=== PATIENT | female | born 1945 | race Caucasian/White ===

== ENCOUNTER 2016-11-30 11:15 | Inpatient (IN) | payer MEDICARE, MEDICAID ==
[2016-11-30 11:16] VITALS: BMI 29.8
[2016-11-30] MEDS ORDERED: Albuterol-Ipratrop 3 mg / 0.5 (3 ml) UD IH STA (11:50)
[2016-11-30] MEDS ORDERED: levoFLOXacin 750 mg in D5W 150 ML BAG IVPB STA (12:05)
--- NOTE | 2016-11-30 12:27 | ED PDOC ---
Arrival/HPI - General Chief Complaint: Cough, Cold, Congestion Time Seen by Provider: 11/30/16 11:37 Historian: Patient, Other (daughter) - History of Present Illness Narrative History of Present Illness (Text): 11/30/16 12:29 A 71 year old female, whose past medical history includes diabetes, presents to the emergency department complaining of a cough that developed 3 days ago. Patient's daughter notes patient also has body aches but denies any other complaints at this time. Daughter also reports patient does not smoke. PMD: Dr. Aviles Time/Duration: Other (3 days) Symptom Onset: Sudden Symptom Course: Unchanged Activities at Onset: Rest Context: Home Past Medical History - Provider Review Nursing Documentation Reviewed: Yes - Infectious Disease Hx of Infectious Diseases: None - Tetanus Immunization Tetanus Immunization: Unknown - Cardiac Hx Pacemaker: No - Pulmonary Hx Chronic Obstructive Pulmonary Disease (COPD): Yes - Neurological Hx Paralysis: No - HEENT Hx Cataracts: Yes (WITH SURGERY) Other/Comment: cateract surgery both eyes - Renal Hx Renal Failure: Yes - Endocrine/Metabolic Hx Diabetes Mellitus Type 2: Yes Hx Hypothyroidism: Yes - Hematological/Oncological Hx Blood Transfusions: No - Integumentary Hx Dermatological Disorder: No - Musculoskeletal/Rheumatological Hx Musculoskeletal Disorders: Yes - Gastrointestinal Hx Gastrointestinal Disorders: Yes - Genitourinary/Gynecological Hx Genitourinary Disorders: No Hx Reproductive Disorders: No - Psychiatric Hx Emotional Abuse: No Hx Physical Abuse: No Hx Substance Use: No - Surgical History Hx Hysterectomy: Yes Hx Musculoskeletal Surgery: Yes Hx Orthopedic Surgery: Yes Other/Comment: cataract surgery both eyes - Anesthesia Hx Anesthesia Reactions: No Hx Malignant Hyperthermia: No - Suicidal Assessment Feels Threatened In Home Enviroment: No Family/Social History - Physician Review Nursing Documentation Reviewed: Yes Family/Social History: No Known Family HX Smoking Status: Never Smoked Hx Alcohol Use: No Hx Substance Use: No Hx Substance Use Treatment: No Allergies/Home Meds Allergies/Adverse Reactions: Allergies iodine Allergy (Verified 11/30/16 11:29) ANAPHYLAXIS Home Medications: Home Meds Medication Instructions Recorded Confirmed Pantoprazole [Protonix EC Tab] 40 mg PO DAILY 11/16/14 11/30/16 Montelukast [Singulair] 10 mg PO DAILY 12/04/14 11/30/16 Clopidogrel [Plavix] 75 mg PO DAILY 09/03/15 11/30/16 Ergocalciferol (Vitamin D2) 50,000 iu PO QWK 09/03/15 11/30/16 [Vitamin D2] Insulin Detemir [Levemir Flextouch] 40 units SC ACBD 09/03/15 11/30/16 Simvastatin [Zocor] 20 mg PO DAILY 09/03/15 11/30/16 amLODIPine [Norvasc] 10 mg PO DAILY 09/03/15 11/30/16 Aspirin [Ecotrin] 81 mg PO DAILY 04/12/16 11/30/16 SITagliptin [Januvia] 100 mg PO QAM 04/12/16 11/30/16 Amiodarone Hydrochloride 200 mg PO DAILY 11/30/16 11/30/16 [Cordarone] Sertraline HCl [Zoloft] 150 mg PO HS 11/30/16 11/30/16 Review of Systems - Physician Review All systems were reviewed & negative as marked: Yes - Review of Systems Eyes: Normal ENT: Normal Respiratory: Cough Cardiovascular: Normal Genitourinary Female: Normal Musculoskeletal: Other (body aches) Skin: Normal Neurological: Normal Endocrine: Normal Hemo/Lymphatic: Normal Psychiatric: Normal Physical Exam Vital Signs Reviewed: Yes Vital Signs Temp Pulse Resp BP Pulse Ox 11/30/16 16:00 99.6 F 11/30/16 15:16 75 18 152/65 H 98 11/30/16 13:46 79 18 155/66 H 98 11/30/16 13:34 89 20 140/79 98 11/30/16 12:14 74 18 165/63 H 98 11/30/16 11:26 97.7 F 74 16 169/64 H 97 Temperature: Afebrile Blood Pressure: Hypertensive Pulse: Regular Respiratory Rate: Normal Appearance: Positive for: Well-Appearing, Non-Toxic, Comfortable Pain Distress: None Mental Status: Positive for: Alert and Oriented X 3 - Systems Exam Head: Present: Atraumatic, Normocephalic Pupils: Present: PERRL Extroacular Muscles: Present: EOMI Conjunctiva: Present: Normal Mouth: Present: Moist Mucous Membranes Neck: Present: Normal Range of Motion Respiratory/Chest: Present: Wheezes (scattered). No: Accessory Muscle Use Cardiovascular: Present: Regular Rate and Rhythm, Normal S1, S2. No: Murmurs Abdomen: Present: Normal Bowel Sounds. No: Tenderness, Distention, Peritoneal Signs Back: Present: Normal Inspection Upper Extremity: Present: Normal Inspection. No: Cyanosis, Edema Lower Extremity: Present: Normal Inspection. No: Edema Neurological: Present: GCS=15, CN II-XII Intact, Speech Normal Skin: Present: Warm, Dry, Normal Color. No: Rashes Psychiatric: Present: Alert, Oriented x 3, Normal Insight, Normal Concentration Medical Decision Making ED Course and Treatment: 11/30/16 12:24 Impression: A 71 year old female with cough and body aches. Differential Diagnosis included but are not limited to: Plan: -- EKG -- chest xray -- labs -- Urinalysis -- Influenza A B -- Duoneb, Levaquin -- Reassess and disposition Prior Visits: Notes and results from previous visits were reviewed. Patient last reported to the emergency department on 10/17/15 for evaluation of right ankle, hip and shoulder pain after a fall. Progress Notes: EKG: Ordered, reviewed, and independently interpreted the EKG. Rate : 66 BPM Rhythm : NSR Interpretation : poor tracing, lateral leads chest xray: Creator : Aram Galvez MD 11/30/2016 12:32 IMPRESSION: No active disease. CT Chest without contrast Creator : Aram Galvez MD 11/30/2016 14:38 IMPRESSION: Small irregular nodules seen in the right upper lobe most likely infectious or inflammatory in etiology. Multiple mildly enlarged lymph nodes around the celiac axis. - Lab Interpretations Lab Results: 11/30/16 12:30 11/30/16 12:30 Lab Results 11/30/16 13:25: Urine Color Yellow, Urine Appearance Sl cloudy, Urine pH 7.0, Ur Specific Montara 1.015, Urine Protein 30 H, Urine Glucose (UA) Negative, Urine Ketones Negative, Urine Blood Negative, Urine Nitrate Negative, Urine Bilirubin Negative, Urine Urobilinogen 0.2, Ur Leukocyte Esterase Negative, Urine RBC Negative, Urine WBC 0 - 2, Urine Bacteria Trace 11/30/16 12:55: PT 10.7, INR 0.99, APTT 27.8 11/30/16 12:40: pO2 58 H, VBG pH 7.31 L, VBG pCO2 63.0 H, VBG HCO3 31.7 H, VBG Total CO2 33.6 H, VBG O2 Sat (Calc) 91.4 H, VBG Base Excess 3.6 H, VBG Potassium 5.7 H, Glucose 232 H, Lactate 1.2, FiO2 21.0, Sodium 139.0, Chloride 107.0, Venous Blood Potassium 5.7 H 11/30/16 12:30: Influenza Typ A,B (EIA) Negative for flu a/b 11/30/16 12:30: Sodium 138, Potassium 5.3 H, Chloride 103, Carbon Dioxide 30, Anion Gap 10, BUN 12, Creatinine 0.9, Est GFR ( Amer) > 60, Est GFR (Non- Af Amer) > 60, Random Glucose 224 H, Calcium 8.7, Magnesium 1.9, Total Bilirubin 0.5, AST 49 H, ALT 53, Alkaline Phosphatase 116, Lactate Dehydrogenase 499, Total Creatine Kinase 45, Troponin I < 0.01, NT-Pro-B Natriuret Pep 459 H, Total Protein 6.9, Albumin 3.7, Globulin 3.2, Albumin/ Globulin Ratio 1.2 11/30/16 12:30: WBC 8.7, RBC 3.79, Hgb 10.5 L, Hct 32.9 L, MCV 86.8, MCH 27.7, MCHC 31.9, RDW 13.9, Plt Count 227, MPV 10.3, Gran % 61.6, Lymph % (Auto) 25.9, Woodruff % (Auto) 7.7 H, Eos % (Auto) 4.5, Baso % (Auto) 0.3, Gran # 5.38, Lymph # 2.3, Woodruff # 0.7 H, Eos # 0.4, Baso # 0.03 I have reviewed the lab results: Yes - RAD Interpretation Radiology Orders: 11/30/16 11:49 CHEST PORTABLE [RAD] Stat 11/30/16 13:05 CHEST W/O CONTRAST [CT] Stat - EKG Interpretation Interpreted by ED Physician: Yes Type: 12 lead EKG - Medication Orders Current Medication Orders: Albuterol/Ipratropium (Duoneb 3 Mg/0.5 Mg (3 Ml) Ud) 3 ml IH [id number] PRN PRN Reason: Shortness of Breath Amiodarone HCl (Cordarone) 200 mg PO DAILY [facility] Amlodipine Besylate (Norvasc) 10 mg PO DAILY [facility] Aspirin (Ecotrin) 81 mg PO DAILY [facility] Atorvastatin Calcium (Lipitor) 10 mg PO DIN [facility] Clopidogrel Bisulfate (Plavix) 75 mg PO DAILY [facility] Ergocalciferol (Drisdol 50,000 Intl Units Cap) 1 cap PO QWK [facility] Furosemide (Lasix) 20 mg PO DAILY [facility] Home Med (Home Med) 1 unit IH DAILY [facility] Ceftriaxone Sodium (Rocephin 1 Gram Ivpb) 1 gm in 100 mls @ 100 mls/hr IVPB DAILY [facility] PRN Reason: Protocol Azithromycin (Zithromax 500mg In Ns) 500 mg in 250 mls @ 167 mls/hr IVPB DAILY [facility] PRN Reason: Protocol Insulin Detemir (Levemir) 20 unit SC ACBD [facility] Insulin Human Regular (Humulin R Low) 0 units SC ACHS [facility] PRN Reason: Protocol Levothyroxine Sodium (Synthroid) 88 mcg PO ACB [facility] Losartan Potassium (Cozaar) 100 mg PO DAILY [facility] Montelukast Sodium (Singulair) 10 mg PO DAILY [facility] Pantoprazole Sodium (Protonix Ec Tab) 40 mg PO DAILY [facility] Sertraline HCl (Zoloft) 150 mg PO HS [facility] Sitagliptin Phosphate (Januvia) 100 mg PO QAM [facility] Discontinued Medications Albuterol/Ipratropium (Duoneb 3 Mg/0.5 Mg (3 Ml) Ud) 3 ml IH STAT STA Stop: 11/30/16 11:51 Last Admin: 11/30/16 12:44 Dose: 3 ml Levofloxacin/Dextrose (Levaquin 750mg) 750 mg IVPB STAT STA Stop: 11/30/16 12:06 Last Admin: 11/30/16 12:47 Dose: 750 mg - Scribe Statement The provider has reviewed the documentation as recorded by the Jacey Meléndez Provider Scribe Attestation: All medical record entries made by the Scribelida were at my direction and personally dictated by me. I have reviewed the chart and agree that the record accurately reflects my personal performance of the history, physical exam, medical decision making, and the department course for this patient. I have also personally directed, reviewed, and agree with the discharge instructions and disposition. Disposition/Present on Arrival - Present on Arrival Any Indicators Present on Arrival: No History of DVT/PE: No History of Uncontrolled Diabetes: Yes Urinary Catheter: No History of Decub. Ulcer: No History Surgical Site Infection Following: None - Disposition Have Diagnosis and Disposition been Completed?: Yes Diagnosis: Pneumonia Disposition: HOSPITALIZED Disposition Time: 03:00 Condition: STABLE
--- NOTE | 2016-11-30 12:30 | RAD ---
HISTORY: sob COMPARISON: 03/02/2016 FINDINGS: LUNGS: No active pulmonary disease. PLEURA: No significant pleural effusion identified, no pneumothorax apparent. CARDIOVASCULAR: The heart is normal in size. There is mild vascular congestion OSSEOUS STRUCTURES: No significant abnormalities. VISUALIZED UPPER ABDOMEN: Normal. OTHER FINDINGS: None. IMPRESSION: No active disease.
[2016-11-30 12:41] LABS: ADD MANUAL DIFF? NO
[2016-11-30 12:47] LABS: VENOUS BLOOD GAS BASE EXCESS 3.6 mmol/L (0.0-2.0); VENOUS BLOOD PH 7.31 (7.32-7.43)
[2016-11-30 12:47] LABS: BASO # 0.03 K/mm3 (0.0-2.0); BASO % 0.3 % (0.0-3.0); EOS # 0.4 (0.0-0.7); EOS % 4.5 % (1.5-5.0); GRAN # 5.38 (1.4-6.5); GRAN % 61.6 % (50.0-68.0); HEMATOCRIT 32.9 % (36.0-48.0); LYMPH # 2.3 (1.2-3.4); LYMPH % 25.9 % (22.0-35.0); MEAN CELL VOLUME 86.8 fL (80.0-105.0); MEAN CORPUSCULAR HEMOGLOBIN 27.7 pg (25.0-35.0); MEAN CORPUSCULAR HGB CONC 31.9 g/dl (31.0-37.0); MEAN PLATELET VOLUME 10.3 fl (7.0-11.0); MONO # 0.7 (0.1-0.6); MONO % 7.7 % (1.0-6.0); PLATELET COUNT 227 10^3/uL (120.0-450.0); RED CELL DISTRIBUTION WIDTH 13.9 % (11.5-14.5); WHITE BLOOD COUNT 8.7 10^3/ul (4.5-11.0)
[2016-11-30 12:52] LABS: ALB/GLOB RATIO 1.2 (1.1-1.8); ALKALINE PHOSPHATASE 116 U/L (38-133); ALT/SGPT 53 U/L (7-56); AST/SGOT 49 U/L (15-39); BILIRUBIN,TOTAL 0.5 mg/dL (0.2-1.3); BLOOD UREA NITROGEN 12 mg/dL (7-21); CALCIUM 8.7 mg/dL (8.4-10.5); CARBON DIOXIDE 30 mmol/L (21-33); CHLORIDE 103 mmol/L (98-107); GFR AFRICAN-AMERICAN > 60; GLUCOSE,RANDOM 224 mg/dL (70-110); MAGNESIUM 1.9 mg/dL (1.7-2.2); POTASSIUM 5.3 mmol/L (3.6-5.0); SODIUM 138 mmol/L (132-148); TOTAL PROTEIN 6.9 g/dL (5.8-8.3)
[2016-11-30 13:02] LABS: INR 0.99 (0.93-1.08); PARTIAL THROMBOPLASTIN TIME 27.8 Seconds (23.7-30.8)
[2016-11-30 13:04] LABS: TROPONIN I < 0.01 ng/mL
[2016-11-30 13:36] LABS: URINE BILIRUBIN NEGATIVE (NEGATIVE); URINE BLOOD NEGATIVE (NEGATIVE); URINE GLUCOSE (UA) NEGATIVE (NEGATIVE); URINE KETONE NEGATIVE (NEGATIVE); URINE LEUKOCYTE ESTERASE NEGATIVE Leu/uL (NEGATIVE); URINE PROTEIN 30 mg/dL (<30 mg/dL); URINE UROBILINOGEN 0.2 E.U./dL (<1 E.U./dL)
[2016-11-30 13:37] LABS: URINE APPEARANCE SL CLOUDY (CLEAR); URINE COLOR YELLOW (YELLOW)
[2016-11-30 13:40] LABS: URINE BACTERIA TRACE (NEG); URINE RBC NEGATIVE /hpf (0-2); URINE WBC 0 - 2 /hpf (0-6)
--- NOTE | 2016-11-30 14:36 | CT ---
PROCEDURE: CT Chest without contrast HISTORY: cough r/o pna COMPARISON: None. TECHNIQUE: Contiguous axial images were obtained through the chest without intravenous contrast enhancement. Sagittal and coronal reconstructions were performed. Radiation dose (DLP): 507 mGy-cm. This CT exam was performed using one or more of the following dose reduction techniques: Automated exposure control, adjustment of the mA and/or kV according to patient size, and/or use of iterative reconstruction technique. FINDINGS: LUNGS: Small irregular nodules are seen in the right upper lobe. The largest nodule measures 8 mm and is seen on image 31 series 4. The nodules are most consistent with infectious or inflammatory etiology. Follow-up is recommended. MEDIASTINUM: Unremarkable thoracic aorta. No aneurysm. Normal sized heart. Main pulmonary artery unremarkable. No vascular congestion. No lymphadenopathy. PLEURA: No pleural fluid. No pneumothorax. BONES: No fracture. No destructive lesion. UPPER ABDOMEN: Multiple mildly enlarged lymph nodes are seen around the celiac axis OTHER FINDINGS: None. IMPRESSION: Small irregular nodules seen in the right upper lobe most likely infectious or inflammatory in etiology. Multiple mildly enlarged lymph nodes around the celiac axis
--- NOTE | 2016-11-30 15:51 | CARD ---
APPROVED REPORT EKG Measurement Heart [id number] <Conclusion> Normal sinus rhythm LAD ASMI, age unknown Artifact V5, V6
[2016-11-30] MEDS ORDERED: Albuterol-Ipratrop 3 mg / 0.5 (3 ml) UD IH PRN (17:20)
--- NOTE | 2016-11-30 21:31 | CP.PCM.CON ---
History of Present Illness - History of Present Illness History of Present Illness: Infectious Disease Consultation: November 30, 2016 71 yo female presenting with shortness of breath and lower chest pain. Patient with extensive past medical history with lumbar radiculopathy, hypertension, CVA , renal insufficiency, hypothyroidism, GERD, chronic back pain, COPD. Question of lung masses in the patient. Possible pneumonia. PMHx: lumbar radiculopathy, hypertension, CVA, renal insufficiency, hypothyroidism, GERD, chronic back pain, COPD PSHx: Cataract surgery, hysterectomy, orthopedic surgery Allergies: Iodine Social Hx: No tobacco, EtOH, or illicit drug use Active Medications Albuterol/Ipratropium (Duoneb 3 Mg/0.5 Mg (3 Ml) Ud) 3 ml IH [id number] PRN PRN Reason: Shortness of Breath Amiodarone HCl (Cordarone) 200 mg PO DAILY [facility] Amlodipine Besylate (Norvasc) 10 mg PO DAILY [facility] Aspirin (Ecotrin) 81 mg PO DAILY [facility] Atorvastatin Calcium (Lipitor) 10 mg PO DIN [facility] Clopidogrel Bisulfate (Plavix) 75 mg PO DAILY [facility] Ergocalciferol (Drisdol 50,000 Intl Units Cap) 1 cap PO QWK ARI Furosemide (Lasix) 20 mg PO DAILY [facility] Home Med (Home Med) 1 unit IH DAILY [facility] Ceftriaxone Sodium (Rocephin 1 Gram Ivpb) 1 gm in 100 mls @ 100 mls/hr IVPB DAILY [facility] PRN Reason: Protocol Azithromycin (Zithromax 500mg In Ns) 500 mg in 250 mls @ 167 mls/hr IVPB DAILY [facility] PRN Reason: Protocol Insulin Detemir (Levemir) 20 unit SC ACBD [facility] Insulin Human Regular (Humulin R Low) 0 units SC ACHS [facility] PRN Reason: Protocol Levothyroxine Sodium (Synthroid) 88 mcg PO ACB [facility] Losartan Potassium (Cozaar) 100 mg PO DAILY [facility] Montelukast Sodium (Singulair) 10 mg PO DAILY [facility] Pantoprazole Sodium (Protonix Ec Tab) 40 mg PO DAILY [facility] Sertraline HCl (Zoloft) 150 mg PO 1800 ARI Last Admin: 11/30/16 19:45 Dose: 150 mg Sitagliptin Phosphate (Januvia) 100 mg PO QAM [facility] Family Hx: none given ROS: SOB, cough. No fevers, chest pain, abdominal pain, melena, hematuria, hematemesis, hematochezia, headaches, dizziness. Past Patient History - Infectious Disease Hx of Infectious Diseases: None - Tetanus Immunizations Tetanus Immunization: Unknown - Past Medical History & Family History Past Medical History?: Yes - Past Social History Smoking Status: Never Smoked - CARDIAC Hx Pacemaker: No - PULMONARY Hx Chronic Obstructive Pulmonary Disease (COPD): Yes - NEUROLOGICAL Hx Paralysis: No - HEENT Hx Cataracts: Yes (WITH SURGERY) Other/Comment: cateract surgery both eyes - RENAL Hx Renal Failure: Yes - ENDOCRINE/METABOLIC Hx Diabetes Mellitus Type 2: Yes Hx Hypothyroidism: Yes - HEMATOLOGICAL/ONCOLOGICAL Hx Blood Transfusions: No - INTEGUMENTARY Hx Dermatological Problems: No - MUSCULOSKELETAL/RHEUMATOLOGICAL Hx Musculoskeletal Disorders: Yes - GASTROINTESTINAL Hx Gastrointestinal Disorders: Yes - GENITOURINARY/GYNECOLOGICAL Hx Genitourinary Disorders: No Hx Reproductive Disorders: No - PSYCHIATRIC Hx Emotional Abuse: No Hx Physical Abuse: No Hx Substance Use: No - SURGICAL HISTORY Hx Hysterectomy: Yes Hx Musculoskeletal Surgery: Yes Hx Orthopedic Surgery: Yes Other/Comment: cataract surgery both eyes - ANESTHESIA Hx Anesthesia Reactions: No Hx Malignant Hyperthermia: No Meds Allergies/Adverse Reactions: Allergies Allergy/AdvReac Type Severity Reaction Status Date / Time iodine Allergy ANAPHYLAXIS Verified 11/30/16 11:29 - Medications Medications: Current Medications Albuterol/Ipratropium (Duoneb 3 Mg/0.5 Mg (3 Ml) Ud) 3 ml IH [id number] PRN PRN Reason: Shortness of Breath Amiodarone HCl (Cordarone) 200 mg PO DAILY [facility] Amlodipine Besylate (Norvasc) 10 mg PO DAILY [facility] Aspirin (Ecotrin) 81 mg PO DAILY [facility] Atorvastatin Calcium (Lipitor) 10 mg PO DIN [facility] Clopidogrel Bisulfate (Plavix) 75 mg PO DAILY [facility] Ergocalciferol (Drisdol 50,000 Intl Units Cap) 1 cap PO QWK [facility] Furosemide (Lasix) 20 mg PO DAILY [facility] Home Med (Home Med) 1 unit IH DAILY [facility] Ceftriaxone Sodium (Rocephin 1 Gram Ivpb) 1 gm in 100 mls @ 100 mls/hr IVPB DAILY [facility] PRN Reason: Protocol Azithromycin (Zithromax 500mg In Ns) 500 mg in 250 mls @ 167 mls/hr IVPB DAILY [facility] PRN Reason: Protocol Insulin Detemir (Levemir) 20 unit SC ACBD [facility] Insulin Human Regular (Humulin R Low) 0 units SC ACHS [facility] PRN Reason: Protocol Levothyroxine Sodium (Synthroid) 88 mcg PO ACB [facility] Losartan Potassium (Cozaar) 100 mg PO DAILY [facility] Montelukast Sodium (Singulair) 10 mg PO DAILY [facility] Pantoprazole Sodium (Protonix Ec Tab) 40 mg PO DAILY [facility] Sertraline HCl (Zoloft) 150 mg PO 1800 [facility] Last Admin: 11/30/16 19:45 Dose: 150 mg Sitagliptin Phosphate (Januvia) 100 mg PO QAM [facility] Physical Exam - Constitutional Appears: Non-toxic, Chronically Ill - Head Exam Head Exam: ATRAUMATIC, NORMOCEPHALIC - Eye Exam Eye Exam: EOMI, PERRL Pupil Exam: NORMAL ACCOMODATION, PERRL - ENT Exam ENT Exam: Mucous Membranes Moist, Normal External Ear Exam - Respiratory Exam Respiratory Exam: Clear to Auscultation Bilateral, Rales, NORMAL BREATHING PATTERN. absent: Rhonchi, Wheezes - Cardiovascular Exam Cardiovascular Exam: REGULAR RHYTHM, RRR, +S1, +S2 - GI/Abdominal Exam GI & Abdominal Exam: Normal Bowel Sounds, Soft. absent: Distended, Tenderness - Extremities Exam Extremities exam: Positive for: full ROM, normal inspection - Neurological Exam Neurological exam: Alert, CN II-XII Intact, Oriented x3 - Psychiatric Exam Psychiatric exam: Normal Affect, Normal Mood - Skin Skin Exam: Intact, Normal Color Results - Vital Signs Recent Vital Signs: Last Vital Signs Temp 99.6 F 11/30/16 18:49 Pulse 65 11/30/16 18:49 Resp 20 11/30/16 18:49 BP 170/65 H 11/30/16 18:49 Pulse Ox 95 11/30/16 16:00 - Labs Result Diagrams: 11/30/16 12:30 11/30/16 12:30 Assessment & Plan - Assessment and Plan (Free Text) Assessment: 71 yo female with SOB and cough found to have small irregular nodules in right upper lobe on CT scan. The patient is awake and alert. does most of the answering for her. Supportive care. On Rocephin and Azithromycin. Obtain rader cultures. May need to strengthen antibiotic coverage depending on patient' s response to Rocephin and Azithromycin. Supportive care. Thank you for allowing me to participate in the care of the patient, we will follow with you.
[2016-11-30] MEDS: Insulin Reg-LOW-Coverage SC SCH (22:24)
[2016-11-30] MEDS ORDERED: guaiFENesin DM 200 mg-20 mg/10 ml UD PO STA (22:31)
[2016-12-01 07:34] LABS: ADD MANUAL DIFF? NO
[2016-12-01 07:41] LABS: BASO # 0.02 K/mm3 (0.0-2.0); BASO % 0.2 % (0.0-3.0); EOS # 0.3 (0.0-0.7); EOS % 4.1 % (1.5-5.0); GRAN # 4.51 (1.4-6.5); GRAN % 55.9 % (50.0-68.0); HEMATOCRIT 34.7 % (36.0-48.0); LYMPH # 2.5 (1.2-3.4); LYMPH % 30.9 % (22.0-35.0); MEAN CELL VOLUME 85.9 fL (80.0-105.0); MEAN CORPUSCULAR HEMOGLOBIN 28.2 pg (25.0-35.0); MEAN CORPUSCULAR HGB CONC 32.9 g/dl (31.0-37.0); MEAN PLATELET VOLUME 10.4 fl (7.0-11.0); MONO # 0.7 (0.1-0.6); MONO % 8.9 % (1.0-6.0); PLATELET COUNT 234 10^3/uL (120.0-450.0); RED CELL DISTRIBUTION WIDTH 13.8 % (11.5-14.5); WHITE BLOOD COUNT 8.1 10^3/ul (4.5-11.0)
[2016-12-01 07:50] LABS: ALB/GLOB RATIO 1.1 (1.1-1.8); ALKALINE PHOSPHATASE 120 U/L (38-133); ALT/SGPT 59 U/L (7-56); AST/SGOT 52 U/L (15-39); BILIRUBIN,TOTAL 0.6 mg/dL (0.2-1.3); BLOOD UREA NITROGEN 12 mg/dL (7-21); CALCIUM 9.1 mg/dL (8.4-10.5); CARBON DIOXIDE 30 mmol/L (21-33); CHLORIDE 100 mmol/L (98-107); GFR AFRICAN-AMERICAN > 60; GLUCOSE,RANDOM 150 mg/dL (70-110); POTASSIUM 5.1 mmol/L (3.6-5.0); SODIUM 137 mmol/L (132-148); TOTAL PROTEIN 7.4 g/dL (5.8-8.3)
[2016-12-01] MEDS: Insulin Detemir 100 units/ml Vial (Levemir) SC SCH ×3 (08:35→18:27)
[2016-12-01] MEDS: Insulin Reg-LOW-Coverage SC SCH ×4 (08:35→21:31)
[2016-12-01] MEDS: Levothyroxine 88 MCG TAB PO SCH (09:06)
[2016-12-01] MEDS: cefTRIAXone 1 gm 1 GM/100 ML BAG IVPB SCH (09:06)
[2016-12-01] MEDS: Pantoprazole 40 mg EC Tab PO SCH (09:07)
[2016-12-01] MEDS: BREO IH SCH (09:12)
[2016-12-01] MEDS: guaiFENesin DM 100 mg-10 mg/5 ml UD PO PRN ×3 (10:45→21:48)
[2016-12-01] MEDS: Azithromycin 500MG/NS 250ml 500 MG/250 ML BAG IVPB SCH (10:46)
--- NOTE | 2016-12-01 19:00 | CON ---
DATE: 12/01/2016 REASON FOR CONSULT: Cough, shortness of breath, has a pulmonary infiltrate. HISTORY OF PRESENT ILLNESS: This is a 71-year-old female with past medical history significant for c hronic obstructive lung disease, hypothyroid, renal insufficiency, history of stroke, hypertension, l umbar radiculopathy, comes in with cough, shortness of breath, fever. In the ER, had an x-ray done, which shows questionable infiltrate/mass also had some mediastinal adenopathy, admitted for further w orkup, seen by Dr. Geiger from infectious diseases, presently sitting side of the bed, feels a little be tter, not very compliant with CPAP. Still having cough and shortness of breath. No nausea, no vomit ing, no diarrhea. No leg pain or leg swelling. PAST MEDICAL HISTORY: Chronic obstructive lung disease, obstructive sleep apnea syndrome, hypertensi on, stroke, renal insufficiency, hypothyroid, GERD, lumbar radiculopathy. ALLERGIES: IODINE HAD AN ANAPHYLACTIC SHOCK. SOCIAL HISTORY: She stopped smoking many years ago. Denied any alcohol use. FAMILY HISTORY: No significant cardiopulmonary disease reported. MEDICATIONS: She is on amiodarone 200 mg daily, Cozaar 100 mg daily, vitamin D 50,000 units weekly, DuoNeb q. 6 hours p.r.n., Ecotrin 81 mg daily, insulin coverage, Januvia 100 mg daily, Lasix 40 mg d aily, Levemir 20 units subQ a.c.b., Lipitor 10 mg daily, Norvasc 10 mg daily, Plavix 75 mg daily, Pr otonix 40 mg daily, Robitussin-DM 5 mL q. 8 hours p.r.n., Rocephin 1 gram daily, Singulair 10 mg soha y, Synthroid 88 mcg, Zithromax 500 mg daily, Zoloft 150 mg daily. REVIEW OF SYSTEMS: No headache, no rhinitis. Has a cough and shortness of breath. Pleuritic type c hest pain, no nausea, no vomiting, no dysuria. No leg pain or leg swelling, low back pain. PHYSICAL EXAMINATION: GENERAL: Sitting side of the bed, no acute distress. VITAL SIGNS: Temp is 98, heart rate is 64, respiratory rate is 20, blood pressure 151/56, pulse ox 9 5% on nasal cannula. HEENT: Moist mucous membranes. Crowded airway. Mallampati score is 4. NECK: Supple. No JVD. LUNGS: Has scattered rhonchi a few crackles at the bases. HEART: S1, S2. ABDOMEN: Soft, nontender. No organomegaly. EXTREMITIES: There is not much edema. NEUROLOGIC: Awake, alert, follows simple commands. LABORATORY DATA: Shows hemoglobin 11.4, hematocrit 34.7, WBC 8.1, and platelet is 234. INR 0.9, PTT is 28. VBG showed pH 7.31, pCO2 is 63, pO2 is 58 that is yesterday on room air. Sodium 137, potass ium 5.1, chloride 100, bicarbonate 30, BUN 12, creatinine 0.8, glucose 150, calcium 9.1, AST 52, ALT 59, alk phos is 120, albumin is 3.9. Microbiology: Blood cultures have been negative. Had echocard iogram done, report is pending. CT of the chest was done yesterday, which shows small irregular nodu le seen in the right upper lobe, most likely infectious or inflammatory etiology, multiple mildly enl arged lymph nodes around the celiac axis noted. IMPRESSION AND PLAN: Chronic obstructive lung disease, has a lung nodule, rule out pneumonia, histor y of obstructive sleep apnea syndrome, history of cerebrovascular accident, hypertension, lumbar radi culopathy, hypothyroid. Agree with Dr. Aviles with the present management. Continue antibiotics, in haled bronchodilators. CPAP while sleeping. Gastric prophylaxis, deep venous thrombosis prophylaxis . CT scan of the abdomen and pelvis was ordered, it was placed on hold because patient CANNOT TAKE I ODINE SHE HAS ANAPHYLACTIC SHOCK LAST TIME and she has already. We will do followup CAT scan of the chest to assure the stability of the nodule. Thank you and will follow with you. Homer Sawant MD cc: [id number] TT: 12/01/2016 18:59:34 Confirmation # [id number] Dictation # [id number]
[2016-12-01] MEDS: Budesonide 0.5 mg/2 ml Inhal Susp UD IH SCH (20:30)
[2016-12-01] MEDS: Arformoterol 15 mcg/2 ml Inh Sol IH SCH (20:30)
--- NOTE | 2016-12-01 21:53 | CP.PCM.PN ---
Subjective - Date & Time of Evaluation Date of Evaluation: 12/01/16 Time of Evaluation: 20:00 - Subjective Subjective: Infectious Disease Follow Up: December 01, 2016 71 yo female presenting with shortness of breath and lower chest pain. Patient with extensive past medical history with lumbar radiculopathy, hypertension, CVA , renal insufficiency, hypothyroidism, GERD, chronic back pain, COPD. Question of lung masses in the patient. Possible pneumonia. She feels a little better today. Objective - Vital Signs/Intake and Output Vital Signs (last 24 hours): Temp Pulse Resp BP Pulse Ox 98.9 F 56 L 20 129/49 L 98 12/01/16 18:00 12/01/16 18:00 12/01/16 18:00 12/01/16 18:00 12/01/16 18:00 - Medications Medications: Current Medications Albuterol/Ipratropium (Duoneb 3 Mg/0.5 Mg (3 Ml) Ud) 3 ml IH [id number] PRN PRN Reason: Shortness of Breath Amiodarone HCl (Cordarone) 200 mg PO DAILY [facility] Last Admin: 12/01/16 09:07 Dose: 200 mg Amlodipine Besylate (Norvasc) 10 mg PO DAILY [facility] Last Admin: 12/01/16 09:07 Dose: 10 mg Arformoterol Tartrate (Brovana) 15 mcg IH [id number] [facility] Last Admin: 12/01/16 20:30 Dose: 15 mcg Aspirin (Ecotrin) 81 mg PO DAILY [facility] Last Admin: 12/01/16 09:07 Dose: 81 mg Atorvastatin Calcium (Lipitor) 10 mg PO DIN [facility] Last Admin: 12/01/16 18:25 Dose: 10 mg Budesonide (Pulmicort Respules) 0.5 mg IH [id number] [facility] Last Admin: 12/01/16 20:30 Dose: 0.5 mg Clopidogrel Bisulfate (Plavix) 75 mg PO DAILY [facility] Last Admin: 12/01/16 09:07 Dose: 75 mg Ergocalciferol (Drisdol 50,000 Intl Units Cap) 1 cap PO QWK [facility] Furosemide (Lasix) 20 mg PO DAILY [facility] Last Admin: 12/01/16 09:12 Dose: Not Given Guaifenesin/Dextromethorphan (Robitussin Dm) 5 ml PO Q8H PRN PRN Reason: Cough Last Admin: 12/01/16 13:27 Dose: 5 ml Home Med (Home Med) 1 unit IH DAILY [facility] Last Admin: 12/01/16 09:12 Dose: Not Given Ceftriaxone Sodium (Rocephin 1 Gram Ivpb) 1 gm in 100 mls @ 100 mls/hr IVPB DAILY [facility] PRN Reason: Protocol Last Admin: 12/01/16 09:06 Dose: 100 mls/hr Azithromycin (Zithromax 500mg In Ns) 500 mg in 250 mls @ 167 mls/hr IVPB DAILY [facility] PRN Reason: Protocol Last Admin: 12/01/16 10:46 Dose: 167 mls/hr Insulin Detemir (Levemir) 20 unit SC ACBD [facility] Last Admin: 12/01/16 18:27 Dose: 20 unit Insulin Human Regular (Humulin R Low) 0 units SC ACHS [facility] PRN Reason: Protocol Last Admin: 12/01/16 21:31 Dose: Not Given Levothyroxine Sodium (Synthroid) 88 mcg PO ACB [facility] Last Admin: 12/01/16 09:06 Dose: 88 mcg Losartan Potassium (Cozaar) 100 mg PO DAILY [facility] Last Admin: 12/01/16 09:07 Dose: 100 mg Montelukast Sodium (Singulair) 10 mg PO DAILY [facility] Last Admin: 12/01/16 09:07 Dose: 10 mg Pantoprazole Sodium (Protonix Ec Tab) 40 mg PO DAILY [facility] Last Admin: 12/01/16 09:07 Dose: 40 mg Sertraline HCl (Zoloft) 150 mg PO 1800 [facility] Last Admin: 12/01/16 18:25 Dose: 150 mg Sitagliptin Phosphate (Januvia) 100 mg PO QAM [facility] Last Admin: 12/01/16 11:02 Dose: 100 mg - Labs Labs: 12/01/16 07:32 12/01/16 07:32 PT 10.7 Seconds (9.9-11.8) 11/30/16 12:55 INR 0.99 (0.93-1.08) 11/30/16 12:55 APTT 27.8 Seconds (23.7-30.8) 11/30/16 12:55 - Constitutional Appears: Non-toxic, Chronically Ill - Head Exam Head Exam: ATRAUMATIC, NORMOCEPHALIC - Eye Exam Eye Exam: EOMI, PERRL Pupil Exam: NORMAL ACCOMODATION, PERRL - ENT Exam ENT Exam: Mucous Membranes Moist, Normal External Ear Exam, TM's Normal Bilaterally - Neck Exam Neck Exam: Full ROM, Normal Inspection - Respiratory Exam Respiratory Exam: Decreased Breath Sounds, Rhonchi, NORMAL BREATHING PATTERN. absent: Rales, Wheezes Additional comments: basilar rhonchi - Cardiovascular Exam Cardiovascular Exam: REGULAR RHYTHM, RRR, +S1, +S2 - GI/Abdominal Exam GI & Abdominal Exam: Soft, Normal Bowel Sounds. absent: Distended, Tenderness - Extremities Exam Extremities Exam: Full ROM, Normal Inspection - Neurological Exam Neurological Exam: Alert, Awake, CN II-XII Intact, Oriented x3 - Psychiatric Exam Psychiatric exam: Normal Affect, Normal Mood - Skin Skin Exam: Intact, Normal Color Assessment and Plan - Assessment and Plan (Free Text) Assessment: 71 yo female with SOB and cough found to have small irregular nodules in right upper lobe on CT scan. The patient is awake and alert. does most of the answering for her. Supportive care. On Rocephin and Azithromycin. Obtain rader cultures. May need to strengthen antibiotic coverage depending on patient' s response to Rocephin and Azithromycin. Today she appears comfortable on RA with little SOB. Supportive care. Thank you for allowing me to participate in the care of the patient, we will follow with you.
[2016-12-02] MEDS: Budesonide 0.5 mg/2 ml Inhal Susp UD IH SCH ×2 (07:44→20:50)
[2016-12-02] MEDS: Arformoterol 15 mcg/2 ml Inh Sol IH SCH ×2 (07:44→20:50)
[2016-12-02 07:47] LABS: ADD MANUAL DIFF? NO
[2016-12-02 07:54] LABS: BASO # 0.02 K/mm3 (0.0-2.0); BASO % 0.3 % (0.0-3.0); EOS # 0.3 (0.0-0.7); EOS % 4.4 % (1.5-5.0); GRAN # 3.77 (1.4-6.5); GRAN % 56.6 % (50.0-68.0); HEMATOCRIT 33.1 % (36.0-48.0); LYMPH # 1.9 (1.2-3.4); LYMPH % 29.2 % (22.0-35.0); MEAN CELL VOLUME 86.2 fL (80.0-105.0); MEAN CORPUSCULAR HEMOGLOBIN 27.9 pg (25.0-35.0); MEAN CORPUSCULAR HGB CONC 32.3 g/dl (31.0-37.0); MEAN PLATELET VOLUME 10.3 fl (7.0-11.0); MONO # 0.6 (0.1-0.6); MONO % 9.5 % (1.0-6.0); PLATELET COUNT 223 10^3/uL (120.0-450.0); RED CELL DISTRIBUTION WIDTH 13.9 % (11.5-14.5); WHITE BLOOD COUNT 6.7 10^3/ul (4.5-11.0)
[2016-12-02 08:07] LABS: ALB/GLOB RATIO 1.2 (1.1-1.8); ALKALINE PHOSPHATASE 112 U/L (38-133); ALT/SGPT 55 U/L (7-56); AST/SGOT 41 U/L (15-39); BILIRUBIN,TOTAL 0.3 mg/dL (0.2-1.3); BLOOD UREA NITROGEN 18 mg/dL (7-21); CALCIUM 8.6 mg/dL (8.4-10.5); CARBON DIOXIDE 28 mmol/L (21-33); CHLORIDE 102 mmol/L (95-110); GFR AFRICAN-AMERICAN > 60; GLUCOSE,RANDOM 205 mg/dL (70-110); POTASSIUM 4.9 mmol/L (3.6-5.0); SODIUM 137 mmol/L (132-148); TOTAL PROTEIN 6.5 g/dL (5.8-8.3)
[2016-12-02] MEDS: Insulin Detemir 100 units/ml Vial (Levemir) SC SCH ×2 (08:11→17:27)
[2016-12-02] MEDS: Levothyroxine 88 MCG TAB PO SCH (08:11)
[2016-12-02] MEDS: Insulin Reg-LOW-Coverage SC SCH ×4 (08:11→22:50)
--- NOTE | 2016-12-02 09:00 | HP ---
CHIEF COMPLAINT: Coughing, cold, congestion, shortness of breath. HISTORY OF PRESENT ILLNESS: The patient is a 71-year-old female with past medical history of diabetes mellitus, hypertension, hypercholesterolemia, CVA, and hypothyroidism who came to the Emergency Room of [facility] complaining about cough that was a few days ago. The patient's daughter noticed the patient is also having body aches, but denies diarrhea or other complaint. Daughter reports that the patient does not smoke. No fever, no chills. PAST MEDICAL HISTORY: COPD, renal failure, diabetes mellitus type 2, hypothyroidism, hysterectomy, history of stroke. FAMILY HISTORY: Father and mother noncontributory. HABITS: Never smoked, no drugs, no ethanol. ALLERGIES: IODINE. HOME MEDICATIONS: Protonix, Singulair, Plavix, vitamin D, Levemir, Zocor, Norvasc, Ecotrin, Januvia, Cordarone, Zoloft. REVIEW OF SYSTEMS: The patient is seen and examined on the bedside in the room , looks comfortable. No nausea, vomiting, or diarrhea. No hematuria or hematochezia. Still coughing with coughing having chest pain, shortness of breath. No fever, no chills. PHYSICAL EXAMINATION: VITAL SIGNS: Temperature is 98.8, pulse 56, blood pressure 120/46, respiratory rate 20. HEENT: Head normocephalic, atraumatic. Eyes: PERRLA. Extraocular muscles intact. Conjunctivae are pale. Nose is patent. Mucous membranes are moist. NECK: Supple. No carotid bruit, JVD, or thyromegaly. CHEST: Bilaterally symmetrical. HEART: S1, S2 positive. LUNGS: Clear to auscultation. ABDOMEN: Soft. Bowel sounds positive. No organomegaly. EXTREMITIES: No edema, no cyanosis. NEUROLOGIC: The patient is awake, alert, moving all 4 extremities. No focal deficit. LABORATORY DATA: White blood cells 8.1, hemoglobin 11.4, hematocrit 34.7, platelets 234. Sodium 137, potassium 5.1. BUN 12, creatinine 0.8. Glucose 170 , 132, 186, AST 52, ALT 59. ASSESSMENT AND PLAN: The patient is a 71-year-old lady with hyperkalemia, uncontrolled diabetes mellitus, abnormal liver function test, anemia, proteinuria, and are negative. Seen by Dr. Sawant, appointment manager, and Dr. Geiger. CAT scan of the chest is done. The patient has history of chronic obstructive lung disease with sleep apnea syndrome, hypertension, stroke, renal insufficiency, hypothyroidism, gastroesophageal reflux disease, lumbar radiculopathy, pneumonia. Continue antibiotics and inhaled bronchodilators. CPAP when sleeping, gastric prophylaxis, deep vein thrombosis prophylaxis. Dr. Sawant ordered a CAT scan of the abdomen and pelvis with contrast, but it was held because the patient CANNOT TAKE IODINE. She has ANAPHYLACTIC SHOCK WITH THE IODINE, last done in [facility] code. CAT scan of the chest was done without contrast to assure the stability of the nodules. Small irregular nodule seen in the right upper lobe, most likely infectious or inflammatory etiology, multiple mildly enlarged lymph nodes around the celiac axis, seen by Dr. Geiger, infectious disease also. The patient was on Rocephin and azithromycin. Obtain rader cultures. May need antibiotic coverage depending on the patient' s response to Rocephin and erythromycin. The patient was still coughing. With coughing, she is getting chest pain. I gave her Robitussin without codeine. Supportive care. We will follow up. Michelle Aviles MD cc: [id number] TT: 12/02/2016 08:59:30 jn [id number]
[2016-12-02] MEDS: Pantoprazole 40 mg EC Tab PO SCH (09:04)
[2016-12-02] MEDS: cefTRIAXone 1 gm 1 GM/100 ML BAG IVPB SCH (09:04)
[2016-12-02] MEDS: BREO IH SCH (09:09)
--- NOTE | 2016-12-02 09:43 | CARD ---
APPROVED REPORT EXAM: Two-dimensional and M-mode echocardiogram with Doppler and color Doppler. Other Information Quality : AverageRhythm : INDICATION R/O SBE 2D DIMENSIONS IVSd1.0 (0.7-1.1cm)LVDd5.0 (3.9-5.9cm) PWd0.8 (0.7-1.1cm)LVDs3.2 (2.5-4.0cm) FS (%) 35.3 %LVEF (%)64.0 (>50%) M-Mode DIMENSIONS Left Atrium (MM)3.80 (2.5-4.0cm)Aortic Root2.30 (2.2-3.7cm) Aortic Cusp Exc.1.40 (1.5-2.0cm) Aortic Valve AoV Peak Wqttosxc953.0cm/sAoV VTI53.3cmLVOT Peak Bfwhrrnx406.0cm/s LVOT VTI33.10cm Mitral Valve MV E Dqzabfid128.0cm/sMV A Ukrzsvyz838.0cm/sE/A ratio0.8 TDI Lateral E' Peak V8.19cm/sMedial E' Peak V6.53cm/sE/Lateral E'14.7 E/Medial E'18.4 Tricuspid Valve TR Peak Ehtbhohe018qx/sRAP YITUVSJL34usXzRS Peak Gr.32mmHg [id number] LEFT VENTRICLE The left ventricle is normal size. There is normal left ventricular wall thickness. The left ventricular function is normal. The left ventricular ejection fraction is within the normal range. There is normal LV segmental wall motion. RIGHT VENTRICLE The right ventricle is normal size. ATRIA The left atrium size is normal. The right atrium size is normal. The interatrial septum is intact with no evidence for an atrial septal defect. AORTIC VALVE The aortic valve is mildly calcified. MITRAL VALVE The mitral valve is mildly thickened but opens well. Mitral annular calcification is moderate. TRICUSPID VALVE The tricuspid valve is normal in structure. There is trace tricuspid regurgitation. PULMONIC VALVE The pulmonic valve is not well visualized. GREAT VESSELS The aortic root is normal in size. PERICARDIAL EFFUSION There is no pericardial effusion. <Conclusion> The left ventricle is normal size. There is normal left ventricular wall thickness. The left ventricular function is normal.
[2016-12-02] MEDS: Azithromycin 500MG/NS 250ml 500 MG/250 ML BAG IVPB SCH (10:44)
[2016-12-02] MEDS: Albuterol-Ipratrop 3 mg / 0.5 (3 ml) UD IH SCH ×4 (14:06→23:30)
[2016-12-02] MEDS ORDERED: MethylPREDNISolone 40 mg Vial IVP SCH (18:00)
--- NOTE | 2016-12-02 18:04 | PN ---
DATE: 12/02/2016 REFERRING PHYSICIAN: Dr. Aviles. SUBJECTIVE: The patient is lying in the bed, head at 45 degrees. Has some cough and shortness of br eath. No chest pain, no nausea, no vomiting, no diarrhea. No dysuria, leg pain or leg swelling. OBJECTIVE: GENERAL: No acute distress. VITAL SIGNS: Temp is 98, heart rate is 70, respiratory rate is 20, blood pressure 143/46, pulse ox 9 5% on room air. HEENT: Small oral cavity, edentulous. NECK: Supple. No JVD. LUNGS: Has scattered rhonchi. HEART: S1 and S2. ABDOMEN: Soft, nontender. No organomegaly. EXTREMITIES: No edema. NEUROLOGIC: Awake, alert, follows simple commands. MEDICATIONS: She is on Brovana inhaled twice a day, amiodarone 200 mg daily, Cozaar 100 mg daily, vi tamin D weekly, DuoNeb q. 4 hours p.r.n., Ecotrin 81 mg daily, Januvia 100 mg daily, Lasix 20 mg soha y, Levemir 20 units subQ a.c.b.d., Lipitor 10 mg daily, Norvasc 10 mg daily, Plavix 75 mg daily, Prot maria eugenia 40 mg daily, Pulmicort inhaled twice a day, Robitussin 5 mL q. 4 hours p.r.n., Rocephin 1 g IV d aily, Singulair 10 mg daily, Solu-Medrol 40 mg q. 6 hours, Synthroid 88 mcg a.c.b., Zithromax 500 mg daily, Zoloft 150 mg daily. LABORATORY DATA: Shows hemoglobin 10.7, hematocrit 33.1, WBC 6.7, platelet count is 223. Sodium 137 , potassium 4.9, chloride 102, bicarbonate 28, BUN 18, creatinine 0.9, glucose 205, calcium 8.6, AST 41, ALT 55, alk phos is 115. Albumin is 3.4. TSH 1.89. Microbiology: Blood cultures have been neg ative. Had echocardiogram done yesterday, which shows right ventricular systolic pressure is 42, lef t ventricle is normal size. There is normal left ventricular wall thickness, left ventricular functi on is normal. Left atrium size is normal, right atrium size is normal. IMPRESSION AND PLAN: Chronic obstructive lung disease, some lung nodules, rule out pneumonia, histor y of obstructive sleep apnea syndrome, history of cerebrovascular accident, hypertension, lumbar radi culopathy, hypothyroid, mild pulmonary hypertension. We will decrease Solu-Medrol to 40 q. 8 hours. Continue antibiotics, gastric prophylaxis, deep venous thrombosis prophylaxis. Will need followup C AT scan to assure that nodule is stable or disappeared. Could not give iodine because patient has an aphylactic shock with IV iodine in the past. Follow up labs in the morning. We will follow with you . Homer Sawant MD cc: [id number] TT: 12/02/2016 18:04:11 Confirmation # [id number] Dictation # [id number] gwyn
--- NOTE | 2016-12-02 18:26 | CP.PCM.PN ---
Subjective - Date & Time of Evaluation Date of Evaluation: 12/02/16 Time of Evaluation: 15:15 - Subjective Subjective: Infectious Disease Follow Up: December 02, 2016 71 yo female presenting with shortness of breath and lower chest pain. Patient with extensive past medical history with lumbar radiculopathy, hypertension, CVA , renal insufficiency, hypothyroidism, GERD, chronic back pain, COPD. Question of lung masses in the patient. Possible pneumonia. She feels a little better today. She is on room air without any major issues. Objective - Vital Signs/Intake and Output Vital Signs (last 24 hours): Temp Pulse Resp BP Pulse Ox 99.3 F 70 18 143/46 L 95 12/02/16 17:00 12/02/16 17:00 12/02/16 17:00 12/02/16 17:00 12/02/16 16:49 Intake and Output: 12/02/16 12/02/16 06:59 18:59 Intake Total 240 Balance 240 - Medications Medications: Current Medications Albuterol/Ipratropium (Duoneb 3 Mg/0.5 Mg (3 Ml) Ud) 3 ml IH [id number] [facility] Last Admin: 12/02/16 15:50 Dose: Not Given Amiodarone HCl (Cordarone) 200 mg PO DAILY [facility] Last Admin: 12/02/16 09:05 Dose: 200 mg Amlodipine Besylate (Norvasc) 10 mg PO DAILY [facility] Last Admin: 12/02/16 09:04 Dose: 10 mg Arformoterol Tartrate (Brovana) 15 mcg IH [id number] [facility] Last Admin: 12/02/16 07:44 Dose: 15 mcg Aspirin (Ecotrin) 81 mg PO DAILY [facility] Last Admin: 12/02/16 09:05 Dose: 81 mg Atorvastatin Calcium (Lipitor) 10 mg PO DIN [facility] Last Admin: 12/02/16 17:27 Dose: 10 mg Budesonide (Pulmicort Respules) 0.5 mg IH [id number] [facility] Last Admin: 12/02/16 07:44 Dose: 0.5 mg Clopidogrel Bisulfate (Plavix) 75 mg PO DAILY [facility] Last Admin: 12/02/16 09:04 Dose: 75 mg Ergocalciferol (Drisdol 50,000 Intl Units Cap) 1 cap PO QWK [facility] Furosemide (Lasix) 20 mg PO DAILY [facility] Last Admin: 12/02/16 09:09 Dose: Not Given Guaifenesin/Dextromethorphan (Robitussin Dm) 5 ml PO Q4H PRN PRN Reason: Cough Home Med (Home Med) 1 unit IH DAILY [facility] Last Admin: 12/02/16 09:09 Dose: Not Given Ceftriaxone Sodium (Rocephin 1 Gram Ivpb) 1 gm in 100 mls @ 100 mls/hr IVPB DAILY [facility] PRN Reason: Protocol Last Admin: 12/02/16 09:04 Dose: 100 mls/hr Azithromycin (Zithromax 500mg In Ns) 500 mg in 250 mls @ 167 mls/hr IVPB DAILY [facility] PRN Reason: Protocol Last Admin: 12/02/16 10:44 Dose: 167 mls/hr Insulin Detemir (Levemir) 20 unit SC ACBD [facility] Last Admin: 12/02/16 17:27 Dose: 20 unit Insulin Human Regular (Humulin R Low) 0 units SC ACHS [facility] PRN Reason: Protocol Last Admin: 12/02/16 17:27 Dose: 2 units Levothyroxine Sodium (Synthroid) 88 mcg PO ACB [facility] Last Admin: 12/02/16 08:11 Dose: 88 mcg Losartan Potassium (Cozaar) 100 mg PO DAILY [facility] Last Admin: 12/02/16 09:05 Dose: 100 mg Methylprednisolone (Solu-Medrol) 40 mg IVP Q8 [facility] Montelukast Sodium (Singulair) 10 mg PO DAILY [facility] Last Admin: 12/02/16 09:05 Dose: 10 mg Pantoprazole Sodium (Protonix Ec Tab) 40 mg PO DAILY [facility] Last Admin: 12/02/16 09:04 Dose: 40 mg Sertraline HCl (Zoloft) 150 mg PO 1800 [facility] Last Admin: 12/02/16 17:27 Dose: 150 mg Sitagliptin Phosphate (Januvia) 100 mg PO QAM [facility] Last Admin: 12/02/16 09:04 Dose: 100 mg - Labs Labs: 12/02/16 07:00 12/02/16 07:00 PT 10.7 Seconds (9.9-11.8) 11/30/16 12:55 INR 0.99 (0.93-1.08) 11/30/16 12:55 APTT 27.8 Seconds (23.7-30.8) 11/30/16 12:55 - Constitutional Appears: Non-toxic, No Acute Distress, Chronically Ill - Head Exam Head Exam: ATRAUMATIC, NORMOCEPHALIC - Eye Exam Eye Exam: EOMI, PERRL Pupil Exam: NORMAL ACCOMODATION, PERRL - ENT Exam ENT Exam: Mucous Membranes Moist, Normal External Ear Exam, TM's Normal Bilaterally - Neck Exam Neck Exam: Full ROM, Normal Inspection - Respiratory Exam Respiratory Exam: Decreased Breath Sounds, Rhonchi, NORMAL BREATHING PATTERN. absent: Rales, Wheezes Additional comments: mild basilar rhonchi. - Cardiovascular Exam Cardiovascular Exam: REGULAR RHYTHM, RRR, +S1, +S2 - GI/Abdominal Exam GI & Abdominal Exam: Soft, Normal Bowel Sounds. absent: Distended, Tenderness - Extremities Exam Extremities Exam: Full ROM, Normal Inspection - Neurological Exam Neurological Exam: Alert, Awake, CN II-XII Intact, Oriented x3 - Psychiatric Exam Psychiatric exam: Normal Affect, Normal Mood - Skin Skin Exam: Intact, Normal Color Assessment and Plan - Assessment and Plan (Free Text) Assessment: 71 yo female with SOB and cough found to have small irregular nodules in right upper lobe on CT scan. The patient is awake and alert. does most of the answering for her. Supportive care. On Rocephin and Azithromycin. Obtain rader cultures. May need to strengthen antibiotic coverage depending on patient' s response to Rocephin and Azithromycin. Today she appears comfortable on RA with little SOB at this time. Will need reimaging in the future to reassess the lung masses/nodules. Supportive care. Thank you for allowing me to participate in the care of the patient, we will follow with you.
[2016-12-02] MEDS: MethylPREDNISolone 40 mg Vial IVP SCH (22:50)
[2016-12-02] MEDS: guaiFENesin DM 100 mg-10 mg/5 ml UD PO PRN (23:00)
[2016-12-03] MEDS: Albuterol-Ipratrop 3 mg / 0.5 (3 ml) UD IH SCH ×5 (03:58→20:42)
[2016-12-03] MEDS: guaiFENesin DM 100 mg-10 mg/5 ml UD PO PRN ×2 (06:18→13:27)
[2016-12-03] MEDS: MethylPREDNISolone 40 mg Vial IVP SCH ×2 (06:18→13:28)
--- NOTE | 2016-12-03 07:38 | PN ---
DATE: 12/02/2016 The patient is a 71-year-old female. The patient is coughing. According to her, with cough, she is getting shortness of breath and getting chest pain. No nausea, vomiting, diarrhea. No dysuria, no fever, no chills, no headache, no dizziness. PHYSICAL EXAMINATION: VITAL SIGNS: Temperature 98.2, heart rate 70, respiratory rate 18, blood pressure 140/46, pulse oximetry 95% on room air. HEENT: Head normocephalic, atraumatic. Eyes: PERRLA. Extraocular muscles intact. Conjunctivae clear. Nose patent. Mucous membranes moist. NECK: Supple. No carotid bruit, no JVD, no thyromegaly. CHEST: Bilaterally symmetrical. HEART: S1, S2 positive. LUNGS: Has scattered rhonchi. ABDOMEN: Soft, nontender. No organomegaly. EXTREMITIES: No edema, no cyanosis. NEUROLOGIC: The patient is awake, alert, follows simple commands. MEDICATIONS: Brovana, amiodarone, Cozaar, vitamin D, DuoNeb, Ecotrin, Januvia, Lasix, Levemir, Lipitor, Norvasc, Plavix, Protonix, Pulmicort, Robitussin, Rocephin, Singulair, Solu-Medrol started today, Synthroid, Zithromax, Zoloft. LABORATORIES: Hemoglobin 10.7, hematocrit 23.1, white blood cells 6.7, platelets 223. Sodium 137, potassium 4.9, BUN noted , creatinine 0.9, AST 41, ALT 55. TSH 1.89. ASSESSMENT AND PLAN: The patient is a 71-year-old lady with chronic obstructive lung disease, lung densities, pneumonia, bronchitis, obstructive sleep apnea syndrome, hypothyroidism, history of cerebrovascular accident, insulin-dependent diabetes mellitus, not controlled, history of hypertension, lumbar radiculopathy, pulmonary hypertension. The patient was still coughing, shortness of breath. I started today Solu-Medrol. Continue antibiotics. Gastric prophylaxis. Deep venous thrombosis prophylaxis. Need CAT scan to assure the nodule stability or disappearance. Will not give iodine because the patient had ANA[facility]LACTIC RE[facility]. Cough medication is given. Computer Processing Scheduler is on the case. ID is on the case. CAT scan of the chest done, reviewed. Echocardiography done, read by Dr. Wilner Maharaj. Will follow up. Michelle Aviles MD cc: [id number] TT: 12/03/2016 07:37:38 Confirmation # [id number] Dictation # [id number] [place]AIL[place]
[2016-12-03] MEDS ORDERED: Barium Sulfate Susp 2.1% w/v, 2.0% w/w 450 mL Bottle PO ONE (07:41)
[2016-12-03] MEDS: Arformoterol 15 mcg/2 ml Inh Sol IH SCH ×2 (07:59→20:42)
[2016-12-03] MEDS: Budesonide 0.5 mg/2 ml Inhal Susp UD IH SCH ×2 (08:00→20:42)
[2016-12-03] MEDS: Insulin Reg-LOW-Coverage SC SCH ×3 (08:17→17:17)
[2016-12-03] MEDS: Insulin Detemir 100 units/ml Vial (Levemir) SC SCH ×2 (08:17→17:17)
[2016-12-03] MEDS: Levothyroxine 88 MCG TAB PO SCH (08:18)
[2016-12-03] MEDS: Pantoprazole 40 mg EC Tab PO SCH (09:34)
[2016-12-03] MEDS: cefTRIAXone 1 gm 1 GM/100 ML BAG IVPB SCH (09:35)
[2016-12-03] MEDS: BREO IH SCH (09:36)
[2016-12-03] MEDS: Azithromycin 500MG/NS 250ml 500 MG/250 ML BAG IVPB SCH (10:17)
--- NOTE | 2016-12-03 12:12 | CT ---
PROCEDURE: CT Abdomen and Pelvis without intravenous contrast HISTORY: lymphadanapathy COMPARISON: 09/07/15. TECHNIQUE: Technique. Contrast Dose: Radiation dose: Total exam DLP = 786 mGy-cm. This CT exam was performed using one or more of the following dose reduction techniques: Automated exposure control, adjustment of the mA and/or kV according to patient size, and/or use of iterative reconstruction technique. FINDINGS: LOWER THORAX: Unremarkable. LIVER: Unremarkable. No gross lesion or ductal dilatation. GALLBLADDER AND BILE DUCTS: Unremarkable. PANCREAS: Unremarkable. No gross lesion or ductal dilatation. SPLEEN: Unremarkable. ADRENALS: Unremarkable. No mass. KIDNEYS AND URETERS: Unremarkable. No hydronephrosis. No solid mass. VASCULATURE: Unremarkable. No aortic aneurysm. BOWEL: Unremarkable. No obstruction. No gross mural thickening. APPENDIX: Unremarkable. Normal appendix. PERITONEUM: Unremarkable. No free fluid. No free air. LYMPH NODES: Unremarkable. No enlarged lymph nodes. BLADDER: Unremarkable. REPRODUCTIVE: Status post hysterectomy.. BONES: No acute fracture. OTHER FINDINGS: None. IMPRESSION: Unremarkable non contrast enhanced CT of the abdomen and pelvis.
--- NOTE | 2016-12-03 17:54 | CP.PCM.PN ---
Subjective - Date & Time of Evaluation Date of Evaluation: 12/03/16 Time of Evaluation: 16:15 - Subjective Subjective: Infectious Disease Follow Up: December 03, 2016 71 yo female presenting with shortness of breath and lower chest pain. Patient with extensive past medical history with lumbar radiculopathy, hypertension, CVA , renal insufficiency, hypothyroidism, GERD, chronic back pain, COPD. Question of lung masses in the patient. Possible pneumonia. She feels a little better today. She is on room air without any major issues. Her major complaint is of chest tightness in lower left anterior chest wall/ upper abdominal quadrant. However, she is showing no distress on exam. Lungs are clear to ascultation. She is showing no distress on respirations. Objective - Vital Signs/Intake and Output Vital Signs (last 24 hours): Temp Pulse Resp BP Pulse Ox 98.4 F 68 18 148/66 95 12/03/16 09:39 12/03/16 09:39 12/03/16 09:39 12/03/16 09:39 12/03/16 09:39 Intake and Output: 12/03/16 12/03/16 06:59 18:59 Intake Total 300 600 Balance 300 600 - Medications Medications: Current Medications Albuterol/Ipratropium (Duoneb 3 Mg/0.5 Mg (3 Ml) Ud) 3 ml [id number] Last Admin: 12/03/16 16:24 Dose: 3 ml Amiodarone HCl (Cordarone) 200 mg PO DAILY [facility] Last Admin: 12/03/16 09:33 Dose: 200 mg Amlodipine Besylate (Norvasc) 10 mg PO DAILY [facility] Last Admin: 12/03/16 09:34 Dose: 10 mg Arformoterol Tartrate (Brovana) 15 mcg [facility] [id number] [facility] Last Admin: 12/03/16 07:59 Dose: 15 mcg Aspirin (Ecotrin) 81 mg PO DAILY [facility] Last Admin: 12/03/16 09:35 Dose: 81 mg Atorvastatin Calcium (Lipitor) 10 mg PO DIN [facility] Last Admin: 12/03/16 17:16 Dose: 10 mg Budesonide (Pulmicort Respules) 0.5 mg [facility] [id number] [facility] Last Admin: 12/03/16 08:00 Dose: 0.5 mg Clopidogrel Bisulfate (Plavix) 75 mg PO DAILY [facility] Last Admin: 12/03/16 09:33 Dose: 75 mg Ergocalciferol (Drisdol 50,000 Intl Units Cap) 1 cap PO QWK [facility] Furosemide (Lasix) 20 mg PO DAILY [facility] Last Admin: 12/03/16 09:34 Dose: 20 mg Guaifenesin/Dextromethorphan (Robitussin Dm) 5 ml PO Q4H PRN PRN Reason: Cough Last Admin: 12/03/16 13:27 Dose: 5 ml Home Med (Home Med) 1 unit IH DAILY [facility] Last Admin: 12/03/16 09:36 Dose: Not Given Ceftriaxone Sodium (Rocephin 1 Gram Ivpb) 1 gm in 100 mls @ 100 mls/hr IVPB DAILY [facility] PRN Reason: Protocol Last Admin: 12/03/16 09:35 Dose: 100 mls/hr Azithromycin (Zithromax 500mg In Ns) 500 mg in 250 mls @ 167 mls/hr IVPB DAILY [facility] PRN Reason: Protocol Last Admin: 12/03/16 10:17 Dose: 167 mls/hr Insulin Detemir (Levemir) 20 unit SC ACBD [facility] Last Admin: 12/03/16 17:17 Dose: 20 unit Insulin Human Regular (Humulin R Low) 0 units SC ACHS [facility] PRN Reason: Protocol Last Admin: 12/03/16 17:17 Dose: 5 units Levothyroxine Sodium (Synthroid) 88 mcg PO ACB [facility] Last Admin: 12/03/16 08:18 Dose: 88 mcg Losartan Potassium (Cozaar) 100 mg PO DAILY [facility] Last Admin: 12/03/16 09:33 Dose: 100 mg Methylprednisolone (Solu-Medrol) 40 mg IVP Q8 [facility] Last Admin: 12/03/16 13:28 Dose: 40 mg Montelukast Sodium (Singulair) 10 mg PO DAILY [facility] Last Admin: 12/03/16 09:35 Dose: 10 mg Pantoprazole Sodium (Protonix Ec Tab) 40 mg PO DAILY [facility] Last Admin: 12/03/16 09:34 Dose: 40 mg Sertraline HCl (Zoloft) 150 mg PO 1800 [facility] Last Admin: 12/03/16 17:16 Dose: 150 mg Sitagliptin Phosphate (Januvia) 100 mg PO QAM [facility] Last Admin: 06/12/17 09:33 Dose: 100 mg - Labs Labs: 12/02/16 07:00 12/02/16 07:00 PT 10.7 Seconds (9.9-11.8) 11/30/16 12:55 INR 0.99 (0.93-1.08) 11/30/16 12:55 APTT 27.8 Seconds (23.7-30.8) 11/30/16 12:55 - Constitutional Appears: Non-toxic, No Acute Distress, Chronically Ill - Head Exam Head Exam: ATRAUMATIC, NORMOCEPHALIC - Eye Exam Eye Exam: EOMI, PERRL Pupil Exam: NORMAL ACCOMODATION, PERRL - ENT Exam ENT Exam: Mucous Membranes Moist, Normal External Ear Exam, TM's Normal Bilaterally - Neck Exam Neck Exam: Full ROM, Normal Inspection - Respiratory Exam Respiratory Exam: Clear to Ausculation Bilateral, Rhonchi, NORMAL BREATHING PATTERN. absent: Rales, Wheezes Additional comments: mild basilar rhonchi - Cardiovascular Exam Cardiovascular Exam: REGULAR RHYTHM, RRR, +S1, +S2 - GI/Abdominal Exam GI & Abdominal Exam: Soft, Normal Bowel Sounds. absent: Distended, Tenderness - Extremities Exam Extremities Exam: Full ROM, Normal Inspection - Neurological Exam Neurological Exam: Alert, Awake, CN II-XII Intact, Oriented x3 - Psychiatric Exam Psychiatric exam: Normal Affect, Normal Mood - Skin Skin Exam: Intact, Normal Color Assessment and Plan - Assessment and Plan (Free Text) Assessment: 71 yo female with SOB and cough found to have small irregular nodules in right upper lobe on CT scan. The patient is awake and alert. does most of the answering for her. Supportive care. On Rocephin and Azithromycin. Obtain rader cultures. May need to strengthen antibiotic coverage depending on patient' s response to Rocephin and Azithromycin. Today she appears comfortable on RA with little SOB at this time. Will need reimaging in the future to reassess the lung masses/nodules (most likely as an outpatient). Has occassional hoarse cough. No respiratory distress on exam. Supportive care. Can consider PO Keflex and Azithromycin for 7 days on discharge. Thank you for allowing me to participate in the care of the patient, we will follow with you.
[2016-12-03] MEDS ORDERED: MethylPREDNISolone 40 mg Vial IVP SCH (22:00)
[2016-12-04] MEDS: Albuterol-Ipratrop 3 mg / 0.5 (3 ml) UD IH SCH ×5 (02:26→15:25)
--- NOTE | 2016-12-04 07:37 | PN ---
DATE: 12/03/2016 REFERRING PHYSICIAN: Dr. Aviles SUBJECTIVE: She is sitting side of the bed. Night was unremarkable. Feels better. Decreased cough . Decreased shortness of breath. No nausea, no vomiting, no diarrhea. Does have arthritic type hip pain. No leg pain or leg swelling. OBJECTIVE: GENERAL: No acute distress. VITAL SIGNS: Temp is 98, heart rate is 68, respiratory rate is 18, blood pressure 148/66, pulse ox 9 5% on room air. HEENT: Moist mucous membrane. No ulcer or oral thrush noted. NECK: Supple. No JVD. LUNGS: Have fair airflow with few rhonchi heard. HEART: S1, S2. ABDOMEN: Soft, nontender. No organomegaly. EXTREMITIES: There is no edema. NEUROLOGIC: Awake, alert, follows simple commands. MEDICATIONS: She is on Brovana 15 mcg inhaled twice a day; amiodarone 200 mg daily; Cozaar 100 mg da jeronimo; vitamin D 50,000 units weekly; DuoNeb q.4 hours; Ecotrin 81 mg daily; Januvia 100 mg daily; Lasi x 20 mg daily; Levemir 20 units subQ before breakfast; Lipitor 10 mg daily; Norvasc 10 mg daily; Plav ix 75 mg daily; Protonix 40 mg daily; Pulmicort inhaled twice a day; Robitussin 5 mL q. 4 hours p.r.n .; Rocephin 1 g IV daily; Singulair 10 mg daily; Solu-Medrol 20 mg q. 8 hours; Synthroid 88 mcg daily ; Zithromax 500 mg daily; Zoloft 150 mg daily. LABORATORY DATA: Reviewed. Blood sugar was 261. Blood cultures have been negative. She had a CAT scan of the abdomen and pelvis done today which shows unremarkable noncontrast CT of the abdomen and pelvis. IMPRESSION AND PLAN: Chronic obstructive lung disease, lung nodules, probably pneumonia, obstructive sleep apnea syndrome, history of cerebrovascular accident, hypertension, lumbar radiculopathy, hypot hyroid, mild pulmonary hypertension. We will decrease Solu-Medrol. Continue antibiotics, bronchodil ators. Gastric prophylaxis. Fall precaution. Encourage CPAP use. Follow up labs in the morning. Thank you and we will follow with you. Homer Sawant MD cc: [id number] TT: 12/04/2016 07:36:21 Confirmation # [id number] Dictation # [id number] dn
[2016-12-04 07:52] LABS: HEMATOCRIT 33.6 % (36.0-48.0); MEAN CELL VOLUME 86.2 fL (80.0-105.0); MEAN CORPUSCULAR HEMOGLOBIN 28.2 pg (25.0-35.0); MEAN CORPUSCULAR HGB CONC 32.7 g/dl (31.0-37.0); MEAN PLATELET VOLUME 10.3 fl (7.0-11.0); RED CELL DISTRIBUTION WIDTH 13.8 % (11.5-14.5); WHITE BLOOD COUNT 14.5 10^3/ul (4.5-11.0)
[2016-12-04 08:02] LABS: ALB/GLOB RATIO 1.3 (1.1-1.8); BILIRUBIN,TOTAL 0.3 mg/dL (0.2-1.3); CALCIUM 9.3 mg/dL (8.4-10.5); POTASSIUM 5.1 mmol/L (3.6-5.0); TOTAL PROTEIN 7.1 g/dL (5.8-8.3)
[2016-12-04] MEDS: Arformoterol 15 mcg/2 ml Inh Sol IH SCH (08:07)
[2016-12-04] MEDS: Budesonide 0.5 mg/2 ml Inhal Susp UD IH SCH (08:07)
--- NOTE | 2016-12-04 08:07 | PN ---
DATE: 12/03/2016 SUBJECTIVE: The patient is a 71-year-old female with multiple medical problems. Still coughing, having shortness of breath. According to the patient , she is getting chest pain with coughing. No fever, no chills. PHYSICAL EXAMINATION: VITAL SIGNS: Temperature is 98.4, pulse 80 , blood pressure 140/80 , respiratory rate 18. HEENT: Head normocephalic, atraumatic. Eyes: PERRLA. Extraocular muscles intact. Conjunctivae are clear. Nose patent. NECK: Supple. No carotid bruit. No JVD or thyromegaly. CHEST: Bilaterally symmetrical. HEART: S1, S2 positive. LUNGS: Clear to auscultation. ABDOMEN: Soft. Bowel sounds positive. No organomegaly. EXTREMITIES: No edema, no cyanosis. NEUROLOGIC: The patient is awake, alert, moving all 4 extremities. No focal deficit. MEDICATIONS: Brovana, Cordarone, Cozaar, vitamin D, Ecotrin, insulin, Lasix, Levemir, Lipitor, amlodipine, Plavix, Protonix, Pulmicort, Robitussin, Rocephin , Solu-Medrol. LABORATORY DATA: White blood cells 6.7, hemoglobin 10.7, hematocrit 33.1, platelets 223. Glucose is 261, 322, 345, 401. ASSESSMENT AND PLAN: The patient is a 71-year-old lady with multiple medical comorbidities, came with coughing and shortness of breath. Still coughing. Even with coughing she is getting chest pain. The patient has irregular nodules in the right upper lobe on CT scan. Supportive care. On Rocephin and azithromycin. Pancultures obtained. May need to the antibiotic coverage, depending on the patient's response to Rocephin and azithromycin. The patient looks comfortable but still coughing, having shortness of breath. Seen by Dr. Sawant, senior teller. The patient has history of insulin-dependent diabetes mellitus, uncontrolled; hypothyroidism, history of stroke, coronary artery disease, noncompliant, lung densities, history of obstructive sleep apnea syndrome, cerebrovascular accident, mild pulmonary hypertension. Getting tapering dose of steroid. GI and DVT prophylaxis. Repeat labs. Will follow up. Michelle Aviles MD cc: [id number] TT: 12/04/2016 08:06:50 Confirmation # [id number] Dictation # [id number] tyesha BRIGHT
[2016-12-04 08:09] LABS: IRON 76 ug/dL (45-180)
[2016-12-04 08:35] VITALS: BP 135/53
[2016-12-04] MEDS: Insulin Reg-LOW-Coverage SC SCH ×2 (09:31→11:46)
[2016-12-04] MEDS: Insulin Detemir 100 units/ml Vial (Levemir) SC SCH (09:32)
[2016-12-04] MEDS: Pantoprazole 40 mg EC Tab PO SCH (09:34)
[2016-12-04] MEDS: Levothyroxine 88 MCG TAB PO SCH (09:34)
[2016-12-04] MEDS: cefTRIAXone 1 gm 1 GM/100 ML BAG IVPB SCH (09:35)
[2016-12-04] MEDS: BREO IH SCH (09:35)
[2016-12-04] MEDS: Azithromycin 500MG/NS 250ml 500 MG/250 ML BAG IVPB SCH (09:46)
[2016-12-04] MEDS ORDERED: MethylPREDNISolone 40 mg Vial IVP SCH (10:00)
[2016-12-04] MEDS: guaiFENesin DM 100 mg-10 mg/5 ml UD PO PRN (11:47)
[2016-12-04 13:44] LABS: FOLATE 18.9 ng/mL
[2016-12-04 17:25] VITALS: PULSE 68; RESP 20; TEMP 98; O2SAT 97
--- NOTE | 2016-12-04 18:16 | CP.PCM.PN ---
Subjective - Date & Time of Evaluation Date of Evaluation: 12/04/16 Time of Evaluation: 15:30 - Subjective Subjective: Infectious Disease Follow Up: December 04, 2016 71 yo female presenting with shortness of breath and lower chest pain. Patient with extensive past medical history with lumbar radiculopathy, hypertension, CVA , renal insufficiency, hypothyroidism, GERD, chronic back pain, COPD. Question of lung masses in the patient. Possible pneumonia. She feels a little better today. She is on room air without any major issues. Her major complaint is of chest tightness in lower left anterior chest wall/ upper abdominal quadrant. However, she is showing no distress on exam. Lungs are clear to ascultation. She is showing no distress on respirations. Objective - Vital Signs/Intake and Output Vital Signs (last 24 hours): Temp Pulse Resp BP Pulse Ox 98 F 68 20 135/53 L 97 12/04/16 16:00 12/04/16 16:00 12/04/16 16:00 12/04/16 09:35 12/04/16 16:00 Intake and Output: 12/04/16 12/04/16 06:59 18:59 Intake Total 720 480 Balance 720 480 - Labs Labs: 12/04/16 07:30 12/04/16 07:30 PT 10.7 Seconds (9.9-11.8) 11/30/16 12:55 INR 0.99 (0.93-1.08) 11/30/16 12:55 APTT 27.8 Seconds (23.7-30.8) 11/30/16 12:55 - Constitutional Appears: Non-toxic, No Acute Distress, Chronically Ill - Head Exam Head Exam: ATRAUMATIC, NORMOCEPHALIC - Eye Exam Eye Exam: EOMI, PERRL Pupil Exam: NORMAL ACCOMODATION, PERRL - ENT Exam ENT Exam: Mucous Membranes Moist, Normal External Ear Exam, TM's Normal Bilaterally - Neck Exam Neck Exam: Full ROM, Normal Inspection - Respiratory Exam Respiratory Exam: Clear to Ausculation Bilateral, NORMAL BREATHING PATTERN. absent: Rales, Rhonchi, Wheezes - Cardiovascular Exam Cardiovascular Exam: REGULAR RHYTHM, RRR, +S1, +S2 - GI/Abdominal Exam GI & Abdominal Exam: Soft, Normal Bowel Sounds. absent: Distended, Tenderness - Extremities Exam Extremities Exam: Full ROM, Normal Inspection - Neurological Exam Neurological Exam: Alert, Awake, CN II-XII Intact, Oriented x3 - Psychiatric Exam Psychiatric exam: Normal Affect, Normal Mood - Skin Skin Exam: Intact, Normal Color Assessment and Plan - Assessment and Plan (Free Text) Assessment: 71 yo female with SOB and cough found to have small irregular nodules in right upper lobe on CT scan. The patient is awake and alert. does most of the answering for her. Supportive care. On Rocephin and Azithromycin. Obtain rader cultures. May need to strengthen antibiotic coverage depending on patient' s response to Rocephin and Azithromycin. Today she appears comfortable on RA with little SOB at this time. Will need reimaging in the future to reassess the lung masses/nodules (most likely as an outpatient). Has occassional hoarse cough. No respiratory distress on exam. Supportive care. Can consider PO Keflex and Azithromycin for 7 days on discharge. Thank you for allowing me to participate in the care of the patient, we will follow with you.
--- NOTE | 2016-12-04 19:08 | PN ---
DATE: 12/04/2016 REFERRING PHYSICIAN: Dr. Aviles. SUBJECTIVE: He is sitting on the side of the bed, night was unremarkable. Decreased cough and short ness of breath. No nausea, no vomiting and no diarrhea. No leg pain or leg swelling. OBJECTIVE: GENERAL: In no acute distress. VITAL SIGNS: Temperature is 98, heart rate is 68, respiratory rate is 18, blood pressure 135/53, pul se ox 97% on room air. HEENT: Moist mucous membranes. Small oral cavity, edentulous. LUNGS: Have fair airflow with few rhonchi. HEART: S1 and S2. ABDOMEN: Soft, nontender. No organomegaly. EXTREMITIES: There is no edema. NEUROLOGIC: Awake, alert, follows simple command. MEDICATIONS: She is on Brovana 15 mcg inhaled twice a day, amiodarone 200 mg daily, Cozaar 100 mg da jeronimo, vitamin D 50,000 units weekly, Ecotrin 81 mg daily, insulin coverage, Januvia 100 mg daily, Lasi x 20 mg daily, Levemir 20 units subQ a.c. breakfast, Lipitor 10 mg daily, Norvasc 10 mg daily, Plavix 75 mg daily, Protonix 40 mg daily, Pulmicort inhaled twice a day, Robitussin-DM 5 mL q. 4 hours p.r. n., Rocephin 1 gram daily, Singulair 10 mg daily, Solu-Medrol 20 mg q. 8 hours, Zithromax 500 mg soha y, Zoloft 150 mg daily. LABORATORY DATA: Shows hemoglobin 11.0, hematocrit 33.6, WBC 14.5, platelet is 285. Sodium 137, pot assium 5.1, chloride 100, bicarbonate 29, BUN 32, creatinine 1.1, glucose 261. Hemoglobin A1c 8.9, c alcium is 9.3. Iron is 76. AST 32, ALT 48, alk phos is 119, albumin is 4.0. MICROBIOLOGY: Blood culture has been negative. IMPRESSION AND PLAN: Chronic obstructive lung disease, lung nodule, probably pneumonia, obstructive sleep apnea syndrome, history of cerebrovascular accident, hypertension, lumbar radiculopathy, hypoth yroid, pulmonary hypertension. From a pulmonary point of view, doing okay. Taper dose of steroids, antibiotics, bronchodilators. Gastric prophylaxis. Encourage CPAP use. Follow up x-ray to assure t he stability. Thank you and will follow with you. Homer Sawant MD cc: [id number] TT: 12/04/2016 19:07:51 Confirmation # [id number] Dictation # [id number] mn
[2016-12-07] MEDS ORDERED: Ergocalciferol 50,000 Intl Units Cap PO SCH (10:00)
== END 2016-12-04 17:35 | disposition home or self-care (01) | DRG 190 ==
LOC: ED 11:15 → ERH 14:58 → 3RSO 16:47
PROVIDERS: ADMIT Internal Medicine; ATTEND Internal Medicine
PROC: 5A09357 Assistance with Respiratory Ventilation, Less than 24 Consecutive Hours, Continuous Positive Airway Pressure (ICD-10-PCS; principal; 2016-11-30)
DX: J44.0 Chronic obstructive pulmonary disease with (acute) lower respiratory infection (principal); J18.9 Pneumonia, unspecified organism; I27.2 Other secondary pulmonary hypertension; E11.65 Type 2 diabetes mellitus with hyperglycemia; E87.5 Hyperkalemia; I10 Essential (primary) hypertension; G47.33 Obstructive sleep apnea (adult) (pediatric); E03.9 Hypothyroidism, unspecified; R91.1 Solitary pulmonary nodule; M54.16 Radiculopathy, lumbar region; K21.9 Gastro-esophageal reflux disease without esophagitis; I25.10 Atherosclerotic heart disease of native coronary artery without angina pectoris; E78.00 Pure hypercholesterolemia, unspecified; M54.9 Dorsalgia, unspecified; G89.29 Other chronic pain; Z79.82 Long term (current) use of aspirin; Z79.4 Long term (current) use of insulin; Z87.891 Personal history of nicotine dependence; Z86.73 Personal history of transient ischemic attack (TIA), and cerebral infarction without residual deficits; Z91.19 Patient's noncompliance with other medical treatment and regimen

== ENCOUNTER 2017-08-27 12:20 | Inpatient (IN) | payer MEDICARE, MEDICAID ==
[2017-08-27] MEDS ORDERED: Oxycodone/Acetaminophen 5/325 mg Tab PO STA (12:55)
--- NOTE | 2017-08-27 13:37 | CT ---
PROCEDURE: CT HEAD WITHOUT CONTRAST. HISTORY: headache COMPARISON: 10/17/2015 TECHNIQUE: Axial computed tomography images were obtained through the head/brain without intravenous contrast. Radiation dose: Total exam DLP = 748.26 mGy-cm. This CT exam was performed using one or more of the following dose reduction techniques: Automated exposure control, adjustment of the mA and/or kV according to patient size, and/or use of iterative reconstruction technique. FINDINGS: HEMORRHAGE: No intracranial hemorrhage. BRAIN: No mass effect or edema. No significant atrophy. Mild patchy periventricular and deep white matter lucency consistent with chronic microvascular ischemic change. No evidence of acute infarct. A small old left basal ganglia lacunar infarct is noted. VENTRICLES: Unremarkable. No hydrocephalus. CALVARIUM: Unremarkable. PARANASAL SINUSES: Unremarkable as visualized. No significant inflammatory changes. MASTOID AIR CELLS: Unremarkable as visualized. No inflammatory changes. OTHER FINDINGS: None. IMPRESSION: No intracranial mass, hemorrhage or evidence of acute infarct. Mild chronic white matter ischemic change. Small old left basal ganglia lacunar infarct.
--- NOTE | 2017-08-27 14:05 | ED PDOC ---
Arrival/HPI - General Chief Complaint: Trauma Time Seen by Provider: 08/27/17 12:38 Historian: Patient - History of Present Illness Narrative History of Present Illness (Text): 08/27/17 14:01 72yo female with PMHx of Diabetes present with complaint of tail bone pain and headache. the daughter by the bedside states she slipped in the kitchen, while making a turn yesterday and fell. States she took Percoct for the pain yesterday with relieve. Saw her PMD and was referred to ED for evaluation secondary to the severe pain she is having. She denies LOC, nausea, focal weakness, nausea, vomiting, any other complaint. Past Medical History - Provider Review Nursing Documentation Reviewed: Yes - Infectious Disease Hx of Infectious Diseases: None - Tetanus Immunization Tetanus Immunization: Unknown - Cardiac Hx Hypertension: Yes - Pulmonary Hx Chronic Obstructive Pulmonary Disease (COPD): Yes - Neurological HX Cerebrovascular Accident: Yes - HEENT Hx Cataracts: Yes (WITH SURGERY) Other/Comment: cateract surgery both eyes - Renal Hx Renal Failure: Yes - Endocrine/Metabolic Hx Diabetes Mellitus Type 1: Yes Hx Hypothyroidism: Yes - Hematological/Oncological Hx Blood Transfusions: No - Integumentary Hx Dermatological Disorder: No - Musculoskeletal/Rheumatological Hx Musculoskeletal Disorders: Yes Other/Comment: Muscles spasms - Gastrointestinal Hx Gastrointestinal Disorders: No - Genitourinary/Gynecological Hx Genitourinary Disorders: No - Psychiatric Hx Psychophysiologic Disorder: No Hx Substance Use: No - Surgical History Hx Hysterectomy: Yes Hx Musculoskeletal Surgery: Yes Hx Orthopedic Surgery: Yes (Right knee replacement) Other/Comment: cataract surgery both eyes - Anesthesia Hx Anesthesia Reactions: No Hx Malignant Hyperthermia: No - Suicidal Assessment Feels Threatened In Home Enviroment: No Family/Social History - Physician Review Nursing Documentation Reviewed: Yes Family/Social History: Unknown Family HX Smoking Status: Never Smoked Hx Alcohol Use: No Hx Substance Use: No Hx Substance Use Treatment: No Allergies/Home Meds Allergies/Adverse Reactions: Allergies iodine Allergy (Verified 08/27/17 12:37) ANAPHYLAXIS Home Medications: Home Meds Medication Instructions Recorded Confirmed Pantoprazole [Protonix EC Tab] 40 mg PO DAILY 11/16/14 08/27/17 Montelukast [Singulair] 10 mg PO DAILY 12/04/14 08/27/17 Clopidogrel [Plavix] 75 mg PO DAILY 09/03/15 08/27/17 Simvastatin [Zocor] 20 mg PO DAILY 09/03/15 08/27/17 Aspirin [Ecotrin] 81 mg PO DAILY 04/12/16 08/27/17 Amiodarone Hydrochloride 200 mg PO DAILY 11/30/16 08/27/17 [Cordarone] Sertraline HCl [Zoloft] 150 mg PO HS 11/30/16 08/27/17 Calcium Carb/Vit D3/Minerals 1 tab PO DAILY 08/27/17 08/27/17 [Calcium 600+D Plus Minerals Tb] Famotidine [Pepcid] 40 mg PO DAILY 08/27/17 08/27/17 Insulin Aspart, Recombinant 10 units SQ ACBD 08/27/17 08/27/17 [Novolog] Ondansetron [Zofran] 4 mg PO Q12 PRN 08/27/17 08/27/17 Potassium Chloride [Klor-Con 10 meq PO MWF 08/27/17 08/27/17 Sprinkle] SITagliptin [Januvia] 100 mg PO DAILY 08/27/17 08/27/17 amLODIPine [Norvasc] 10 mg PO DAILY 08/27/17 08/27/17 Review of Systems - Physician Review All systems were reviewed & negative as marked: Yes - Review of Systems Constitutional: Normal Eyes: Normal ENT: Normal Respiratory: Normal Cardiovascular: Normal Gastrointestinal: Normal Genitourinary Female: Normal Musculoskeletal: Back Pain Skin: Normal Neurological: Headache. absent: Dizziness, Focal Weakness, Gait Changes, Speech Changes, Facial Droop Endocrine: Normal Hemo/Lymphatic: Normal Psychiatric: Normal Physical Exam Vital Signs Reviewed: Yes Vital Signs Temp Pulse Resp BP Pulse Ox 08/27/17 12:29 98 F 60 18 125/55 L 95 08/27/17 12:21 98 F 60 18 125/55 L 95 Temperature: Afebrile Blood Pressure: Normal Pulse: Regular Respiratory Rate: Normal Appearance: Positive for: Well-Appearing, Non-Toxic, Comfortable Pain Distress: None Mental Status: Positive for: Alert and Oriented X 3 - Systems Exam Head: Present: Atraumatic, Normocephalic Pupils: Present: PERRL Extroacular Muscles: Present: EOMI Conjunctiva: Present: Normal Mouth: Present: Moist Mucous Membranes Neck: Present: Normal Range of Motion Respiratory/Chest: Present: Clear to Auscultation, Good Air Exchange. No: Respiratory Distress, Accessory Muscle Use Cardiovascular: Present: Regular Rate and Rhythm, Normal S1, S2. No: Murmurs Abdomen: Present: Normal Bowel Sounds. No: Tenderness, Distention, Peritoneal Signs Back: Present: Paraspinal Tenderness (Tenderness over the sacral/coccyx). No: Midline Tenderness, Pain with Leg Raise Upper Extremity: Present: Normal Inspection. No: Cyanosis, Edema Lower Extremity: Present: Normal Inspection. No: Edema Neurological: Present: GCS=15, CN II-XII Intact, Speech Normal, Motor Func Grossly Intact, Normal Sensory Function, Normal Cerebellar Funct, Memory Normal , Other (No focal neurological deficit) Skin: Present: Warm, Dry, Normal Color. No: Rashes Psychiatric: Present: Alert, Oriented x 3, Normal Insight, Normal Concentration Medical Decision Making ED Course and Treatment: 08/27/17 19:55 Pt was comfortable in ED. Her pain was controlled in ED. Sacral/coccyx xray - Negative Head CT negative Result was DW both pt and her daughter. Pt's daughter expressed concern. States patient continue to complain of pain and unable to ambulate secondary to the pain. Case was DW Dr. Aviles who referred pt to the ED. She recommends that pt be admitted for inability to ambulate and intractable pain. Pt was admitted. - Lab Interpretations Lab Results: Lab Results 08/27/17 12:55: POC Glucose (mg/dL) 114 H - RAD Interpretation Radiology Orders: 08/27/17 12:53 SACRUM &/or COCCYX (MIN 2VW) [RAD] Stat 08/27/17 12:54 HEAD W/O CONTRAST [CT] Stat - Medication Orders Current Medication Orders: Amiodarone HCl (Cordarone) 200 mg PO DAILY ARI Amlodipine Besylate (Norvasc) 10 mg PO DAILY ARI Aspirin (Ecotrin) 81 mg PO DAILY ARI Last Admin: 08/27/17 18:18 Dose: Atorvastatin Calcium (Lipitor) 10 mg PO DIN ARI Clopidogrel Bisulfate (Plavix) 75 mg PO DAILY ARI Furosemide (Lasix) 20 mg PO DAILY ARI Hydromorphone HCl (Dilaudid) 0.5 mg IVP Q4H PRN PRN Reason: Pain, Mild (1-3) Insulin Human Regular (Humulin R Low) 0 units SC ACHS ARI PRN Reason: Protocol Levothyroxine Sodium (Synthroid) 88 mcg PO ACB [facility] Last Admin: 08/27/17 18:19 Dose: Losartan Potassium (Cozaar) 100 mg PO DAILY [facility] Last Admin: 08/27/17 18:18 Dose: Montelukast Sodium (Singulair) 10 mg PO DAILY [facility] Last Admin: 08/27/17 18:18 Dose: Non-Formulary Medication (Calcium Carb/Vit D3/Minerals [Calcium 600+D Plus Minerals Tb]) 1 tab PO DAILY [facility] Non-Formulary Medication (Insulin Detemir [Levemir Flextouch]) 40 units SC ACBD [facility] Non-Formulary Medication (Potassium Chloride [Klor-Con Sprinkle]) 10 meq PO QWK [facility] Ondansetron HCl (Zofran Tab) 4 mg PO Q12 PRN PRN Reason: Nausea/Vomiting Pantoprazole Sodium (Protonix Ec Tab) 40 mg PO DAILY [facility] Last Admin: 08/27/17 18:18 Dose: Sertraline HCl (Zoloft) 100 mg PO HS [facility] Sitagliptin Phosphate (Januvia) 100 mg PO DAILY [facility] Discontinued Medications Oxycodone/Acetaminophen (Percocet 5/325 Mg Tab) 1 tab PO STAT STA Stop: 08/27/17 12:56 Last Admin: 08/27/17 13:03 Dose: 1 tab MAR Pain Assessment Document 08/27/17 13:03 SRE (Rec: 08/27/17 13:04 SRE [id number]) Pain Reassessment Is this a pain reassessment? Yes Sleep Is patient sleeping during reassessment? No Presence of Pain Presence of Pain Yes Pain Scale Used Pain Scale Used Numeric Description Description Constant Disposition/Present on Arrival - Present on Arrival Any Indicators Present on Arrival: No History of DVT/PE: No History of Uncontrolled Diabetes: Yes Urinary Catheter: No History of Decub. Ulcer: No History Surgical Site Infection Following: None - Disposition Have Diagnosis and Disposition been Completed?: Yes Diagnosis: Back pain, Headache Disposition: HOSPITALIZED Disposition Time: 14:10 Patient Plan: Admission, Discharge Patient Problems: Current Active Problems Problem Status Onset Back pain Acute Headache Acute Condition: STABLE
--- NOTE | 2017-08-27 14:15 | RAD ---
PROCEDURE: Radiographs of the Sacrum and Coccyx HISTORY: back pain s/p trauma COMPARISON: None available. TECHNIQUE: Frontal and lateral views of the sacrum and coccyx FINDINGS: BONES: Sacrum and coccyx unremarkable. No fracture or focal lesion. SACROILIAC JOINTS: Unremarkable. OTHER FINDINGS: None. IMPRESSION: Unremarkable radiographs of the sacrum and coccyx.
[2017-08-27 17:13] LABS: BASO # 0.02 K/mm3 (0.0-2.0); BASO % 0.3 % (0.0-3.0); EOS # 0.2 (0.0-0.7); GRAN # 3.95 (1.4-6.5); GRAN % 52.3 % (50.0-68.0); HEMOGLOBIN 10.5 g/dL (12.0-16.0); LYMPH # 2.8 (1.2-3.4); LYMPH % 37.2 % (22.0-35.0); MEAN CELL VOLUME 87.5 fl (80.0-105.0); MEAN CORPUSCULAR HEMOGLOBIN 27.9 pg (25.0-35.0); MEAN CORPUSCULAR HGB CONC 31.9 g/dl (31.0-37.0); MEAN PLATELET VOLUME 11.5 fl (7.0-11.0); MONO # 0.6 (0.1-0.6); MONO % 8.2 % (1.0-6.0); RBC 3.76 10^6/uL (3.5-6.1); RED CELL DISTRIBUTION WIDTH 13.6 % (11.5-14.5); WHITE BLOOD COUNT 7.6 10^3/ul (4.5-11.0)
[2017-08-27 17:22] LABS: ALB/GLOB RATIO 1.2 (1.1-1.8); ALBUMIN 3.7 g/dL (3.0-4.8); ALT/SGPT 87 U/L (7-56); AST/SGOT 70 U/L (14-36); BLOOD UREA NITROGEN 27 mg/dL (7-21); CALCIUM 9.4 mg/dL (8.4-10.5); GFR AFRICAN-AMERICAN > 60; GFR NON-AFRICAN AMERICAN 55
[2017-08-27 17:36] LABS: INR 1.04 (0.93-1.08); PARTIAL THROMBOPLASTIN TIME 30.5 Seconds (25.1-36.5); PROTHROMBIN TIME 11.9 SECONDS (9.4-12.5)
[2017-08-27] MEDS: Pantoprazole 40 mg EC Tab PO SCH (18:18)
[2017-08-27] MEDS: Levothyroxine 88 MCG TAB PO SCH (18:19)
[2017-08-27 19:04] VITALS: BMI 28.3
[2017-08-27 19:54] LABS: HDL CHOLESTEROL 68 mg/dL (29-60); IRON 46 ug/dL (45-180)
[2017-08-27 20:03] LABS: % IRON SATURATION 16 % (20-55); TOTAL IRON BINDING CAPACITY 291 ug/dL (265-497)
[2017-08-27 20:04] LABS: LDL CHOLESTEROL 72 mg/dL (0-129)
[2017-08-27] MEDS: HYDROmorphone 0.5 mg/0.5 ml ISec IVP PRN (20:10)
[2017-08-27] MEDS: Insulin Reg-LOW-Coverage SC SCH (22:44)
[2017-08-28 06:19] LABS: HEMOGLOBIN 10.5 g/dL (12.0-16.0); MEAN CELL VOLUME 87.7 fl (80.0-105.0); MEAN CORPUSCULAR HEMOGLOBIN 27.5 pg (25.0-35.0); MEAN CORPUSCULAR HGB CONC 31.3 g/dl (31.0-37.0); RBC 3.82 10^6/uL (3.5-6.1); RED CELL DISTRIBUTION WIDTH 13.7 % (11.5-14.5); WHITE BLOOD COUNT 6.9 10^3/ul (4.5-11.0)
[2017-08-28 06:49] LABS: CALCIUM 9.3 mg/dL (8.4-10.5)
[2017-08-28] MEDS ORDERED: INSULIN DETEMIR 40 UNIT SC SCH (07:30)
[2017-08-28] MEDS: Levothyroxine 88 MCG TAB PO SCH (07:44)
[2017-08-28] MEDS: Insulin Reg-LOW-Coverage SC SCH ×4 (07:44→21:25)
[2017-08-28] MEDS: Pantoprazole 40 mg EC Tab PO SCH (09:09)
[2017-08-28] MEDS ORDERED: AMIODARONE HYDROCHLORIDE PO SCH (10:00)
[2017-08-28 12:39] LABS: FOLATE > 20.0 ng/mL
[2017-08-28] MEDS: HYDROmorphone 0.5 mg/0.5 ml ISec IVP PRN ×2 (12:57→21:48)
--- NOTE | 2017-08-28 13:41 | MRI ---
PROCEDURE: MR LUMBAR SPINE WITHOUT CONTRAST HISTORY: pain, ls and coxygeal region COMPARISON: 03/05/2017 TECHNIQUE: Multiecho multiplanar sequences were performed through the lumbar spine without the use of intravenous contrast. FINDINGS: Normal lumbar lordosis. There is an acute or subacute transverse fracture through the inferior portion of the T12 vertebral body. Marrow edema at T12 Conus medullaris unremarkable at the level of Paraspinal soft tissues are unremarkable. T12-L1: Disc degeneration and mild disc bulge L1-2: Asymmetric disc bulge to the right with right-sided foraminal stenosis L2-3: No disc herniation, spinal canal stenosis or neural foraminal narrowing. L3-4: Asymmetric disc bulge to the left. Severe left-sided foraminal stenosis. This is best appreciated on sagittal image 13 series 5. L4-5: Asymmetric disc bulge to the left. Moderate left-sided foraminal stenosis L5-S1: Disc degeneration without stenosis OTHER FINDINGS: The degenerative findings are unchanged from the previous exam. The T12 compression fracture is new . IMPRESSION: There is an acute or subacute transverse fracture through the inferior portion of the T12 vertebral body. There is no significant loss of vertebral height and no encroachment of the spinal canal
--- NOTE | 2017-08-28 15:35 | CP.PCM.HP ---
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 Pt seen in our office on 08/27 with complaints of severe headaches occurring after a fall with trauma to back of head. Her daughter reports that her mother slipped in the kitchen while making a turn yesterday and fell on her tailbone. Today, pt seen at bedside. Pt denies any blurry vision, tinnitus, nausea, vomiting, fever chills, diarrhea, constipation , shortness of breath, chest pain, paresthesias, or urinary changes. Present on Admission - Present on Admission Any Indicators Present on Admission: No History of DVT/PE: No History of Uncontrolled Diabetes: No Urinary Catheter: No Decubitus Ulcer Present: No Review of Systems - Constitutional Constitutional: As Per HPI - EENT Eyes: As Per HPI Ears: As Per HPI Nose/Mouth/Throat: As Per HPI - Cardiovascular Cardiovascular: As Per HPI - Respiratory Respiratory: As Per HPI - Gastrointestinal Gastrointestinal: As Per HPI - Genitourinary Genitourinary: As Per HPI - Musculoskeletal Musculoskeletal: As Per HPI - Integumentary Integumentary: As Per HPI - Neurological Neurological: As Per HPI - Psychiatric Psychiatric: As Per HPI - Endocrine Endocrine: As Per HPI - Hematologic/Lymphatic Hematologic: As Per HPI Past Patient History - Infectious Disease Hx of Infectious Diseases: None - Tetanus Immunizations Tetanus Immunization: Unknown - Past Medical History & Family History Past Medical History?: Yes - Past Social History Smoking Status: Never Smoked - CARDIAC Hx Hypertension: Yes - PULMONARY Hx Chronic Obstructive Pulmonary Disease (COPD): Yes - NEUROLOGICAL HX Cerebrovascular Accident: Yes - HEENT Hx Cataracts: Yes (WITH SURGERY) Other/Comment: cateract surgery both eyes - RENAL Hx Renal Failure: Yes - ENDOCRINE/METABOLIC Hx Diabetes Mellitus Type 1: Yes Hx Hypothyroidism: Yes - HEMATOLOGICAL/ONCOLOGICAL Hx Blood Transfusions: No - INTEGUMENTARY Hx Dermatological Problems: No - MUSCULOSKELETAL/RHEUMATOLOGICAL Hx Musculoskeletal Disorders: Yes Other/Comment: Muscles spasms - GASTROINTESTINAL Hx Gastrointestinal Disorders: No - GENITOURINARY/GYNECOLOGICAL Hx Genitourinary Disorders: No - PSYCHIATRIC Hx Psychophysiologic Disorder: No Hx Substance Use: No - SURGICAL HISTORY Hx Hysterectomy: Yes Hx Musculoskeletal Surgery: Yes Hx Orthopedic Surgery: Yes (Right knee replacement) Other/Comment: cataract surgery both eyes - ANESTHESIA Hx Anesthesia Reactions: No Hx Malignant Hyperthermia: No Meds Allergies/Adverse Reactions: Allergies Allergy/AdvReac Type Severity Reaction Status Date / Time iodine Allergy ANAPHYLAXIS Verified 08/27/17 12:37 Physical Exam - Constitutional Appears: Well, No Acute Distress - Head Exam Head Exam: ATRAUMATIC, NORMAL INSPECTION, NORMOCEPHALIC - Eye Exam Eye Exam: EOMI, Normal appearance, PERRL Pupil Exam: NORMAL ACCOMODATION, PERRL - ENT Exam ENT Exam: Mucous Membranes Moist, Normal Exam - Neck Exam Neck exam: Positive for: Normal Inspection - Respiratory Exam Respiratory Exam: Clear to Auscultation Bilateral, NORMAL BREATHING PATTERN - Cardiovascular Exam Cardiovascular Exam: REGULAR RHYTHM - GI/Abdominal Exam GI & Abdominal Exam: Normal Bowel Sounds, Soft. absent: Tenderness - Extremities Exam Additional comments: R side weakness - Back Exam Back exam: muscle spasm, paraspinal tenderness - Neurological Exam Neurological exam: Alert, Oriented x3 - Psychiatric Exam Psychiatric exam: Normal Affect, Normal Mood - Skin Skin Exam: Dry, Intact, Normal Color, Warm Results - Vital Signs Recent Vital Signs: Last Vital Signs Temp 98.6 F 08/28/17 08:06 Pulse 60 08/28/17 09:06 Resp 18 08/28/17 08:06 BP 143/43 L 08/28/17 09:09 Pulse Ox 94 L 08/28/17 08:06 - Labs Result Diagrams: 08/28/17 06:12 08/28/17 06:12 Labs: Laboratory Results - last 24 hr 08/27/17 08/27/17 08/27/17 17:00 17:00 17:00 WBC 7.6 D RBC 3.76 Hgb 10.5 L Hct 32.9 L MCV 87.5 MCH 27.9 MCHC 31.9 RDW 13.6 Plt Count 199 MPV 11.5 H Gran % 52.3 Lymph % (Auto) 37.2 H Martin % (Auto) 8.2 H Eos % (Auto) 2.0 Baso % (Auto) 0.3 Gran # 3.95 Lymph # (Auto) 2.8 Martin # (Auto) 0.6 Eos # (Auto) 0.2 Baso # (Auto) 0.02 PT 11.9 INR 1.04 APTT 30.5 Sodium 139 Potassium 4.7 Chloride 103 Carbon Dioxide 27 Anion Gap 14 BUN 27 H Creatinine 1.0 Est GFR ( Amer) > 60 Est GFR (Non-Af Amer) 55 POC Glucose (mg/dL) Random Glucose 170 H Hemoglobin A1c Calcium 9.4 Iron TIBC % Saturation Total Bilirubin 0.5 AST 70 H ALT 87 H Alkaline Phosphatase 110 Total Protein 6.9 Albumin 3.7 Globulin 3.1 Albumin/Globulin Ratio 1.2 Triglycerides Cholesterol LDL Cholesterol Direct HDL Cholesterol Vitamin B12 Folate TSH 3rd Generation 08/27/17 08/27/17 08/27/17 17:00 17:00 17:00 WBC RBC Hgb Hct MCV MCH MCHC RDW Plt Count MPV Gran % Lymph % (Auto) Martin % (Auto) Eos % (Auto) Baso % (Auto) Gran # Lymph # (Auto) Martin # (Auto) Eos # (Auto) Baso # (Auto) PT INR APTT Sodium Potassium Chloride Carbon Dioxide Anion Gap BUN Creatinine Est GFR ( Amer) Est GFR (Non-Af Amer) POC Glucose (mg/dL) Random Glucose Hemoglobin A1c 8.3 H Calcium Iron 46 TIBC 291 % Saturation 16 L Total Bilirubin AST ALT Alkaline Phosphatase Total Protein Albumin Globulin Albumin/Globulin Ratio Triglycerides 142 Cholesterol 175 LDL Cholesterol Direct 72 HDL Cholesterol 68 H Vitamin B12 424 Folate > 20.0 TSH 3rd Generation 08/27/17 08/28/17 08/28/17 21:38 06:12 06:12 WBC 6.9 RBC 3.82 Hgb 10.5 L Hct 33.5 L MCV 87.7 MCH 27.5 MCHC 31.3 RDW 13.7 Plt Count 195 MPV 11.0 Gran % Lymph % (Auto) Martin % (Auto) Eos % (Auto) Baso % (Auto) Gran # Lymph # (Auto) Martin # (Auto) Eos # (Auto) Baso # (Auto) PT INR APTT Sodium 140 Potassium 4.5 Chloride 103 Carbon Dioxide 29 Anion Gap 12 BUN 28 H Creatinine 1.1 Est GFR ( Amer) 59 Est GFR (Non-Af Amer) 49 POC Glucose (mg/dL) 158 H Random Glucose 240 H Hemoglobin A1c Calcium 9.3 Iron TIBC % Saturation Total Bilirubin AST ALT Alkaline Phosphatase Total Protein Albumin Globulin Albumin/Globulin Ratio Triglycerides Cholesterol LDL Cholesterol Direct HDL Cholesterol Vitamin B12 Folate TSH 3rd Generation 08/28/17 08/28/17 08/28/17 06:12 07:25 11:18 WBC RBC Hgb Hct MCV MCH MCHC RDW Plt Count MPV Gran % Lymph % (Auto) Martin % (Auto) Eos % (Auto) Baso % (Auto) Gran # Lymph # (Auto) Martin # (Auto) Eos # (Auto) Baso # (Auto) PT INR APTT Sodium Potassium Chloride Carbon Dioxide Anion Gap BUN Creatinine Est GFR ( Amer) Est GFR (Non-Af Amer) POC Glucose (mg/dL) 170 H 194 H Random Glucose Hemoglobin A1c Calcium Iron TIBC % Saturation Total Bilirubin AST ALT Alkaline Phosphatase Total Protein Albumin Globulin Albumin/Globulin Ratio Triglycerides Cholesterol LDL Cholesterol Direct HDL Cholesterol Vitamin B12 Folate TSH 3rd Generation 2.20 Assessment & Plan (1) Anemia Status: Acute (2) Dehydration Status: Acute (3) Abnormal LFTs (liver function tests) Status: Acute (4) T12 compression fracture Status: Acute (5) Back pain Status: Acute (6) Headache Status: Acute (7) Dizziness Status: Acute (8) Hip pain Status: Acute (9) Uncontrolled diabetes mellitus Status: Acute (10) Weakness Status: Acute - Assessment and Plan (Free Text) Plan: Labs ordered. PT & OT. GI/VTE prophylaxis. Pain management: dilaudid IVP Consults: Surgery - Reviewed: MRI back = acute or subacte tranverse fracture through the inferior portion of the T12 vertebral body, no significant loss of verterbral height and no encroachment of the spinal canal Xray sacrum & coccyx = WNL CT head = mild chronic white matter ischemic changes, small old left basal ganglia lacunar infarct - Date & Time Date: 08/28/17 Time: 11:45 <Michelle Aviles - Last Filed: 08/29/17 22:33> Results - Vital Signs Recent Vital Signs: Last Vital Signs Temp 98.2 F 08/29/17 16:00 Pulse 52 L 08/29/17 16:00 Resp 20 08/29/17 16:00 BP 118/42 L 08/29/17 16:00 Pulse Ox 93 L 08/29/17 16:00 - Labs Result Diagrams: 08/29/17 05:30 08/29/17 05:30 Labs: Laboratory Results - last 24 hr 08/29/17 08/29/17 08/29/17 11:26 16:50 21:27 POC Glucose (mg/dL) 159 H 169 H 179 H Assessment & Plan - Assessment and Plan (Free Text) Plan: 72 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 Pt seen in our office on 08/27 with complaints of severe headaches occurring after a fall with trauma to back of head. Her daughter reports that her mother slipped in the kitchen while making a turn yesterday and fell on her tailbone. Today, pt seen at bedside. Pt denies any blurry vision, tinnitus, nausea, vomiting, fever chills, diarrhea, constipation , shortness of breath, chest pain, paresthesias, or urinary changes.pt went for mri of back , had thoracic verterbe fracture , will call neuro surgery consult . will f/u
[2017-08-29 06:25] LABS: HEMOGLOBIN 10.7 g/dL (12.0-16.0); MEAN CORPUSCULAR HEMOGLOBIN 27.8 pg (25.0-35.0); MEAN CORPUSCULAR HGB CONC 31.9 g/dl (31.0-37.0); MEAN PLATELET VOLUME 11.1 fl (7.0-11.0); RBC 3.85 10^6/uL (3.5-6.1); RED CELL DISTRIBUTION WIDTH 13.7 % (11.5-14.5)
[2017-08-29 07:07] LABS: ALB/GLOB RATIO 1.1 (1.1-1.8); ALBUMIN 3.4 g/dL (3.0-4.8); CALCIUM 9.3 mg/dL (8.4-10.5)
[2017-08-29] MEDS: Levothyroxine 88 MCG TAB PO SCH (08:33)
[2017-08-29] MEDS: Insulin Reg-LOW-Coverage SC SCH ×4 (08:33→22:00)
[2017-08-29] MEDS: Pantoprazole 40 mg EC Tab PO SCH (09:05)
[2017-08-29] MEDS: HYDROmorphone 0.5 mg/0.5 ml ISec IVP PRN (13:02)
[2017-08-29] MEDS: HYDROmorphone 1 mg/ml ISec IVP PRN (15:35)
[2017-08-30] MEDS: HYDROmorphone 1 mg/ml ISec IVP PRN (02:03)
--- NOTE | 2017-08-30 02:04 | PN ---
DATE: SUBJECTIVE: The patient is 72-year-old female. The patient seen and examined at the bedside. Her daughter and son sitting at the bedside. Also the patient having intractable back pain, even she is getting Dilaudid every 4 hours, but still pain is intolerable. I increased Dilaudid from 0.5 to 1 mg. No nausea or vomiting. No headache. No fever. No chills. PHYSICAL EXAMINATION: VITAL SIGNS: Temperature 98.2, pulse 52, blood pressure 118/42, respiratory rate 20. HEENT: Head: Normocephalic, atraumatic. Eyes: PERRLA. Extraocular muscles intact. Conjunctivae clear. Nose: Patent. Mucous membrane moist. NECK: Supple. No carotid bruit. No JVD or thyromegaly. CHEST: Bilaterally symmetrical. HEART: S1, S2 positive. LUNGS: Clear to auscultation. ABDOMEN: Soft. Bowel sounds present. No organomegaly. EXTREMITIES: No edema. No cyanosis. NEUROLOGIC: Patient is awake and alert. Moving all four extremities. No focal deficits. MEDICATIONS: Calcium, amiodarone, losartan, Dilaudid, Ecotrin, insulin, Lasix, Lipitor, Norvasc, Plavix, Protonix, Singulair, Synthroid, Zofran. LABORATORY DATA: White blood cells 7.0, hemoglobin of 10.7, hematocrit 33.5, platelets 191. Sodium 141, potassium 4.3, BUN 32, creatinine 1.2, glucose 169. AST 53, ALT 70. ASSESSMENT AND PLAN: Ms. Isaías Sen is a 72-year-old lady with anemia, dehydration, diabetes mellitus, renal insufficiency, came after fall, intractable back pain. MRI of the lumbar spine done shows degenerative findings are unchanged from the previous exam, the T12 compression fracture is new. There is acute or subacute process of fractures through the inferior portion of the T12 vertebral body. Neurosurgery consult called. CAT scan of the head done. X-ray of the sacrum and coccygeal area done. The patient has history of insulin-dependant diabetes mellitus uncontrolled, coronary artery disease, atrial fibrillation, congestive heart failure, hypothyroidism, anxiety, gastroesophageal reflux disease, chronic obstructive pulmonary disease, hypertension, history of cerebrovascular accident, right sided partial weakness, history of obstructive sleep apnea syndrome, chronic obstructive pulmonary disease. The patient is getting pain management, consult called by Dr. Mark Clifton on 08/28/2017. I do not have any input. Then finally we called consult with Dr. Bernard Kraft on 08/29/2017, awaiting for his input. Gastrointestinal and deep venous thrombosis prophylaxis. Maybe, patient needs physical therapy. We will follow up. Michelle Aviles MD MTDD
[2017-08-30 06:54] LABS: HEMOGLOBIN 10.8 g/dL (12.0-16.0); MEAN CELL VOLUME 87.4 fl (80.0-105.0); MEAN CORPUSCULAR HEMOGLOBIN 27.8 pg (25.0-35.0); MEAN CORPUSCULAR HGB CONC 31.9 g/dl (31.0-37.0); MEAN PLATELET VOLUME 10.7 fl (7.0-11.0); RBC 3.88 10^6/uL (3.5-6.1); RED CELL DISTRIBUTION WIDTH 13.7 % (11.5-14.5); WHITE BLOOD COUNT 7.3 10^3/ul (4.5-11.0)
[2017-08-30 07:09] LABS: BLOOD UREA NITROGEN 35 mg/dL (7-21); CALCIUM 9.4 mg/dL (8.4-10.5); GFR AFRICAN-AMERICAN 49; GFR NON-AFRICAN AMERICAN 40; HDL CHOLESTEROL 54 mg/dL (29-60)
[2017-08-30 07:10] LABS: IRON 49 ug/dL (45-180)
[2017-08-30 07:20] LABS: LDL CHOLESTEROL 61 mg/dL (0-129)
[2017-08-30 07:21] LABS: % IRON SATURATION 17 % (20-55); TOTAL IRON BINDING CAPACITY 282 ug/dL (265-497)
[2017-08-30] MEDS: Insulin Reg-LOW-Coverage SC SCH ×4 (09:22→22:00)
[2017-08-30] MEDS: Levothyroxine 88 MCG TAB PO SCH (09:24)
[2017-08-30] MEDS: Pantoprazole 40 mg EC Tab PO SCH (09:24)
--- NOTE | 2017-08-30 11:14 | CON ---
DATE: 08/30/2017 REASON FOR CONSULTATION: Fractured T12. HISTORY OF PRESENT ILLNESS: The patient is a 72-year-old young woman with history of having fallen at home on 08/27/2017. Evidently, she was making a turn in the kitchen, fell on her tailbone according to her daughter. She was complaining of severe headache after the fall with trauma to the back of her head as well, so she was brought to the emergency room and admitted. She does not appear to complain of any radicular symptoms. No obvious loss of bowel or bladder control. PAST MEDICAL HISTORY: Significant for type 2 diabetes, coronary artery disease, AFib, CHF, hypothyroidism, COPD, GERD, ataxia, hypertension. Status post CVA with right-sided weakness. MEDICATIONS: As on the chart. ALLERGY: HISTORY OF IODINE ALLERGY WITH ANAPHYLAXIS. PAST SURGICAL HISTORY: Significant for a hysterectomy, bilateral cataract surgery and right total knee replacement. PHYSICAL EXAMINATION: MUSCULOSKELETAL: The patient moves about her bed actively. After the exam, she was seemed to be sitting up in bed making the phone call as well, which she did on her own. She has perhaps some mild tenderness to palpation over the lower thoracic region, but it was exquisitely tender over the sacral region at tailbone area. She moves both lower extremities fully and actively. NEUROLOGIC: Grossly intact. LABORATORY DATA: She had x-ray of the sacrum and coccyx done in the emergency room, which were read as normal. She had an MRI done 2 days ago, which showed a transverse linear uptake at the inferior portion of the T12 vertebral body with no bony retropulsion and no loss of normal alignment. However, on review, there appeared may be some increased edema towards the coccygeal region. Otherwise, multilevel degenerative changes, which reportedly have not changed since her last MRI in 02/2017. IMPRESSION: Impression is that of fractured T12 with a possible trauma/fracture of the coccygeal region. Neither of these injury is requiring a surgical intervention. She seems to be moving around fairly actively so that I would just mobilize her as her pain allows. If she complains of more pain around the T12 region, one can order a lightweight extension brace to be worn when up out of bed, but at this point as I said she went from a fully supine position and rolled and sat up on her own and seems to do that without any difficulty, so I would just mobilize her as tolerated and we will be happy to see her again if and when the need arises. Thank you for allowing me to participate in the care of your patient. Randall Aleman MD
--- NOTE | 2017-08-30 11:49 | CP.PCM.PN ---
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 Pt seen in our office on 08/27 with complaints of severe headaches occurring after a fall with trauma to back of head. Her daughter reports that her mother slipped in the kitchen while making a turn yesterday and fell on her tailbone. Today, pt seen at bedside with 10 out of 10 pain in low back. Pt denies any blurry vision, tinnitus, nausea, vomiting, fever chills, diarrhea, constipation, shortness of breath, chest pain, paresthesias, or urinary changes. Objective - Vital Signs/Intake and Output Vital Signs (last 24 hours): Temp Pulse Resp BP Pulse Ox 98.1 F 60 18 140/60 95 08/30/17 06:00 08/30/17 09:21 08/30/17 06:00 08/30/17 09:23 08/30/17 06:00 Intake and Output: 08/30/17 08/30/17 06:59 18:59 Intake Total 300 Balance 300 - Medications Medications: Current Medications Amiodarone HCl (Cordarone) 200 mg PO DAILY [facility] Last Admin: 08/30/17 09:21 Dose: 200 mg Amlodipine Besylate (Norvasc) 10 mg PO DAILY [facility] Last Admin: 08/30/17 09:23 Dose: 10 mg Aspirin (Ecotrin) 81 mg PO DAILY [facility] Last Admin: 08/30/17 09:21 Dose: 81 mg Atorvastatin Calcium (Lipitor) 10 mg PO DIN [facility] Last Admin: 08/29/17 17:52 Dose: 10 mg Clopidogrel Bisulfate (Plavix) 75 mg PO DAILY [facility] Last Admin: 08/30/17 09:23 Dose: 75 mg Furosemide (Lasix) 20 mg PO DAILY [facility] Last Admin: 08/30/17 09:22 Dose: 20 mg Hydromorphone HCl (Dilaudid) 1 mg IVP Q4H PRN PRN Reason: Pain, Mild (1-3) Last Admin: 08/30/17 02:03 Dose: 1 mg Insulin Human Regular (Humulin R Low) 0 units SC ACHS ARI PRN Reason: Protocol Last Admin: 08/30/17 09:22 Dose: 1 units Levothyroxine Sodium (Synthroid) 88 mcg PO ACB [facility] Last Admin: 08/30/17 09:24 Dose: 88 mcg Losartan Potassium (Cozaar) 100 mg PO DAILY [facility] Last Admin: 08/30/17 09:21 Dose: 100 mg Montelukast Sodium (Singulair) 10 mg PO DAILY [facility] Last Admin: 08/30/17 09:24 Dose: 10 mg Non-Formulary Medication (Calcium Carb/Vit D3/Minerals [Calcium 600+D Plus Minerals Tb]) 1 tab PO DAILY [facility] Non-Formulary Medication (Insulin Detemir [Levemir Flextouch]) 40 units SC ACBD [facility] Non-Formulary Medication (Potassium Chloride [Klor-Con Sprinkle]) 10 meq PO QWK [facility] Ondansetron HCl (Zofran Tab) 4 mg PO Q12 PRN PRN Reason: Nausea/Vomiting Pantoprazole Sodium (Protonix Ec Tab) 40 mg PO DAILY [facility] Last Admin: 08/30/17 09:24 Dose: 40 mg Sertraline HCl (Zoloft) 100 mg PO HS [facility] Last Admin: 08/29/17 21:17 Dose: 100 mg Sitagliptin Phosphate (Januvia) 50 mg PO DAILY [facility] Last Admin: 08/30/17 09:22 Dose: 50 mg - Labs Labs: 08/30/17 06:15 08/30/17 06:15 PT 11.9 SECONDS (9.4-12.5) 08/27/17 17:00 INR 1.04 (0.93-1.08) 08/27/17 17:00 APTT 30.5 Seconds (25.1-36.5) 08/27/17 17:00 - Constitutional Appears: Well - Head Exam Head Exam: NORMAL INSPECTION, NORMOCEPHALIC - Eye Exam Eye Exam: Normal appearance Pupil Exam: NORMAL ACCOMODATION - ENT Exam ENT Exam: Normal Exam Additional comments: R ear heaing aid - Neck Exam Neck Exam: Normal Inspection - Respiratory Exam Respiratory Exam: Clear to Ausculation Bilateral, NORMAL BREATHING PATTERN - Cardiovascular Exam Cardiovascular Exam: REGULAR RHYTHM, +S1, +S2 - GI/Abdominal Exam GI & Abdominal Exam: Soft, Normal Bowel Sounds - Extremities Exam Extremities Exam: Full ROM, Normal Capillary Refill, Normal Inspection Additional comments: R side weakness - Back Exam Back Exam: muscle spasm, NORMAL INSPECTION, tenderness, vertebral tenderness - Neurological Exam Neurological Exam: Alert, Awake - Psychiatric Exam Psychiatric exam: Normal Affect, Normal Mood - Skin Skin Exam: Dry, Intact, Normal Color, Warm Assessment and Plan (1) Anemia Status: Acute (2) Dehydration Status: Acute (3) Abnormal LFTs (liver function tests) Status: Acute (4) T12 compression fracture Status: Acute (5) Back pain Status: Acute (6) Headache Status: Acute (7) Dizziness Status: Acute (8) Hip pain Status: Acute (9) Uncontrolled diabetes mellitus Status: Acute (10) Weakness Status: Acute - Assessment and Plan (Free Text) Plan: Surgery states that she does not require surgical intervention and would benefit from a lightweight extension brace to be worn up out of bed. Labs ordered. PT & OT. GI/VTE prophylaxis. Pain management: dilaudid IVP Consults: Neuro Surgery - Dr. Aleman Reviewed: MRI back = acute or subacte tranverse fracture through the inferior portion of the T12 vertebral body, no significant loss of verterbral height and no encroachment of the spinal canal Xray sacrum & coccyx = WNL CT head = mild chronic white matter ischemic changes, small old left basal ganglia lacunar infarct <Michelle Aviles - Last Filed: 08/30/17 21:02> Objective - Vital Signs/Intake and Output Vital Signs (last 24 hours): Temp Pulse Resp BP Pulse Ox 98.1 F 60 18 140/60 95 08/30/17 06:00 08/30/17 09:21 08/30/17 06:00 08/30/17 09:23 08/30/17 06:00 - Medications Medications: Current Medications Amiodarone HCl (Cordarone) 200 mg PO DAILY [facility] Last Admin: 08/30/17 09:21 Dose: 200 mg Amlodipine Besylate (Norvasc) 10 mg PO DAILY [facility] Last Admin: 08/30/17 09:23 Dose: 10 mg Aspirin (Ecotrin) 81 mg PO DAILY [facility] Last Admin: 03/09/18 09:21 Dose: 81 mg Atorvastatin Calcium (Lipitor) 10 mg PO DIN [facility] Last Admin: 08/30/17 17:05 Dose: 10 mg Clopidogrel Bisulfate (Plavix) 75 mg PO DAILY [facility] Last Admin: 08/30/17 09:23 Dose: 75 mg Furosemide (Lasix) 20 mg PO DAILY [facility] Last Admin: 08/30/17 09:22 Dose: 20 mg Insulin Human Regular (Humulin R Low) 0 units SC ACHS ARI PRN Reason: Protocol Last Admin: 08/30/17 17:04 Dose: 1 units Levothyroxine Sodium (Synthroid) 88 mcg PO ACB [facility] Last Admin: 08/30/17 09:24 Dose: 88 mcg Losartan Potassium (Cozaar) 100 mg PO DAILY [facility] Last Admin: 08/30/17 09:21 Dose: 100 mg Montelukast Sodium (Singulair) 10 mg PO DAILY [facility] Last Admin: 08/30/17 09:24 Dose: 10 mg Morphine Sulfate (Morphine) 2 mg IVP Q6 PRN PRN Reason: Pain, severe (8-10) Last Admin: 08/30/17 20:39 Dose: 2 mg [Calcium 600 Mg Tab 1 tab PO BID [facility] Non-Formulary Medication (Insulin Detemir [Levemir Flextouch]) 40 units SC ACBD ARI Potassium Cl 10 Meq (Tab) 10 meq PO MWF [facility] Ondansetron HCl (Zofran Tab) 4 mg PO Q12 PRN PRN Reason: Nausea/Vomiting Pantoprazole Sodium (Protonix Ec Tab) 40 mg PO DAILY [facility] Last Admin: 08/30/17 09:24 Dose: 40 mg Sertraline HCl (Zoloft) 100 mg PO HS [facility] Last Admin: 08/29/17 21:17 Dose: 100 mg Sitagliptin Phosphate (Januvia) 50 mg PO DAILY [facility] Last Admin: 08/30/17 09:22 Dose: 50 mg - Labs Labs: 08/30/17 06:15 08/30/17 06:15 PT 11.9 SECONDS (9.4-12.5) 08/27/17 17:00 INR 1.04 (0.93-1.08) 08/27/17 17:00 APTT 30.5 Seconds (25.1-36.5) 08/27/17 17:00 Assessment and Plan - Assessment and Plan (Free Text) Plan: 72 yr [place] 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 Pt seen in our office on 08/27 with complaints of severe headaches occurring after a fall with trauma to back of head. Her daughter reports that her mother slipped in the kitchen while making a turn yesterday and fell on her tailbone. Today, pt seen at bedside with 10 out of 10 pain in low back. Pt denies any blurry vision, tinnitus, nausea, vomiting, fever chills, diarrhea, constipation, shortness of breath, chest pain, paresthesias, or urinary changes. pt is seen and examined at bed side , looking comfortable , agreed all above , chart , labs and meds noted will f/u
[2017-08-30] MEDS ORDERED: Morphine 2 mg/ml ISec IVP PRN (12:12)
[2017-08-30 12:52] LABS: FOLATE > 20.0 ng/mL
[2017-08-30] MEDS: Morphine 2 mg/ml ISec IVP PRN ×2 (14:48→20:39)
--- NOTE | 2017-08-31 02:21 | CON ---
DATE: 08/30/2017 TIME: 8:45 p.m. CHIEF COMPLAINT AND HISTORY OF PRESENT ILLNESS: This is a 72-year-old elderly female who fell approximately 6 days ago. Her family described severe back pain since that time. Her baseline is somewhat limited with chronic arthritis and back pain. The patient has limited mobility and frequently uses a walker. Regardless after the fall, her pain level has increased significantly and she is requiring increasing amounts of analgesics. Her MRI demonstrates an acute fracture of the inferior endplate of T12. Only a minimal amount of compression is demonstrated. The posterior elements are intact. There are moderate disk generative changes noted at multiple levels. I had a long conversation with the patient's daughter and . We discussed possible kyphoplasty and they would like the patient to be considered for treatment. The patient will continue physical therapy over the weekend. Her pain level will be reassessed on Saturday and kyphoplasty performed if she continues to have significant pain and disability. Mark Clifton MD MTDD
[2017-08-31] MEDS: Morphine 2 mg/ml ISec IVP PRN ×3 (05:39→20:37)
[2017-08-31] MEDS: Insulin Reg-LOW-Coverage SC SCH ×4 (08:03→22:03)
[2017-08-31] MEDS: Pantoprazole 40 mg EC Tab PO SCH (11:13)
[2017-08-31] MEDS: Levothyroxine 88 MCG TAB PO SCH (11:13)
--- NOTE | 2017-08-31 18:24 | PN ---
DATE: SUBJECTIVE: Patient is seen and examined on bedside, looking comfortable, getting pain medication, but as per patient, still pain is getting low, but is not disappearing. No nausea, vomiting, or diarrhea. No hematuria, no hematochezia. No swelling of legs. No fever, no chills. No headache, no dizziness. PHYSICAL EXAMINATION: VITAL SIGNS: Temperature 97.2, pulse 52, blood pressure 150/50, respiratory rate 18. HEENT: Head: Normocephalic, atraumatic. Eyes: PERRLA, extraocular muscles are intact, conjunctivae are clear. Nose: Patent. NECK: Supple. No carotid bruit. No JVD or thyromegaly. CHEST: Bilaterally symmetrical. HEART: S1, S2 positive. LUNGS: Clear to auscultation. ABDOMEN: Soft. Bowel sounds are present. No organomegaly. EXTREMITIES: No edema. No cyanosis. NEUROLOGIC: Patient is awake and alert, moving all four extremities, no focal deficit. MEDICATIONS: Calcium, amiodarone, Cozaar, Ecotrin, insulin Levemir, Januvia, furosemide, Lipitor, morphine, amlodipine, Plavix, potassium, Protonix, Singulair, Synthroid, Zofran. LABORATORY DATA: White blood cells 7.3, hemoglobin 10.8, hematocrit 33.9, and platelets 208. Glucose 248, 192, 185. ASSESSMENT AND PLAN: Ms. Isaías Sen is a 72-year-old lady with multiple medical problems, has a fall and has vertebral fracture of T12, seen by Dr. Mark Clifton for compression fracture. According to him, he wants to wait over the weekend. If pain will get better with physical therapy and pain medication, that is fine; otherwise, he wants to go to do kyphoplasty. Patient has Insulin-dependent diabetes mellitus, history of stroke, hypertension, hypercholesterolemia, history of coronary artery disease. Neurosurgery is on the case. Obstructive sleep apnea syndrome, chronic obstructive pulmonary disease. Repeat lab. Pain management. Physical therapy. We will follow up. Michelle Aviles MD
[2017-09-01] MEDS: Insulin Reg-LOW-Coverage SC SCH ×4 (08:52→22:05)
[2017-09-01] MEDS: Pantoprazole 40 mg EC Tab PO SCH (09:28)
[2017-09-01] MEDS: Levothyroxine 88 MCG TAB PO SCH (09:28)
[2017-09-01] MEDS: Morphine 2 mg/ml ISec IVP PRN ×2 (12:13→19:46)
--- NOTE | 2017-09-01 20:15 | PN ---
DATE: SUBJECTIVE: Patient is seen and examined at the bedside, not looking comfortable, still has back pain, getting pain medications; according to patient, even she cannot do physical therapy. No nausea, vomiting, or diarrhea. No hematuria or hematochezia. No headaches. No dizziness. No fever. No chills. PHYSICAL EXAMINATION VITAL SIGNS: Temperature is 98.8, pulse 55, blood pressure 144/54. HEENT: Head is normocephalic, atraumatic. Eyes PERRLA. EOMs are intact. Conjunctivae are clear. Nose, patent. NECK: Supple. No carotid bruits. No JVD or thyromegaly. CHEST: Bilaterally symmetrical. HEART: S1 and S2 positive. LUNGS: Clear to auscultation. ABDOMEN: Soft, bowel sounds positive. No organomegaly. EXTREMITIES: No edema. No cyanosis. NEUROLOGIC: Patient is awake and alert. Moving all 4 extremities. No focal deficit. LABORATORY DATA: White blood cell 7.3, hemoglobin 10.8, hematocrit 33.9, platelets 208. Glucose 301, 150, 123. MEDICATIONS: Calcium, amiodarone, Cozaar, Ecotrin, insulin, Lasix, Lipitor, morphine, amlodipine, Plavix, potassium, Protonix, Singulair, Synthroid, Zofran, and Zoloft. ASSESSMENT AND PLAN: Ms. Isaías Sen is a 72-year-old female with anemia, diabetes mellitus, renal insufficiency, iron deficiency, history of stroke, diabetes mellitus type 2, coronary artery disease, atrial fibrillation, congestive heart failure, hypothyroidism, chronic obstructive pulmonary disease, gastroesophageal reflux disease, dyspepsia, ataxia, hypertension, cerebrovascular accident with right-sided partial weakness, history of multiple falls, came with fractured T12, which is possibly traumatic, coccygeal region also . According to neurosurgeon, patient does not need surgery, but patient is constant in pain and we consulted Dr. Mark Clifton. May be patient will go for kyphoplasty tomorrow. After that, we will do physical therapy. Neurosurgeon is recommending a light-weight extension brace to be worn when out of bed. We will continue present treatment. Gastrointestinal and deep venous thrombosis prophylaxis. Repeat labs. We will follow. Michelle Aviles MD [facility] # [id number] [place]
[2017-09-02] MEDS: Morphine 2 mg/ml ISec IVP PRN ×3 (03:28→23:46)
[2017-09-02] MEDS: Insulin Reg-LOW-Coverage SC SCH ×4 (08:33→22:00)
[2017-09-02] MEDS: Pantoprazole 40 mg EC Tab PO SCH (10:27)
[2017-09-02] MEDS: Levothyroxine 88 MCG TAB PO SCH (10:27)
[2017-09-02 10:32] LABS: HEMOGLOBIN 11.9 g/dL (12.0-16.0); MEAN CORPUSCULAR HEMOGLOBIN 28.1 pg (25.0-35.0); MEAN CORPUSCULAR HGB CONC 32.3 g/dl (31.0-37.0); MEAN PLATELET VOLUME 10.3 fl (7.0-11.0); RBC 4.23 10^6/uL (3.5-6.1); RED CELL DISTRIBUTION WIDTH 13.8 % (11.5-14.5); WHITE BLOOD COUNT 7.7 10^3/ul (4.5-11.0)
[2017-09-02 10:47] LABS: ALB/GLOB RATIO 1.2 (1.1-1.8); ALBUMIN 4.2 g/dL (3.0-4.8); CALCIUM 9.7 mg/dL (8.4-10.5)
--- NOTE | 2017-09-02 13:40 | CP.PCM.PN ---
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 Pt seen in our office on 08/27 with complaints of severe headaches occurring after a fall with trauma to back of head. Her daughter reports that her mother slipped in the kitchen while making a turn yesterday and fell on her tailbone. NeuroSurgery states that she does not require surgical intervention and would benefit from a lightweight extension brace to be worn up out of bed. However, pt continues to report severe pain and distress. Dr. Mark Clifton consulted for second opinion who recommended kyphoplasty and physical therapy. Today, pt seen at bedside with her daughter in room. Pt is NPO and waiting to go for surgery. Pt denies any blurry vision, tinnitus, nausea, vomiting, fever chills, diarrhea, constipation, shortness of breath, chest pain, paresthesias, or urinary changes. Objective - Vital Signs/Intake and Output Vital Signs (last 24 hours): Temp Pulse Resp BP Pulse Ox 98 F 53 L 18 150/43 L 100 09/02/17 08:19 09/02/17 10:31 09/02/17 08:19 09/02/17 10:31 09/02/17 08:19 Intake and Output: 09/02/17 09/02/17 06:59 18:59 Intake Total 1500 Balance 1500 - Medications Medications: Current Medications Amiodarone HCl (Cordarone) 200 mg PO DAILY [facility] Last Admin: 09/02/17 10:31 Dose: 200 mg Amlodipine Besylate (Norvasc) 10 mg PO DAILY [facility] Last Admin: 09/02/17 10:31 Dose: 10 mg Aspirin (Ecotrin) 81 mg PO DAILY [facility] Last Admin: 09/02/17 10:31 Dose: 81 mg Atorvastatin Calcium (Lipitor) 10 mg PO DIN [facility] Last Admin: 09/01/17 18:01 Dose: 10 mg Clopidogrel Bisulfate (Plavix) 75 mg PO DAILY [facility] Last Admin: 09/02/17 10:27 Dose: 75 mg Furosemide (Lasix) 20 mg PO DAILY [facility] Last Admin: 09/02/17 10:27 Dose: 20 mg Insulin Human Regular (Humulin R Low) 0 units SC ACHS [facility] PRN Reason: Protocol Last Admin: 09/02/17 08:33 Dose: Not Given Levothyroxine Sodium (Synthroid) 88 mcg PO ACB [facility] Last Admin: 09/02/17 10:27 Dose: 88 mcg Losartan Potassium (Cozaar) 100 mg PO DAILY [facility] Last Admin: 09/02/17 10:27 Dose: 100 mg Montelukast Sodium (Singulair) 10 mg PO DAILY [facility] Last Admin: 09/02/17 10:27 Dose: 10 mg Morphine Sulfate (Morphine) 2 mg IVP Q6 PRN PRN Reason: Pain, severe (8-10) Last Admin: 09/02/17 10:37 Dose: 2 mg [Calcium 600 Mg Tab 1 tab PO BID [facility] Last Admin: 09/02/17 10:28 Dose: 1 tab Non-Formulary Medication (Insulin Detemir [Levemir Flextouch]) 40 units SC ACBD [facility] Potassium Cl 10 Meq (Tab) 10 meq PO MWF [facility] Ondansetron HCl (Zofran Tab) 4 mg PO Q12 PRN PRN Reason: Nausea/Vomiting Pantoprazole Sodium (Protonix Ec Tab) 40 mg PO DAILY [facility] Last Admin: 09/02/17 10:27 Dose: 40 mg Sertraline HCl (Zoloft) 100 mg PO HS [facility] Last Admin: 09/01/17 22:09 Dose: 100 mg Sitagliptin Phosphate (Januvia) 50 mg PO DAILY [facility] Last Admin: 09/02/17 10:27 Dose: 50 mg - Labs Labs: 09/02/17 10:20 09/02/17 10:20 PT 11.9 SECONDS (9.4-12.5) 08/27/17 17:00 INR 1.04 (0.93-1.08) 08/27/17 17:00 APTT 30.5 Seconds (25.1-36.5) 08/27/17 17:00 - Constitutional Appears: Well - Head Exam Head Exam: ATRAUMATIC, NORMAL INSPECTION, NORMOCEPHALIC - Eye Exam Eye Exam: EOMI, Normal appearance, PERRL Pupil Exam: NORMAL ACCOMODATION, PERRL Additional comments: corrective glasses in place - ENT Exam ENT Exam: Mucous Membranes Moist, Normal Exam Additional comments: R ear heaing aid - Neck Exam Neck Exam: Full ROM, Normal Inspection. absent: Lymphadenopathy - Respiratory Exam Respiratory Exam: Clear to Ausculation Bilateral, NORMAL BREATHING PATTERN - Cardiovascular Exam Cardiovascular Exam: REGULAR RHYTHM, +S1, +S2. absent: Murmur - GI/Abdominal Exam GI & Abdominal Exam: Soft, Normal Bowel Sounds. absent: Tenderness - Extremities Exam Additional comments: R side weakness - Back Exam Back Exam: paraspinal tenderness - Neurological Exam Neurological Exam: Alert, Awake, Oriented x3 - Psychiatric Exam Psychiatric exam: Normal Affect, Normal Mood - Skin Skin Exam: Dry, Intact, Normal Color, Warm Assessment and Plan (1) Anemia Status: Acute (2) Dehydration Status: Acute (3) Abnormal LFTs (liver function tests) Status: Acute (4) T12 compression fracture Status: Acute (5) Back pain Status: Acute (6) Headache Status: Acute (7) Dizziness Status: Acute (8) Hip pain Status: Acute (9) Uncontrolled diabetes mellitus Status: Acute (10) Weakness Status: Acute - Assessment and Plan (Free Text) Plan: Pt is NPO for Kyphoplasty today. PT & OT. GI/VTE prophylaxis. Pain management: morphine IVP Consults: Neuro Surgery - Dr. Aleman Surgery - Dr. Mark Clifton Reviewed: MRI back = acute or subacte tranverse fracture through the inferior portion of the T12 vertebral body, no significant loss of verterbral height and no encroachment of the spinal canal Xray sacrum & coccyx = WNL CT head = mild chronic white matter ischemic changes, small old left basal ganglia lacunar infarct <Michelle Aviles - Last Filed: 09/02/17 21:55> Objective - Vital Signs/Intake and Output Vital Signs (last 24 hours): Temp Pulse Resp BP Pulse Ox 98 F 50 L 16 121/42 L 98 09/02/17 18:10 09/02/17 18:10 09/02/17 18:10 09/02/17 18:10 09/02/17 18:10 Intake and Output: 09/02/17 09/03/17 18:59 06:59 Intake Total 1575 Balance 1575 - Medications Medications: Current Medications Amiodarone HCl (Cordarone) 200 mg PO DAILY [facility] Last Admin: 09/02/17 10:31 Dose: 200 mg Amlodipine Besylate (Norvasc) 10 mg PO DAILY [facility] Last Admin: 09/02/17 10:31 Dose: 10 mg Aspirin (Ecotrin) 81 mg PO DAILY [facility] Last Admin: 09/02/17 10:31 Dose: 81 mg Atorvastatin Calcium (Lipitor) 10 mg PO DIN [facility] Last Admin: 09/02/17 18:25 Dose: 10 mg Clopidogrel Bisulfate (Plavix) 75 mg PO DAILY [facility] Last Admin: 09/02/17 10:27 Dose: 75 mg Furosemide (Lasix) 20 mg PO DAILY [facility] Last Admin: 09/02/17 10:27 Dose: 20 mg Sodium Chloride (Sodium Chloride 0.45%) 1,000 mls @ 80 mls/hr IV .[id number] [facility] Stop: 09/03/17 06:00 Insulin Human Regular (Humulin R Low) 0 units SC ACHS [facility] PRN Reason: Protocol Last Admin: 09/02/17 17:46 Dose: Not Given Levothyroxine Sodium (Synthroid) 88 mcg PO ACB [facility] Last Admin: 09/02/17 10:27 Dose: 88 mcg Losartan Potassium (Cozaar) 100 mg PO DAILY [facility] Last Admin: 09/02/17 10:27 Dose: 100 mg Montelukast Sodium (Singulair) 10 mg PO DAILY [facility] Last Admin: 09/02/17 10:27 Dose: 10 mg Morphine Sulfate (Morphine) 2 mg IVP Q6 PRN PRN Reason: Pain, severe (8-10) Last Admin: 09/02/17 10:37 Dose: 2 mg [Calcium 600 Mg Tab 1 tab PO BID [facility] Last Admin: 09/02/17 18:26 Dose: 1 tab Potassium Cl 10 Meq (Tab) 10 meq PO MWF [facility] Ondansetron HCl (Zofran Tab) 4 mg PO Q12 PRN PRN Reason: Nausea/Vomiting Ondansetron HCl (Zofran Inj) 4 mg IVP Q6H PRN PRN Reason: Nausea/Vomiting Pantoprazole Sodium (Protonix Ec Tab) 40 mg PO DAILY [facility] Last Admin: 09/02/17 10:27 Dose: 40 mg Sertraline HCl (Zoloft) 100 mg PO HS [facility] Last Admin: 09/02/17 21:41 Dose: 100 mg Sitagliptin Phosphate (Januvia) 50 mg PO DAILY [facility] Last Admin: 09/02/17 10:27 Dose: 50 mg - Labs Labs: 09/02/17 10:20 09/02/17 10:20 PT 11.9 SECONDS (9.4-12.5) 08/27/17 17:00 INR 1.04 (0.93-1.08) 08/27/17 17:00 APTT 30.5 Seconds (25.1-36.5) 08/27/17 17:00 Assessment and Plan - Assessment and Plan (Free Text) Plan: 72 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 Pt seen in our office on 08/27 with complaints of severe headaches occurring after a fall with trauma to back of head. Her daughter reports that her mother slipped in the kitchen while making a turn yesterday and fell on her tailbone. NeuroSurgery states that she does not require surgical intervention and would benefit from a lightweight extension brace to be worn up out of bed. However, pt continues to report severe pain and distress. Dr. Mark Clifton consulted for second opinion who recommended kyphoplasty and physical therapy. Today, pt seen at bedside with her daughter in room. Pt is NPO and waiting to go for surgery. Pt denies any blurry vision, tinnitus, nausea, vomiting, fever chills, diarrhea, constipation, shortness of breath, chest pain, paresthesias, or urinary changes.pt is seen and examined at bed side . lookimg comfortable . chart meds and labs noted , will f/u
[2017-09-02] MEDS ORDERED: Lidocaine 2% Inj (20ml) ONE ×2 (16:04→16:20)
[2017-09-02] MEDS ORDERED: Iohexol 350mgl/ml 50 ML ONE (16:05)
[2017-09-02] MEDS ORDERED: HEPARIN SODIUM/NS 1,000 ML IV ONE (16:05)
[2017-09-02] MEDS ORDERED: Midazolam 2 MG/2 ML VIAL ONE ×2 (16:36→16:53)
[2017-09-02] MEDS ORDERED: Sodium Chloride 0.45% 1,000 ML IV SCH (17:30)
--- NOTE | 2017-09-02 18:07 | VASCULAR ---
PROCEDURE: 1. T12 kyphoplasty HISTORY: Severe, refractory back pain. Unresponsive to bed rest and analgesics. Acute T12 compression fracture on MRI. PHYSICIAN(S): Mark Clifton MD. TECHNIQUE: he relative risks and indications of the procedure were explained to the patient's and daughter and informed written consent obtained. The patient was placed prone on the arteriography table and the thoracolumbar spine prepped and draped in the usual sterile fashion. Conscious sedation and monitoring were provided throughout the procedure by a nurse. The T12 vertebral body was carefully localized with fluoroscopy. The skin and soft tissues were anesthetized with 1% Xylocaine. Under direct fluoroscopic guidance, bilateral transpedicular bone needles were placed into the posterior aspect of the T12 vertebral body. Next bilateral 10 mm bone balloons were placed in the anterior and inferior portion of the T12 vertebral body. They were inflated to approximately 3 cc apiece with dilute contrast. The balloons were removed and 6.0 Cc of barium-impregnated PMMA cement instilled into the T12 vertebral body. No extravasation was seen. The bone needles were removed. The patient tolerated the procedure well. IMPRESSION: 1. Fluoroscopically-guided T12 kyphoplasty.
[2017-09-02] MEDS ORDERED: Morphine 2 mg/ml ISec ONE (18:09)
[2017-09-02] MEDS ORDERED: HYDROmorphone 2 mg/ml ISec IVP STA (19:51)
[2017-09-02] MEDS ORDERED: HYDROmorphone 1 mg/ml ISec IVP STA (19:54)
[2017-09-03] MEDS ORDERED: HYDROmorphone 1 mg/ml ISec IVP STA ×2 (01:50→03:52)
[2017-09-03] MEDS: Morphine 2 mg/ml ISec IVP PRN ×3 (05:59→19:56)
[2017-09-03] MEDS: Lidocaine 5% Patch TD SCH ×2 (08:05→09:55)
[2017-09-03] MEDS: Levothyroxine 88 MCG TAB PO SCH (08:05)
[2017-09-03] MEDS: Insulin Reg-LOW-Coverage SC SCH ×4 (08:38→21:37)
[2017-09-03] MEDS: Oxycodone/Acetaminophen 5/325 mg Tab PO PRN ×2 (09:48→14:03)
[2017-09-03] MEDS: Pantoprazole 40 mg EC Tab PO SCH (09:48)
[2017-09-03 12:02] LABS: ALB/GLOB RATIO 1.2 (1.1-1.8); BILIRUBIN,DIRECT 0.5 mg/dL (0.0-0.4)
--- NOTE | 2017-09-03 14:45 | PN ---
DATE: 09/03/2017 The patient is a 72 years old female. SUBJECTIVE: The patient is seen and examined on the bedside, sitting on the chair. Daughter, Robert is at the bedside also. The patient has excruciating pain in the right hip going downward towards the leg and got additional dose of morphine and Flexeril. Seen by Dr. Mark Clifton in the morning, wanted to do MRI of the right hip. PHYSICAL EXAMINATION: VITAL SIGNS: Temperature 98.2, pulse 67, blood pressure 125/82, and respiratory rate 20. HEENT: Head normocephalic, atraumatic. Eyes: PERRLA. Extraocular muscles intact. Conjunctivae clear. Nose patent. NECK: Supple. No carotid bruit. No thyromegaly. CHEST: Bilaterally symmetrical. HEART: S1 and S2 positive. LUNGS: Clear to auscultation. ABDOMEN: Soft, bowel sounds present. No organomegaly. EXTREMITIES: No edema, no cyanosis. NEUROLOGICAL: The patient is awake and alert, moving all 4 extremities, no focal deficits. MEDICATIONS: Calcium, amiodarone, Cozaar, Ecotrin, Flexeril, insulin, Januvia, Lasix, Lidoderm, Lipitor, morphine, Norvasc, Percocet, Plavix, potassium, Protonix, Singulair, Synthroid, Zofran, and Zoloft. LABORATORY DATA: White blood cell is 7.7, hemoglobin 11.9, hematocrit 36.8, and platelets 249. Sodium 140, potassium 5.1. BUN 29, creatinine 1.1. Glucose 162. ASSESSMENT AND PLAN: The patient is a 72 years old lady with hyperkalemia, increased BUN, insulin-dependent diabetes mellitus type 2 uncontrolled, abnormal liver function test, anemia. Planned for procedure by Dr. Mark Clifton, Kyphoplasty. Has history of cerebrovascular accident, fatigue, T12 compression fracture, status post kyphoplasty, back pain, headache, dizziness, now right sided hip pain. We are sending the patient for MRI of the hip, need good physical therapy, muscle relaxant, pain management. Discussion was done with nurse practitioner, Jesika, and the patient's daughter, Robert. All questions answered. We will follow up. Michelle Aviles MD [facility] # [id number]
[2017-09-04] MEDS: Morphine 2 mg/ml ISec IVP PRN ×2 (06:03→18:39)
[2017-09-04 06:21] LABS: HEMOGLOBIN 10.8 g/dL (12.0-16.0); MEAN CELL VOLUME 87.3 fl (80.0-105.0); MEAN CORPUSCULAR HEMOGLOBIN 28.5 pg (25.0-35.0); MEAN CORPUSCULAR HGB CONC 32.6 g/dl (31.0-37.0); MEAN PLATELET VOLUME 11.1 fl (7.0-11.0); RBC 3.79 10^6/uL (3.5-6.1); RED CELL DISTRIBUTION WIDTH 14.2 % (11.5-14.5); WHITE BLOOD COUNT 11.7 10^3/ul (4.5-11.0)
[2017-09-04 07:36] LABS: CALCIUM 9.5 mg/dL (8.4-10.5)
--- NOTE | 2017-09-04 08:08 | US ---
EXAM: US Abdomen complete CLINICAL HISTORY: 72 years old, female; Pain; Abdominal pain; Generalized; Additional info: Ab. Lft TECHNIQUE: Real-time ultrasound of the abdomen (complete) with image documentation. COMPARISON: US - ABDOMEN LIMITED 2017-08-15 09:57 FINDINGS: Liver: Liver measures 16.6 cm. Hepatopedal blood flow in the portal vein. No intrahepatic bile duct dilation. Gallbladder: Negative sonographic Powers's sign. No gallstones. No pericholecystic fluid. No gallbladder wall thickening. Common bile duct: Common bile duct measures 3 mm in diameter which is within normal limits. Pancreas: Pancreas not well seen due to bowel gas. Kidneys: Right kidney measures 9.3 cm in sagittal length. Left kidney not well-seen due to poor penetration. Spleen: Spleen not well seen due to poor penetration. Aorta: Not well-seen due to underpenetration. Inferior vena cava: Patent visualized inferior vena cava. IMPRESSION: No acute findings of the visualized organs.
[2017-09-04] MEDS ORDERED: Sod Polystyrene Sulf 15 gm/60 ml Susp PO ONE ×2 (08:36→18:02)
[2017-09-04] MEDS: Insulin Reg-LOW-Coverage SC SCH ×3 (09:36→18:19)
[2017-09-04] MEDS: Pantoprazole 40 mg EC Tab PO SCH (09:37)
[2017-09-04] MEDS: Levothyroxine 88 MCG TAB PO SCH (09:37)
[2017-09-04] MEDS: Lidocaine 5% Patch TD SCH (09:44)
--- NOTE | 2017-09-04 10:50 | MRI ---
PROCEDURE: MRI of the right hip without contrast HISTORY: R hip pain s/p kyphplasty COMPARISON: TECHNIQUE: MRI of the pelvis and right hip was performed in multiple planes using multiple pulse sequences. There is a large amount of motion artifact on the study. The study is limited. FINDINGS: There is no obvious marrow edema in the right hip to suggest fracture. There is no surrounding muscular edema or fluid collection. IMPRESSION: Limited study. No marrow edema to suggest hip fracture
[2017-09-04] MEDS: Dextrose 5%/0.9% NS 1,000 ML IV SCH (10:59)
[2017-09-04 12:48] LABS: ALB/GLOB RATIO 1.2 (1.1-1.8); ALBUMIN 3.6 g/dL (3.0-4.8); CALCIUM 9.2 mg/dL (8.4-10.5)
[2017-09-04 13:12] LABS: CK MB% 1.3 % (2.5-3.0); CK-MB 7.9 ng/mL (0.0-3.6)
[2017-09-04] MEDS: Oxycodone/Acetaminophen 5/325 mg Tab PO PRN (16:53)
[2017-09-04 17:59] LABS: PH,URINE 5.5 (4.7-8.0); URINE BILIRUBIN SMALL (NEGATIVE); URINE BLOOD NEGATIVE (NEGATIVE); URINE GLUCOSE (UA) NEGATIVE (NEGATIVE); URINE LEUKOCYTE ESTERASE NEGATIVE Leu/uL (NEGATIVE); URINE PROTEIN NEGATIVE mg/dL (<30 mg/dL); URINE UROBILINOGEN 0.2 E.U./dL (<1 E.U./dL)
[2017-09-04 18:05] LABS: URINE APPEARANCE CLEAR (CLEAR); URINE COLOR YELLOW (YELLOW)
--- NOTE | 2017-09-04 18:10 | US ---
PROCEDURE: Ultrasound of the kidneys Bladder only/ residual urine ultrasound HISTORY: acute renal failure, L kidney not seen on abd US COMPARISON: None available. TECHNIQUE: Sonogram of the kidneys and urinary bladder. FINDINGS: RIGHT KIDNEY: Measures: 9.1 x 5.4 x 5.0 cm. No obstructing calculus, hydronephrosis, or renal cyst identified. LEFT KIDNEY: Measures: 9.0 x 4.5 x 4.1 cm. No obstructing calculus, hydronephrosis, or renal cyst identified. OTHER FINDINGS: Prevoid urinary bladder measures approximately 5.7 x 5.7 x 6.3 cm, calculated volume 107 mL. Postvoid urinary bladder could not be obtained due to patient condition. IMPRESSION: Markedly limited study. No obstructing calculus, hydronephrosis, or renal cyst identified. Prevoid urinary bladder volume 107 mL. Postvoid urinary bladder could not be obtained due to patient condition.
[2017-09-04 18:55] LABS: CREATININE,RANDOM URINE 151 mg/dL
[2017-09-04 20:27] LABS: ALB/GLOB RATIO 1.2 (1.1-1.8); ALBUMIN 3.7 g/dL (3.0-4.8); CALCIUM 9.1 mg/dL (8.4-10.5)
--- NOTE | 2017-09-04 20:37 | CP.PCM.CON ---
History of Present Illness - History of Present Illness History of Present Illness: 72 yo F w/ pmh of htn, dm, Afib, CHF (w/ preserved EF), s/p CVA, COPD, presented to hospital after fall last week; found to have acute T12 compression fracture; nephrology now being consulted for acute renal failure; Patient underwent kyphoplasty of involved vertebra 2 days ago with barium-based cement; no intravenous iodinated contrast was used per interventionalist; Subsequent hospital course unclear as patient is unable to give history; per notes and discussion with family, mental status is much more cloudy than usual; patient also has been fidgeting in pain, being given IV morphine doses often; one episode of vomiting recorded; otherwise, patient has been eating her meals; no mention made of diarrhea; Patient was on IVF w/ S but was discontinued yesterday morning; of note, patient was getting her home meds of lasix 20 mg daily and losartan 100 mg daily ; Review of Systems - Review of Systems Systems not reviewed;Unavailable: Altered Mental Status Past Patient History - Infectious Disease Hx of Infectious Diseases: None - Tetanus Immunizations Tetanus Immunization: Unknown - Past Medical History & Family History Past Medical History?: Yes - Past Social History Smoking Status: Never Smoked - CARDIAC Hx Hypertension: Yes - PULMONARY Hx Chronic Obstructive Pulmonary Disease (COPD): Yes - NEUROLOGICAL HX Cerebrovascular Accident: Yes - HEENT Hx Cataracts: Yes (WITH SURGERY) Other/Comment: cateract surgery both eyes - RENAL Hx Renal Failure: Yes Other/Comment: Per family, patient had acute renal failure after IV dye reaction many years ago; - ENDOCRINE/METABOLIC Hx Diabetes Mellitus Type 1: Yes Hx Hypothyroidism: Yes - HEMATOLOGICAL/ONCOLOGICAL Hx Blood Transfusions: No - INTEGUMENTARY Hx Dermatological Problems: No - MUSCULOSKELETAL/RHEUMATOLOGICAL Hx Musculoskeletal Disorders: Yes Other/Comment: Muscles spasms - GASTROINTESTINAL Hx Gastrointestinal Disorders: No - GENITOURINARY/GYNECOLOGICAL Hx Genitourinary Disorders: No - PSYCHIATRIC Hx Psychophysiologic Disorder: No Hx Substance Use: No - SURGICAL HISTORY Hx Hysterectomy: Yes Hx Musculoskeletal Surgery: Yes Hx Orthopedic Surgery: Yes (Right knee replacement) Other/Comment: cataract surgery both eyes - ANESTHESIA Hx Anesthesia Reactions: No Hx Malignant Hyperthermia: No Meds Allergies/Adverse Reactions: Allergies Allergy/AdvReac Type Severity Reaction Status Date / Time iodine Allergy ANAPHYLAXIS Verified 08/27/17 12:37 - Medications Medications: Current Medications Amiodarone HCl (Cordarone) 200 mg PO DAILY [facility] Last Admin: 09/04/17 09:47 Dose: Not Given Amlodipine Besylate (Norvasc) 10 mg PO DAILY [facility] Last Admin: 09/04/17 09:47 Dose: Not Given Aspirin (Ecotrin) 81 mg PO DAILY [facility] Last Admin: 09/04/17 09:37 Dose: 81 mg Atorvastatin Calcium (Lipitor) 10 mg PO DIN [facility] Last Admin: 09/04/17 18:19 Dose: 10 mg Clopidogrel Bisulfate (Plavix) 75 mg PO DAILY [facility] Last Admin: 09/04/17 09:37 Dose: 75 mg Cyclobenzaprine HCl (Flexeril) 5 mg PO TID PRN PRN Reason: Muscle spasm Last Admin: 09/04/17 09:38 Dose: 5 mg Dextrose/Sodium Chloride (Dextrose 5%/0.9% Ns 1000 Ml) 1,000 mls @ 75 mls/hr IV .[id number] [facility] Last Admin: 09/04/17 10:59 Dose: 75 mls/hr Insulin Human Regular (Humulin R Low) 0 units SC ACHS [facility] PRN Reason: Protocol Last Admin: 09/04/17 18:19 Dose: 4 units Levothyroxine Sodium (Synthroid) 88 mcg PO ACB [facility] Last Admin: 09/04/17 09:37 Dose: 88 mcg Lidocaine (Lidoderm) 1 ea TD DAILY [facility] Last Admin: 09/04/17 09:44 Dose: 1 ea Montelukast Sodium (Singulair) 10 mg PO DAILY [facility] Last Admin: 09/04/17 09:37 Dose: 10 mg [Calcium 600 Mg Tab 1 tab PO BID [facility] Last Admin: 09/04/17 18:31 Dose: 1 tab Ondansetron HCl (Zofran Inj) 4 mg IVP Q6H PRN PRN Reason: Nausea/Vomiting Last Admin: 09/02/17 23:46 Dose: 4 mg Oxycodone/Acetaminophen (Percocet 5/325 Mg Tab) 1 tab PO Q4H PRN PRN Reason: Pain, moderate (4-7) Stop: 09/06/17 09:33 Last Admin: 09/04/17 16:53 Dose: 1 tab Pantoprazole Sodium (Protonix Ec Tab) 40 mg PO DAILY [facility] Last Admin: 09/04/17 09:37 Dose: 40 mg Sertraline HCl (Zoloft) 100 mg PO HS [facility] Last Admin: 09/03/17 21:30 Dose: 100 mg Sitagliptin Phosphate (Januvia) 25 mg PO DAILY [facility] Physical Exam - Constitutional Appears: Non-toxic, Confused Additional comments: restless, constantly changing positions; - Eye Exam Eye Exam: absent: Scleral icterus - ENT Exam ENT Exam: Mucous Membranes Moist - Neck Exam Neck exam: Positive for: Normal Inspection - Respiratory Exam Respiratory Exam: Clear to Auscultation Bilateral. absent: Respiratory Distress - Cardiovascular Exam Cardiovascular Exam: RRR, +S1, +S2 - GI/Abdominal Exam GI & Abdominal Exam: Soft. absent: Distended, Tenderness - Exam Exam: absent: Bladder Distension - Extremities Exam Additional comments: no leg edema; - Neurological Exam Neurological exam: Altered - Psychiatric Exam Additional comments: not agitatated; Results - Vital Signs Recent Vital Signs: Last Vital Signs Temp 98 F 09/04/17 16:00 Pulse 70 09/04/17 16:00 Resp 95 H 09/04/17 16:00 BP 130/52 L 09/04/17 16:00 Pulse Ox 94 L 09/04/17 06:00 - Labs Result Diagrams: 09/04/17 06:00 09/04/17 08:00 Labs: Laboratory Results - last 24 hr 09/03/17 09/03/17 09/04/17 17:25 21:01 06:00 WBC 11.7 H D RBC 3.79 Hgb 10.8 L Hct 33.1 L MCV 87.3 MCH 28.5 MCHC 32.6 RDW 14.2 Plt Count 247 MPV 11.1 H Sodium Potassium Chloride Carbon Dioxide Anion Gap BUN Creatinine Est GFR ( Amer) Est GFR (Non-Af Amer) POC Glucose (mg/dL) 108 127 H Random Glucose Calcium Total Bilirubin AST ALT Alkaline Phosphatase Total Creatine Kinase CK-MB (CK-2) CK-MB (CK-2) % Total Protein Albumin Globulin Albumin/Globulin Ratio Urine Color Urine Appearance Urine pH Ur Specific [place] Urine Protein Urine Glucose (UA) Urine Ketones Urine Blood Urine Nitrate Urine Bilirubin Urine Urobilinogen Ur Leukocyte Esterase Ur Random Creatinine Ur Random Sodium 09/04/17 09/04/17 09/04/17 06:00 07:19 08:00 WBC RBC Hgb Hct MCV MCH MCHC RDW Plt Count MPV Sodium 141 Potassium 5.8 H* 6.0 H* Chloride 104 Carbon Dioxide 22 Anion Gap 21 H BUN 73 H Creatinine 4.2 H Est GFR ( Amer) 13 Est GFR (Non-Af Amer) 10 POC Glucose (mg/dL) 136 H Random Glucose 143 H Calcium 9.5 Total Bilirubin AST ALT Alkaline Phosphatase Total Creatine Kinase CK-MB (CK-2) CK-MB (CK-2) % Total Protein Albumin Globulin Albumin/Globulin Ratio Urine Color Urine Appearance Urine pH Ur Specific [place] Urine Protein Urine Glucose (UA) Urine Ketones Urine Blood Urine Nitrate Urine Bilirubin Urine Urobilinogen Ur Leukocyte Esterase Ur Random Creatinine Ur Random Sodium 09/04/17 09/04/17 09/04/17 08:00 11:07 17:35 WBC RBC Hgb Hct MCV MCH MCHC RDW Plt Count MPV Sodium 139 Potassium 5.8 H* Chloride 103 Carbon Dioxide 22 Anion Gap 20 BUN 76 H Creatinine 4.2 H Est GFR ( Amer) 13 Est GFR (Non-Af Amer) 10 POC Glucose (mg/dL) 167 H Random Glucose 151 H Calcium 9.2 Total Bilirubin 0.6 AST 193 H D ALT 153 H Alkaline Phosphatase 124 Total Creatine Kinase 595 H CK-MB (CK-2) 7.9 H CK-MB (CK-2) % 1.3 L Total Protein 6.6 Albumin 3.6 Globulin 3.0 Albumin/Globulin Ratio 1.2 Urine Color Urine Appearance Urine pH Ur Specific [place] Urine Protein Urine Glucose (UA) Urine Ketones Urine Blood Urine Nitrate Urine Bilirubin Urine Urobilinogen Ur Leukocyte Esterase Ur Random Creatinine 151 Ur Random Sodium 28 09/04/17 09/04/17 17:35 18:02 WBC RBC Hgb Hct MCV MCH MCHC RDW Plt Count MPV Sodium Potassium Chloride Carbon Dioxide Anion Gap BUN Creatinine Est GFR ( Amer) Est GFR (Non-Af Amer) POC Glucose (mg/dL) 301 H Random Glucose Calcium Total Bilirubin AST ALT Alkaline Phosphatase Total Creatine Kinase CK-MB (CK-2) CK-MB (CK-2) % Total Protein Albumin Globulin Albumin/Globulin Ratio Urine Color Yellow Urine Appearance Clear Urine pH 5.5 Ur Specific [place] 1.025 Urine Protein Negative Urine Glucose (UA) Negative Urine Ketones Trace H Urine Blood Negative Urine Nitrate Negative Urine Bilirubin Small H Urine Urobilinogen 0.2 Ur Leukocyte Esterase Negative Ur Random Creatinine Ur Random Sodium - Imaging and Cardiology US - abdomen Status: Image reviewed by me Additional comment: Renal US - kidneys somewhat echogenic; no over hydronephrosis; Assessment & Plan (1) Acute renal failure Assessment and Plan: Etiology unclear; no iodinated IV contrast used per IR; no overtly nephrotoxic meds identified; renal US not showing any overt hydronephrosis; urine lytes indicative of pre-renal cause though no obvious volume depletion noted; may have underlying renovascular disease which makes patient susceptible to hemodynamic fluctuations, loss of autoregulation due to being on ARB may be contributory; -agree with D5-NS at 75 cc/hr -holding diuretics and losartan -avoid NSAIDS, phosphate enema; Status: Acute (2) HTN (hypertension) Assessment and Plan: Persistently low diastolic BP; agree with holding all BP meds for now ( especially ARB and diuretics); Status: Chronic (3) Hyperkalemia Assessment and Plan: In the setting of acute renal failure and possible volume depletion; CK level mildly elevated; agree with kayexalate; IVF should be helpful as well; repeating labs this evening; Status: Acute (4) T12 compression fracture Assessment and Plan: Getting morphine for pain; recommend to avoid morphine in the setting of renal failure as the metabolites can accumulate; will switch to prn IV dilaudid 0.5 mg q6h; Status: Acute (5) Abnormal LFTs (liver function tests) Status: Acute
[2017-09-04] MEDS ORDERED: HYDROmorphone 0.5 mg/0.5 ml ISec IVP PRN (20:45)
[2017-09-05] MEDS: Insulin Reg-LOW-Coverage SC SCH ×4 (00:31→18:01)
[2017-09-05] MEDS: Dextrose 5%/0.9% NS 1,000 ML IV SCH ×2 (00:38→16:43)
--- NOTE | 2017-09-05 01:24 | PN ---
DATE: The patient is a 72-year-old female. SUBJECTIVE: The patient is seen and examined on the bedside, looking comfortable. Still having pain in the back going to the leg. Sleepy, arousable. No fever, no chills. No headache. No dizziness. PHYSICAL EXAMINATION VITAL SIGNS: Temperature 98, pulse 70, blood pressure 130/52, and respiratory rate 18. HEENT: Head normocephalic, atraumatic. Eyes: PERRLA. Extraocular muscles intact. Conjunctivae clear. Nose patent. Mucous membrane moist. NECK: Supple. No carotid bruit. No JVD. No thyromegaly. CHEST: Bilaterally symmetrical. HEART: S1 and S2 positive. LUNGS: Clear to auscultation. ABDOMEN: Soft, bowel sounds present. No organomegaly. EXTREMITIES: No edema, no cyanosis. NEUROLOGICAL: The patient is awake and alert, moving all 4 extremities, no focal deficits. MEDICATIONS: Amlodipine, Dextrose, Dilaudid, Ecotrin, Flexeril, insulin, Januvia, Lidoderm, Lipitor, Norvasc, Percocet, Plavix, Protonix, Singulair, Synthroid, Zofran, and Zoloft. LABORATORY DATA: White blood cell is 11.7, hemoglobin 10.8, hematocrit 33.1, and platelets 247. Sodium 140. Potassium 4.6, actually in the morning, it was 6.0, repeat was 5.8, after Kayexalate it was 4.6. BUN 76, repeat is 81; creatinine 4.2, repeat is 3.5. Glucose 185, AST 183, ALT 168. ASSESSMENT AND PLAN: Ms. Isaías Sen is a 72-year-old lady with anemia; leukocytosis; hyperkalemia; renal insufficiency; insulin-dependent uncontrolled diabetes mellitus; abnormal liver function test; ketonuria; history of hypothyroidism; history of hypertension; atrial fibrillation; congestive heart failure with preserved ejection fraction; chronic obstructive pulmonary disease; with acute T12 compression fracture, status post kyphoplasty; has acute renal failure, etiology unclear, no iodinated IV contrast used per Interventional Radiology, no overt nephrotoxic medication identified, renal ultrasound not showing any overt hydronephrosis. Urine lytes indicate a prerenal cause, though no obvious volume depletion noted. May have undergone renovascular disease, which makes the patient susceptible to hemodynamic fluctuations, loss of autoregulation and due to being on ARB - it may be contributory, but program strategist is on the case, getting D5 NS at 75 mL per hour, holding diuretics and losartan. Avoid NSAID, phosphate enemas. Hypertension is getting better. Length of time discussion done with the patient's and the patient's daughter Robert. Renal ultrasound done. Bladder ultrasound done. Hip MRI done, reviewed by me. Gastrointestinal and deep vein thrombosis prophylaxis. Out of bed. Physical therapy. We will follow up. Michelle Aviles MD
[2017-09-05] MEDS: Oxycodone/Acetaminophen 5/325 mg Tab PO PRN (08:35)
[2017-09-05] MEDS: Levothyroxine 88 MCG TAB PO SCH (08:35)
[2017-09-05 08:51] LABS: BASO # 0.01 K/mm3 (0.0-2.0); BASO % 0.1 % (0.0-3.0); EOS % 0.3 % (1.5-5.0); GRAN % 73.6 % (50.0-68.0); HEMOGLOBIN 10.2 g/dL (12.0-16.0); LYMPH # 1.6 (1.2-3.4); LYMPH % 16.4 % (22.0-35.0); MEAN CELL VOLUME 86.6 fl (80.0-105.0); MEAN CORPUSCULAR HEMOGLOBIN 27.9 pg (25.0-35.0); MEAN CORPUSCULAR HGB CONC 32.2 g/dl (31.0-37.0); MEAN PLATELET VOLUME 9.9 fl (7.0-11.0); MONO # 0.9 (0.1-0.6); MONO % 9.6 % (1.0-6.0); RBC 3.66 10^6/uL (3.5-6.1); RED CELL DISTRIBUTION WIDTH 14.1 % (11.5-14.5); WHITE BLOOD COUNT 9.5 10^3/ul (4.5-11.0)
[2017-09-05 08:59] LABS: ALB/GLOB RATIO 1.2 (1.1-1.8); ALBUMIN 3.7 g/dL (3.0-4.8); CALCIUM 8.8 mg/dL (8.4-10.5)
[2017-09-05] MEDS ORDERED: POLYETHYLENE GLYCOL 3350 17 GM/Dose PACKET PO SCH (10:00)
[2017-09-05] MEDS: Pantoprazole 40 mg EC Tab PO SCH (10:52)
[2017-09-05] MEDS: Lidocaine 5% Patch TD SCH (10:53)
[2017-09-05 17:45] VITALS: BP 133/47; PULSE 60; RESP 60; TEMP 98.2; O2SAT 99
--- NOTE | 2017-09-06 08:20 | CP.PCM.PN ---
Subjective - Date & Time of Evaluation Date of Evaluation: 09/05/17 Time of Evaluation: 11:30 - Subjective Subjective: Patient more communicative today; still with back pain; tolerating diet; Objective - Vital Signs/Intake and Output Vital Signs (last 24 hours): Temp Pulse Resp BP Pulse Ox 98.2 F 60 60 H 133/47 L 99 09/05/17 16:00 09/05/17 16:00 09/05/17 16:00 09/05/17 16:00 09/05/17 16:00 - Labs Labs: 09/05/17 08:40 09/05/17 08:40 PT 11.9 SECONDS (9.4-12.5) 08/27/17 17:00 INR 1.04 (0.93-1.08) 08/27/17 17:00 APTT 30.5 Seconds (25.1-36.5) 08/27/17 17:00 - Constitutional Appears: Non-toxic - Eye Exam Eye Exam: Normal appearance - ENT Exam ENT Exam: Mucous Membranes Moist - Respiratory Exam Respiratory Exam: Clear to Ausculation Bilateral. absent: Respiratory Distress - Cardiovascular Exam Cardiovascular Exam: RRR, +S1, +S2 - GI/Abdominal Exam GI & Abdominal Exam: Soft. absent: Distended - Exam Exam: absent: Bladder Distension - Extremities Exam Additional comments: no leg edema - Back Exam Back Exam: CVA tenderness (L), CVA tenderness (R) - Psychiatric Exam Psychiatric exam: absent: Agitated - Skin Skin Exam: Warm. absent: Cyanosis Assessment and Plan (1) Acute renal failure Assessment & Plan: Pre-renal etiology, improving with isotonic IVF; cause of volume depletion not entirely clear; was on her home meds which included lasix 20 mg PO daily and losartan 100 mg daily; likely is very susceptible to hemodynamic fluctuations of renal function due to underlying renovascular disesase, also has been running low diastolic BP lately; -continue NS at 75 cc/hr -continue to hold lasix and anti-htn meds Status: Acute (2) HTN (hypertension) Assessment & Plan: Low DBP lately, holding meds as above; Status: Chronic (3) Hyperkalemia Assessment & Plan: Resolved; due to pre-renal [place] and being on ARB; IVF as above; Status: Acute (4) T12 compression fracture Assessment & Plan: Morphine stopped due to [place]; continue dilaudid prn; Status: Acute (5) Abnormal LFTs (liver function tests) Status: Acute
== END 2017-09-05 19:46 | DRG 516 ==
LOC: ED 12:20 → ERH 14:29 → 3RNO 17:22 → OBSVTOIN 08-29 10:05
PROVIDERS: ADMIT Internal Medicine; ATTEND Internal Medicine
PROC: 0PS43ZZ Reposition Thoracic Vertebra, Percutaneous Approach (ICD-10-PCS; principal; 2017-09-02)
PROC: 0PU43JZ Supplement Thoracic Vertebra with Synthetic Substitute, Percutaneous Approach (ICD-10-PCS; 2017-09-02)
DX: S22.089A Unspecified fracture of T11-T12 vertebra, initial encounter for closed fracture (principal); N17.9 Acute kidney failure, unspecified; I69.351 Hemiplegia and hemiparesis following cerebral infarction affecting right dominant side; I50.30 Unspecified diastolic (congestive) heart failure; E87.5 Hyperkalemia; I11.0 Hypertensive heart disease with heart failure; I48.91 Unspecified atrial fibrillation; E11.65 Type 2 diabetes mellitus with hyperglycemia; E86.0 Dehydration; D50.9 Iron deficiency anemia, unspecified; E03.9 Hypothyroidism, unspecified; K21.9 Gastro-esophageal reflux disease without esophagitis; J44.9 Chronic obstructive pulmonary disease, unspecified; I25.10 Atherosclerotic heart disease of native coronary artery without angina pectoris; R27.0 Ataxia, unspecified; F41.9 Anxiety disorder, unspecified; E78.00 Pure hypercholesterolemia, unspecified; G47.33 Obstructive sleep apnea (adult) (pediatric); Z96.651 Presence of right artificial knee joint; W01.0XXA Fall on same level from slipping, tripping and stumbling without subsequent striking against object, initial encounter; Y92.010 Kitchen of single-family (private) house as the place of occurrence of the external cause; Z79.4 Long term (current) use of insulin

== ENCOUNTER 2017-09-05 19:46 | Inpatient (IN) | payer OTHER, MEDICAID ==
[2017-09-05] MEDS: HYDROmorphone 0.5 mg/0.5 ml ISec IVP PRN (20:53)
[2017-09-05] MEDS ORDERED: Dextrose 5%/0.9% NS 1,000 ML IV SCH (21:00)
[2017-09-05] MEDS: Insulin Reg-LOW-Coverage SC SCH (21:50)
[2017-09-06] MEDS: HYDROmorphone 0.5 mg/0.5 ml ISec IVP PRN ×3 (02:02→21:32)
[2017-09-06 06:26] LABS: BASO # 0.01 K/mm3 (0.0-2.0); BASO % 0.1 % (0.0-3.0); EOS # 0.1 (0.0-0.7); EOS % 0.8 % (1.5-5.0); GRAN # 5.03 (1.4-6.5); GRAN % 66.9 % (50.0-68.0); HEMOGLOBIN 9.4 g/dL (12.0-16.0); LYMPH # 1.4 (1.2-3.4); LYMPH % 18.9 % (22.0-35.0); MEAN CELL VOLUME 87.5 fl (80.0-105.0); MEAN PLATELET VOLUME 10.5 fl (7.0-11.0); MONO % 13.3 % (1.0-6.0); RBC 3.36 10^6/uL (3.5-6.1); RED CELL DISTRIBUTION WIDTH 14.1 % (11.5-14.5); WHITE BLOOD COUNT 7.5 10^3/ul (4.5-11.0)
[2017-09-06] MEDS: Levothyroxine 88 MCG TAB PO SCH (06:42)
[2017-09-06] MEDS: Pantoprazole 40 mg EC Tab PO SCH (06:42)
[2017-09-06] MEDS: Insulin Reg-LOW-Coverage SC SCH ×4 (06:43→21:50)
[2017-09-06 07:02] LABS: ALB/GLOB RATIO 1.1 (1.1-1.8); ALBUMIN 3.1 g/dL (3.0-4.8); CALCIUM 8.5 mg/dL (8.4-10.5)
[2017-09-06] MEDS: Lidocaine 5% Patch TD SCH (10:28)
[2017-09-06] MEDS: POLYETHYLENE GLYCOL 3350 17 GM/Dose PACKET PO SCH (10:29)
[2017-09-06] MEDS ORDERED: Sodium Chloride 0.9% 100 ML IV SCH (12:15)
[2017-09-06] MEDS: Ergocalciferol 50,000 Intl Units Cap PO SCH (14:09)
[2017-09-06] MEDS: Sodium Chloride 0.9% 1,000 ML IV SCH (14:11)
--- NOTE | 2017-09-06 20:48 | CON ---
DATE: NEPHROLOGY CONSULTATION HISTORY OF PRESENT ILLNESS: This is a 72-year-old female with past medical history of hypertension, diabetes, AFib, CHF with preserved EF, status post CVA, COPD, initially admitted to the hospital last week status post fall and found to have acute T12 compression fracture. Nephrology consulted for acute renal failure. The patient during hospitalization underwent kyphoplasty of involved vertebra with barium based cement. No intravenous contrast used as per interventionalist. Subsequent hospital course was somewhat unclear, as the patient was unable to give history; however, the patient developed acute renal failure with serum creatinine increasing from approximately 1.0-4.2. The patient did have an episode of vomiting. Otherwise, the patient was reportedly eating her meals. No GI losses otherwise. Of note, the patient's diastolic blood pressure had been running low and she remained on her home blood pressure medications including losartan 100 mg daily and Lasix 20 mg daily. The patient was evaluated by our Nephrology service, was started on isotonic saline at 75 mL/hour with improvement in renal function. The patient was subsequently discharged to TCU yesterday. The patient currently reports continued back pain; is tolerating her diet as per nursing staff. Denies any nausea, vomiting. No diarrhea reported. The patient does report feeling dizzy intermittently, but not expounding much more on this. The patient currently with Rubi in place. PAST MEDICAL HISTORY: As above. SOCIAL HISTORY: Never smoked. FAMILY HISTORY: . REVIEW OF SYSTEMS: CONSTITUTIONAL: No anorexia. HEENT: Left-sided visual impairment. Reports difficulty with swallowing solid food. RESPIRATORY: Denies shortness of breath. CARDIOVASCULAR: Denies palpitations, occasional chest pain. Intermittent leg swelling. GI: As per HPI. : With Rubi in place. MUSCULOSKELETAL: With back pain, status post T12 compression fracture. PHYSICAL EXAMINATION: VITAL SIGNS: This morning, blood pressure 144/61. Rest of vitals from late last night, heart rate 65, respirations 14, temperature 97.3, O2 sat 97% on room air. GENERAL: No distress. Communicating coherently in full sentences. HEENT: Moist mucous membranes. Nonicteric. RESPIRATORY: Lungs clear to auscultation bilaterally. No rales or rhonchi. No wheezes. CARDIOVASCULAR: Heart sounds S1, S2 normal. No murmurs or gallops. No rubs. No carotid bruits. GI: Abdomen soft, nontender, nondistended. : Rubi in place. No bladder distention. EXTREMITIES: No lower leg edema. PSYCHIATRIC: Normal mood, normal affect. NEUROLOGIC: Appears to have some dyskinesias. Otherwise no tremor of outstretched hands. PSYCHIATRIC: Normal mood, normal affect, not agitated. SKIN: Warm. No cyanosis. LABORATORY DATA: From this morning; CBC: WBC 7.5, hemoglobin 9.4, hematocrit 29.4, platelets 249. Chemistry panel; sodium 141, potassium 4.0, chloride 107, bicarb 27, BUN 44, creatinine 1.2, decreased from 4.2 two days ago. Glucose 201, calcium 8.5. AST 74, ALT 112, albumin 3.4. UA from 2 days ago; negative for protein, leukocyte esterase negative, blood negative. Renal ultrasound from 2 days ago shows somewhat echogenic kidneys. ASSESSMENT AND PLAN: 1. Acute kidney injury on chronic kidney disease III-A; prerenal etiology of renal failure. Exact cause is unclear, but being on standing dose of diuretics while being on ARB with decreased ability for renal compensation most likely contributory. Responded well to IV fluids. BUN still significantly elevated compared to creatinine. We will continue IV fluids with normal saline at 60 mL/hour. 2. Chronic kidney disease; relatively mild. No proteinuria on urinalysis. We will obtain random urine for microalbumin, protein and creatinine. 3. Hypertension; has been having low diastolic blood pressures recently. Restarted on amlodipine 10 mg today. We will continue to hold diuretics and ARB. 4. Pain. The patient had been getting morphine at one point. Changed to p.r.n. IV Dilaudid. She will continue the same, but avoid morphine until renal function is back to baseline, as the metabolites can accumulate in renal failure. 5. Diabetes. Blood sugars are elevated, but in the setting of getting D5 as part of IV fluids. We would discontinue D5 NS and just place on NS. 6. Anemia. Iron sat low at 17%. Hemoglobin has been dropping mildly. We will give IV iron x10 doses. 7. Vitamin D deficiency; 25-hydroxy vitamin D level low, checking PTH. We will start ergocalciferol 50,000 units weekly. Thank you for this referral. We will be following up closely. Mike Carbajal MD [facility] # [id number]
--- NOTE | 2017-09-06 22:04 | CP.PCM.PN ---
Objective - Vital Signs/Intake and Output Vital Signs (last 24 hours): Temp Pulse Resp BP Pulse Ox 99 F 63 18 155/56 H 98 09/06/17 13:17 09/06/17 13:17 09/06/17 13:17 09/06/17 13:17 09/06/17 13:17 - Medications Medications: Current Medications Amiodarone HCl (Cordarone) 200 mg PO DAILY [facility] PRN Reason: Protocol Last Admin: 09/06/17 10:26 Dose: 200 mg Amlodipine Besylate (Norvasc) 10 mg PO DAILY [facility] PRN Reason: Protocol Last Admin: 09/06/17 10:30 Dose: 10 mg Aspirin (Ecotrin) 81 mg PO DAILY [facility] PRN Reason: Protocol Last Admin: 09/06/17 10:27 Dose: 81 mg Atorvastatin Calcium (Lipitor) 10 mg PO DIN [facility] PRN Reason: Protocol Last Admin: 09/06/17 18:30 Dose: 10 mg Clopidogrel Bisulfate (Plavix) 75 mg PO DAILY [facility] PRN Reason: Protocol Last Admin: 09/06/17 10:30 Dose: 75 mg Cyclobenzaprine HCl (Flexeril) 5 mg PO TID PRN; Protocol PRN Reason: Muscle spasm Last Admin: 09/06/17 10:28 Dose: 5 mg Docusate Sodium (Colace) 100 mg PO DAILY [facility] PRN Reason: Protocol Last Admin: 09/06/17 10:25 Dose: 100 mg Ergocalciferol (Drisdol 50,000 Intl Units Cap) 1 cap PO Q7D [facility] Last Admin: 09/06/17 14:09 Dose: 1 cap Hydromorphone HCl (Dilaudid) 0.5 mg IVP Q6H PRN; Protocol PRN Reason: Pain, severe (8-10) Last Admin: 09/06/17 21:32 Dose: 0.5 mg Sodium Chloride (Sodium Chloride 0.9%) 1,000 mls @ 60 mls/hr IV .[id number] [facility] Last Admin: 09/06/17 14:11 Dose: 60 mls/hr Iron Sucrose 100 mg/ Sodium (Chloride) 105 mls @ 210 mls/hr IVPB DAILY [facility] Stop: 09/16/17 12:31 Last Admin: 09/06/17 14:11 Dose: 210 mls/hr Insulin Human Regular (Humulin R Low) 0 units SC ACHS [facility] PRN Reason: Protocol Last Admin: 09/06/17 21:50 Dose: Not Given Levothyroxine Sodium (Synthroid) 88 mcg PO 0600 [facility] PRN Reason: Protocol Last Admin: 09/06/17 06:42 Dose: 88 mcg Lidocaine (Lidoderm) 1 ea TD DAILY [facility] PRN Reason: Protocol Last Admin: 09/06/17 10:28 Dose: 1 ea Montelukast Sodium (Singulair) 10 mg PO DAILY [facility] PRN Reason: Protocol Last Admin: 09/06/17 10:31 Dose: 10 mg Ondansetron HCl (Zofran Inj) 4 mg IVP Q6H PRN; Protocol PRN Reason: Nausea/Vomiting Pantoprazole Sodium (Protonix Ec Tab) 40 mg PO 0600 [facility] PRN Reason: Protocol Last Admin: 09/06/17 06:42 Dose: 40 mg Polyethylene Glycol (Miralax) 17 gm PO DAILY [facility] PRN Reason: Protocol Last Admin: 09/06/17 10:29 Dose: 17 gm Sertraline HCl (Zoloft) 100 mg PO HS [facility] PRN Reason: Protocol Last Admin: 09/06/17 21:26 Dose: 100 mg Sitagliptin Phosphate (Januvia) 25 mg PO DAILY [facility] PRN Reason: Protocol - Labs Labs: 09/06/17 05:20 09/06/17 05:20
[2017-09-07] MEDS: Sodium Chloride 0.9% 1,000 ML IV SCH ×2 (05:40→13:02)
[2017-09-07] MEDS: Pantoprazole 40 mg EC Tab PO SCH (05:40)
[2017-09-07] MEDS: Levothyroxine 88 MCG TAB PO SCH (05:40)
[2017-09-07] MEDS: HYDROmorphone 0.5 mg/0.5 ml ISec IVP PRN ×3 (06:26→19:21)
[2017-09-07] MEDS: Insulin Reg-LOW-Coverage SC SCH ×4 (07:03→22:28)
--- NOTE | 2017-09-07 07:09 | HP ---
CHIEF COMPLAINT: Intractable back pain. HISTORY OF PRESENT ILLNESS: Ms. Isaías Sen is a 72-year-old female with a past medical history of hypertension, diabetes mellitus, atrial fibrillation, congestive heart failure, with preserved ejection fraction, status post CVA, and COPD, was admitted in [facility] last week for a fall in her kitchen, it looks like mechanical fall and came with intractable back pain and headache, found the patient to have T12 compression fracture. The patient got kyphoplasty from Dr. Mark Clifton. Neurosurgery consult was called also. Then, the patient has renal insufficiency, Nephrology consult was called. The patient was doing better. Renal function is improving a little bit. Needs good physical therapy. Transferred the patient to TCU for continuity of care, for physical therapy, and monitoring of kidney function test. PAST MEDICAL HISTORY: As above, hypertension, diabetes mellitus, atrial fibrillation, congestive heart failure, and COPD. FAMILY HISTORY: Father and mother, noncontributory. SOCIAL HISTORY: Never smoked. No drugs or ethanol. ALLERGIES: THE PATIENT IS ALLERGIC TO IODINE. REVIEW OF SYSTEMS: The patient is seen and examined at the bedside, looking comfortable, still having back pain going to the leg. No nausea, vomiting, or diarrhea. No hematuria or hematochezia. No headache or dizziness. No chest pain or palpitation. PHYSICAL EXAMINATION VITAL SIGNS: Temperature 99, pulse 53, blood pressure 155/56, respiratory rate 18. HEENT: Head normocephalic, atraumatic. Eyes: PERRLA. Extraocular movements are intact. Conjunctivae clear. Nose: Patent. Mucous membranes are moist. NECK: Supple. No carotid bruits, JVD, or thyromegaly. CHEST: Bilaterally symmetrical. HEART: S1 and S2 positive. LUNGS: Clear to auscultation. ABDOMEN: Soft. Bowel sounds are present. No organomegaly. EXTREMITIES: No edema. No cyanosis. NEUROLOGIC: The patient is awake and alert. Moving all 4 extremities with no focal deficits. MEDICATIONS: Colace, amiodarone, Dilaudid, Ecotrin, Flexeril, insulin, iron, Lidoderm, Lipitor, MiraLax, Plavix, Protonix, Singulair, NS, Synthroid, Zofran, and Zoloft. LABORATORY DATA: White blood cells 7.5, hemoglobin 9.4, hematocrit 29.4, platelets 249. Sodium 144, potassium 4.0, BUN 44, creatinine 1.4, glucose 230, AST 74, ALT 112. ASSESSMENT AND PLAN: Ms. Isaías Sen is a 72-year-old lady with anemia, renal insufficiency improved, hyperglycemia, insulin-dependent diabetes mellitus uncontrolled, abnormal liver function test. We will do an ultrasound of the liver to see why liver functions are still abnormal. Getting pain medication. History of chronic obstructive pulmonary disease, history of stroke, hypertension, atrial fibrillation, congestive heart failure with preserved ejection fraction, chronic obstructive pulmonary disease, cerebrovascular accident, status post T12 compression fractures, getting physical therapy. Gastric and deep venous thrombosis prophylaxis. Repeat labs. We will follow up. Michelle Aviles MD MTDJovanny
[2017-09-07 07:14] LABS: BASO # 0.01 K/mm3 (0.0-2.0); BASO % 0.1 % (0.0-3.0); EOS # 0.1 (0.0-0.7); GRAN # 6.43 (1.4-6.5); GRAN % 61.4 % (50.0-68.0); HEMOGLOBIN 10.5 g/dL (12.0-16.0); LYMPH # 2.5 (1.2-3.4); LYMPH % 23.7 % (22.0-35.0); MEAN CELL VOLUME 87.1 fl (80.0-105.0); MEAN CORPUSCULAR HEMOGLOBIN 28.2 pg (25.0-35.0); MEAN CORPUSCULAR HGB CONC 32.3 g/dl (31.0-37.0); MEAN PLATELET VOLUME 10.1 fl (7.0-11.0); MONO # 1.5 (0.1-0.6); MONO % 13.8 % (1.0-6.0); RBC 3.73 10^6/uL (3.5-6.1); RED CELL DISTRIBUTION WIDTH 14.2 % (11.5-14.5); WHITE BLOOD COUNT 10.5 10^3/ul (4.5-11.0)
[2017-09-07 07:40] LABS: ALB/GLOB RATIO 1.1 (1.1-1.8); ALBUMIN 3.4 g/dL (3.0-4.8); ALT/SGPT 111 U/L (7-56); AST/SGOT 81 U/L (14-36); BLOOD UREA NITROGEN 26 mg/dL (7-21); CALCIUM 8.8 mg/dL (8.4-10.5); GFR AFRICAN-AMERICAN > 60; GFR NON-AFRICAN AMERICAN > 60
[2017-09-07] MEDS: Lidocaine 5% Patch TD SCH (09:28)
[2017-09-07] MEDS: POLYETHYLENE GLYCOL 3350 17 GM/Dose PACKET PO SCH (09:28)
[2017-09-07 11:46] LABS: CREATININE,RANDOM URINE 60 mg/dL; TOTAL PROTEIN,RANDOM URINE 40 mg/L
--- NOTE | 2017-09-07 22:59 | CP.PCM.PN ---
Subjective - Date & Time of Evaluation Date of Evaluation: 09/07/17 Time of Evaluation: 11:00 - Subjective Subjective: Patient tolerating diet; back pain overall improved; Objective - Vital Signs/Intake and Output Vital Signs (last 24 hours): Temp Pulse Resp BP Pulse Ox 97.9 F 70 20 143/60 95 09/07/17 16:49 09/07/17 16:49 09/07/17 16:49 09/07/17 16:49 09/07/17 16:49 Intake and Output: 09/07/17 09/08/17 18:59 06:59 Intake Total 680 Output Total 550 Balance 130 - Medications Medications: Current Medications Amiodarone HCl (Cordarone) 200 mg PO DAILY [facility] PRN Reason: Protocol Last Admin: 09/07/17 09:30 Dose: 200 mg Amlodipine Besylate (Norvasc) 10 mg PO DAILY [facility] PRN Reason: Protocol Last Admin: 09/07/17 09:30 Dose: 10 mg Aspirin (Ecotrin) 81 mg PO DAILY [facility] PRN Reason: Protocol Last Admin: 09/07/17 09:30 Dose: 81 mg Atorvastatin Calcium (Lipitor) 10 mg PO DIN [facility] PRN Reason: Protocol Last Admin: 09/07/17 19:21 Dose: 10 mg Clopidogrel Bisulfate (Plavix) 75 mg PO DAILY ARI PRN Reason: Protocol Last Admin: 09/07/17 09:29 Dose: 75 mg Cyclobenzaprine HCl (Flexeril) 5 mg PO TID PRN; Protocol PRN Reason: Muscle spasm Last Admin: 09/07/17 22:28 Dose: 5 mg Docusate Sodium (Colace) 100 mg PO DAILY [facility] PRN Reason: Protocol Last Admin: 09/07/17 09:30 Dose: 100 mg Ergocalciferol (Drisdol 50,000 Intl Units Cap) 1 cap PO Q7D [facility] Last Admin: 09/06/17 14:09 Dose: 1 cap Hydromorphone HCl (Dilaudid) 0.5 mg IVP Q6H PRN; Protocol PRN Reason: Pain, severe (8-10) Last Admin: 09/07/17 19:21 Dose: 0.5 mg Iron Sucrose 100 mg/ Sodium (Chloride) 105 mls @ 210 mls/hr IVPB 0600 [facility] Stop: 09/17/17 06:01 Last Admin: 09/07/17 05:40 Dose: 210 mls/hr Sodium Chloride (Sodium Chloride 0.9%) 1,000 mls @ 40 mls/hr IV .Q24H [facility] Last Admin: 09/07/17 13:02 Dose: 40 mls/hr Insulin Human Regular (Humulin R Low) 0 units SC ACHS [facility] PRN Reason: Protocol Last Admin: 09/07/17 22:28 Dose: Not Given Levothyroxine Sodium (Synthroid) 88 mcg PO 0600 [facility] PRN Reason: Protocol Last Admin: 09/07/17 05:40 Dose: 88 mcg Lidocaine (Lidoderm) 1 ea TD DAILY [facility] PRN Reason: Protocol Last Admin: 09/07/17 09:28 Dose: 1 ea Montelukast Sodium (Singulair) 10 mg PO DAILY [facility] PRN Reason: Protocol Last Admin: 09/07/17 09:30 Dose: 10 mg Ondansetron HCl (Zofran Inj) 4 mg IVP Q6H PRN; Protocol PRN Reason: Nausea/Vomiting Pantoprazole Sodium (Protonix Ec Tab) 40 mg PO 0600 [facility] PRN Reason: Protocol Last Admin: 09/07/17 05:40 Dose: 40 mg Polyethylene Glycol (Miralax) 17 gm PO DAILY [facility] PRN Reason: Protocol Last Admin: 09/07/17 09:28 Dose: 17 gm Sertraline HCl (Zoloft) 100 mg PO HS [facility] PRN Reason: Protocol Last Admin: 09/07/17 22:28 Dose: 100 mg Sitagliptin Phosphate (Januvia) 25 mg PO DAILY [facility] PRN Reason: Protocol Last Admin: 09/07/17 09:29 Dose: 25 mg - Labs Labs: 09/07/17 06:00 09/07/17 06:00 - Constitutional Appears: Non-toxic, No Acute Distress - Eye Exam Eye Exam: absent: Scleral icterus - ENT Exam ENT Exam: Mucous Membranes Moist - Respiratory Exam Respiratory Exam: Clear to Ausculation Bilateral. absent: Respiratory Distress - Cardiovascular Exam Cardiovascular Exam: RRR, +S1, +S2 - GI/Abdominal Exam GI & Abdominal Exam: Soft. absent: Distended, Tenderness - Extremities Exam Additional comments: no leg edema; - Neurological Exam Neurological Exam: Alert, Awake - Psychiatric Exam Psychiatric exam: Normal Affect, Normal Mood. absent: Agitated - Skin Skin Exam: Warm. absent: Cyanosis Assessment and Plan (1) [place] (acute kidney injury) Assessment & Plan: Renal function improving with IVF; BUN still elevated; decreasing IVF to NS at 40 cc/hr; still awaiting urine protein studies; Status: Acute (2) HTN (hypertension) Assessment & Plan: Diastolic BP improved (had been low); agree with amlodipine 10 mg daily; continue to hold losartan; Status: Chronic (3) Vitamin D deficiency Assessment & Plan: 25 OH vit D level low, started on ergocalciferol 50,000 u weekly; PTH level was elevated but in the setting of [place]; repeat level sent, will f/u; Status: Acute (4) Anemia Assessment & Plan: With component of iron deficiency; agree with IV iron; Status: Acute
[2017-09-08] MEDS: HYDROmorphone 0.5 mg/0.5 ml ISec IVP PRN ×3 (02:30→20:33)
[2017-09-08] MEDS: Levothyroxine 88 MCG TAB PO SCH (06:29)
[2017-09-08] MEDS: Pantoprazole 40 mg EC Tab PO SCH (06:29)
[2017-09-08] MEDS: Insulin Reg-LOW-Coverage SC SCH ×4 (06:31→22:02)
[2017-09-08] MEDS: Lidocaine 5% Patch TD SCH (10:12)
[2017-09-08] MEDS: POLYETHYLENE GLYCOL 3350 17 GM/Dose PACKET PO SCH (10:12)
[2017-09-08] MEDS: Sodium Chloride 0.9% 1,000 ML IV SCH (10:14)
[2017-09-09] MEDS: HYDROmorphone 0.5 mg/0.5 ml ISec IVP PRN ×3 (04:21→21:42)
[2017-09-09] MEDS: Pantoprazole 40 mg EC Tab PO SCH (05:00)
[2017-09-09] MEDS: Levothyroxine 88 MCG TAB PO SCH (05:00)
[2017-09-09] MEDS: Insulin Reg-LOW-Coverage SC SCH ×4 (07:05→22:05)
[2017-09-09] MEDS: Lidocaine 5% Patch TD SCH (09:28)
[2017-09-09] MEDS: POLYETHYLENE GLYCOL 3350 17 GM/Dose PACKET PO SCH (09:28)
--- NOTE | 2017-09-09 19:22 | CP.PCM.PN ---
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 Pt seen in our office on 08/27 with complaints of severe headaches occurring after a fall with trauma to back of head. Her daughter reported that her mother slipped in the kitchen while making a turn yesterday and fell on her tailbone. NeuroSurgery stated that she did not require surgical intervention and would benefit from a lightweight extension brace to be worn up out of bed. However, pt continued to report severe pain and distress. Dr. Mark Clifton consulted for second opinion who recommended kyphoplasty and physical therapy. Pt underwent successful Kyphoplasty on . Pt transfered to TCU for physical therapy. Today, pt perform [facility]. Pain has improved and pt denies any new complaints. Pt denies any blurry vision, tinnitus, nausea, vomiting, fever chills, diarrhea, constipation , shortness of breath, chest pain, paresthesias, or urinary changes. Objective - Vital Signs/Intake and Output Vital Signs (last 24 hours): Temp Pulse Resp BP Pulse Ox 99.9 F H 58 L 20 165/56 H 92 L 09/09/17 18:14 09/09/17 18:14 09/09/17 18:14 09/09/17 18:14 09/09/17 18:14 - Medications Medications: Current Medications Amiodarone HCl (Cordarone) 200 mg PO DAILY [facility] PRN Reason: Protocol Last Admin: 09/09/17 09:26 Dose: 200 mg Amlodipine Besylate (Norvasc) 10 mg PO DAILY [facility] PRN Reason: Protocol Last Admin: 09/09/17 09:29 Dose: 10 mg Aspirin (Ecotrin) 81 mg PO DAILY [facility] PRN Reason: Protocol Last Admin: 09/09/17 09:27 Dose: 81 mg Atorvastatin Calcium (Lipitor) 10 mg PO DIN [facility] PRN Reason: Protocol Last Admin: 09/08/17 17:15 Dose: 10 mg Clopidogrel Bisulfate (Plavix) 75 mg PO DAILY [facility] PRN Reason: Protocol Last Admin: 09/09/17 09:29 Dose: 75 mg Cyclobenzaprine HCl (Flexeril) 5 mg PO TID PRN; Protocol PRN Reason: Muscle spasm Last Admin: 09/08/17 23:16 Dose: 5 mg Docusate Sodium (Colace) 100 mg PO DAILY [facility] PRN Reason: Protocol Last Admin: 09/09/17 09:26 Dose: 100 mg Ergocalciferol (Drisdol 50,000 Intl Units Cap) 1 cap PO Q7D [facility] Last Admin: 09/06/17 14:09 Dose: 1 cap Hydromorphone HCl (Dilaudid) 0.5 mg IVP Q6H PRN; Protocol PRN Reason: Pain, severe (8-10) Last Admin: 09/09/17 15:31 Dose: 0.5 mg Iron Sucrose 100 mg/ Sodium (Chloride) 105 mls @ 210 mls/hr IVPB 0600 [facility] Stop: 09/17/17 06:01 Last Admin: 09/09/17 05:00 Dose: 210 mls/hr Insulin Human Regular (Humulin R Low) 0 units SC ACHS [facility] PRN Reason: Protocol Last Admin: 09/09/17 18:16 Dose: Not Given Levothyroxine Sodium (Synthroid) 88 mcg PO 0600 [facility] PRN Reason: Protocol Last Admin: 09/09/17 05:00 Dose: 88 mcg Lidocaine (Lidoderm) 1 ea TD DAILY [facility] PRN Reason: Protocol Last Admin: 09/09/17 09:28 Dose: 1 ea Losartan Potassium (Cozaar) 50 mg PO DAILY [facility] Montelukast Sodium (Singulair) 10 mg PO DAILY [facility] PRN Reason: Protocol Last Admin: 09/09/17 09:30 Dose: 10 mg Ondansetron HCl (Zofran Inj) 4 mg IVP Q6H PRN; Protocol PRN Reason: Nausea/Vomiting Pantoprazole Sodium (Protonix Ec Tab) 40 mg PO 0600 [facility] PRN Reason: Protocol Last Admin: 09/09/17 05:00 Dose: 40 mg Polyethylene Glycol (Miralax) 17 gm PO DAILY [facility] PRN Reason: Protocol Last Admin: 09/09/17 09:28 Dose: Not Given Sertraline HCl (Zoloft) 100 mg PO HS [facility] PRN Reason: Protocol Last Admin: 09/08/17 22:02 Dose: 100 mg Sitagliptin Phosphate (Januvia) 25 mg PO DAILY [facility] PRN Reason: Protocol Last Admin: 09/09/17 09:27 Dose: 25 mg - Labs Labs: 09/07/17 06:00 09/07/17 06:00 - Constitutional Appears: Chronically Ill - Head Exam Head Exam: ATRAUMATIC, NORMAL INSPECTION, NORMOCEPHALIC - Eye Exam Eye Exam: EOMI, Normal appearance, PERRL Pupil Exam: NORMAL ACCOMODATION, PERRL - ENT Exam ENT Exam: Mucous Membranes Moist, Normal Exam - Neck Exam Neck Exam: Full ROM, Normal Inspection. absent: Lymphadenopathy - Respiratory Exam Respiratory Exam: Clear to Ausculation Bilateral, NORMAL BREATHING PATTERN - Cardiovascular Exam Cardiovascular Exam: REGULAR RHYTHM, +S1, +S2. absent: Murmur - GI/Abdominal Exam GI & Abdominal Exam: Soft, Normal Bowel Sounds. absent: Tenderness - Exam Additional comments: morales catheter in place clear yellow urine - Extremities Exam Extremities Exam: Full ROM, Normal Capillary Refill, Normal Inspection. absent : Joint Swelling, Pedal Edema - Back Exam Back Exam: Full ROM - Neurological Exam Neurological Exam: Alert, Awake, Normal Gait, Oriented x3 - Psychiatric Exam Psychiatric exam: Normal Affect, Normal Mood - Skin Skin Exam: Dry, Intact, Normal Color, Warm Assessment and Plan (1) [place] (acute kidney injury) Status: Acute (2) Acute renal failure Status: Acute (3) Anemia Status: Acute (4) Back pain Status: Acute (5) T12 compression fracture Status: Acute (6) Weakness Status: Acute (7) HTN (hypertension) Status: Chronic - Assessment and Plan (Free Text) Plan: Labs ordered. IV venofer onboard. PT & OT. GI/VTE prophylaxis. Pain management: dilaudid IVP, lidocaine patch Consults: Neuro Surgery - Dr. Aleman Surgery - Dr. Mark Clifton Nephro - Dr. Carbajal Reviewed: MRI back = acute or subacte tranverse fracture through the inferior portion of the T12 vertebral body, no significant loss of verterbral height and no encroachment of the spinal canal Xray sacrum & coccyx = WNL CT head = mild chronic white matter ischemic changes, small old left basal ganglia lacunar infarct <Michelle Aviles - Last Filed: 09/09/17 23:21> Objective - Vital Signs/Intake and Output Vital Signs (last 24 hours): Temp Pulse Resp BP Pulse Ox 99.9 F H 58 L 20 160/60 H 92 L 09/09/17 18:14 09/09/17 18:14 09/09/17 18:14 09/09/17 21:41 09/09/17 18:14 - Medications Medications: Current Medications Amiodarone HCl (Cordarone) 200 mg PO DAILY [facility] PRN Reason: Protocol Last Admin: 09/09/17 09:26 Dose: 200 mg Amlodipine Besylate (Norvasc) 10 mg PO DAILY [facility] PRN Reason: Protocol Last Admin: 09/09/17 09:29 Dose: 10 mg Aspirin (Ecotrin) 81 mg PO DAILY [facility] PRN Reason: Protocol Last Admin: 09/09/17 09:27 Dose: 81 mg Atorvastatin Calcium (Lipitor) 10 mg PO DIN [facility] PRN Reason: Protocol Last Admin: 09/09/17 21:42 Dose: 10 mg Clopidogrel Bisulfate (Plavix) 75 mg PO DAILY [facility] PRN Reason: Protocol Last Admin: 09/09/17 09:29 Dose: 75 mg Cyclobenzaprine HCl (Flexeril) 5 mg PO TID PRN; Protocol PRN Reason: Muscle spasm Last Admin: 09/08/17 23:16 Dose: 5 mg Docusate Sodium (Colace) 100 mg PO DAILY [facility] PRN Reason: Protocol Last Admin: 09/09/17 09:26 Dose: 100 mg Ergocalciferol (Drisdol 50,000 Intl Units Cap) 1 cap PO Q7D [facility] Last Admin: 09/06/17 14:09 Dose: 1 cap Hydromorphone HCl (Dilaudid) 0.5 mg IVP Q6H PRN; Protocol PRN Reason: Pain, severe (8-10) Last Admin: 09/09/17 21:42 Dose: 0.5 mg Iron Sucrose 100 mg/ Sodium (Chloride) 105 mls @ 210 mls/hr IVPB 0600 [facility] Stop: 09/17/17 06:01 Last Admin: 09/09/17 05:00 Dose: 210 mls/hr Insulin Human Regular (Humulin R Low) 0 units SC ACHS [facility] PRN Reason: Protocol Last Admin: 09/09/17 22:05 Dose: Not Given Levothyroxine Sodium (Synthroid) 88 mcg PO 0600 [facility] PRN Reason: Protocol Last Admin: 09/09/17 05:00 Dose: 88 mcg Lidocaine (Lidoderm) 1 ea TD DAILY [facility] PRN Reason: Protocol Last Admin: 09/09/17 09:28 Dose: 1 ea Losartan Potassium (Cozaar) 50 mg PO DAILY [facility] Montelukast Sodium (Singulair) 10 mg PO DAILY [facility] PRN Reason: Protocol Last Admin: 09/09/17 09:30 Dose: 10 mg Ondansetron HCl (Zofran Inj) 4 mg IVP Q6H PRN; Protocol PRN Reason: Nausea/Vomiting Pantoprazole Sodium (Protonix Ec Tab) 40 mg PO 0600 [facility] PRN Reason: Protocol Last Admin: 09/09/17 05:00 Dose: 40 mg Polyethylene Glycol (Miralax) 17 gm PO DAILY [facility] PRN Reason: Protocol Last Admin: 09/09/17 09:28 Dose: Not Given Sertraline HCl (Zoloft) 100 mg PO HS [facility] PRN Reason: Protocol Last Admin: 09/09/17 21:46 Dose: 100 mg Sitagliptin Phosphate (Januvia) 25 mg PO DAILY [facility] PRN Reason: Protocol Last Admin: 09/09/17 09:27 Dose: 25 mg - Labs Labs: 09/07/17 06:00 09/07/17 06:00 Assessment and Plan - Assessment and Plan (Free Text) Plan: 72 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 Pt seen in our office on 08/27 with complaints of severe headaches occurring after a fall with trauma to back of head. Her daughter reported that her mother slipped in the kitchen while making a turn yesterday and fell on her tailbone. NeuroSurgery stated that she did not require surgical intervention and would benefit from a lightweight extension brace to be worn up out of bed. However, pt continued to report severe pain and distress. Dr. Mark Clifton consulted for second opinion who recommended kyphoplasty and physical therapy. Pt underwent successful Kyphoplasty on . Pt transfered to TCU for physical therapy. Today, pt perform gait training in hallway. Pain has improved and pt denies any new complaints. Pt denies any blurry vision, tinnitus, nausea, vomiting, fever chills, diarrhea, constipation , shortness of breath, chest pain, paresthesias, or urinary changes.pt is seen and examined at bed side , looking comfortable , agreed all above . 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
--- NOTE | 2017-09-09 21:56 | CP.PCM.PN ---
Subjective - Date & Time of Evaluation Date of Evaluation: 09/09/17 Time of Evaluation: 11:00 - Subjective Subjective: 72 yo F w/ pmh of htn, dm, admitted initially with acute T12 fracture, now s/p kyphoplasty, suffered pre-renal [place], now resolving; Reportedly ambulating with walker; tolerating diet; pain improved; Objective - Vital Signs/Intake and Output Vital Signs (last 24 hours): Temp Pulse Resp BP Pulse Ox 99.9 F H 58 L 20 160/60 H 92 L 09/09/17 18:14 09/09/17 18:14 09/09/17 18:14 09/09/17 21:41 09/09/17 18:14 - Medications Medications: Current Medications Amiodarone HCl (Cordarone) 200 mg PO DAILY [facility] PRN Reason: Protocol Last Admin: 09/09/17 09:26 Dose: 200 mg Amlodipine Besylate (Norvasc) 10 mg PO DAILY [facility] PRN Reason: Protocol Last Admin: 09/09/17 09:29 Dose: 10 mg Aspirin (Ecotrin) 81 mg PO DAILY [facility] PRN Reason: Protocol Last Admin: 09/09/17 09:27 Dose: 81 mg Atorvastatin Calcium (Lipitor) 10 mg PO DIN [facility] PRN Reason: Protocol Last Admin: 09/09/17 21:42 Dose: 10 mg Clopidogrel Bisulfate (Plavix) 75 mg PO DAILY [facility] PRN Reason: Protocol Last Admin: 09/09/17 09:29 Dose: 75 mg Cyclobenzaprine HCl (Flexeril) 5 mg PO TID PRN; Protocol PRN Reason: Muscle spasm Last Admin: 09/08/17 23:16 Dose: 5 mg Docusate Sodium (Colace) 100 mg PO DAILY [facility] PRN Reason: Protocol Last Admin: 09/09/17 09:26 Dose: 100 mg Ergocalciferol (Drisdol 50,000 Intl Units Cap) 1 cap PO Q7D [facility] Last Admin: 09/06/17 14:09 Dose: 1 cap Hydromorphone HCl (Dilaudid) 0.5 mg IVP Q6H PRN; Protocol PRN Reason: Pain, severe (8-10) Last Admin: 09/09/17 21:42 Dose: 0.5 mg Iron Sucrose 100 mg/ Sodium (Chloride) 105 mls @ 210 mls/hr IVPB 0600 [facility] Stop: 09/17/17 06:01 Last Admin: 09/09/17 05:00 Dose: 210 mls/hr Insulin Human Regular (Humulin R Low) 0 units SC ACHS [facility] PRN Reason: Protocol Last Admin: 09/09/17 18:16 Dose: Not Given Levothyroxine Sodium (Synthroid) 88 mcg PO 0600 [facility] PRN Reason: Protocol Last Admin: 09/09/17 05:00 Dose: 88 mcg Lidocaine (Lidoderm) 1 ea TD DAILY [facility] PRN Reason: Protocol Last Admin: 09/09/17 09:28 Dose: 1 ea Losartan Potassium (Cozaar) 50 mg PO DAILY [facility] Montelukast Sodium (Singulair) 10 mg PO DAILY [facility] PRN Reason: Protocol Last Admin: 09/09/17 09:30 Dose: 10 mg Ondansetron HCl (Zofran Inj) 4 mg IVP Q6H PRN; Protocol PRN Reason: Nausea/Vomiting Pantoprazole Sodium (Protonix Ec Tab) 40 mg PO 0600 [facility] PRN Reason: Protocol Last Admin: 09/09/17 05:00 Dose: 40 mg Polyethylene Glycol (Miralax) 17 gm PO DAILY [facility] PRN Reason: Protocol Last Admin: 09/09/17 09:28 Dose: Not Given Sertraline HCl (Zoloft) 100 mg PO HS [facility] PRN Reason: Protocol Last Admin: 09/09/17 21:46 Dose: 100 mg Sitagliptin Phosphate (Januvia) 25 mg PO DAILY [facility] PRN Reason: Protocol Last Admin: 09/09/17 09:27 Dose: 25 mg - Labs Labs: 09/07/17 06:00 09/07/17 06:00 - Constitutional Appears: Non-toxic, No Acute Distress - Eye Exam Eye Exam: absent: Scleral icterus - ENT Exam ENT Exam: Mucous Membranes Moist - Respiratory Exam Respiratory Exam: Clear to Ausculation Bilateral. absent: Respiratory Distress - Cardiovascular Exam Cardiovascular Exam: RRR, +S1, +S2 - GI/Abdominal Exam GI & Abdominal Exam: Soft. absent: Distended, Tenderness - Extremities Exam Additional comments: minimal lower leg edema; - Neurological Exam Neurological Exam: Alert, Awake - Psychiatric Exam Psychiatric exam: Normal Affect, Normal Mood. absent: Agitated - Skin Skin Exam: Warm. absent: Cyanosis Assessment and Plan (1) [place] (acute kidney injury) Assessment & Plan: Resolving after being given volume repletion; pre-renal etiology, worsened by being on ARB; off IVF since yesterday; will check labs tomorrow; -d/lisa morales Status: Acute (2) HTN (hypertension) Assessment & Plan: BP elevated today; on amlodipine 10 mg daily, continue; restarting losartan at 50 mg daily; Status: Acute (3) Vitamin D deficiency Assessment & Plan: Repeat PTH still elevated (107); continue ergocalciferol 50,000 u weekly for total of at least 2 months; should repeat PTH thereafter; Status: Chronic (4) Anemia Assessment & Plan: Iron deficiency, on IV iron, continue for total of 10 doses; Status: Acute (5) Proteinuria Assessment & Plan: Microalbuminuria, likely due to DM; restarting ARB; will obtain limited serologic workup Status: Chronic
--- NOTE | 2017-09-09 22:27 | PN ---
DATE: 09/08/2017 The patient is a 72-year-old female. SUBJECTIVE: The patient is seen and examined on the bedside on 09/08/2017, looking comfortable. Still having back pain. Overall improved, kidney function test is improving. Appetite is coming back. No nausea, vomiting, or diarrhea. No hematuria or hematochezia. No swelling of the legs. No chest pain. No palpitation. No fever, no chills. PHYSICAL EXAMINATION VITAL SIGNS: Temperature 97.9, pulse 70, respiratory rate 20, blood pressure 143/60, and pulse oximetry 95%. HEENT: Head normocephalic, atraumatic. Eyes: PERRLA. Extraocular muscles intact. Conjunctivae clear. Nose patent. Mucous membrane moist. NECK: Supple. No carotid bruit, JVD or thyromegaly. CHEST: Bilaterally symmetrical. HEART: S1 and S2 positive. LUNGS: Clear to auscultation. ABDOMEN: Soft, bowel sounds present. No organomegaly. EXTREMITIES: No edema, no cyanosis. NEUROLOGICAL: The patient is awake and alert. Following simple commands. MEDICATIONS: Amlodipine, aspirin, atorvastatin, Plavix, Flexeril, Colace, Vitamin D, hydromorphone, iron, levothyroxine, Lidoderm, montelukast, Zofran, pantoprazole, MiraLax, sertraline, Januvia. LABORATORY DATA: White blood cell is 10.5, hemoglobin 10.5, hematocrit 32.5, and platelets 293. Sodium 140. Potassium 4.4, BUN 26, creatinine 0.9. Glucose 172. ASSESSMENT AND PLAN: Ms. Isaías Sen is a 72-year-old lady with anemia; hyperglycemia; acute kidney injury, renal function test improving with intravenous fluid, BUN still elevated, there is decrease in intravenous fluid NS to 40 mL per hour, still waiting for urine protein studies; hypertension is getting better; Vitamin D deficiency, started on Vitamin D 50,000 weekly; anemia, iron deficiency; the patient has a history of chronic obstructive pulmonary disease asthma; history of cerebrovascular accident; atrial fibrillation; congestive heart failure; getting physical therapy and occupational therapy; the patient had T12 compression fracture, status post kyphoplasty; appreciated Dr. Carbajal's input. We will follow up. Michelle Aviles MD
[2017-09-10] MEDS: HYDROmorphone 0.5 mg/0.5 ml ISec IVP PRN ×2 (02:49→21:41)
[2017-09-10] MEDS: Pantoprazole 40 mg EC Tab PO SCH (05:20)
[2017-09-10] MEDS: Levothyroxine 88 MCG TAB PO SCH (05:22)
[2017-09-10] MEDS: Insulin Reg-LOW-Coverage SC SCH ×4 (06:32→23:57)
[2017-09-10 08:02] LABS: BASO # 0.02 K/mm3 (0.0-2.0); BASO % 0.2 % (0.0-3.0); EOS # 0.3 (0.0-0.7); EOS % 3.8 % (1.5-5.0); GRAN # 5.42 (1.4-6.5); GRAN % 62.7 % (50.0-68.0); HEMOGLOBIN 10.3 g/dL (12.0-16.0); LYMPH # 1.9 (1.2-3.4); LYMPH % 21.8 % (22.0-35.0); MEAN CELL VOLUME 86.4 fl (80.0-105.0); MEAN CORPUSCULAR HGB CONC 32.4 g/dl (31.0-37.0); MEAN PLATELET VOLUME 9.2 fl (7.0-11.0); MONO % 11.5 % (1.0-6.0); RBC 3.68 10^6/uL (3.5-6.1); RED CELL DISTRIBUTION WIDTH 14.3 % (11.5-14.5); WHITE BLOOD COUNT 8.6 10^3/ul (4.5-11.0)
[2017-09-10 08:25] LABS: ALB/GLOB RATIO 1.1 (1.1-1.8); ALBUMIN 3.3 g/dL (3.0-4.8); ALT/SGPT 95 U/L (7-56); AST/SGOT 63 U/L (14-36); BLOOD UREA NITROGEN 12 mg/dL (7-21); CALCIUM 8.8 mg/dL (8.4-10.5); GFR AFRICAN-AMERICAN > 60; GFR NON-AFRICAN AMERICAN > 60
[2017-09-10] MEDS: Lidocaine 5% Patch TD SCH (09:09)
[2017-09-10] MEDS: POLYETHYLENE GLYCOL 3350 17 GM/Dose PACKET PO SCH (09:09)
--- NOTE | 2017-09-10 22:51 | CP.PCM.PN ---
Subjective - Date & Time of Evaluation Date of Evaluation: 09/10/17 Time of Evaluation: 11:00 - Subjective Subjective: Mild O2 desaturation into low 90's per PT on ambulation; Objective - Vital Signs/Intake and Output Vital Signs (last 24 hours): Temp Pulse Resp BP Pulse Ox 98.8 F 66 18 186/67 H 95 09/10/17 17:47 09/10/17 17:47 09/10/17 17:47 09/10/17 17:47 09/10/17 17:47 Intake and Output: 09/10/17 09/11/17 18:59 06:59 Intake Total 480 Output Total 200 Balance 280 - Medications Medications: Current Medications Amiodarone HCl (Cordarone) 200 mg PO DAILY [facility] PRN Reason: Protocol Last Admin: 09/10/17 09:07 Dose: 200 mg Amlodipine Besylate (Norvasc) 10 mg PO DAILY [facility] PRN Reason: Protocol Last Admin: 09/10/17 09:09 Dose: 10 mg Aspirin (Ecotrin) 81 mg PO DAILY [facility] PRN Reason: Protocol Last Admin: 09/10/17 08:40 Dose: 81 mg Atorvastatin Calcium (Lipitor) 10 mg PO DIN [facility] PRN Reason: Protocol Last Admin: 09/10/17 17:02 Dose: 10 mg Clopidogrel Bisulfate (Plavix) 75 mg PO DAILY [facility] PRN Reason: Protocol Last Admin: 09/10/17 09:09 Dose: 75 mg Docusate Sodium (Colace) 100 mg PO DAILY [facility] PRN Reason: Protocol Last Admin: 09/10/17 09:07 Dose: 100 mg Ergocalciferol (Drisdol 50,000 Intl Units Cap) 1 cap PO Q7D [facility] Last Admin: 09/06/17 14:09 Dose: 1 cap Hydromorphone HCl (Dilaudid) 0.5 mg IVP Q6H PRN; Protocol PRN Reason: Pain, severe (8-10) Last Admin: 09/10/17 21:41 Dose: 0.5 mg Iron Sucrose 100 mg/ Sodium (Chloride) 105 mls @ 210 mls/hr IVPB 0600 [facility] Stop: 09/17/17 06:01 Last Admin: 09/10/17 05:22 Dose: 210 mls/hr Insulin Human Regular (Humulin R Low) 0 units SC ACHS [facility] PRN Reason: Protocol Last Admin: 09/10/17 17:00 Dose: 1 units Levothyroxine Sodium (Synthroid) 88 mcg PO 0600 [facility] PRN Reason: Protocol Last Admin: 09/10/17 05:22 Dose: 88 mcg Lidocaine (Lidoderm) 1 ea TD DAILY [facility] PRN Reason: Protocol Last Admin: 09/10/17 09:09 Dose: 1 ea Losartan Potassium (Cozaar) 50 mg PO DAILY [facility] Last Admin: 09/10/17 09:08 Dose: 50 mg Pantoprazole Sodium (Protonix Ec Tab) 40 mg PO 0600 [facility] PRN Reason: Protocol Last Admin: 09/10/17 05:20 Dose: 40 mg Polyethylene Glycol (Miralax) 17 gm PO DAILY [facility] PRN Reason: Protocol Last Admin: 09/10/17 09:09 Dose: Not Given Sertraline HCl (Zoloft) 100 mg PO HS [facility] PRN Reason: Protocol Last Admin: 09/10/17 21:43 Dose: 100 mg Sitagliptin Phosphate (Januvia) 25 mg PO DAILY [facility] PRN Reason: Protocol Last Admin: 09/10/17 09:08 Dose: 25 mg - Labs Labs: 09/10/17 07:55 09/10/17 07:55 - Constitutional Appears: Non-toxic, No Acute Distress - Eye Exam Eye Exam: absent: Scleral icterus - ENT Exam ENT Exam: Mucous Membranes Moist - Respiratory Exam Respiratory Exam: Clear to Ausculation Bilateral. absent: Respiratory Distress - Cardiovascular Exam Cardiovascular Exam: RRR, +S1, +S2 - GI/Abdominal Exam GI & Abdominal Exam: Soft. absent: Distended, Tenderness - Extremities Exam Additional comments: mild b/l lower leg edema (increased); - Neurological Exam Neurological Exam: Alert, Awake - Psychiatric Exam Psychiatric exam: Normal Mood. absent: Agitated - Skin Skin Exam: Warm. absent: Cyanosis Assessment and Plan (1) [place] (acute kidney injury) Assessment & Plan: Resolved; will monitor periodically since restarting losartan and diuretics; Status: Acute (2) HTN (hypertension) Assessment & Plan: BP continues to be elevated despite restarting losartan (50 mg, half of previous dose); on amlodiine as well; has increased lower ext edema with some dyspnea; will start chlorthalidone as well; Status: Acute (3) Vitamin D deficiency Assessment & Plan: Continue ergocalciferol 50,000 u weekly, repeat PTH level next month as outpatient; Status: Chronic (4) Anemia Assessment & Plan: On IV iron loading, continue for 10 total doses; Status: Acute (5) Proteinuria Assessment & Plan: Limited workup sent, will f/u; Status: Chronic
--- NOTE | 2017-09-11 02:54 | PN ---
DATE: SUBJECTIVE: The patient was seen and examined on the bedside, looking comfortable. Her daughter was sitting on the bedside also. No nausea, vomiting or diarrhea. No hematuria or hematochezia. No swelling of the legs. No chest pain, no palpitation, no headache, no dizziness. Still having back pain. PHYSICAL EXAMINATION VITAL SIGNS: Temperature 98.8, pulse 66, blood pressure 186/67, respiratory rate 18. HEENT: Head normocephalic and atraumatic. Eyes, PERRLA. Extraocular muscles intact. Conjunctivae clear. Nose patent. Mucous membranes moist. NECK: Supple. No carotid bruit. No JVD or thyromegaly. CHEST: Bilaterally symmetrical. HEART: S1 and S2 positive. LUNGS: Clear to auscultation. ABDOMEN: Soft. Bowel sounds present. No organomegaly. EXTREMITIES: No edema. No cyanosis. NEUROLOGIC: The patient is awake and alert. Moving all 4 extremities. No focal deficits. MEDICATIONS: Colace, amiodarone, Cozaar, Dilaudid, Vitamin D, Ecotrin, Flexeril, insulin, Januvia, Lidoderm patch, Lipitor, MiraLax, Norvasc, Protonix, Singulair, Synthroid, Zofran, and Zoloft. LABORATORY DATA: White blood cells 8.6, hemoglobin 10.3, hematocrit 31.8, platelets 298. Sodium 138, potassium 4.1, BUN 12, creatinine 0.8, glucose 185. ASSESSMENT AND PLAN: Ms. Isaías Sen is a 72-year-old lady with insulin-dependent diabetes mellitus type 2, not very well controlled; abnormal liver function test, anemia, proteinuria, seen by the check processor Dr. Mike Carbajal, still has high blood pressure, has T12 compression fracture, status post kyphoplasty, has prerenal acute kidney injury, now resolved, vitamin D deficiency, proteinuria , diabetes mellitus. Restarted ARB. We will obtain limited serology workup as per Dr. Mike Carbajal. Patient is getting physical therapy. Discussion done with the daughter. Gastrointestinal and deep venous thrombosis prophylaxis. Repeat lab. We will follow. Michelle Aviles MD [facility] # [id number] [place]AIL[place]
[2017-09-11] MEDS: HYDROmorphone 0.5 mg/0.5 ml ISec IVP PRN ×3 (03:10→20:58)
[2017-09-11] MEDS: Pantoprazole 40 mg EC Tab PO SCH (05:43)
[2017-09-11] MEDS: Levothyroxine 88 MCG TAB PO SCH (05:44)
[2017-09-11] MEDS: Insulin Reg-LOW-Coverage SC SCH ×4 (07:43→22:05)
[2017-09-11] MEDS: POLYETHYLENE GLYCOL 3350 17 GM/Dose PACKET PO SCH (09:39)
[2017-09-11] MEDS: Lidocaine 5% Patch TD SCH (09:39)
--- NOTE | 2017-09-11 17:12 | CP.PCM.PN ---
Subjective - Date & Time of Evaluation Date of Evaluation: 09/11/17 Time of Evaluation: 17:00 - Subjective Subjective: Patient denies shortness of breath; back pain is variable but not asking nursing staff for pain meds often; urinating more today after being started on chlorthalidone; Objective - Vital Signs/Intake and Output Vital Signs (last 24 hours): Temp Pulse Resp BP Pulse Ox 97 F L 68 16 126/74 100 09/11/17 10:00 09/11/17 10:00 09/11/17 10:00 09/11/17 10:00 09/11/17 10:00 Intake and Output: 09/11/17 09/11/17 06:59 18:59 Intake Total 480 Output Total 200 Balance 280 - Medications Medications: Current Medications Amiodarone HCl (Cordarone) 200 mg PO DAILY [facility] PRN Reason: Protocol Last Admin: 09/11/17 09:36 Dose: 200 mg Amlodipine Besylate (Norvasc) 10 mg PO DAILY [facility] PRN Reason: Protocol Last Admin: 09/11/17 09:39 Dose: 10 mg Aspirin (Ecotrin) 81 mg PO 0800 [facility] PRN Reason: Protocol Atorvastatin Calcium (Lipitor) 10 mg PO DIN [facility] PRN Reason: Protocol Last Admin: 09/10/17 17:02 Dose: 10 mg Chlorthalidone (Hygroton) 25 mg PO DAILY [facility] Last Admin: 09/11/17 09:44 Dose: 25 mg Clopidogrel Bisulfate (Plavix) 75 mg PO DAILY [facility] PRN Reason: Protocol Last Admin: 09/11/17 09:40 Dose: 75 mg Docusate Sodium (Colace) 100 mg PO DAILY [facility] PRN Reason: Protocol Last Admin: 09/11/17 09:36 Dose: 100 mg Ergocalciferol (Drisdol 50,000 Intl Units Cap) 1 cap PO Q7D [facility] Last Admin: 09/06/17 14:09 Dose: 1 cap Hydromorphone HCl (Dilaudid) 0.5 mg IVP Q6H PRN; Protocol PRN Reason: Pain, severe (8-10) Last Admin: 09/11/17 13:40 Dose: 0.5 mg Iron Sucrose 100 mg/ Sodium (Chloride) 105 mls @ 210 mls/hr IVPB 0600 [facility] Stop: 09/17/17 06:01 Last Admin: 09/11/17 05:44 Dose: 210 mls/hr Insulin Human Regular (Humulin R Low) 0 units SC ACHS [facility] PRN Reason: Protocol Last Admin: 09/11/17 12:08 Dose: 1 units Levothyroxine Sodium (Synthroid) 88 mcg PO 0600 [facility] PRN Reason: Protocol Last Admin: 09/11/17 05:44 Dose: 88 mcg Lidocaine (Lidoderm) 1 ea TOP DAILY [facility] Losartan Potassium (Cozaar) 50 mg PO DAILY [facility] Last Admin: 09/11/17 09:37 Dose: 50 mg Pantoprazole Sodium (Protonix Ec Tab) 40 mg PO 0600 [facility] PRN Reason: Protocol Last Admin: 09/11/17 05:43 Dose: 40 mg Polyethylene Glycol (Miralax) 17 gm PO DAILY [facility] PRN Reason: Protocol Last Admin: 09/11/17 09:39 Dose: Not Given Sertraline HCl (Zoloft) 100 mg PO HS [facility] PRN Reason: Protocol Last Admin: 09/10/17 21:43 Dose: 100 mg Sitagliptin Phosphate (Januvia) 25 mg PO DAILY [facility] PRN Reason: Protocol Last Admin: 09/11/17 09:38 Dose: 25 mg - Labs Labs: 09/10/17 07:55 09/10/17 07:55 - Constitutional Appears: Non-toxic, No Acute Distress - Eye Exam Eye Exam: absent: Scleral icterus - ENT Exam ENT Exam: Mucous Membranes Moist - Respiratory Exam Respiratory Exam: Clear to Ausculation Bilateral. absent: Respiratory Distress - Cardiovascular Exam Cardiovascular Exam: RRR, +S1, +S2 - GI/Abdominal Exam GI & Abdominal Exam: Soft. absent: Distended, Tenderness - Extremities Exam Additional comments: trace lower leg edema (improved) - Psychiatric Exam Psychiatric exam: Normal Affect, Normal Mood. absent: Agitated - Skin Skin Exam: Warm. absent: Cyanosis Assessment and Plan (1) [place] (acute kidney injury) Assessment & Plan: Resolved; will repeat labs to see if restarting losartan and diuretic causing significant worsening of renal function; Status: Acute (2) HTN (hypertension) Assessment & Plan: Controlled today, even before receiving new med chlorthalidone; continue current meds, will monitor; Status: Acute (3) Vitamin D deficiency Assessment & Plan: On ergocalciferol weekly, continue; check PTH next month; Status: Chronic (4) Anemia Assessment & Plan: On IV iron loading, monitor; Status: Acute (5) Proteinuria Status: Chronic (6) Monoclonal gammopathy Assessment & Plan: Faint band seen on serum immunofixation, obtained as part of workup for mild proteinuria; still awaiting rest of results; will need hematology referral, can be done as outpatient; Status: Acute
[2017-09-11] MEDS: Lidocaine 5% Patch TOP SCH (17:44)
--- NOTE | 2017-09-11 19:01 | US ---
HISTORY: ab. lft COMPARISON: None. TECHNIQUE: Sonographic evaluation of the right upper quadrant of the abdomen. FINDINGS: LIVER: Measures 16.5 cm in length. Normal echogenicity of the liver parenchyma. No mass. No intrahepatic bile duct dilatation. GALLBLADDER: Small amount of sludge. No gallstones. No mural thickening. Negative sonographic Powers sign. COMMON BILE DUCT: Measures 4 mm. No stones. No dilatation. PANCREAS: Unremarkable as visualized. No mass. No ductal dilatation. RIGHT KIDNEY: Measures 10.3 cm in length. Normal echogenicity. No calculus, mass, or hydronephrosis. AORTA: No aneurysmal dilatation. IVC: Unremarkable. OTHER FINDINGS: Right pleural effusion IMPRESSION: Minimal gallbladder sludge. No calculi. No evidence of cholecystitis. Small right pleural effusion. Otherwise unremarkable examination.
--- NOTE | 2017-09-11 20:23 | PN ---
DATE: SUBJECTIVE: The patient is seen and examined at the bedside, early in the morning, looking comfortable. Back pain is getting better. No nausea, vomiting or diarrhea. No hematuria or hematochezia. No headache. No dizziness. No chest pain. No palpitation. No fever. No chills. PHYSICAL EXAMINATION: VITAL SIGNS: Temperature 98.8, pulse 91, blood pressure 120/74, respiratory rate 18. HEENT: Head: Normocephalic and atraumatic. Eyes: PERRLA. Extraocular muscles intact. Conjunctivae clear. Nose patent. Mucous membranes moist. NECK: Supple. No carotid bruit. No JVD or thyromegaly. CHEST: Bilaterally symmetrical. HEART: S1 and S2 positive. LUNGS: Clear to auscultation. ABDOMEN: Soft. Bowel sounds present. No organomegaly. EXTREMITIES: No edema. No cyanosis. NEUROLOGIC: The patient is awake and alert. Moving all 4 extremities. No focal deficits. MEDICATIONS: Colace, amiodarone, Cozaar, Dilaudid, vitamin C, Ecotrin, insulin, Januvia, Lidoderm, Lipitor, MiraLax, Protonix, Synthroid. LABORATORY DATA: White blood cells 8.6, hemoglobin 10.3, hematocrit 31.8, platelets 298. Glucose 154. ASSESSMENT AND PLAN: Ms. Isaías Sen is a 72-year-old lady with anemia, abnormal liver function test, planned for ultrasound of the liver, acute kidney disease, hypertension, vitamin D deficiency, proteinuria, history of thoracic vertebral fracture, status post kyphoplasty, history of cerebrovascular accident, getting physical therapy for T12 compression fracture. Nephrology restarted angiotensin receptor margaret to control the blood pressure. Patient went for kidney ultrasound. We will follow up. Physical therapy will follow up. Michelle Aviles MD [facility]
[2017-09-12] MEDS: HYDROmorphone 0.5 mg/0.5 ml ISec IVP PRN ×3 (03:09→18:36)
[2017-09-12] MEDS: Pantoprazole 40 mg EC Tab PO SCH (05:18)
[2017-09-12] MEDS: Levothyroxine 88 MCG TAB PO SCH (05:18)
[2017-09-12] MEDS: Insulin Reg-LOW-Coverage SC SCH ×4 (07:14→21:32)
[2017-09-12 07:36] LABS: ALB/GLOB RATIO 1.1 (1.1-1.8); ALBUMIN 3.1 g/dL (3.0-4.8); BILIRUBIN,DIRECT 0.4 mg/dL (0.0-0.4)
[2017-09-12] MEDS: Lidocaine 5% Patch TOP SCH (09:38)
[2017-09-12] MEDS: POLYETHYLENE GLYCOL 3350 17 GM/Dose PACKET PO SCH (09:38)
[2017-09-12 10:38] LABS: ALBUMIN (PEP) 2.9 g/dL (3.8-4.8); ALPHA-1-GLOBULIN (PEP) 0.4 g/dL (0.2-0.3)
[2017-09-12 10:53] VITALS: O2SAT 97
--- NOTE | 2017-09-12 20:50 | CP.PCM.PN ---
Subjective - Date & Time of Evaluation Date of Evaluation: 09/12/17 Time of Evaluation: 11:00 - Subjective Subjective: Reports back pain not improved; no shortness of breath; Objective - Vital Signs/Intake and Output Vital Signs (last 24 hours): Temp Pulse Resp BP Pulse Ox 98.2 F 69 16 143/65 97 09/12/17 18:00 09/12/17 18:00 09/12/17 18:00 09/12/17 18:00 09/12/17 18:00 - Medications Medications: Current Medications Amiodarone HCl (Cordarone) 200 mg PO DAILY [facility] PRN Reason: Protocol Last Admin: 09/12/17 09:36 Dose: 200 mg Amlodipine Besylate (Norvasc) 10 mg PO DAILY [facility] PRN Reason: Protocol Last Admin: 09/12/17 09:36 Dose: 10 mg Aspirin (Ecotrin) 81 mg PO 0800 [facility] PRN Reason: Protocol Last Admin: 09/12/17 07:14 Dose: 81 mg Atorvastatin Calcium (Lipitor) 10 mg PO DIN [facility] PRN Reason: Protocol Last Admin: 09/12/17 18:01 Dose: 10 mg Chlorthalidone (Hygroton) 25 mg PO DAILY [facility] Last Admin: 09/12/17 09:36 Dose: 25 mg Clopidogrel Bisulfate (Plavix) 75 mg PO DAILY [facility] PRN Reason: Protocol Last Admin: 09/12/17 09:36 Dose: 75 mg Docusate Sodium (Colace) 100 mg PO DAILY [facility] PRN Reason: Protocol Last Admin: 09/12/17 09:35 Dose: 100 mg Ergocalciferol (Drisdol 50,000 Intl Units Cap) 1 cap PO Q7D [facility] Last Admin: 09/06/17 14:09 Dose: 1 cap Hydromorphone HCl (Dilaudid) 0.5 mg IVP Q6H PRN; Protocol PRN Reason: Pain, severe (8-10) Last Admin: 09/12/17 18:36 Dose: 0.5 mg Iron Sucrose 100 mg/ Sodium (Chloride) 105 mls @ 210 mls/hr IVPB 0600 [facility] Stop: 09/17/17 06:01 Last Admin: 09/12/17 05:17 Dose: 210 mls/hr Insulin Human Regular (Humulin R Low) 0 units SC ACHS [facility] PRN Reason: Protocol Last Admin: 09/12/17 17:22 Dose: 1 units Levothyroxine Sodium (Synthroid) 88 mcg PO 0600 [facility] PRN Reason: Protocol Last Admin: 09/12/17 05:18 Dose: 88 mcg Lidocaine (Lidoderm) 1 ea TOP DAILY [facility] Last Admin: 09/12/17 09:38 Dose: 1 ea Losartan Potassium (Cozaar) 50 mg PO DAILY [facility] Last Admin: 09/12/17 09:38 Dose: 50 mg Pantoprazole Sodium (Protonix Ec Tab) 40 mg PO 0600 [facility] PRN Reason: Protocol Last Admin: 09/12/17 05:18 Dose: 40 mg Polyethylene Glycol (Miralax) 17 gm PO DAILY [facility] PRN Reason: Protocol Last Admin: 09/12/17 09:38 Dose: Not Given Sertraline HCl (Zoloft) 100 mg PO HS [facility] PRN Reason: Protocol Last Admin: 09/11/17 21:00 Dose: 100 mg Sitagliptin Phosphate (Januvia) 25 mg PO DAILY [facility] PRN Reason: Protocol Last Admin: 09/12/17 09:36 Dose: 25 mg - Labs Labs: 09/10/17 07:55 09/10/17 07:55 - Constitutional Appears: Non-toxic, No Acute Distress - Eye Exam Eye Exam: absent: Scleral icterus - ENT Exam ENT Exam: Mucous Membranes Moist - Respiratory Exam Respiratory Exam: Clear to Ausculation Bilateral. absent: Respiratory Distress - Cardiovascular Exam Cardiovascular Exam: RRR, +S1, +S2 - GI/Abdominal Exam GI & Abdominal Exam: Soft. absent: Distended, Tenderness - Exam Exam: absent: Bladder Distension - Extremities Exam Additional comments: minimal leg edema; - Neurological Exam Neurological Exam: Alert, Awake - Psychiatric Exam Psychiatric exam: absent: Agitated - Skin Skin Exam: Warm. absent: Cyanosis Assessment and Plan (1) [place] (acute kidney injury) Assessment & Plan: Resolved; serum creatinine at baseline; tolerating diuretic; should hold ARB and diuretic if patient not eating or having GI losses; Status: Resolved (2) HTN (hypertension) Assessment & Plan: BP currently controlled on current regimen of amlodpine 10, losartan 50 and chorthalidone 25; continue same; intermittently high readings likely related to pain; Status: Acute (3) Vitamin D deficiency Assessment & Plan: With elevated PTH, continue ergocalciferol 50,000 u weekly; Status: Chronic (4) Anemia Status: Acute (5) Proteinuria Status: Chronic (6) Monoclonal gammopathy Assessment & Plan: Needs outpatient heme f/u; otherwise, free light chain ratio is within normal limits and is re-assuring; Status: Acute
[2017-09-12 21:52] LABS: BLOOD UREA NITROGEN 16 mg/dL (7-21); CALCIUM 9.1 mg/dL (8.4-10.5); GFR AFRICAN-AMERICAN > 60; GFR NON-AFRICAN AMERICAN > 60
[2017-09-13] MEDS: HYDROmorphone 0.5 mg/0.5 ml ISec IVP PRN ×2 (00:31→06:35)
--- NOTE | 2017-09-13 03:36 | CP.PCM.PN ---
Subjective - Date & Time of Evaluation Date of Evaluation: 09/13/17 Time of Evaluation: 03:35 - Subjective Subjective: back pain received dilaudid 0.5 mg IV x 1. still has pain. Objective - Vital Signs/Intake and Output Vital Signs (last 24 hours): Temp Pulse Resp BP Pulse Ox 98.2 F 69 16 143/65 97 09/12/17 18:00 09/12/17 18:00 09/12/17 18:00 09/12/17 18:00 09/12/17 18:00 - Medications Medications: Current Medications Amiodarone HCl (Cordarone) 200 mg PO DAILY [facility] PRN Reason: Protocol Last Admin: 09/12/17 09:36 Dose: 200 mg Amlodipine Besylate (Norvasc) 10 mg PO DAILY [facility] PRN Reason: Protocol Last Admin: 09/12/17 09:36 Dose: 10 mg Aspirin (Ecotrin) 81 mg PO 0800 [facility] PRN Reason: Protocol Last Admin: 09/12/17 07:14 Dose: 81 mg Atorvastatin Calcium (Lipitor) 10 mg PO DIN [facility] PRN Reason: Protocol Last Admin: 09/12/17 18:01 Dose: 10 mg Chlorthalidone (Hygroton) 25 mg PO DAILY [facility] Last Admin: 09/12/17 09:36 Dose: 25 mg Clopidogrel Bisulfate (Plavix) 75 mg PO DAILY [facility] PRN Reason: Protocol Last Admin: 09/12/17 09:36 Dose: 75 mg Docusate Sodium (Colace) 100 mg PO DAILY [facility] PRN Reason: Protocol Last Admin: 09/12/17 09:35 Dose: 100 mg Ergocalciferol (Drisdol 50,000 Intl Units Cap) 1 cap PO Q7D [facility] Last Admin: 09/06/17 14:09 Dose: 1 cap Hydromorphone HCl (Dilaudid) 0.5 mg IVP Q6H PRN; Protocol PRN Reason: Pain, severe (8-10) Last Admin: 09/13/17 00:31 Dose: 0.5 mg Iron Sucrose 100 mg/ Sodium (Chloride) 105 mls @ 210 mls/hr IVPB 0600 [facility] Stop: 09/17/17 06:01 Last Admin: 09/12/17 05:17 Dose: 210 mls/hr Insulin Human Regular (Humulin R Low) 0 units SC ACHS [facility] PRN Reason: Protocol Last Admin: 09/12/17 21:32 Dose: Not Given Levothyroxine Sodium (Synthroid) 88 mcg PO 0600 [facility] PRN Reason: Protocol Last Admin: 09/12/17 05:18 Dose: 88 mcg Lidocaine (Lidoderm) 1 ea TOP DAILY [facility] Last Admin: 09/12/17 09:38 Dose: 1 ea Losartan Potassium (Cozaar) 50 mg PO DAILY [facility] Last Admin: 09/12/17 09:38 Dose: 50 mg Pantoprazole Sodium (Protonix Ec Tab) 40 mg PO 0600 [facility] PRN Reason: Protocol Last Admin: 09/12/17 05:18 Dose: 40 mg Polyethylene Glycol (Miralax) 17 gm PO DAILY [facility] PRN Reason: Protocol Last Admin: 09/12/17 09:38 Dose: Not Given Sertraline HCl (Zoloft) 100 mg PO HS [facility] PRN Reason: Protocol Last Admin: 09/12/17 21:24 Dose: 100 mg Sitagliptin Phosphate (Januvia) 25 mg PO DAILY [facility] PRN Reason: Protocol Last Admin: 09/12/17 09:36 Dose: 25 mg - Labs Labs: 09/10/17 07:55 09/12/17 06:30
--- NOTE | 2017-09-13 04:16 | PN ---
DATE: SUBJECTIVE: The patient was seen and examined at the bedside, looking comfortable. No nausea, vomiting, or diarrhea. No swelling of the legs. No chest pain. No palpitation. No fever. No chills. According to physical therapy, the patient is doing good physical therapy and walking with walker. PHYSICAL EXAMINATION: VITAL SIGNS: Temperature 98.2, pulse 69, blood pressure 142/65, respiratory rate 16. HEENT: Head is normocephalic and atraumatic. Eyes; PERRLA. Extraocular muscles are intact. Conjunctivae are clear. Nose is patent. Mucous membranes are moist. NECK: Supple. No carotid bruit, JVD or thyromegaly. CHEST: Bilaterally symmetrical. HEART: S1, S2 positive. LUNGS: Clear to auscultation. ABDOMEN: Soft. Bowel sounds present. No organomegaly. EXTREMITIES: No edema. No cyanosis. NEUROLOGIC: The patient is awake and alert. Moving all four extremities. No focal deficits. MEDICATIONS: Colace, amiodarone, Cozaar, Dilaudid, vitamin D, Ecotrin, insulin, Lidoderm, Lipitor, Norvasc, Plavix, Protonix, and Zoloft. LABORATORY DATA: White blood cells 8.6, hemoglobin 10.3, hematocrit 31.8, and platelets 298. Sodium 136, potassium 4.1, BUN 16, creatinine 0.9, and glucose 147. AST 59, ALT 75, alkaline phosphatase 151. ASSESSMENT AND PLAN: Ms. Sen is a 72-year-old lady with anemia, hyperglycemia, abnormal liver function test, microalbuminuria, serum immunofixation undetectable, The patient has a history of abnormal liver function test, hypertension, vitamin D deficiency, possible vertebral fracture, status post kyphoplasty, history of cerebrovascular accident. The patient getting physical therapy. Did ultrasound of the liver because of abnormal liver function test. Minimal gallbladder sludge. No calculi. No evidence of cholecystitis. Small right pleural effusion. Gastric and deep venous thrombosis prophylaxis. Repeat labs. We will follow up. Michelle Aviles MD [facility]
[2017-09-13] MEDS: Levothyroxine 88 MCG TAB PO SCH (05:17)
[2017-09-13] MEDS: Pantoprazole 40 mg EC Tab PO SCH (05:17)
[2017-09-13] MEDS: Insulin Reg-LOW-Coverage SC SCH ×2 (08:36→12:09)
[2017-09-13] MEDS: Lidocaine 5% Patch TOP SCH (09:35)
[2017-09-13] MEDS: POLYETHYLENE GLYCOL 3350 17 GM/Dose PACKET PO SCH (09:36)
[2017-09-13 10:03] VITALS: BP 157/54; PULSE 67; RESP 18; TEMP 97.7
--- NOTE | 2017-09-13 11:33 | RAD ---
HISTORY: pl. effusion COMPARISON: No prior. TECHNIQUE: Chest PA and lateral plus decubitus films FINDINGS: LUNGS: No active pulmonary disease. PLEURA: No significant pleural effusion identified. No pneumothorax apparent. CARDIOVASCULAR: Normal. OSSEOUS STRUCTURES: No significant abnormalities. VISUALIZED UPPER ABDOMEN: Normal. OTHER FINDINGS: None. IMPRESSION: No active disease.
[2017-09-13] MEDS: Ergocalciferol 50,000 Intl Units Cap PO SCH (12:03)
--- NOTE | 2017-09-15 07:41 | CP.PCM.PN ---
Subjective - Date & Time of Evaluation Date of Evaluation: 09/13/17 Time of Evaluation: 12:00 - Subjective Subjective: Patient still with back pain; no sob; Objective - Vital Signs/Intake and Output Vital Signs (last 24 hours): Temp Pulse Resp BP Pulse Ox 97.7 F 67 18 157/54 H 97 09/13/17 10:03 09/13/17 10:03 09/13/17 10:03 09/13/17 10:03 09/13/17 10:03 - Labs Labs: 09/10/17 07:55 09/12/17 06:30 - Constitutional Appears: Non-toxic, No Acute Distress - Eye Exam Eye Exam: absent: Scleral icterus - Respiratory Exam Respiratory Exam: Clear to Ausculation Bilateral. absent: Respiratory Distress - Cardiovascular Exam Cardiovascular Exam: RRR, +S1, +S2 - GI/Abdominal Exam GI & Abdominal Exam: Soft. absent: Distended, Tenderness - Extremities Exam Additional comments: no leg edema - Neurological Exam Neurological Exam: Alert, Awake - Psychiatric Exam Psychiatric exam: Normal Mood. absent: Agitated - Skin Skin Exam: Warm. absent: Cyanosis Assessment and Plan (1) HTN (hypertension) Assessment & Plan: BP controlled on current regimen, continue same at home; may not need diuretic half-way, recommend repeat blood work within next few weeks as outpatient; Status: Chronic (2) Vitamin D deficiency Status: Chronic (3) Anemia Status: Acute (4) Proteinuria Assessment & Plan: Mild, likely due to DM; continue losartan; Status: Chronic (5) Monoclonal gammopathy Assessment & Plan: Incidental finding; recommend outpatient heme referral (communicated to patient' s daughter as well); Status: Acute
== END 2017-09-13 14:57 | disposition home or self-care (01) | DRG 560 ==
LOC: TRCU 19:46
PROVIDERS: ADMIT Internal Medicine; ATTEND Internal Medicine
PROC: F07Z9FZ Gait Training/Functional Ambulation Treatment using Assistive, Adaptive, Supportive or Protective Equipment (ICD-10-PCS; principal; 2017-09-06)
PROC: F08Z4FZ Home Management Treatment using Assistive, Adaptive, Supportive or Protective Equipment (ICD-10-PCS; 2017-09-06)
DX: S22.089D Unspecified fracture of T11-T12 vertebra, subsequent encounter for fracture with routine healing (principal); I69.351 Hemiplegia and hemiparesis following cerebral infarction affecting right dominant side; N17.9 Acute kidney failure, unspecified; E11.22 Type 2 diabetes mellitus with diabetic chronic kidney disease; E11.65 Type 2 diabetes mellitus with hyperglycemia; I50.32 Chronic diastolic (congestive) heart failure; I13.0 Hypertensive heart and chronic kidney disease with heart failure and stage 1 through stage 4 chronic kidney disease, or unspecified chronic kidney disease; Z98.890 Other specified postprocedural states; I48.91 Unspecified atrial fibrillation; J44.9 Chronic obstructive pulmonary disease, unspecified; N18.3 Chronic kidney disease, stage 3 (moderate); I25.10 Atherosclerotic heart disease of native coronary artery without angina pectoris; E03.9 Hypothyroidism, unspecified; E55.9 Vitamin D deficiency, unspecified; K21.9 Gastro-esophageal reflux disease without esophagitis; D50.9 Iron deficiency anemia, unspecified; R80.9 Proteinuria, unspecified; F41.9 Anxiety disorder, unspecified; Z79.4 Long term (current) use of insulin; W19.XXXD Unspecified fall, subsequent encounter; Z96.651 Presence of right artificial knee joint

== ENCOUNTER 2017-10-15 11:06 | Emergency (ER) | payer MEDICARE, MEDICAID ==
[2017-10-15 12:42] VITALS: RESP 18; BMI 31.1
--- NOTE | 2017-10-15 12:53 | ED PDOC ---
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 Patient is accompanied by caregiver who explains slipped getting out of bed and fell on to her right side. Patient denies any other injuries, loss of consciousness, head trauma, neck pain, headache, dizziness, fever, chills, chest pain, shortness of breath, dyspnea on exertion, cough, nausea, vomiting, diarrhea, abdominal pain, or any other complaints. PMD: Dr. Aviles Time/Duration: Other (Last night) Symptom Course: Unchanged Quality: Other Context: Home, Slipped Past Medical History - Provider Review Nursing Documentation Reviewed: Yes - Infectious Disease Hx of Infectious Diseases: None - Tetanus Immunization Tetanus Immunization: Unknown - Cardiac Hx Hypertension: Yes - Pulmonary Hx Chronic Obstructive Pulmonary Disease (COPD): Yes - Neurological HX Cerebrovascular Accident: Yes - HEENT Hx Cataracts: Yes (WITH SURGERY) Other/Comment: cateract surgery both eyes - Renal Hx Renal Failure: Yes - Endocrine/Metabolic Hx Diabetes Mellitus Type 1: Yes Hx Hypothyroidism: Yes - Hematological/Oncological Hx Blood Transfusions: No - Integumentary Hx Dermatological Disorder: No - Musculoskeletal/Rheumatological Hx Falls: Yes - Gastrointestinal Hx Gastrointestinal Disorders: No - Genitourinary/Gynecological Hx Reproductive Disorders: No - Psychiatric Hx Psychophysiologic Disorder: No Hx Substance Use: No - Surgical History Hx Hysterectomy: Yes Hx Musculoskeletal Surgery: Yes Hx Orthopedic Surgery: Yes (Right knee replacement) Other/Comment: cataract surgery both eyes - Anesthesia Hx Anesthesia Reactions: No Hx Malignant Hyperthermia: No - Suicidal Assessment Feels Threatened In Home Enviroment: No Family/Social History - Physician Review Nursing Documentation Reviewed: Yes Family/Social History: No Known Family HX Smoking Status: Never Smoked Hx Alcohol Use: No Hx Substance Use: No Hx Substance Use Treatment: No Allergies/Home Meds Allergies/Adverse Reactions: Allergies iodine Allergy (Verified 10/15/17 12:39) ANAPHYLAXIS Home Medications: Home Meds Medication Instructions Recorded Confirmed Pantoprazole [Protonix EC Tab] 40 mg PO DAILY 11/16/14 10/15/17 Montelukast [Singulair] 10 mg PO DAILY 12/04/14 10/15/17 Clopidogrel [Plavix] 75 mg PO DAILY 09/03/15 10/15/17 Aspirin [Ecotrin] 81 mg PO DAILY 04/12/16 10/15/17 Amiodarone Hydrochloride 200 mg PO DAILY 11/30/16 10/15/17 [Cordarone] Ondansetron [Zofran Tab] 4 mg PO Q12 PRN 08/27/17 10/15/17 SITagliptin [Januvia] 100 mg PO DAILY 08/27/17 10/15/17 amLODIPine [Norvasc] 10 mg PO DAILY 08/27/17 10/15/17 Review of Systems - Physician Review All systems were reviewed & negative as marked: Yes - Review of Systems Constitutional: absent: Fevers, Night Sweats Respiratory: absent: SOB, Cough Cardiovascular: absent: Chest Pain, THACKER Gastrointestinal: absent: Abdominal Pain, Diarrhea, Nausea, Vomiting Musculoskeletal: Other (right ribs pain). absent: Neck Pain Neurological: absent: Headache, Dizziness Physical Exam Vital Signs Reviewed: Yes Vital Signs Temp Pulse Resp BP Pulse Ox 10/15/17 15:43 65 18 179/96 H 95 10/15/17 14:01 97.9 F 10/15/17 13:12 68 18 179/65 H 95 10/15/17 12:39 70 18 184/67 H 94 L Blood Pressure: Hypertensive Pulse: Regular Respiratory Rate: Normal Appearance: Positive for: Well-Appearing Pain Distress: None Mental Status: Positive for: Alert and Oriented X 3 - Systems Exam Head: Present: Atraumatic, Normocephalic Pupils: Present: PERRL Extroacular Muscles: Present: EOMI Conjunctiva: Present: Normal Mouth: Present: Moist Mucous Membranes Neck: Present: Normal Range of Motion. No: MIDLINE TENDERNESS, Paraspinal Tenderness Respiratory/Chest: Present: Clear to Auscultation, Good Air Exchange, Tender to Palpation (right posterior lateral rib tenderness). No: Respiratory Distress, Accessory Muscle Use Cardiovascular: Present: Regular Rate and Rhythm, Normal S1, S2. No: Murmurs Abdomen: Present: Normal Bowel Sounds. No: Tenderness, Distention, Peritoneal Signs Back: Present: CVA Tenderness (right flank tenderness) Upper Extremity: Present: Normal Inspection. No: Cyanosis, Edema Lower Extremity: Present: Normal Inspection. No: Edema, Tenderness (no leg or hip tenderness) Neurological: Present: GCS=15, CN II-XII Intact. No: Speech Normal (Slurred speech, normal to baseline s/p prior CVA. Patient able to answer questions) Skin: Present: Warm, Dry, Normal Color, Other (Hematoma on right flank and right posterior lateral ribs). No: Rashes Psychiatric: Present: Alert, Oriented x 3, Normal Insight, Normal Concentration Medical Decision Making ED Course and Treatment: 10/15/17 12:52 Impression: Patient is a 72 year old female with right rib/flank pain after mechanical fall Differential Diagnosis included but are not limited to: Right rib pain, rule out fracture Plan: -- Head CT -- Cervical spine CT -- Chest, Abdomen and Pelvis CT -- EKG -- Labs -- Tylenol -- Reassess and disposition Prior Visits: Notes and results from previous visits were reviewed. Patient last seen in the ED on 08/27/17 for mechanical fall. Progress Notes: EKG shows sinus arrhythmia at [address]-segment elevations. Interpreted by me. 10/15/2017 14:[address] IMPRESSION: No evidence of acute intracranial hemorrhage. mild chronic white matter ischemic change. Otherwise unremarkable. Dictator: Mark Moreno MD 10/15/2017 14:[address] IMPRESSION: No fracture or dislocation. Diffuse degenerative disc disease. Possible muscular spasm. Limited examination due to patient motion artifact. Suspect disc bulge with right parasagittal disc herniation at C5-6. Central spinal stenosis at C5-6. multilevel bilateral neural foraminal stenosis most pronounced C5-6. Dictator: Mark Moreno MD 10/15/2017 16:05 Chest/Abd/Pelvis CT IMPRESSION: Nondisplaced rib fractures are seen of the right posterior 8th 9th 10th and 11th ribs. There is no evidence of pneumothroax. Previous vertebroplasty at T12. No new vertebral compression fractures. no evidence of retroperitoneal hematoma. Dictator: Aram Harris MD 10/15/17 16:[address] shows 4 nondisplaced rib fractures. No PTX. Her pain is controlled. Oxy sat 96% on room air. She is not at all in respiratory distress. She is able to get up and walk with assistance at her baseline. I discussed with family the discharge instructions. She was instructed on use of incentive spirometry daily at least 3 times daily and that this is important for her lungs. These instructions were given to her and her daughter and HOSEMAN by me. She was given Tylenol for pain and tramadol for breakthrough pain. She will f/u with her PMD in 1-2days. - Lab Interpretations Lab Results: 10/15/17 13:39 10/15/17 13:39 Lab Results 10/15/17 13:39: Sodium 141, Potassium 4.8, Chloride 103, Carbon Dioxide 26, Anion Gap 17, BUN 29 H, Creatinine 1.1, Est GFR ( Amer) 59, Est GFR (Non- Af Amer) 49, Random Glucose 80, Calcium 9.3, Total Bilirubin 0.5, AST 55 H, ALT 75 H, Alkaline Phosphatase 156 H, Total Protein 7.6, Albumin 4.2, Globulin 3.4, Albumin/Globulin Ratio 1.2 10/15/17 13:39: PT 11.6, INR 1.02, APTT 30.0 10/15/17 13:39: WBC 9.1, RBC 4.14, Hgb 11.8 L, Hct 35.7 L, MCV 86.2, MCH 28.5, MCHC 33.1, RDW 14.0, Plt Count 206, MPV 10.5, Gran % 69.6 H, Lymph % (Auto) 19.2 L, [place] % (Auto) 10.0 H, Eos % (Auto) 1.0 L, Baso % (Auto) 0.2, Gran # 6.30 , Lymph # (Auto) 1.7, [place] # (Auto) 0.9 H, Eos # (Auto) 0.1, Baso # (Auto) 0.02 I have reviewed the lab results: Yes - RAD Interpretation Radiology Orders: 10/15/17 12:54 CERVICAL SPINE W/O CONTRAST [CT] Stat CHEST,ABDOMEN, PELVIS W/O CONT [CT] Stat HEAD W/O CONTRAST [CT] Stat - Medication Orders Current Medication Orders: Discontinued Medications Acetaminophen (Tylenol 325mg Tab) 650 mg PO STAT STA Stop: 10/15/17 13:00 Last Admin: 10/15/17 14:50 Dose: 650 mg MAR Pain/Vitals Document 10/15/17 14:50 GMD (Rec: 10/15/17 14:50 GMD [id number]) Presence of Pain Presence of Pain Yes - Scribe Statement The provider has reviewed the documentation as recorded by the Scribe Gareth Ospina [employer] Under Leslie Gutierrez Provider Scribe Attestation: All medical record entries made by the Scribe were at my direction and personally dictated by me. I have reviewed the chart and agree that the record accurately reflects my personal performance of the history, physical exam, medical decision making, and the department course for this patient. I have also personally directed, reviewed, and agree with the discharge instructions and disposition. Disposition/Present on Arrival - Present on Arrival Any Indicators Present on Arrival: No History of DVT/PE: No History of Uncontrolled Diabetes: No Urinary Catheter: No History of Decub. Ulcer: No History Surgical Site Infection Following: None - Disposition Have Diagnosis and Disposition been Completed?: Yes Diagnosis: Multiple rib fractures Disposition: HOME/ ROUTINE Disposition Time: 17:00 Patient Plan: Discharge Patient Problems: Current Active Problems Problem Status Onset Multiple rib fractures Acute Condition: IMPROVED Discharge Instructions (ExitCare): Rib Fractures in Adults Additional Instructions: Ms Sen, thank you for letting us take care of you today. Your provider was Dr. Mcgowan. You were treated for Rib Fractures The emergency medical care you received today was directed at your acute symptoms. If you were prescribed any medication, please fill it and take as directed. It may take several days for your symptoms to resolve. Return to the Emergency Department if your symptoms worsen, do not improve, or if you have any other problems. Please contact your doctor or call one of the physicians/clinics you have been referred to that are listed on the Patient Visit Information form that is included in your discharge packet. Bring any paperwork you were given at discharge with you along with any medications you are taking to your follow up visit. Our treatment cannot replace ongoing medical care by a primary care provider (PCP) outside of the emergency department. Thank you for allowing the [facility] team to be part of your care today. If you had an X-Ray or CT scan: A Radiologist will review the ED reading if any change in treatment is needed we will contact you. If you had a blood, urine, or wound culture: It will take several days for the results, if any change in treatment is needed we will contact you. If you had an STI test: It will take 48 hours for the results. Please call after 1 week if you have not heard back. Prescriptions: Acetaminophen [Tylenol 325mg tab] 650 mg PO Q4 #60 tab traMADol [Ultram] 50 mg PO Q6H PRN #20 tab PRN Reason: Pain, Moderate (4-7) Referrals: Michelle Aviles MD [Primary Care Provider] - Follow up with primary Forms: [employer] (Spanish)
[2017-10-15 13:13] VITALS: O2SAT 95
[2017-10-15 13:44] LABS: BASO # 0.02 K/mm3 (0.0-2.0); BASO % 0.2 % (0.0-3.0); EOS # 0.1 (0.0-0.7); GRAN # 6.3 (1.4-6.5); GRAN % 69.6 % (50.0-68.0); HEMOGLOBIN 11.8 g/dL (12.0-16.0); LYMPH # 1.7 (1.2-3.4); LYMPH % 19.2 % (22.0-35.0); MEAN CELL VOLUME 86.2 fl (80.0-105.0); MEAN CORPUSCULAR HEMOGLOBIN 28.5 pg (25.0-35.0); MEAN CORPUSCULAR HGB CONC 33.1 g/dl (31.0-37.0); MEAN PLATELET VOLUME 10.5 fl (7.0-11.0); MONO # 0.9 (0.1-0.6); RBC 4.14 10^6/uL (3.5-6.1); WHITE BLOOD COUNT 9.1 10^3/ul (4.5-11.0)
[2017-10-15 13:52] LABS: INR 1.02 (0.93-1.08); PROTHROMBIN TIME 11.6 SECONDS (9.4-12.5)
[2017-10-15 13:54] LABS: ALB/GLOB RATIO 1.2 (1.1-1.8); ALBUMIN 4.2 g/dL (3.0-4.8); CALCIUM 9.3 mg/dL (8.4-10.5)
[2017-10-15 14:02] VITALS: TEMP 97.9
--- NOTE | 2017-10-15 14:49 | CT ---
PROCEDURE: CT HEAD WITHOUT CONTRAST. HISTORY: fall r/o fx r/o ich COMPARISON: 08/27/2017 TECHNIQUE: Axial computed tomography images were obtained through the head/brain without intravenous contrast. Radiation dose: Total exam DLP = 1647.73 mGy-cm. This CT exam was performed using one or more of the following dose reduction techniques: Automated exposure control, adjustment of the mA and/or kV according to patient size, and/or use of iterative reconstruction technique. FINDINGS: HEMORRHAGE: No intracranial hemorrhage. BRAIN: No mass effect or edema. There is no significant atrophy. There is mild patchy periventricular and deep white matter lucency consistent with chronic microvascular ischemic change. There is no evidence of acute infarct. VENTRICLES: Unremarkable. No hydrocephalus. CALVARIUM: Unremarkable. PARANASAL SINUSES: Unremarkable as visualized. No significant inflammatory changes. MASTOID AIR CELLS: Unremarkable as visualized. No inflammatory changes. OTHER FINDINGS: None. IMPRESSION: No evidence of acute intracranial hemorrhage. Mild chronic white matter ischemic change. Otherwise unremarkable
--- NOTE | 2017-10-15 14:57 | CT ---
PROCEDURE: CT Cervical Spine without contrast HISTORY: fall r/o fx COMPARISON: None available. TECHNIQUE: Axial computed tomography images were obtained of the cervical spine without the use of intravenous contrast. Coronal and sagittal reformatted images were created and reviewed. Radiation dose: Total exam DLP = 530.38 mGy-cm. This CT exam was performed using one or more of the following dose reduction techniques: Automated exposure control, adjustment of the mA and/or kV according to patient size, and/or use of iterative reconstruction technique. FINDINGS: VERTEBRAE: The examination is limited by patient motion artifact. The vertebral bodies are maintained in height. Normal alignment is maintained. There is straightening of the normal lordotic curvature of the cervical spine indicating possible muscular spasm. The atlantoaxial articulation and odontoid process are intact. DISCS/SPINAL CANAL/NEURAL FORAMINA: There is narrowing of all of the intervertebral disc spaces of the cervical spine consistent with diffuse degenerative disc disease. Multilevel neural foraminal stenosis is noted bilaterally most prominent at C5-6. Suspect disc bulge with superimposed right parasagittal disc herniation at C5-6 although evaluation is limited by patient motion. There is central spinal stenosis at C5-6. PARASPINAL SOFT TISSUES: There are coarse calcifications noted in both lobes of the thyroid. OTHER FINDINGS: None. IMPRESSION: No fracture or dislocation. Diffuse degenerative disc disease. Possible muscular spasm. Limited examination due to patient motion artifact. Suspect disc bulge with right parasagittal disc herniation at C5-6. Central spinal stenosis at C5-6. Multilevel bilateral neural foraminal stenosis most pronounced at C5-6.
[2017-10-15 15:44] VITALS: BP 179/96; PULSE 65
--- NOTE | 2017-10-15 16:06 | CT ---
PROCEDURE: CT Chest, Abdomen and Pelvis without intravenous contrast HISTORY: fall r/o rib fx r/o hematoma r/o thoracic fx COMPARISON: None. TECHNIQUE: Radiation dose: Total exam DLP = mGy-cm. This CT exam was performed using one or more of the following dose reduction techniques: Automated exposure control, adjustment of the mA and/or kV according to patient size, and/or use of iterative reconstruction technique. FINDINGS: CT CHEST WITHOUT CONTRAST: LUNGS: Clear. No nodule, mass or consolidation. MEDIASTINUM: Unremarkable. Normal caliber aorta and pulmonary arterial trunk. Normal size heart. LYMPH NODES: Unremarkable. PLEURA: Unremarkable. No pneumothorax. No pleural fluid. BONES: Nondisplaced rib fractures are seen of the right posterior 8th 9th 10th and 11th ribs. There is no evidence of pneumothorax. Previous vertebroplasty at T12. No new vertebral compression fractures OTHER FINDINGS: None. CT ABDOMEN AND PELVIS: LIVER: Unremarkable. No gross lesion or ductal dilatation. GALLBLADDER AND BILE DUCTS: Unremarkable. PANCREAS: Unremarkable. No gross lesion or ductal dilatation. SPLEEN: Unremarkable. ADRENALS: Unremarkable. No mass. KIDNEYS AND URETERS: Unremarkable. No hydronephrosis. No solid mass. VASCULATURE: Unremarkable. No aortic aneurysm. BOWEL: Unremarkable. No obstruction. No gross mural thickening. APPENDIX: Normal appendix. PERITONEUM: Unremarkable. No free fluid. No free air. LYMPH NODES: Multiple small lymph nodes are seen around the pancreas. BLADDER: Unremarkable. REPRODUCTIVE: Unremarkable. BONES: No acute fracture. OTHER FINDINGS: None. IMPRESSION: Nondisplaced rib fractures are seen of the right posterior 8th 9th 10th and 11th ribs. There is no evidence of pneumothorax. Previous vertebroplasty at T12. No new vertebral compression fractures No evidence of retroperitoneal hematoma
--- NOTE | 2017-10-16 10:34 | CARD ---
APPROVED REPORT EKG Measurement Heart [id number] <Conclusion> Normal sinus rhythm with sinus arrhythmia Clockwiaw Rotation.
== END 2017-10-15 17:15 | disposition home or self-care (01) ==
LOC: ED 11:06
DX: S22.41XA Multiple fractures of ribs, right side, initial encounter for closed fracture (principal); W01.0XXA Fall on same level from slipping, tripping and stumbling without subsequent striking against object, initial encounter; Y92.003 Bedroom of unspecified non-institutional (private) residence as the place of occurrence of the external cause; I10 Essential (primary) hypertension; I69.851 Hemiplegia and hemiparesis following other cerebrovascular disease affecting right dominant side; I69.828 Other speech and language deficits following other cerebrovascular disease

== ENCOUNTER 2018-03-19 09:43 | Inpatient (IN) | payer MEDICARE, MEDICAID ==
[2018-03-19] MEDS ORDERED: Sodium Chloride 0.9% 1,000 ML IV STA (10:15)
--- NOTE | 2018-03-19 10:19 | ED PDOC ---
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 Pt reports, " was wearing flip flops, slipped and fell down, hit the door with head". Pt reports, noted some bleeding from head laceration. As per family, pt was at home alone, when shortly home aidarrived, who found her on floor, called ambulance. Otherwise, pt denies LOC, syncope, denies severe headache now, dizziness, visual changes, focal deficits, neck pain, CP, SOB, dyspnea, palpitation, abd. pain, N/V, denies obvious deformity to B/L UEs and LEs, denies new weakness, sensory or vascular deficits to B/L UEs and LEs. At the time of evaluation, pt is comfortable in bed, at her baseline mental status as per family. 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 Pt reports, " was wearing flip flops, slipp ed and fell down, hit the door with head". Pt reports, noted some bleeding from head laceration. As per family, pt was at home alone, when shortly home aidarrived, who found her on floor, called ambulance. Otherwise, pt denies LOC, syncope, denies severe headache now, dizziness, visual changes, focal deficits, neck pain, CP, SOB, dyspnea, palpitation, abd. pain, N/V, denies obvious deformity to B/L UEs and LEs, denies new weakness, sensory or vascular deficits to B/L UEs and LEs. At the time of evaluation, pt is comfortable in bed, at her baseline mental status as per family. (Javier Olmedo) Past Medical History - Provider Review Nursing Documentation Reviewed: Yes - Travel History Have you recently traveled outside [place] w/in the past 3 mons?: No - Infectious Disease Hx of Infectious Diseases: None - Tetanus Immunization Tetanus Immunization: Unknown - Cardiac Hx Cardiac Disorders: Yes Hx ME: Yes Hx Hypertension: Yes - Pulmonary Hx Respiratory Disorders: Yes Hx Chronic Obstructive Pulmonary Disease (COPD): Yes - Neurological Hx Neurological Disorder: Yes HX Cerebrovascular Accident: Yes Hx Dementia: Yes - HEENT Hx HEENT Disorder: Yes Hx Cataracts: Yes (WITH SURGERY) Other/Comment: cateract surgery both eyes - Renal Hx Renal Disorder: Yes Hx Renal Failure: Yes - Endocrine/Metabolic Hx Endocrine Disorders: Yes Hx Diabetes Mellitus Type 1: Yes Hx Hypothyroidism: Yes - Hematological/Oncological Hx Blood Disorders: No Hx Blood Transfusions: No - Integumentary Hx Dermatological Disorder: No - Musculoskeletal/Rheumatological Hx Musculoskeletal Disorders: Yes Hx Falls: Yes Hx Unsteady Gait: Yes - Gastrointestinal Hx Gastrointestinal Disorders: No - Genitourinary/Gynecological Hx Genitourinary Disorders: No Hx Reproductive Disorders: No - Psychiatric Hx Psychophysiologic Disorder: No Hx Substance Use: No - Surgical History Hx Hysterectomy: Yes Hx Musculoskeletal Surgery: Yes Hx Orthopedic Surgery: Yes (bilateral knee replacement) Other/Comment: cataract surgery both eyes - Anesthesia Hx Anesthesia: Yes Hx Anesthesia Reactions: No Hx Malignant Hyperthermia: No - Suicidal Assessment Feels Threatened In Home Enviroment: No <Alexia Hawkins - Last Filed: 03/19/18 16:07> Family/Social History - Physician Review Nursing Documentation Reviewed: Yes Family/Social History: No Known Family HX Smoking Status: Never Smoked Hx Alcohol Use: No Hx Substance Use: No Hx Substance Use Treatment: No <Alexia Hawkins - Last Filed: 03/19/18 16:07> Allergies/Home Meds <Alexia Hawkins - Last Filed: 03/19/18 16:07> <Javier Olmedo - Last Filed: 03/19/18 17:22> Allergies/Adverse Reactions: Allergies iodine Allergy (Verified 10/15/17 12:39) ANAPHYLAXIS Home Medications: Home Meds Medication Instructions Recorded Confirmed Pantoprazole [Protonix EC Tab] 40 mg PO DAILY 11/16/14 03/19/18 Montelukast [Singulair] 10 mg PO DAILY 12/04/14 03/19/18 Clopidogrel [Plavix] 75 mg PO DAILY 09/03/15 03/19/18 Aspirin [Ecotrin] 81 mg PO DAILY 04/12/16 03/19/18 Amiodarone Hydrochloride 200 mg PO DAILY 11/30/16 03/19/18 [Cordarone] SITagliptin [Januvia] 100 mg PO DAILY 08/27/17 03/19/18 amLODIPine [Norvasc] 10 mg PO DAILY 08/27/17 03/19/18 Calcium 600 Tab 1 tab PO DAILY 03/19/18 03/19/18 Furosemide [Lasix] 40 mg PO DAILY 03/19/18 03/19/18 Insulin Aspart, Recombinant 10 unit SC ACBD 03/19/18 03/19/18 [Novolog] Levocetirizine Dihydrochloride 5 mg PO DAILY 03/19/18 03/19/18 [Xyzal] Potassium 10 10 meq PO 03/19/18 Sertraline [Zoloft] 150 mg PO ACD 03/19/18 03/19/18 hydrALAZINE [hydralazine 50 mg PO BID 03/19/18 03/19/18 Hydrochloride] Review of Systems - Review of Systems Constitutional: Normal Eyes: Normal. absent: Vision Changes ENT: Normal. absent: Epistaxis Respiratory: Normal. absent: SOB Cardiovascular: Normal. absent: Chest Pain, Palpitations, Edema Gastrointestinal: Normal. absent: Nausea, Vomiting Genitourinary Female: Normal Musculoskeletal: Normal Skin: Laceration Neurological: Headache. absent: Dizziness, Focal Weakness, Speech Changes Endocrine: Normal Hemo/Lymphatic: Normal Psychiatric: Normal <Alexia Hawkins - Last Filed: 03/19/18 16:07> Physical Exam Vital Signs Reviewed: Yes Temperature: Afebrile Blood Pressure: Normal Pulse: Regular Respiratory Rate: Normal Appearance: Positive for: Well-Appearing, Non-Toxic, Comfortable Pain Distress: Mild Mental Status: Positive for: Alert and Oriented X 3 - Systems Exam Head: Present: Normocephalic, Laceration (stellate cutaneous laceration 2cm length midforehead along hearline with mild surround edema/hematoma.No palpable efomrity, no active bleeidng no wound FB.) Pupils: Present: PERRL Extroacular Muscles: Present: EOMI Conjunctiva: Present: Normal Ears: Present: NORMAL TM Mouth: Present: Moist Mucous Membranes, Normal Lips. No: Drooling Pharnyx: No: ERYTHEMA Neck: Present: Normal Range of Motion, Trachea Midline. No: MIDLINE TENDERNESS, JVD, Bruit Respiratory/Chest: Present: Clear to Auscultation, Good Air Exchange. No: Respiratory Distress, Accessory Muscle Use Cardiovascular: Present: Regular Rate and Rhythm, Normal S1, S2. No: Murmurs Abdomen: No: Tenderness, Distention, Peritoneal Signs, Rebound, Guarding Back: No: Midline Tenderness Upper Extremity: Present: Normal ROM, NORMAL PULSES. No: Swelling, Deformity Lower Extremity: Present: Normal ROM, Tenderness (over anterior aspect B/L knees). No: Deformity Neurological: Present: GCS=15, Normal Sensory Function, Norm Deep Tendon Reflexes. No: Speech Normal (slurred) Skin: Present: Warm, Dry, Normal Color, Other (scattered body trace ecchymoses, old). No: Rashes Psychiatric: Present: Alert, Oriented x 3, Normal Insight, Normal Concentration <Alexia Hawkins - Last Filed: 03/19/18 16:07> Vital Signs Temp Pulse Pulse Resp BP Pulse Ox 03/19/18 17:03 60 174/80 H 03/19/18 16:53 98.8 F 49 L 49 L 18 179/102 H 03/19/18 14:00 98.8 F 49 L 18 179/102 H 97 03/19/18 13:38 76 18 165/90 H 97 03/19/18 11:54 58 L 19 155/76 H 98 03/19/18 09:44 98.7 F 57 L 18 156/96 H 98 Medical Decision Making - EKG Interpretation Interpreted by ED Physician: Yes Comparison: Similar to previous EKG <Alexia Hawkins - Last Filed: 03/19/18 16:07> <Javier Olmedo - Last Filed: 03/19/18 17:22> ED Course and Treatment: 03/19/18 11:13 Pt remained stable during the ED evaluation. Imagings review and appears without new acute abnormalities. Blood work review- baseline. Pt was seen in ED by PMD and OBS admission recommend at this time due to head injury, hx of CVA, unwitnessed fall. results review and discussed with pt and family, agrees with plan. (Alexia Hawkins) 03/19/18 11:13 Pt remained stable during the ED evaluation. Imagings review and appears without new acute abnormalities. Blood work review- baseline. Pt was seen in ED by PMD and OBS admission recommend at this time due to head injury, hx of CVA, unwitnessed fall. results review and discussed with pt and family, agrees with plan. (Javier Olmedo) - Lab Interpretations Lab Results: 03/19/18 10:30 03/19/18 10:30 Lab Results 03/19/18 10:45: Urine Color Yellow, Urine Appearance Clear, Urine pH 6.5, Ur Specific [place] 1.020, Urine Protein 100 H, Urine Glucose (UA) Negative, Urine Ketones Negative, Urine Blood Negative, Urine Nitrate Negative, Urine Bilirubin Negative, Urine Urobilinogen 0.2, Ur Leukocyte Esterase Negative, Urine RBC 0 - 2, Urine WBC 0 - 2, Ur Epithelial Cells 3 - 4, Urine Bacteria Mod 03/19/18 10:30: Sodium 140, Potassium 5.5 H, Chloride 106, Carbon Dioxide 27, Anion Gap 12, BUN 32 H, Creatinine 1.0, Est GFR ( Amer) > 60, Est GFR (Non-Af Amer) 55, Random Glucose 161 H, Calcium 9.1, Total Bilirubin 0.4, AST 50 H, ALT 55, Alkaline Phosphatase 131 H, Total Protein 6.8, Albumin 3.8, Globulin 3.0, Albumin/Globulin Ratio 1.3 03/19/18 10:30: PT 11.4, INR 0.99, APTT 22.1 L 03/19/18 10:30: WBC 5.6 D, RBC 3.97, Hgb 11.3 L, Hct 34.7 L, MCV 87.4, MCH 28.5, MCHC 32.6, RDW 13.3, Plt Count 198, MPV 10.2, Gran % 57.8, Lymph % (Auto) 29.5, Saline % (Auto) 10.0 H, Eos % (Auto) 2.5, Baso % (Auto) 0.2, Gran # 3.25, Lymph # (Auto) 1.7, Saline # (Auto) 0.6, Eos # (Auto) 0.1, Baso # (Auto) 0.01 - RAD Interpretation Narrative RAD Interpretations (Text): 03/19/18 11:53 CT HEAD: IMPRESSION: Stable unenhanced head CT with age-appropriate age related neuro degenerative changes reiterated. Limited right frontal scalp edema identified with potential laceration. CT C-SPINE: IMPRESSION: No fracture or spondylolisthesis. Multilevel cervical spondylosis and facet arthropathy combined with uncovertebral facet uncovertebral joint degenerative changes resulting in variable bilateral neural foraminal stenoses and mild C6-7 central canal stenosis. There is a borderline degenerative C5-[address] CHEST W/O CONTRAST: IMPRESSION: No acute thoracic findings. Old healed right rib fracture identified as discussed above. (Alexia Hawkins) 03/19/18 11:53 CT HEAD: IMPRESSION: Stable unenhanced head CT with age-appropriate age related neuro degenerative changes reiterated. Limited right frontal scalp edema identified with potential laceration. CT C-SPINE: IMPRESSION: No fracture or spondylolisthesis. Multilevel cervical spondylosis and facet arthropathy combined with uncovertebral facet uncovertebral joint degenerative c hanges resulting in variable bilateral neural foraminal stenoses and mild C6-7 central canal stenosis. There is a borderline degenerative C5-[address] CHEST W/O CONTRAST: IMPRESSION: No acute thoracic findings. Old healed right rib fracture identified as disc ussed above. (Javier Olmedo) Radiology Orders: 03/19/18 10:16 CERVICAL SPINE W/O CONTRAST [CT] Stat HEAD W/O CONTRAST [CT] Stat HIP MIN 2V W/ PELVIS JUAN [RAD] Stat KNEES BILATERAL [RAD] Stat 03/19/18 10:17 CHEST W/O CONTRAST [CT] Stat Pelvis w/hips B/L: (+)DJD, no acute fx B/L Knees xrays: (+) Right TKR, Left knee mild DJD, no acute fx noted. (Alexia Hawkins) Pelvis w/hips B/L: (+)DJD, no acute fx B/L Knees xrays: (+) Right TKR, Left knee mild DJD, no acute fx noted. (Javier Olmedo) - EKG Interpretation EKG Interpretation (Text): 03/19/18 10:23 Sinus missy@52/min, Q wave in III, V2-V3, no acute ST-T changes. (Alexia Hawkins) 03/19/18 10:23 Sinus missy@52/min, Q wave in III, V2-V3, no acute ST-T changes. (Javier Olmedo) - Medication Orders Current Medication Orders: Amiodarone HCl (Cordarone) 200 mg PO DAILY [facility] Amlodipine Besylate (Norvasc) 10 mg PO DAILY [facility] Aspirin (Ecotrin) 81 mg PO DAILY [facility] Calcium Carbonate (Caltrate) 600 mg PO DAILY [facility] Clopidogrel Bisulfate (Plavix) 75 mg PO DAILY [facility] Furosemide (Lasix) 40 mg PO DAILY [facility] Home Med (Home Med) 5 unit PO DAILY [facility] Hydralazine HCl (Apresoline) 50 mg PO BID [facility] Last Admin: 03/19/18 17:03 Dose: 50 mg MAR Pulse and Blood Pressure Document 03/19/18 17:03 EP (Rec: 03/19/18 17:06 [place] [facility] [id number] Pulse Pulse Rate (60-90) 60 Blood Pressure Blood Pressure (100/60-150/90) 174/80 Insulin Human Lispro (Humalog) 10 units SC ACBD [facility] Last Admin: 03/19/18 17:03 Dose: 10 units MAR Blood Glucose Document 03/19/18 17:03 EP (Rec: 03/19/18 17:03 EP [facility] [id number][place] Blood Glucose Finger Stick Blood Glucose (70-120) 187 Subcutaneous Administrations Document 03/19/18 17:03 EP (Rec: 03/19/18 17:03 EP [facility] [id number][place] Charges for Administration # of Subcutaneous Administrations 1 Levothyroxine Sodium (Synthroid) 88 mcg PO ACB [facility] Montelukast Sodium (Singulair) 10 mg PO DAILY [facility] Pantoprazole Sodium (Protonix Ec Tab) 40 mg PO DAILY [facility] Potassium Chloride (Klor-Con 10) 10 meq PO BRK [facility] Sertraline HCl (Zoloft) 150 mg PO ACD [facility] Last Admin: 03/19/18 17:03 Dose: 150 mg Sitagliptin Phosphate (Januvia) 50 mg PO DAILY [facility] Tramadol HCl (Ultram) 50 mg PO Q6H PRN PRN Reason: Pain, moderate (4-7) Last Admin: 03/19/18 15:25 Dose: 50 mg MAR Pain Assessment Document 03/19/18 15:25 EP (Rec: 03/19/18 15:25 EP [facility] [id number][place] Pain Reassessment Is this a pain reassessment? No Sleep Is patient sleeping during reassessment? No Presence of Pain Presence of Pain Yes Pain Scale Used Protocol: PSCALES Pain Scale Used Numeric Description Description Intermittent Intensity of Pain at present 5 Discontinued Medications Sodium Chloride (Sodium Chloride 0.9%) 1,000 mls @ 999 mls/hr IV .Q1H1M STA Stop: 03/19/18 11:15 Last Admin: 03/19/18 10:37 Dose: 999 mls/hr eMAR Start Stop Document 03/19/18 10:37 BRIGIDA (Rec: 03/19/18 10:38 BRIGIDA [id number]) Intravenous Solution Start Date 03/19/18 Start Time 10:37 End Date 03/19/18 End time 11:37 Total Infusion Time 60 Sodium Polystyrene Sulfonate (Kayexalate Susp) 15 gm PO ONCE ONE Stop: 03/19/18 14:31 Last Admin: 03/19/18 15:25 Dose: 15 gm - PA / [employer] / Resident Statement / has reviewed & agrees with the documentation as recorded. <Javier Olmedo - Last Filed: 03/19/18 17:22> Disposition/Present on Arrival - Present on Arrival Any Indicators Present on Arrival: No History of DVT/PE: No History of Uncontrolled Diabetes: No Urinary Catheter: No History of Decub. Ulcer: No History Surgical Site Infection Following: None - Disposition Have Diagnosis and Disposition been Completed?: Yes Disposition Time: 11:02 Patient Plan: Observation <Alexia Hawkins - Last Filed: 03/19/18 16:07> <Javier Olmedo - Last Filed: 03/19/18 17:22> - Disposition Diagnosis: Head injury, Forehead laceration, Multiple falls Disposition: HOSPITALIZED Patient Problems: Current Active Problems Problem Status Onset Multiple falls Acute Head injury Acute Forehead laceration Acute Condition: STABLE Laceration - Laceration Repair Forehead Wound Length (In cm): 0.79 in Description Of Wound: Irregular Wound Cleansed With: Betadine, Sterile Saline Wound Examination: Irrigated With Saline, No FB With Wound Exploration Wound Closure: Steri Strips, Skin Glue Wound Complexity: Simple <Alexia Hawkins - Last Filed: 03/19/18 16:07>
[2018-03-19 10:45] LABS: BASO # 0.01 K/mm3 (0.0-2.0); BASO % 0.2 % (0.0-3.0); EOS # 0.1 (0.0-0.7); EOS % 2.5 % (1.5-5.0); GRAN # 3.25 (1.4-6.5); GRAN % 57.8 % (50.0-68.0); HEMOGLOBIN 11.3 g/dL (12.0-16.0); LYMPH # 1.7 (1.2-3.4); LYMPH % 29.5 % (22.0-35.0); MEAN CELL VOLUME 87.4 fl (80.0-105.0); MEAN CORPUSCULAR HEMOGLOBIN 28.5 pg (25.0-35.0); MEAN CORPUSCULAR HGB CONC 32.6 g/dl (31.0-37.0); MEAN PLATELET VOLUME 10.2 fl (7.0-11.0); MONO # 0.6 (0.1-0.6); RBC 3.97 10^6/uL (3.5-6.1); RED CELL DISTRIBUTION WIDTH 13.3 % (11.5-14.5); WHITE BLOOD COUNT 5.6 10^3/ul (4.5-11.0)
[2018-03-19 10:54] LABS: INR 0.99; PARTIAL THROMBOPLASTIN TIME 22.1 Seconds (25.1-36.5); PROTHROMBIN TIME 11.4 SECONDS (9.4-12.5)
[2018-03-19 11:02] LABS: ALB/GLOB RATIO 1.3 (1.1-1.8); ALBUMIN 3.8 g/dL (3.0-4.8); ALT/SGPT 55 U/L (7-56); AST/SGOT 50 U/L (14-36); BLOOD UREA NITROGEN 32 mg/dL (7-21); CALCIUM 9.1 mg/dL (8.4-10.5); GFR NON-AFRICAN AMERICAN 55
[2018-03-19 11:09] LABS: PH,URINE 6.5 (4.7-8.0); URINE BILIRUBIN NEGATIVE (NEGATIVE); URINE BLOOD NEGATIVE (NEGATIVE); URINE GLUCOSE (UA) NEGATIVE (NEGATIVE); URINE LEUKOCYTE ESTERASE NEGATIVE Leu/uL (NEGATIVE); URINE PROTEIN 100 mg/dL (<30 mg/dL); URINE UROBILINOGEN 0.2 E.U./dL (<1 E.U./dL)
[2018-03-19 11:13] LABS: URINE APPEARANCE CLEAR (CLEAR); URINE COLOR YELLOW (YELLOW)
[2018-03-19 11:16] LABS: URINE RBC 0 - 2 /hpf (0-2); URINE WBC 0 - 2 /hpf (0-6)
[2018-03-19 11:17] LABS: URINE BACTERIA MOD (NEG)
--- NOTE | 2018-03-19 11:37 | CT ---
Date of service: 03/19/2018 PROCEDURE: CT HEAD WITHOUT CONTRAST. HISTORY: injury COMPARISON: Noncontrast head CT 10/15/2017. TECHNIQUE: Axial computed tomography images were obtained through the head/brain without intravenous contrast. Radiation dose: Total exam DLP = 725.63 mGy-cm. This CT exam was performed using one or more of the following dose reduction techniques: Automated exposure control, adjustment of the mA and/or kV according to patient size, and/or use of iterative reconstruction technique. FINDINGS: HEMORRHAGE: No intracranial hemorrhage. BRAIN: Good corticomedullary differentiation is seen. Reiterated diffuse cerebral atrophy and chronic microangiopathy. No suspicious extra-axial fluid collection is identified and the midline brain anatomy appears grossly nonfocal as imaged. No mass effect identified. VENTRICLES: Unremarkable. No hydrocephalus. CALVARIUM: No fracture or suspicious bone lesion appreciable. Trace right frontal scalp edema and possible laceration questioned. PARANASAL SINUSES: Unremarkable as visualized. No significant inflammatory changes. MASTOID AIR CELLS: Unremarkable as visualized. No inflammatory changes. OTHER FINDINGS: None. IMPRESSION: Stable unenhanced head CT with age-appropriate age related neuro degenerative changes reiterated. Limited right frontal scalp edema identified with potential laceration.
--- NOTE | 2018-03-19 11:48 | CT ---
Date of service: 03/19/2018 PROCEDURE: CT Cervical Spine without contrast HISTORY: injury COMPARISON: None available. TECHNIQUE: Axial computed tomography images were obtained of the cervical spine without the use of intravenous contrast. Coronal and sagittal reformatted images were created and reviewed. Radiation dose: Total exam DLP = 573.72 mGy-cm. This CT exam was performed using one or more of the following dose reduction techniques: Automated exposure control, adjustment of the mA and/or kV according to patient size, and/or use of iterative reconstruction technique. FINDINGS: VERTEBRAE: No fracture or spondylolisthesis. Reversal cervical curvature with extensive multilevel cervical spondylosis identified. Multilevel facet joint degenerative arthropathy appears advanced as well. DISCS/SPINAL CANAL/NEURAL FORAMINA: At C2-3, there is no stenosis appreciable. At C3-4, there is a circumferential disc osteophyte complex without significant central stenosis resulting. A moderate right degenerative neural foraminal stenosis appreciated, borderline at the left. At C4-5, a mild right degenerative neural foraminal stenosis appreciated with central canal and left neural foramen widely patent. At C5-6, an additional disc osteophyte complex is appreciated resulting in a borderline central stenosis. Mild bilateral degenerative neural foraminal stenoses are identified. At C6-7, a mild degenerative central stenosis appreciated due to disc osteophyte complex with mild degenerative neural foraminal stenoses appreciated greater the right than left sides. At C7-T1, no significant stenosis is appreciable. No gross disc herniation however MRI is available for follow-up if clinically warranted. PARASPINAL SOFT TISSUES: Unremarkable. OTHER FINDINGS: None. IMPRESSION: No fracture or spondylolisthesis. Multilevel cervical spondylosis and facet arthropathy combined with uncovertebral facet uncovertebral joint degenerative changes resulting in variable bilateral neural foraminal stenoses and mild C6-7 central canal stenosis. There is a borderline degenerative C5-6 central canal stenosis.
--- NOTE | 2018-03-19 11:53 | CT ---
Date of service: 03/19/2018 PROCEDURE: CT Chest without contrast HISTORY: injury COMPARISON: Chest abdomen and pelvis without contrast 10/15/2017. TECHNIQUE: Contiguous axial images were obtained through the chest without intravenous contrast enhancement. Sagittal and coronal reconstructions were performed. Radiation dose (DLP): 665.45 mGy-cm. This CT exam was performed using one or more of the following dose reduction techniques: Automated exposure control, adjustment of the mA and/or kV according to patient size, and/or use of iterative reconstruction technique. FINDINGS: LUNGS: Clear lungs. Visualized airway clear MEDIASTINUM: Unremarkable thoracic aorta. No aneurysm. Stable mild cardiomegaly. Main pulmonary artery unremarkable. No vascular congestion. No lymphadenopathy. PLEURA: No pleural fluid. No pneumothorax. BONES: Multiple old healed right rib fractures including right 7 through 10 ribs dextroscoliotic thoracolumbar spinal deformity reiterated with no definite acute thoracic vertebral body fracture identified. As previously shown. No definite acute rib fracture appreciated. Old 12 vertebral body compression fracture is stable treated post vertebroplasty. Sternum is intact without acute fracture UPPER ABDOMEN: Borderline splenomegaly at 13 0.1 cm. OTHER FINDINGS: None. IMPRESSION: No acute thoracic findings. Old healed right rib fracture identified as discussed above.
--- NOTE | 2018-03-19 12:10 | RAD ---
Date of service: 03/19/2018 PROCEDURE: Bilateral Knee Radiographs. HISTORY: injury COMPARISON: 07/24/2014 right knee FINDINGS: BONES: Right Knee: Stable appearance of right TKA. No evidence of loosening of components. Left Knee: No acute fracture. Proliferative hypertrophic changes emanating from the femoral condyle and tibial plateau regions. JOINTS: Right Knee: Expected postoperative findings without interval change. Left knee: Multi compartment degenerative changes primarily affecting medial and lateral compartment. SOFT TISSUES: Right Knee: Normal. Left Knee: Normal. JOINT EFFUSION: Right Knee: None. Left Knee: None. OTHER FINDINGS: None. IMPRESSION: No acute findings related to recent traumatic event. Degenerative changes left knee. Stable appearance of components right TKA.
--- NOTE | 2018-03-19 12:24 | RAD ---
PROCEDURE: Radiographs of the pelvis and bilateral hips HISTORY: Unspecified injury. COMPARISON: None. FINDINGS: BONES: Pelvis: Unremarkable. Right hip:Unremarkable. Left hip:Unremarkable. JOINTS: Right hip: Mild degenerative changes. Left hip: Symmetrical degenerative change. Sacroiliac Joints: Unremarkable. Pubic symphysis: Unremarkable. SOFT TISSUES: Normal. OTHER FINDINGS: None. IMPRESSION: No acute findings related to/accounting for the clinical presentation.
--- NOTE | 2018-03-19 13:33 | CARD ---
APPROVED REPORT Date of service: 03/19/2018 EKG Measurement Heart [id number] <Conclusion> Sinus bradycardia with sinus arrhythmia LVH by voltage Septal infarct, age undetermined
[2018-03-19] MEDS ORDERED: Sod Polystyrene Sulf 15 gm/60 ml Susp PO ONE (14:30)
[2018-03-19] MEDS: Insulin Lispro 1 UNITS/0.01 ML SC SCH (17:03)
[2018-03-19 17:20] VITALS: BMI 26.9
[2018-03-19] MEDS ORDERED: Pneumococcal 23-Valent Vaccine IM ONE (17:20)
[2018-03-19] MEDS ORDERED: Influenza Vaccine 60 mcg/0.5 mL SYR (4YR UP) IM ONE (17:20)
[2018-03-20 06:56] LABS: IRON 71 ug/dL (45-180)
[2018-03-20 06:57] LABS: HEMOGLOBIN 10.9 g/dL (12.0-16.0); MEAN CORPUSCULAR HEMOGLOBIN 28.4 pg (25.0-35.0); MEAN CORPUSCULAR HGB CONC 32.6 g/dl (31.0-37.0); MEAN PLATELET VOLUME 10.5 fl (7.0-11.0); RBC 3.84 10^6/uL (3.5-6.1); RED CELL DISTRIBUTION WIDTH 13.2 % (11.5-14.5); WHITE BLOOD COUNT 5.5 10^3/ul (4.5-11.0)
[2018-03-20 07:04] LABS: BLOOD UREA NITROGEN 25 mg/dL (7-21); CALCIUM 8.7 mg/dL (8.4-10.5); GFR NON-AFRICAN AMERICAN 55; HDL CHOLESTEROL 55 mg/dL (29-60)
[2018-03-20 07:06] LABS: % IRON SATURATION 27 % (20-55); TOTAL IRON BINDING CAPACITY 259 ug/dL (265-497)
[2018-03-20 07:07] LABS: LDL CHOLESTEROL 116 mg/dL (0-129)
[2018-03-20] MEDS: Levothyroxine 88 MCG TAB PO SCH (08:20)
[2018-03-20] MEDS: Potassium Chloride 10 mEq ER Tab PO SCH (08:24)
--- NOTE | 2018-03-20 08:27 | HP ---
The patient is a 72-year-old female. The patient was seen and examined on the bedside on 03/19/2018. CHIEF COMPLAINT: In ER, fall, head injury, headache. HISTORY OF PRESENT ILLNESS: Ms. Isaías Sen is a 72-year-old female with past medical history of diabetes mellitus, hypertension, hypothyroidism, CVA with residual bilateral knee pain, slurring of the speech, came with family for evaluation of the head injury, bilateral knee pain developed after sustained mechanical fall. The patient reports she was wearing flip-flops, tripped and fell down with the head. She reports she noted some bleeding from the head laceration. As per family, the patient was at home alone, actually left for job. For couple of hours, she was alone and found by the homemaker, the patient was on the floor, called ambulance. Otherwise, the patient denied loss of consciousness, syncope. Denies severe headache. No visual changes. No focal deficit, neck pain, chest pain, shortness of breath or dizziness. No nausea, vomiting or diarrhea. No fever, no chills. PAST MEDICAL HISTORY: As above, history of diabetes mellitus, hypertension, hypothyroidism, CVA, residual weakness, COPD, acute renal failure, noncompliance, ataxia, history of multiple falls. FAMILY HISTORY: Father and mother, noncontributory. HABITS: No smoking, no drugs, no ethanol. ALLERGIES: THE PATIENT IS ALLERGIC WITH IODINE. HOME MEDICATIONS: Protonix, Singulair, Plavix, Ecotrin, amiodarone, Januvia, Norvasc, calcium, Lasix, NovoLog, potassium, Zoloft, hydralazine. REVIEW OF SYSTEMS: The patient was seen and examined on the bedside in the emergency room. Daughters and homemaker was at the bedside, having headache. No fever, no chills. No epistaxis. No shortness of breath. No palpitation or edema. No nausea or vomiting. No dizziness, focal weakness or speech changes. PHYSICAL EXAMINATION VITAL SIGNS: Temperature 98.7, pulse 57, respiratory rate 18, blood pressure 156/96. HEENT: Head: Normocephalic with trauma, laceration on the forehead. Eyes: PERRLA. Extraocular muscles intact. Conjunctivae clear. Nose patent. Mucous membrane moist. NECK: Supple. No carotid bruit. No JVD or thyromegaly. CHEST: Bilaterally symmetrical. HEART: S1 and S2 positive. LUNGS: Clear to auscultation. ABDOMEN: Soft. EXTREMITIES: No edema. No cyanosis. NEUROLOGIC: The patient is awake and alert. Moving all 4 extremities. No focal deficit. MEDICATIONS: White blood cell 5.6, hemoglobin 11.3, hematocrit 34.7, platelets 198. Sodium 140, potassium 5.5, BUN 32, creatinine 1, glucose 151. ASSESSMENT AND PLAN: Ms. Isaías Sen is a 72-year-old female with leukopenia, anemia, hyperkalemia, hyperglycemia, dehydration, has mechanical fall, forehead laceration, history of multiple falls, head injury. Length of time discussion done with the patient's daughter, Robert, who is a neighbor and homemaker. Multiple scans are done: CAT scan of the chest, x-rays, hip and pelvis x-rays, CAT scan of the head, and cervical spine CT were reviewed by me. Gastrointestinal and deep venous thrombosis prophylaxes. Repeat labs. We will follow up. Michelle Aviles MD MTD[facility]anny
[2018-03-20] MEDS: Insulin Lispro 1 UNITS/0.01 ML SC SCH ×2 (09:53→17:10)
[2018-03-20] MEDS: Pantoprazole 40 mg EC Tab PO SCH (09:55)
[2018-03-20 12:59] LABS: FOLATE > 20.0 ng/mL
[2018-03-20] MEDS: XYZAL 5 MG PO SCH (16:01)
[2018-03-20] MEDS ORDERED: Albuterol-Ipratrop 3 mg / 0.5 (3 ml) UD IH PRN (18:02)
--- NOTE | 2018-03-20 18:40 | CON ---
DATE: 03/20/2018HISTORY OF PRESENT ILLNESS: This is a 72-year-old woman with history of diabetes, hypertension, hypothyroidism, history of severe residual bilateral weakness, and dysarthric speech, came to evaluation to the hospital because she was wearing her flip-flops did fell down and hit her head down the door, had a mechanical fall, no loss of consciousness. She has mild scalp hematoma in her forehead. CAT scan of the head showed no acute intracranial abnormalities and just chronic ischemic changes. Currently, she is moving all extremities, shows no focal deficits on her exam. She does have evidence of diabetic peripheral neuropathy on neuro exam, which could aide in her poor balance. She is mildly cognitively slow. PAST MEDICAL HISTORY: As above. SOCIAL HISTORY: No illicit drug use, smoking, or EtOH abuse. REVIEW OF SYSTEMS: Fourteen-point review of systems is negative except as per the HPI. ALLERGIES: IODINE. MEDICATIONS: Reviewed by nurse per reconciliation sheet. LABORATORY DATA: Hemoglobin A1c is 7.5. Blood sugar is 138. PHYSICAL EXAMINATION: VITAL SIGNS: Temperature 98.1, pulse rate 56, blood pressure 135/57, respiratory rate 18, oxygen saturation 96% by room air. GENERAL: The patient is sitting up in bed, in no acute distress. HEENT: Atraumatic, normocephalic. PERRLA. Extraocular muscles intact. NECK: Supple. No JVD, no adenopathy noted. LUNGS: Clear to auscultation. No adventitious sounds. HEART: S1, S2. Normal rate and rhythm. No murmurs, rubs, or gallops. ABDOMEN: Soft, nontender, and nondistended. Bowel sounds are present. EXTREMITIES: No clubbing. No cyanosis. Peripheral pulses 2+ felt bilaterally. NEUROLOGIC: The patient is alert and oriented to person, place, and year. Recall after 5 minutes is 0/3. Poor attention span. Slow thought process. Cranial nerves II through XII intact. Motor exam: Moves all extremities equally. No pronator drift seen. Sensory: Decreased light touch and pinprick up to the calves bilaterally. Decreased vibration of the toes. DTRs are 2+ throughout and 1 at both knees and ankles. Coordination: [id number] intact. No dysmetria noted. Gait is deferred for now. IMPRESSION: This is a 72-year-old woman with history of diabetes, cerebrovascular accident, hypertension, dyslipidemia, who came in with generalized weakness and mechanical fall while tripping wearing her flip-flops, hitting her head and causing a scalp hematoma in her forehead. Head CT scan showed no evidence of any subarachnoid hemorrhage and just showed some chronic ischemic changes and head injury secondary to mechanical fall and she does have poor balance and underlying diabetic peripheral neuropathy. We recommend; 1. PT/OT eval. 2. Orthostatic vital signs. 3. Continue with aspirin and Plavix and statin for stroke prevention. 4. MRI of the brain to see any delayed bleeding. If the MRI of the brain is negative, she can follow up as an outpatient. Thank you for this consultation. Adolfo Milton MD
--- NOTE | 2018-03-21 00:20 | PN ---
DATE: 03/20/2018 SUBJECTIVE: The patient was seen and examined on the bedside on 03/20/2018. Having swelling on the forehead and nose. It is painful. No nausea, vomiting, diarrhea. No hematuria or hematochezia. No fever. No chills. PHYSICAL EXAMINATION: VITAL SIGNS: Temperature 98.1, pulse rate 56, blood pressure 135/57, respiratory rate 20, oxygenation 96% by room air. HEENT: Head normocephalic. Forehead has swelling. Eyes PERRLA. Extraocular muscles intact. Conjunctivae clear. Nose patent. Mucous membrane moist. NECK: Supple. No carotid bruit. No JVD or thyromegaly. CHEST: Bilaterally symmetrical. HEART: S1 and S2 positive. LUNGS: Clear to auscultation. ABDOMEN: Soft, nontender. No organomegaly. EXTREMITIES: No edema. No cyanosis. NEUROLOGICAL: The patient is awake and alert. Moving all 4 extremities. No focal deficits. MEDICATIONS: Hydralazine, calcium, Caltrate, amiodarone, Ecotrin, insulin, Januvia, Lasix, Lipitor, Norvasc, Synthroid, Tylenol, Zoloft. LABORATORY DATA: White blood cells 5.5, hemoglobin 10.9, hematocrit 33.4, platelets 193. Glucose 117, 89, 138. ASSESSMENT AND PLAN: Ms. Isaías Sen, 72-year-old female with history of diabetes mellitus, hypertension, hypothyroidism, history of severe residual bilateral weakness, dysarthric speech. Has fall at home, actually tripped, wearing her flip flop, hitting the head and forehead. Has scalp hematoma. CAT scan of the head done shows no evidence of any subarachnoid hemorrhage. Does show some chronic ischemic changes and head injury secondary to mechanical fall. She does have poor balance and underlying diabetic peripheral neuropathy. Neurology consult called. Appreciated Dr. Adolfo Milton's input. PT, OT, orthopedic, vital signs. Continue with aspirin, Plavix, statin for stroke prevention. cat scane of the brain is negative. We are going to do physical therapy. I ordered x-ray of the forehead and facial bones, especially bridge of the nose is tender. The patient is on fall precautions. Gastrointestinal, deep venous thrombosis prophylaxis. Repeat labs. We will follow up. Michelle Aviles MD [facility] # [id number] KAIL[place]
--- NOTE | 2018-03-21 05:23 | CON ---
DATE: 03/20/2018 PULMONARY CONSULTATION REFERRING PHYSICIAN: Michelle Aviles MD REASON FOR CONSULTATION: Chronic lung disease, sleep apnea syndrome, status post multiple falls. HISTORY OF PRESENT ILLNESS: This is a 72-year-old female known to me from previous admission in the office, seen many years ago, has multiple medical issues including diabetes, hypertension, hypothyroid, history of stroke, degenerative joint disease, multiple falls in the past with fracture, also has sleep apnea syndrome, chronic lung disease, noncompliant with a CPAP, admitted with multiple falls, apparently has laceration on the head. She was alone at home and found by homemaker. Also a long discussion with the patient's at bedside who does have a part-time job and sometimes she has left alone and according to not getting enough hours from the homemaker to cover her stay alone. Apparently sitting on the side of the bed, feels okay, not much cough, gets shortness of breath with exertion. PAST MEDICAL HISTORY: As per history of present illness. ALLERGIES: TO IODINE. SOCIAL HISTORY: Nonsmoker, nondrinker. FAMILY HISTORY: No significant cardiopulmonary disease reported. MEDICATIONS: She is on hydralazine 50 mg twice a day, calcium carbonate 600 mg daily, amiodarone 200 mg daily, Ecotrin 81 mg daily, getting insulin, Januvia 50 mg daily, potassium 10 mEq daily, Lasix 40 mg daily, Norvasc 10 mg daily, Plavix 75 mg daily, Protonix 10 mg daily, Synthroid 88 mcg daily, Tylenol p.r.n., Ultram 50 mg every 6 hours p.r.n., Zoloft 150 mg before breakfast. REVIEW OF SYSTEMS: Mild headache, has forehead area of wound, short of breath with exertion. No cough. No chest pain. No nausea. No vomiting. Has a low back pain and hip pain. No leg swelling. No rhinitis. No sputum production. Gets short of breath on exertion. No abdominal pain. No dysuria. No back pain. PHYSICAL EXAMINATION: GENERAL: In no acute distress. VITAL SIGNS: Temperature is 98, heart rate is 86, respiratory rate is 18, blood pressure 135/79, pulse ox 96% on room air. HEENT: Small oral cavity. Edentulous. Forehead has a wound. NECK: Supple. No JVD. LUNGS: Have a fair airflow with few rhonchi. HEART: S1, S2. ABDOMEN: Soft, nontender. No organomegaly. EXTREMITIES: No edema. NEUROLOGICAL: Awake, alert. Follows simple command. LABORATORY DATA: Shows hemoglobin 10.9, hematocrit 33.4, WBC 5.5, platelet is 193. INR 0.9, PTT 22. Blood sugar is 138. Sodium 138, potassium 4.8, chloride 105, bicarbonate 29, BUN 25, creatinine 1. Glucose 134. Hemoglobin A1c 7.5. Calcium 8.7, iron is 71. Cholesterol 229. B12 is 376. Folate is 20. DIAGNOSTIC DATA: CT of the chest does not show any acute changes. CT of the head is unremarkable. IMPRESSION AND PLAN: Multiple falls, status post head injury, chronic lung disease, sleep apnea syndrome, hypothyroid, history of stroke in the past, history of multiple fractures in the past, chronic hip pain. Case discussed with the in detail that she should not be left alone. We will add inhaled bronchodilator. Gastric prophylaxis. Add statins. P.r.n. Tylenol. Thank you and we will follow with you. Homer Sawant MD
[2018-03-21] MEDS: Insulin Lispro 1 UNITS/0.01 ML SC SCH ×2 (08:02→17:55)
[2018-03-21] MEDS: Potassium Chloride 10 mEq ER Tab PO SCH (08:09)
[2018-03-21] MEDS: Levothyroxine 88 MCG TAB PO SCH (08:10)
[2018-03-21] MEDS: Pantoprazole 40 mg EC Tab PO SCH (11:19)
[2018-03-21] MEDS: XYZAL 5 MG PO SCH (11:24)
--- NOTE | 2018-03-21 15:12 | RAD ---
Date of service: 03/21/2018 PROCEDURE: Facial bones HISTORY: fall, laceration on frontal scalp COMPARISON: None TECHNIQUE: Standard protocol for this study/examination. FINDINGS: No visible facial bone fractures. IMPRESSION: Negative study. No fractures identified.
[2018-03-21 15:36] VITALS: RESP 18
--- NOTE | 2018-03-21 20:42 | PN ---
DATE: 03/21/2018 PULMONARY PROGRESS NOTE REFERRING PHYSICIAN: Michelle Aviles MD SUBJECTIVE: She is sitting side of the bed, having dinner. Night was unremarkable. Does have some hip and leg pain. Also complaining about some head trauma side pain. Short of breath with exertion. No chest pain. No nausea, no vomiting, no diarrhea. No leg swelling. OBJECTIVE: GENERAL: In no distress. VITAL SIGNS: Temperature is 98, heart rate is 48, respiratory rate is 18, blood pressure 150/54. HEENT: Moist mucous membrane. Small oral cavity. She is edentulous. NECK: Supple. No JVD. LUNGS: Fair airflow with rhonchi. HEART: S1 and S2. ABDOMEN: Soft, nontender. No organomegaly. EXTREMITIES: No edema. NEUROLOGIC: Awake, alert, and follows simple commands. Has a dressing on the right forehead trauma side. MEDICATIONS: She is on hydralazine 50 mg twice a day, calcium carbonate 600 mg daily, amiodarone 200 mg daily, DuoNeb every 6 hours p.r.n., Ecotrin 81 mg daily, also getting Januvia 50 mg daily, potassium 10 mEq daily, Lasix 40 mg daily, Lipitor 10 mg daily, Norvasc 10 mg daily, Plavix 75 mg daily, Protonix 40 mg daily, Singulair 10 mg daily, Synthroid 88 mcg p.o. before breakfast, Tylenol p.r.n., Ultram 50 mg every 6 hours p.r.n., Zoloft 150 mg before breakfast. LABORATORY DATA: Reviewed. Blood sugar 154. Has a facial bone x-ray done today, which was a negative study for any facial bone fracture. IMPRESSION AND PLAN: Multiple fall, status post head injury, chronic lung disease, sleep apnea syndrome, hypothyroid, history of stroke, history of multiple fracture in the past, chronic hip pain, multiple facial bruises secondary to fall. Pulmonary point of view, doing okay. Continue bronchodilator. Sleep apnea precaution. Fall precaution. Gastric prophylaxis. Thank you and we will follow with you. Homer Sawant MD [facility] # [id number]
[2018-03-21 23:28] VITALS: PULSE 55
--- NOTE | 2018-03-22 02:03 | PN ---
DATE: 03/21/2018 SUBJECTIVE: The patient is [id number] female. Patient is seen and examined at the bedside on 03/21/2018, still had swelling on the forehead and nose, complaining about body aches. Feeling dizzy. No fever. No chills. Mild shortness of breath on exertion. No diarrhea. No hematuria. No hematochezia. PHYSICAL EXAMINATION: VITAL SIGNS: Temperature 98, heart rate is 48, respiratory rate 18, blood pressure 150/54. HEENT: Head is normocephalic. Eyes: PERRLA. Extraocular muscles intact. Conjunctivae clear. Nose patent. Mucous membrane moist. NECK: Supple. No carotid bruit. No JVD or thyromegaly. CHEST: Bilaterally symmetrical. HEART: S1 and S2 positive. LUNGS: Clear to auscultation. ABDOMEN: Soft. Bowel sounds positive. No organomegaly. EXTREMITIES: No edema. No cyanosis. NEUROLOGIC: Patient is awake and alert. Moving all 4 extremities. No focal deficit. MEDICATIONS: Hydralazine, calcium carbonate, amiodarone, DuoNeb, Ecotrin, Januvia, potassium, Lasix, Lipitor, Norvasc, Plavix, Protonix, Singulair, Synthroid, Tylenol, Ultram, Zoloft. LABORATORY DATA: We do not have recent lab today, but I reviewed old labs. ASSESSMENT AND PLAN: Ms. Isaías Sen is a 72-year-old lady with multiple falls. Patient has facial x-rays done today, which was negative for facial bone fracture, status post head injury, chronic obstructive lung disease, sleep apnea syndrome, hypothyroidism, diabetes mellitus, history of stroke and residual paralysis, history of multiple fractures in the past, chronic hip pain, multiple facial bruises especially on the nose and forehead secondary to mechanical fall, slipping from the flip-flop. Continue bronchodilator. Sleep apnea precautions. Fall precautions. Gastric and deep vein thrombosis prophylaxes. Discussion done with nurse practitioner, may be patient will get benefit from physical therapy and we will transfer patient to transitional care unit. Repeat labs. We will follow up. Michelle Aviles MD [facility] # [id number]
[2018-03-22 07:27] VITALS: TEMP 98.5; O2SAT 97
[2018-03-22] MEDS: Insulin Lispro 1 UNITS/0.01 ML SC SCH (08:23)
[2018-03-22] MEDS: Potassium Chloride 10 mEq ER Tab PO SCH (08:23)
[2018-03-22] MEDS: Levothyroxine 88 MCG TAB PO SCH (08:24)
[2018-03-22] MEDS: XYZAL 5 MG PO SCH (09:12)
[2018-03-22] MEDS: Pantoprazole 40 mg EC Tab PO SCH (09:13)
[2018-03-22 09:16] VITALS: BP 120/50
--- NOTE | 2018-03-22 13:38 | MRI ---
Date of service: 03/21/2018 PROCEDURE: MRI BRAIN WITHOUT CONTRAST HISTORY: Head injury. COMPARISON: Comparison made with prior CT scan brain 03/19/2018.. TECHNIQUE: Multiplanar, multisequence MR images of the brain were obtained without intravenous contrast enhancement. Note that the examination is quite limited due to significant motion artifact. FINDINGS: HEMORRHAGE: No definitive acute parenchymal, subarachnoid or extra-axial hemorrhage. No gross hemosiderin deposition identified on gradient echo weighted sequence. DWI: No evidence of an acute or early subacute infarction seen on diffusion imaging.. BRAIN PARENCHYMA: Moderate to fairly significant diffuse and confluent chronic periventricular white matter ischemic changes seen extending peripherally into the deep and subcortical white matter both cerebral hemispheres however note that these changes are seen to better advantage on prior CT scan due to significant motion artifact on the current study No obvious parenchymal nor extra-axial masses or collections identified on this noncontrast exam so far as can be determined. Moderate generalized volume loss unchanged VENTRICLES: No obstructive hydrocephalus. CRANIUM: Calvarium is poorly delineated due to motion artifact ORBITS: Changes of bilateral cataract surgery again noted PARANASAL SINUSES/MASTOIDS: Clear VASCULAR SYSTEM: Visualized major vascular flow voids appear patent so far as can be seen through motion artifact. OTHER FINDINGS: None. IMPRESSION: Very limited motion degraded study. No definitive gross intracranial hemorrhage. No evidence of acute infarcts seen on diffusion imaging. Chronic white matter and lesser basal nuclei/brainstem ischemic changes.
== END 2018-03-22 16:39 | DRG 605 ==
LOC: ED 09:43 → ERH 11:10 → 5RNO 14:04 → OBSVTOIN 23:50
PROVIDERS: ADMIT Internal Medicine; ATTEND Internal Medicine
PROC: 0JQ03ZZ Repair Scalp Subcutaneous Tissue and Fascia, Percutaneous Approach (ICD-10-PCS; principal; 2018-03-19)
DX: S01.01XA Laceration without foreign body of scalp, initial encounter (principal); E86.0 Dehydration; E87.5 Hyperkalemia; Z91.81 History of falling; Z86.73 Personal history of transient ischemic attack (TIA), and cerebral infarction without residual deficits; E11.42 Type 2 diabetes mellitus with diabetic polyneuropathy; Z79.84 Long term (current) use of oral hypoglycemic drugs; E03.9 Hypothyroidism, unspecified; F03.90 Unspecified dementia, unspecified severity, without behavioral disturbance, psychotic disturbance, mood disturbance, and anxiety; G47.30 Sleep apnea, unspecified; I10 Essential (primary) hypertension; I25.2 Old myocardial infarction; J44.9 Chronic obstructive pulmonary disease, unspecified; M46.90 Unspecified inflammatory spondylopathy, site unspecified; M47.812 Spondylosis without myelopathy or radiculopathy, cervical region; M48.02 Spinal stenosis, cervical region; R29.6 Repeated falls; W01.0XXA Fall on same level from slipping, tripping and stumbling without subsequent striking against object, initial encounter; W22.8XXA Striking against or struck by other objects, initial encounter; Z79.02 Long term (current) use of antithrombotics/antiplatelets; Z79.82 Long term (current) use of aspirin; Z90.710 Acquired absence of both cervix and uterus; Z91.19 Patient's noncompliance with other medical treatment and regimen; Z96.653 Presence of artificial knee joint, bilateral

== ENCOUNTER 2018-03-22 16:39 | Inpatient (IN) | payer OTHER, MEDICAID ==
[2018-03-22] MEDS ORDERED: Albuterol-Ipratrop 3 mg / 0.5 (3 ml) UD IH PRN (17:49)
[2018-03-22 19:47] VITALS: BMI 27.8
[2018-03-22] MEDS ORDERED: Influenza Vaccine 60 mcg/0.5 mL SYR (4YR UP) IM ONE (19:49)
[2018-03-22] MEDS ORDERED: Pneumococcal 23-Valent Vaccine IM ONE (19:49)
--- NOTE | 2018-03-22 21:41 | CON ---
DATE: 03/22/2018 REFERRING PHYSICIAN: Michelle Aviles MD REASON FOR CONSULTATION: Chronic lung disease, status post fall. Has history of sleep apnea syndrome. HISTORY OF PRESENT ILLNESS: This is a 72-year-old female well known to me from previous admission, does not follow up in the office, has a known history of chronic lung disease, sleep apnea syndrome, history of multiple fall with a hip fracture in the past, diabetes, hypertension, hypothyroid, history of stroke, degenerative joint disease, not very steady on her feet. Apparently, was home alone, had a fall, fell on the face, lacerated her forehead, found by home care, brought into ER. She was admitted. Presently, unsteady on her feet, admitted to TICU for continued care. Gets short of breath on exertion. No cough. No sputum production. No nausea, no vomiting, no diarrhea. Has some hip discomfort. No leg pain or leg swelling. PAST MEDICAL HISTORY: As per history of present illness. ALLERGIES: TO IODINE. SOCIAL HISTORY: Nonsmoker, nondrinker. FAMILY HISTORY: No significant cardiopulmonary disease reported. MEDICATIONS: Hydralazine 50 mg twice a day, calcium carbonate 600 mg daily, amiodarone 200 mg daily, albuterol/Atrovent nebulizer every 6 hours p.r.n., Ecotrin 81 mg daily, insulin coverage, Januvia 50 mg daily, potassium 10 mEq daily, Lasix 40 mg daily, Lipitor 10 mg daily, Norvasc 10 mg daily, Plavix 75 mg daily, Protonix 40 mg daily, Singulair 10 mg daily, Synthroid 88 mcg daily, Tylenol p.r.n., Ultram 50 mg every 6 hours p.r.n., Zoloft 150 mg daily. REVIEW OF SYSTEMS: Did have a headache, especially on the bruise at forehead area. No rhinitis. No postnasal drip, short of breath on exertion. No chest pain. No nausea, no vomiting, no diarrhea. Has a hip discomfort. No leg pain or leg swelling. PHYSICAL EXAMINATION: GENERAL: Sitting at side of the bed. VITAL SIGNS: Temperature is 99, heart rate 57, respiratory rate is 20, blood pressure 169/55, pulse ox is 97% on room air. HEENT: Moist mucous membranes. Small oral cavity. Edentulous. NECK: Supple. No JVD. LUNGS: Has fair airflow with rhonchi. HEART: S1, S2. ABDOMEN: Soft, nontender, no organomegaly. EXTREMITIES: No edema. NEUROLOGIC: Awake, alert, follows simple commands. LABORATORY DATA: Shows hemoglobin 10.9, hematocrit 33.4, WBC 5.5, platelet is 193. Blood sugar is 140. Has MRI of the brain done yesterday which shows a very limited study because of motion defect. No definite gross intracranial hemorrhage. No evidence of acute infarct seen on diffusion images, chronic white matter and lesser basal nuclei and brain ischemic changes. Facial bone x-ray was unremarkable. IMPRESSION AND PLAN: Multiple falls, status post head injury, chronic lung disease, sleep apnea syndrome, noncompliant with continuous positive airway pressure, refusing to use it, hypothyroid, history of stroke, history of multiple fractures secondary to fall, chronic hip pain and multiple facial bruises. I spoke to the patient's , Mr. Sen at bedside. All the questions answered. Discussed with Physical Therapy, Occupational Therapy, p.r.n. bronchodilator, gastric prophylaxis, deep venous thrombus prophylaxis. Thank you and we will follow with you. Homer Sawant MD
[2018-03-23] MEDS: Pantoprazole 40 mg EC Tab PO SCH (05:48)
[2018-03-23] MEDS: Levothyroxine 88 MCG TAB PO SCH (05:48)
[2018-03-23] MEDS: Insulin Lispro 1 UNITS/0.01 ML SC SCH ×2 (06:29→17:11)
[2018-03-23] MEDS: Potassium Chloride 10 mEq ER Tab PO SCH (07:44)
[2018-03-23] MEDS: Home Med 1 UNIT PO SCH (10:02)
--- NOTE | 2018-03-23 19:31 | PN ---
DATE: 03/23/2018 PULMONARY PROGRESS NOTE REFERRING PHYSICIAN: Michelle Aviles MD. SUBJECTIVE: She is lying in the bed, head at 45-degree. Night was unremarkable. Feels better, still has a forehead discomfort and pain. Ecchymotic area of the both maxillary sinus. No nausea. No vomiting. No diarrhea. No leg pain or leg swelling. OBJECTIVE: GENERAL: In no acute distress. VITAL SIGNS: Temperature is 98, heart rate is 48, respiratory rate is 18, blood pressure 165/52, pulse ox 96% on room air. HEENT: Moist mucous membrane. Small oral cavity. LUNGS: Have fair airflow with rhonchi. HEART: S1, S2. ABDOMEN: Soft, nontender. No organomegaly. EXTREMITIES: No edema. NEUROLOGIC: Awake, alert, follows simple commands. MEDICATIONS: She is on hydralazine 50 mg twice a day, calcium carbonate 600 mg daily, amiodarone 200 mg daily, DuoNeb every 6 hour, Ecotrin 81 mg daily, insulin coverage, Januvia 50 mg daily, potassium 10 mEq daily, Lasix 40 mg daily, Lipitor 10 mg daily, Norvasc 10 mg daily, Plavix 75 mg daily, Singulair 10 mg daily, Synthroid 88 mcg daily, Tylenol p.r.n., Ultram 50 mg every 6 hour p.r.n., Zoloft 150 mg daily. LABORATORY DATA: Shows blood sugar this morning 160. IMPRESSION AND PLAN: Multiple falls status post head injury with laceration of the forehead, chronic obstructive lung disease, sleep apnea syndrome, noncompliant with CPAP and BiPAP, hypothyroid, history of stroke, history of multiple fracture secondary to fall, chronic back pain with hip pain, presently with forehead laceration and multiple facial bruise. Spoke to patient's yesterday. Continue bronchodilator, keep head at 45-degree, fall precaution, careful with sedation, gastric prophylaxis, sequential compression device to lower extremities. Thank you and we will follow with you. Homer Sawant MD
[2018-03-24] MEDS: Levothyroxine 88 MCG TAB PO SCH (05:37)
[2018-03-24] MEDS: Pantoprazole 40 mg EC Tab PO SCH (05:37)
[2018-03-24] MEDS: Insulin Lispro 1 UNITS/0.01 ML SC SCH ×2 (07:07→17:37)
[2018-03-24 07:30] LABS: HEMOGLOBIN 11.7 g/dL (12.0-16.0); MEAN CELL VOLUME 87.4 fl (80.0-105.0); MEAN CORPUSCULAR HEMOGLOBIN 28.8 pg (25.0-35.0); MEAN PLATELET VOLUME 10.2 fl (7.0-11.0); RBC 4.06 10^6/uL (3.5-6.1); RED CELL DISTRIBUTION WIDTH 13.2 % (11.5-14.5); WHITE BLOOD COUNT 5.9 10^3/ul (4.5-11.0)
[2018-03-24] MEDS: Potassium Chloride 10 mEq ER Tab PO SCH (07:39)
[2018-03-24 08:12] LABS: CALCIUM 8.7 mg/dL (8.4-10.5)
--- NOTE | 2018-03-24 09:18 | CON ---
DATE: 03/24/2018 CHIEF COMPLAINT: Status post forehead injury. HISTORY OF PRESENT ILLNESS: This is a 72-year-old woman with past medical history of diabetes, hypertension, hypothyroidism with severe residual bilateral weakness dysarthric speech. Came in for evaluation into the hospital because she had a mechanical fall while tripping wearing flip flops. Hit her head and had a scalp hematoma. CAT scan of the head showed no evidence of any acute intracranial abnormalities. MRI of the brain showed no acute abnormalities as well. She does have poor balance, some underlying diabetic peripheral neuropathy and is currently in [facility], undergoing rehabilitation. PAST MEDICAL HISTORY: As above. SOCIAL HISTORY: No illicit drug use, smoking or EtOH abuse. REVIEW OF SYSTEMS: Fourteen-point review of systems is negative except as per the HPI. FAMILY HISTORY: Noncontributory. MEDICATIONS: Reviewed by nurses's reconciliation sheet. LABORATORY DATA: Sodium is 138, potassium is 5.3, chloride of 100, carbon dioxide of 31, BUN of 39, creatinine of 1.2, random glucose of 175. PHYSICAL EXAMINATION: VITAL SIGNS: Temperature afebrile, pulse rate of 80, blood pressure of 160/59, respiratory rate of 18, oxygen saturation 98% by room air. GENERAL: The patient is sitting up on the edge of the bed, in no acute distress. HEENT: Atraumatic, normocephalic. PERRLA. Extraocular muscles intact. NECK: Supple. No JVD, no adenopathy noted. LUNGS: Clear to auscultation. No adventitious sounds. HEART: S1, S2. Normal rate and rhythm. No murmurs, rubs or gallops. ABDOMEN: Soft, nontender and nondistended. Bowel sounds are present. EXTREMITIES: No clubbing. No cyanosis. Peripheral pulses 2+ felt bilaterally. NEUROLOGIC: The patient is alert and oriented to person, place and year. Recall after 5 minutes is 0/3. Poor attention span. Slow thought process. Cranial nerves II through XII are intact. Motor exam: Moves all extremities equally. No pronator drift. Sensory exam: Decreased light touch and pinprick up to the calves bilaterally. Decreased vibration of the toes. DTRs are 2+ throughout and 1 at both knees and ankles. Coordination: [id number] intact. No dysmetria noted. Gait is deferred for now. ASSESSMENT AND PLAN: This is a 72-year-old woman with history of diabetes, cerebrovascular accident, generalized weakness, hypertension, dyslipidemia, who came in initially to the hospital for generalized weakness, mechanical fall while tripping wearing her flip flops, hitting her head causing a scalp hematoma on the forehead. MRI of the brain showed no acute intracranial abnormalities. She has somewhat of a deconditioned state with poor balance, likely secondary to underlying diabetic peripheral neuropathy. At this time, recommend, 1. TRCU, physical therapy, occupational therapy and rehabilitation. 2. Monitor electrolytes and correct accordingly. 3. Orthostatic vital signs. 4. Aspirin 81, Plavix 75 and statin for stroke prevention and continue with current present medical management. Thank you for this consult. Adolfo Milton MD
[2018-03-24] MEDS: Home Med 1 UNIT PO SCH (09:36)
--- NOTE | 2018-03-24 10:13 | HP ---
The patient is a 72-year-old female. Patient was seen and examined on 03/23/2018. CHIEF COMPLAINT: Fall, fatigue, tired. HISTORY OF PRESENT ILLNESS: This is a 72-year-old female with previous history of multiple admissions as on my office, had history of COPD, sleep apnea syndrome, multiple falls, hip fracture in the past, diabetes mellitus, hypertension, hypothyroidism, history of stroke, degenerative joint disease. 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 PAST MEDICAL HISTORY: As above. ALLERGIES: PATIENT IS ALLERGIC TO IODINE. SOCIAL HISTORY: Never smoked. No drugs. No ethanol. FAMILY HISTORY: Father and mother, noncontributory. MEDICATIONS: Hydralazine, calcium, amiodarone, albuterol, Ecotrin, Januvia, potassium, Lasix, Lipitor, Norvasc, Plavix, Protonix, Singulair, Synthroid, Tylenol, DuoNeb, tramadol, Zoloft. REVIEW OF SYSTEMS: Patient is seen and examined at the bedside. Looking comfortable. No nausea, vomiting, or diarrhea. No hematuria. No hematochezia. No swelling of the legs. No chest pain. No palpitation. No headache. No dizziness. Right now, no fever, no chills. PHYSICAL EXAMINATION: VITAL SIGNS: Temperature 98, heart rate 48, respiratory rate 18, blood pressure 165/52, and pulse oximetry 98% on room air. HEENT: Mucous membrane moist. Small oral cavity. Eyes: PERRLA. Extraocular muscles intact. Conjunctivae clear. Nose patent. HEART: S1 and S2 positive. LUNGS: Clear to auscultation. ABDOMEN: Soft. Bowel sounds positive. No organomegaly. EXTREMITIES: No edema. No cyanosis. NEUROLOGIC: Patient is awake and alert. Moving all 4 extremities. Obeys simple order. LABORATORY DATA: We do not have recent lab today, but I reviewed old labs. Sugar is 160. ASSESSMENT AND PLAN: Ms. Isaías Sen is a 72-year-old lady well known to me from multiple hospitalizations and she is my office private patient, has multiple falls, status post head injury with laceration on the forehead that is improving slowly, chronic obstructive lung disease, sleep apnea syndrome, noncompliant with continuous positive airway pressure or bilevel positive airway pressure, hypothyroid, history of stroke, history of multiple sepsis secondary to fall, chronic back pain with hip pain. Now, patient has forehead lacerations, multiple bruises but thanks god, there is no new fracture. Continue bronchodilators. Fall precautions. Careful for sedation. Dizziness is getting a little bit better. Getting physical therapy. We will repeat labs. We will follow up. Michelle Aviles MD
--- NOTE | 2018-03-25 02:05 | PN ---
DATE: 03/24/2018 PULMONARY PROGRESS NOTE REFERRING PHYSICIAN: Michelle Aviles MD. SUBJECTIVE: She is lying in the bed, sleepy, arousable. Day was unremarkable. Doing well in therapy. Still has some facial trauma area headache. No nausea, vomiting. No diarrhea. Has a back and hip discomfort. OBJECTIVE: GENERAL: In no acute distress. VITAL SIGNS: Temperature is 98, heart rate is 54, respiratory rate is 20, blood pressure 139/59, pulse ox 97% on room air. HEENT: Moist mucous membranes. Small oral cavity. Crowded airway. NECK: Supple. No JVD. LUNGS: Have a fair airflow with rhonchi. HEART: S1 and S2. ABDOMEN: Soft, nontender. No organomegaly. EXTREMITIES: No edema. NEUROLOGICAL: Awake and alert. Follows simple command. MEDICATIONS: She is on hydralazine 50 mg twice a day, calcium carbonate 600 mg daily, amiodarone 100 mg daily, albuterol/Atrovent nebulizer every 6 hours p.r.n., aspirin 81 mg daily, insulin coverage, Januvia 50 mg daily, potassium 10 mEq daily, Lasix 20 mg daily, Lipitor 10 mg daily, Norvasc 10 mg daily, Plavix 75 mg daily, Protonix 40 mg daily, Singulair 10 mg daily, Synthroid 88 mcg daily, Tylenol p.r.n., Ultram 50 mg every 6 hours p.r.n., Zoloft 150 mg daily. LABORATORY DATA: Shows hemoglobin 11.7, hematocrit 35.5, WBC 5.9, platelet is 181. Sodium 138, potassium 5.3, chloride 102, bicarbonate 31, BUN 39, creatinine 1.2, glucose 175, calcium 8.7. IMPRESSION AND PLAN: Multiple falls, status post head injury involving the laceration of the forehead, chronic obstructive lung disease, sleep apnea syndrome, noncompliant with the continuous positive airway pressure and bilevel positive airway pressure, hypothyroid, history of stroke in the past, multiple fractures secondary to fall, chronic back pain, history of hip pain. Has some facial bruises. Pulmonary point of view, doing okay. Bronchodilator. Keep head at 45 degrees. Careful with sedation. Gastric prophylaxis, deep venous thrombosis prophylaxis. Fall precaution. Thank you and we will follow with you. Homer Sawant MD [facility] # [id number]
[2018-03-25] MEDS: Levothyroxine 88 MCG TAB PO SCH (06:10)
[2018-03-25] MEDS: Pantoprazole 40 mg EC Tab PO SCH (06:10)
[2018-03-25] MEDS: Insulin Lispro 1 UNITS/0.01 ML SC SCH ×2 (06:57→17:33)
[2018-03-25] MEDS: Potassium Chloride 10 mEq ER Tab PO SCH (07:55)
--- NOTE | 2018-03-25 08:22 | PN ---
DATE: 03/24/2018 SUBJECTIVE: The patient is a 72-year-old female. Patient was seen and examined at the bedside, still having dressing on the forehead. No fever. No chills. No headache. No dizziness. No hematuria or hematochezia. Getting physical therapy. PHYSICAL EXAMINATION: VITAL SIGNS: Temperature afebrile, pulse 80, blood pressure 160/59, respiratory rate 18, oxygenation saturation 98% on room air. HEENT: Head: Normocephalic, atraumatic. Eyes: PERRLA. Extraocular muscles intact. Conjunctivae clear. Nose patent. NECK: Supple. No carotid bruit. No JVD or thyromegaly. CHEST: Bilaterally symmetrical. HEART: S1 and S2 positive. LUNGS: Clear to auscultation. ABDOMEN: Soft. Bowel sounds positive. No organomegaly. EXTREMITIES: No edema. No cyanosis. NEUROLOGIC: Patient is awake and alert. Moving all 4 extremities. No focal deficit. ASSESSMENT AND PLAN: Ms. Isaías Sen is cerebrovascular accident, generalized weakness, hypertension, dyslipidemia, came in the hospital for generalized weakness, mechanical fall, tripping and wearing her flip-flop, injury on the forehead, scalp hematoma on the forehead. MRI of the brain showed no acute intracranial abnormalities. She was somewhat Getting physical therapy. Orthostatic vital signs. Continue aspirin and Plavix. Repeat labs. We will follow up. Michelle Aviles MD MTDJovanny
[2018-03-25] MEDS: Home Med 1 UNIT PO SCH (09:56)
--- NOTE | 2018-03-26 02:01 | PN ---
DATE: 03/25/2018 PULMONARY PROGRESS NOTE REFERRING PHYSICIAN: Michelle Aviles MD SUBJECTIVE: She is out of bed to ladies room with the help of attendant. Overall feels okay. Still has a forehead area discomfort, been bradycardic, but asymptomatic. Blood pressure has been pretty good. No nausea, no vomiting, no diarrhea. No leg pain, no leg swelling. OBJECTIVE GENERAL: In no acute distress. VITAL SIGNS: Temperature is 98, heart rate is 50, respiratory rate is 20, blood pressure 138/50, pulse ox is 98% on room air. HEENT: Moist mucous membrane. Crowded airway. NECK: Supple. No JVD. Forehead injury is improving. Has dressing. LUNGS: Have a fair airflow. HEART: S1, S2, bradycardic. ABDOMEN: Soft, nontender. No organomegaly. EXTREMITIES: No edema. NEUROLOGIC: Awake, alert. Follows simple command. MEDICATIONS: She is on hydralazine 50 mg twice a day, calcium carbonate 600 mg, amiodarone 100 mg daily, which is on hold, Ecotrin 81 mg daily, homemade Xyzal 5 mg daily, Januvia 50 mg daily, potassium 10 mEq daily, Lasix 20 mg daily, Lipitor 10 mg daily, Norvasc 10 mg daily, Plavix 75 mg daily, Protonix 40 mg daily, Singulair 10 mg daily, Synthroid 88 mcg daily, Tylenol p.r.n. basis, Ultram 50 mg every 6 hours p.r.n., Zoloft 150 mg daily. LABORATORY DATA: Shows blood sugar this morning 177. His electrocardiogram done on 03/19/2018, it shows sinus bradycardia with sinus arrhythmia, LVH by voltage. IMPRESSION AND PLAN: Multiple falls with head injury, chronic obstructive lung disease, sleep apnea syndrome, noncompliant with CPAP use, hypothyroid, bradycardia, history of stroke, amiodarone decreased to 100 mg daily, apparently not been getting it. We will discontinue it. We will also decrease Norvasc to 5 mg daily. Fall precaution. Bronchodilator. Continue therapy. Thank you and we will follow with you. Homer Sawant MD
--- NOTE | 2018-03-26 03:23 | PN ---
DATE: 03/25/2018 SUBJECTIVE: Patient is a 72-year-old female. Patient was seen and examined on the bedside, looking comfortable. Having dinner. No nausea, vomiting, or diarrhea. No hematuria or hematochezia. No swelling of the legs. No chest pain. No palpitation. Did physical therapy. Feels better. PHYSICAL EXAMINATION: VITAL SIGNS: Temperature 97.6, pulse 50, blood pressure 113/50, respiratory rate 20. HEENT: Head: Normocephalic, atraumatic. Eyes: PERRLA. Extraocular muscles intact. Conjunctivae clear. Nose patent. NECK: Supple. No carotid bruit, JVD, or thyromegaly. CHEST: Bilaterally symmetrical. HEART: S1 and S2 positive. LUNGS: Clear to auscultation. ABDOMEN: Soft. Bowel sounds present. No organomegaly. EXTREMITIES: No edema. No cyanosis. NEUROLOGIC: Patient is awake and alert. Follows simple command. MEDICATIONS: Hydralazine, calcium, albuterol, Ecotrin, insulin, Januvia, potassium, Lasix, Lipitor, Norvasc, Plavix, Protonix, Singulair, Synthroid, Tylenol, tramadol, Zoloft. LABORATORY DATA: White blood cells 5.9, hemoglobin 11.7, hematocrit 35.5, platelets 181. Glucose 177. Sodium 138, potassium 5.3, BUN 39, creatinine 1.2. ASSESSMENT AND PLAN: Ms. 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 Doing physical therapy. Careful with sedation. Gastric and deep venous thrombosis prophylaxes. Repeat labs. We will follow up. Michelle Aviles MD [facility] # [id number]
[2018-03-26] MEDS: Pantoprazole 40 mg EC Tab PO SCH (05:44)
[2018-03-26] MEDS: Levothyroxine 88 MCG TAB PO SCH (05:44)
[2018-03-26 06:30] LABS: HEMOGLOBIN 12.4 g/dL (12.0-16.0); MEAN CELL VOLUME 87.8 fl (80.0-105.0); MEAN CORPUSCULAR HEMOGLOBIN 28.6 pg (25.0-35.0); MEAN CORPUSCULAR HGB CONC 32.6 g/dl (31.0-37.0); MEAN PLATELET VOLUME 10.7 fl (7.0-11.0); RBC 4.33 10^6/uL (3.5-6.1); RED CELL DISTRIBUTION WIDTH 13.1 % (11.5-14.5); WHITE BLOOD COUNT 5.5 10^3/ul (4.5-11.0)
[2018-03-26 06:35] LABS: CALCIUM 9.2 mg/dL (8.4-10.5)
[2018-03-26] MEDS: Insulin Lispro 1 UNITS/0.01 ML SC SCH ×2 (06:59→17:18)
[2018-03-26] MEDS: Potassium Chloride 10 mEq ER Tab PO SCH (07:54)
[2018-03-26] MEDS: Home Med 1 UNIT PO SCH (10:11)
--- NOTE | 2018-03-26 15:57 | PN ---
DATE: 03/26/2018 PULMONARY PROGRESS NOTE REFERRING PHYSICIAN: Michelle Aviles MD. SUBJECTIVE: She is sitting on side of the bed. Daughter is at bedside. Night was unremarkable. Feels better. Still feels occasionally dizzy. No headache. No nausea. No vomiting, diarrhea, leg pain or leg swelling. OBJECTIVE: GENERAL: In no acute distress. VITAL SIGNS: Temperature is 98, heart rate is 60, respiratory rate is 16, blood pressure 181/50, pulse ox is 98% on room air. HEENT: Moist mucous membrane. No ulcer or thrush noted. NECK: Supple. No JVD. LUNGS: Have fair airflow with few rhonchi. HEART: S1 and S2. ABDOMEN: Soft, nontender. No organomegaly. EXTREMITIES: No edema. NEUROLOGICAL: Awake and alert. Follows simple command. MEDICATIONS: She is on hydralazine, which was not given today; calcium carbonate 600 mg daily; DuoNeb every 6 hours p.r.n.; Ecotrin 81 mg daily; Januvia 50 mg daily; potassium 10 mEq daily; Lasix is 20 mg daily; Lipitor 10 mg daily; Norvasc 5 mg daily; Plavix 75 mg daily; Protonix 40 mg daily; Singulair 10 mg daily; Synthroid is 88 mcg daily; Ultram p.r.n. basis; Zoloft 150 mg daily. LABORATORY DATA: Shows hemoglobin 12.4, hematocrit 38, WBC 5.5, platelet count is 207. Sodium 139, potassium 5, chloride 100, bicarbonate 30, BUN 38, creatinine 1.3, glucose is 171, calcium is 9.2. IMPRESSION AND PLAN: Status post multiple falls, last fall her with forehead laceration; history of sleep apnea syndrome, noncompliant with the continuous positive airway pressure; hypothyroid; hypertension; bradycardiac; history of stroke; history of hip fracture in the past. Case discussed with the patient's daughter at bedside. All the questions answered. Also spoke to nursing staff. She has still comparatively bradycardia, though asymptomatic. We will discontinue Norvasc. Add Procardia XL 60 mg daily. We will also discontinue hydralazine for now. Fall precaution. Recommended outpatient attended sleep study and pulmonary function test. Thank you and we will follow with you. Homer Sawant MD [facility] # [id number]
[2018-03-26] MEDS: NIFEdipine 60 mg ER Tab PO SCH (17:19)
[2018-03-27] MEDS: oxyCODONE 10 mg ER Tab (oxyCONTIN) PO SCH ×3 (00:10→21:46)
--- NOTE | 2018-03-27 02:07 | PN ---
DATE: 03/26/2018 SUBJECTIVE: The patient is 72-year-old female. The patient is seen and examined at bedside, looking comfortable, has good appetite today. Still having pain. The patient was seen on 03/26/2018. Sometimes feeling still little bit dizzy. No headache. No nausea, vomiting, diarrhea. No hematuria, no hematochezia. No swelling of the leg. No chest pain, no palpitation. PHYSICAL EXAMINATION: VITAL SIGNS: Temperature 98, heart rate 60, respiratory rate 16, blood pressure 118/50, pulse oximetry 98% on room air. HEENT: Head normocephalic, atraumatic. Eyes: PERRLA. Extraocular muscles intact. Conjunctivae clear. Nose patent. Mucous membrane moist. NECK: Supple. No carotid bruit. No JVD, thyromegaly. CHEST: Bilaterally symmetrical. HEART: S1, S2 positive. LUNGS: Clear to auscultation. ABDOMEN: Soft, bowel sounds present. No organomegaly. EXTREMITIES: No edema, no cyanosis. NEUROLOGICAL: The patient is awake, alert. Follow simple commands. MEDICATIONS: Hydralazine, calcium, DuoNeb, Ecotrin, Januvia, potassium, Lasix, Lipitor, Norvasc, Plavix, Protonix, Singulair, Synthroid, tramadol, Zoloft. LABORATORY DATA: Hemoglobin 12.4, hematocrit 38, white blood cell 5.5, platelet 207. Sodium 139, potassium 5, BUN 38, creatinine 1.3, glucose 179. ASSESSMENT AND PLAN: Ms. Isaías Sen is a 72-year-old lady status post multiple falls, last fall was before this admission, has forehead injury laceration, history of sleep apnea syndrome, noncompliant with continuous positive airway pressure, hypothyroidism, hypertension, bradycardia, history of stroke, history of hip fracture in the past. Length of time discussion done with the patient. All questions answered. Still having pain. I will do changes in her pain medications. Dr. Sawant discontinued the Norvasc, added Procardia XL 50 mg for blood pressure control. Discontinue hydralazine. Fall precautions. I recommended sleep evaluation as outpatient. Length of time discussion done. We will followup. Michelle Aviles MD [facility] # [id number]
[2018-03-27] MEDS: Levothyroxine 88 MCG TAB PO SCH (05:13)
[2018-03-27] MEDS: Pantoprazole 40 mg EC Tab PO SCH (05:13)
[2018-03-27] MEDS: Insulin Lispro 1 UNITS/0.01 ML SC SCH ×2 (06:44→17:28)
[2018-03-27 07:47] LABS: ALB/GLOB RATIO 1.2 (1.1-1.8); ALBUMIN 3.6 g/dL (3.0-4.8); CALCIUM 8.7 mg/dL (8.4-10.5)
[2018-03-27] MEDS: Potassium Chloride 10 mEq ER Tab PO SCH (08:21)
[2018-03-27] MEDS: Home Med 1 UNIT PO SCH (09:57)
[2018-03-27] MEDS: NIFEdipine 60 mg ER Tab PO SCH (10:01)
--- NOTE | 2018-03-28 05:13 | PN ---
DATE: 03/27/2018 PULMONARY PROGRESS NOTE REFERRING PHYSICIAN: Michelle Aviles MD SUBJECTIVE: She is getting out, going to the bathroom with the help of assistant director of public works. Overall feels okay. Still gets dizzy. On and off has headache. No chest pain, nausea, vomiting, diarrhea, or leg swelling. OBJECTIVE: GENERAL: In no acute distress. VITAL SIGNS: Temperature is 99, heart rate is 54, respiratory rate is 18, blood pressure of 144/57, pulse ox of 95% on room air. HEENT: Moist mucous membranes. No ulcer or thrush. Head wound is healing well. NECK: Supple. No JVD. LUNGS: Have fair airflow. HEART: S1, S2. ABDOMEN: Soft, nontender, no organomegaly. EXTREMITIES: No edema. NEUROLOGIC: Awake, alert, follows simple command. MEDICATIONS: She is on calcium carbonate 600 mg daily, DuoNeb every 6 hours p.r.n., Ecotrin 81 mg daily, getting home med Xyzal 5 mg daily, on insulin coverage, Januvia 50 mg daily, potassium 10 mEq daily, Lasix 20 mg daily, Lipitor 10 mg daily, oxycodone 10 mg every 12 hours, Plavix 75 mg daily, Procardia XL 60 mg daily, Protonix 40 mg daily, Singulair 10 mg daily, Synthroid 88 mcg daily, Ultram 50 mg every 6 hours, Zoloft 150 mg daily. LABORATORY DATA: Shows sodium 138, potassium 4.9, chloride 103, bicarbonate 30, BUN 36, creatinine 1.1, glucose 181, calcium 8.7, phosphorus 3.8, magnesium 2.3, AST 42, ALT 42, alk phos is 94. Albumin is 3.6. IMPRESSION AND PLAN: Status post multiple falls, latest one ended up with laceration of the forehead, sleep apnea syndrome - noncompliant with the CPAP, history of hypertension, hypothyroidism, bradycardia, history of stroke. Case discussed with nursing staff. Her blood pressures have been changing, staying low, and bradycardic. We will discontinue Lasix. We will also decrease Procardia to 30 mg daily. Fall precaution. May cut down her oxycodone and opiate doses. Continue therapy. Thank you and we will follow with you. Homer Sawant MD [facility] # [id number]
[2018-03-28] MEDS: Levothyroxine 88 MCG TAB PO SCH (05:22)
[2018-03-28] MEDS: Pantoprazole 40 mg EC Tab PO SCH (05:24)
[2018-03-28] MEDS: Insulin Lispro 1 UNITS/0.01 ML SC SCH ×2 (06:33→17:00)
--- NOTE | 2018-03-28 08:40 | PN ---
DATE: 03/27/2018 SUBJECTIVE: The patient is a 72-year-old female. Patient was seen and examined at the bedside on 03/27/2018. Looking comfortable. No hematuria. No hematochezia. No swelling of the legs. Still complaining about pain in the hip and the whole body. No fever. No chills. PHYSICAL EXAMINATION: VITAL SIGNS: Temperature 99.5, pulse 54, blood pressure 144/57, respiratory rate 18. HEENT: Head: Normocephalic, atraumatic. Eyes: PERRLA. Extraocular muscles intact. Conjunctivae clear. Nose patent. Mucous membrane moist. NECK: Supple. No carotid bruit. No JVD or thyromegaly. CHEST: Bilaterally symmetrical. HEART: S1 and S2 positive. LUNGS: Clear to auscultation. ABDOMEN: Soft. Bowel sounds positive. No organomegaly. EXTREMITIES: No edema. No cyanosis. NEUROLOGICAL: Patient is awake and alert. Moving all 4 extremities. No focal deficits. MEDICATIONS: Caltrate, DuoNeb, Ecotrin, Januvia, potassium, furosemide, Lipitor, OxyContin, Plavix, Procardia, Protonix, Singulair, Synthroid, Tylenol, tramadol, Zoloft. LABORATORY DATA: White blood cell is 5.5, hemoglobin 12.4, hematocrit 38, platelets 207. Sodium 138, potassium 4.9, BUN noted , creatinine 1.1. Glucose 181. Magnesium 2.4. AST is 42. ASSESSMENT AND PLAN: Ms. Isaías Sen is a 72-year-old lady with anemia, increased BUN, diabetes mellitus, insulin dependent, not controlled, hypomagnesemia, abnormal liver function test. We will replace magnesium. Status post multiple falls with forehead laceration, history of sleep apnea syndrome, noncompliant with continuous positive airway pressure, hypothyroidism, hypertension, still having pain on the head at the injury site, history of arrhythmia, history of stroke, hip fracture in the past, pains and aches. I will start the patient on OxyContin. Getting physical therapy. Gastrointestinal and deep venous thrombosis prophylaxes. Continue Norvasc, Procardia. Repeat labs. We will follow up. Michelle Aviles MD MTDD
[2018-03-28] MEDS: Home Med 1 UNIT PO SCH (09:52)
[2018-03-28] MEDS: NIFEdipine 30 mg ER Tab PO SCH (10:20)
[2018-03-28] MEDS: oxyCODONE 10 mg ER Tab (oxyCONTIN) PO SCH (11:00)
--- NOTE | 2018-03-28 18:28 | PN ---
DATE: 03/28/2018 SUBJECTIVE: The patient is a 72-year-old female. The patient was seen and examined on the bedside on 03/28/2018, looking comfortable. Still complaining about body aches. No fever, no chills. No headache, no dizziness. No chest pain, no palpitation. No hematuria or hematochezia. PHYSICAL EXAMINATION VITAL SIGNS: Temperature 99.5, pulse 51, blood pressure 143/55, respiratory rate 18. HEENT: Head: Normocephalic, atraumatic. Eyes: PERRLA. Extraocular muscles intact. Conjunctivae clear. Nose patent. Mucous membrane moist. NECK: Supple. No carotid bruit. No JVD or thyromegaly. CHEST: Bilaterally symmetrical. HEART: S1 and S2 positive. LUNGS: Clear to auscultation. ABDOMEN: Soft. Bowel sounds are present. No organomegaly. EXTREMITIES: No edema. No cyanosis. NEUROLOGICAL: The patient is awake and alert. Moving all 4 extremities. No focal deficits. MEDICATIONS: Caltrate, albuterol, Ecotrin, insulin, Januvia, Lipitor, oxycodone, Plavix, Procardia, Protonix, Singulair, Synthroid, Tylenol, tramadol, Zoloft. LABORATORY DATA: White blood cell is 5.5, hemoglobin 12.4, hematocrit 38, platelets 207. Sodium 138, potassium 4.9, BUN 36, creatinine 1.1. Glucose 136. Magnesium 2.3. AST is 42. ASSESSMENT AND PLAN: Ms. Isaías Sen is a 72-year-old female with anemia, diabetes mellitus, hyperglycemia, hypermagnesemia, abnormal liver function test, history of cerebrovascular accident, multiple falls, last one ended up in the laceration of the forehead, sleep apnea syndrome, noncompliant with CPAP, history of hypothyroidism, bradycardia, diabetes mellitus. Blood pressure has been changing, staying low, bradycardia. Dr. Sawant discontinued the Lasix. Decrease the Procardia. Getting physical therapy, pain management. Repeat labs. We will follow up. Michelle Aviles MD [facility] # [id number]
[2018-03-28] MEDS ORDERED: oxyCODONE 5 mg Immediate Release Tab PO PRN (19:31)
--- NOTE | 2018-03-28 22:18 | PN ---
DATE: 03/28/2018 PULMONARY PROGRESS NOTE REFERRING PHYSICIAN: Michelle Aviles MD. SUBJECTIVE: The patient is sitting up in a bed. Day was unremarkable, feels okay. Still a little bit of dizzy, but improved. No chest pain. No nausea, vomiting, or diarrhea. No leg pain or leg swelling. PHYSICAL EXAMINATION: GENERAL: In no acute distress. VITAL SIGNS: Temperature is 98, heart rate is 54, respiratory rate is 18, blood pressure 143/46, pulse oximetry 95% on room air. HEENT: Moist mucous membrane. Small oral cavity. Forehead wound is healing okay. LUNGS: Have a fair airflow with few rhonchi. HEART: S1 and S2. ABDOMEN: Soft, nontender. No organomegaly. EXTREMITIES: Not much edema. NEUROLOGICAL: Awake and alert. Follows simple command. MEDICATIONS: She is on calcium carbonate 600 mg daily, DuoNeb every 6 hours, Ecotrin 81 mg daily, Januvia 50 mg daily, Lipitor 10 mg daily, OxyContin extended release every 12 hours, Plavix 75 mg daily, Procardia XL 30 mg daily, Protonix 40 mg daily, Singulair 10 mg daily, Synthroid is 88 mcg daily, Tylenol p.r.n., Ultram 50 mg every 6 hours p.r.n., Zoloft 150 mg daily. LABORATORY DATA: Blood sugar this morning 136. IMPRESSION AND PLAN: Status post fall with laceration of the forehead, sleep apnea syndrome, noncompliant with CPAP/BiPAP, hypertension,hypothyroid, bradycardia, still unsteady on the feet, history of stroke in the past. We will decrease her opiate strength from 10 mg to 5 mg. Continue gastric and deep vein thrombosis prophylaxes, nebulizer treatment, fall precaution. Continue therapy. Thank you and we will follow with you. Homer Sawant MD
[2018-03-29] MEDS: oxyCODONE 5 mg Immediate Release Tab PO PRN ×2 (01:48→22:23)
[2018-03-29] MEDS: Levothyroxine 88 MCG TAB PO SCH (05:06)
[2018-03-29] MEDS: Pantoprazole 40 mg EC Tab PO SCH (05:06)
[2018-03-29] MEDS: Insulin Lispro 1 UNITS/0.01 ML SC SCH ×2 (07:29→17:45)
[2018-03-29] MEDS: Home Med 1 UNIT PO SCH (09:52)
[2018-03-29] MEDS: NIFEdipine 30 mg ER Tab PO SCH (09:53)
--- NOTE | 2018-03-29 12:11 | CP.PCM.PN ---
Subjective - Date & Time of Evaluation Date of Evaluation: 03/29/18 Time of Evaluation: 10:40 - Subjective Subjective: resting comfortably, NAD, no chest pain, no SOB Objective - Vital Signs/Intake and Output Vital Signs (last 24 hours): Temp Pulse Resp BP Pulse Ox 99.5 F 51 L 18 160/50 H 95 03/27/18 16:00 03/28/18 10:20 03/27/18 16:00 03/29/18 09:53 03/27/18 16:00 - Medications Medications: Current Medications Acetaminophen (Tylenol 325mg Tab) 650 mg PO Q6H PRN; Protocol PRN Reason: pain/fever Last Admin: 03/26/18 20:59 Dose: 650 mg Albuterol/Ipratropium (Duoneb 3 Mg/0.5 Mg (3 Ml) Ud) 3 ml IH [id number] PRN; Pro tocol PRN Reason: Shortness of Breath Aspirin (Ecotrin) 81 mg PO 0800 [facility]; Protocol Last Admin: 03/29/18 09:51 Dose: 81 mg Atorvastatin Calcium (Lipitor) 10 mg PO DIN [facility]; Protocol Last Admin: 03/28/18 17:34 Dose: 10 mg Calcium Carbonate (Caltrate) 600 mg PO 0800 [facility]; Protocol Last Admin: 03/29/18 09:51 Dose: 600 mg Clopidogrel Bisulfate (Plavix) 75 mg PO DAILY [facility]; Protocol Last Admin: 03/29/18 09:52 Dose: 75 mg Home Med (Home Med) 1 unit PO DAILY [facility] Last Admin: 03/29/18 09:52 Dose: Not Given Insulin Human Lispro (Humalog) 10 units SC [facility]; Protocol Last Admin: 03/29/18 07:29 Dose: Not Given Levothyroxine Sodium (Synthroid) 88 mcg PO 0600 [facility]; Protocol Last Admin: 03/29/18 05:06 Dose: 88 mcg Montelukast Sodium (Singulair) 10 mg PO DAILY [facility]; Protocol Last Admin: 03/29/18 09:52 Dose: 10 mg Nifedipine (Procardia Xl) 30 mg PO DAILY [facility] Last Admin: 03/29/18 09:53 Dose: 30 mg Oxycodone HCl (Oxycodone Immediate Release Tab) 5 mg PO Q12 PRN PRN Reason: Pain, severe (8-10) Stop: 03/29/18 22:46 Last Admin: 03/29/18 01:48 Dose: 5 mg Pantoprazole Sodium (Protonix Ec Tab) 40 mg PO 0600 [facility]; Protocol Last Admin: 03/29/18 05:06 Dose: 40 mg Sertraline HCl (Zoloft) 150 mg PO 1800 [facility]; Protocol Last Admin: 03/28/18 17:34 Dose: 150 mg Sitagliptin Phosphate (Januvia) 50 mg PO DAILY [facility]; Protocol Last Admin: 03/29/18 09:52 Dose: 50 mg Tramadol HCl (Ultram) 50 mg PO Q6 PRN; Protocol PRN Reason: Pain, moderate (4-7) Last Admin: 03/27/18 05:12 Dose: 50 mg - Labs Labs: 03/26/18 05:15 03/27/18 07:15 - Respiratory Exam Respiratory Exam: Clear to Ausculation Bilateral - Cardiovascular Exam Cardiovascular Exam: REGULAR RHYTHM - GI/Abdominal Exam GI & Abdominal Exam: Soft, Normal Bowel Sounds - Extremities Exam Extremities Exam: Normal Inspection - Skin Skin Exam: Dry, Warm Assessment and Plan (1) Head injury Status: Acute - Assessment and Plan (Free Text) Plan: continue present care, Dr. Aviles to resume care of pt in am
[2018-03-29 17:15] VITALS: PULSE 51; RESP 18; TEMP 98.8; O2SAT 97
--- NOTE | 2018-03-30 00:06 | PN ---
DATE: 03/29/2018 PULMONARY PROGRESS NOTE REFERRING PHYSICIAN: Michelle Aviles MD. SUBJECTIVE: She is sitting up in a bed. Night was unremarkable. Overall, slowly improving. Better balance on the feet. Still on and off headache. No nausea. No vomiting, diarrhea, leg pain or leg swelling. OBJECTIVE: GENERAL: In no acute distress. VITAL SIGNS: Temperature is 98, heart rate is 51, respiratory rate is 18, blood pressure 169/58, pulse ox 97% on room air. HEENT: Moist mucous membranes. Crowded airway. Mallampati score is 4. Forehead wound is healing well. NECK: Supple. No JVD. LUNGS: Have a fair airflow with few rhonchi. HEART: S1 and S2. ABDOMEN: Soft and nontender. No organomegaly. EXTREMITIES: No edema. NEUROLOGICAL: Awake and alert. Follows simple command. MEDICATIONS: Reviewed and noted. She is on calcium carbonate 600 mg daily, DuoNeb every 6 hour p.r.n., Ecotrin 81 mg daily, Januvia is at 50 mg daily, Lipitor 10 mg daily, oxycodone immediate release 5 mg every 12 hours p.r.n., Plavix 75 mg daily, Procardia XL 30 mg daily, Protonix 40 mg daily, Singulair 10 mg daily, Synthroid 88 mcg daily, Tylenol p.r.n., Ultram 50 mg every 6 hours p.r.n., Zoloft 150 mg daily. LABORATORY DATA: Blood sugar this morning 129. IMPRESSION AND PLAN: Status post fall with laceration of the forehead, has a sleep apnea syndrome, noncompliant with CPAP/BiPAP, hypertension, hypothyroid, bradycardia. Pulmonary point of view, doing okay. We will continue Procardia XL 30 mg daily, inhaled bronchodilator, pain management. May use oxycodone immediate release 5 mg every 12 hours p.r.n. Fall precautions. Continue therapy. Thank you and we will follow with you. Homer Sawant MD
[2018-03-30] MEDS: Pantoprazole 40 mg EC Tab PO SCH (06:01)
[2018-03-30] MEDS: Levothyroxine 88 MCG TAB PO SCH (06:01)
[2018-03-30] MEDS: Insulin Lispro 1 UNITS/0.01 ML SC SCH ×2 (06:47→17:18)
[2018-03-30] MEDS: Home Med 1 UNIT PO SCH (09:58)
[2018-03-30] MEDS: NIFEdipine 30 mg ER Tab PO SCH (09:58)
[2018-03-30] MEDS ORDERED: oxyCODONE 5 mg Immediate Release Tab PO PRN (14:29)
--- NOTE | 2018-03-30 23:01 | PN ---
DATE: 03/30/2018 PULMONARY PROGRESS NOTE REFERRING PHYSICIAN: Michelle Aviles MD. SUBJECTIVE: She is lying in the bed, sleepy, arousable. Still having on and off headache, low back pain, requiring opiates for the back pain. No cough, no sputum production. No nausea, no vomiting, no diarrhea. No leg swelling. OBJECTIVE: GENERAL: In no acute distress. VITAL SIGNS: Temperature is 98, heart rate 51, respiratory rate 18, blood pressure 154/54, pulse ox 97% on room air. HEENT: Moist mucous membranes. Crowded airway. Forehead injury is slowly improving, has a dressing. NECK: Supple. No JVD. LUNGS: Have fair airflow. HEART: S1, S2. ABDOMEN: Soft, nontender, no organomegaly. EXTREMITIES: No edema. NEUROLOGIC: Sleepy, arousable, follows simple command. MEDICATIONS: She is on calcium carbonate 600 mg daily, DuoNeb every 6 hours p.r.n., Ecotrin 81 mg daily. She is on Januvia 50 mg daily, Lipitor 10 mg daily, oxycodone immediate release 5 mg every 12 hours, Plavix 75 mg daily, Procardia XL 30 mg daily, Protonix 40 mg daily, Singulair 10 mg daily, Synthroid 88 mcg daily, Tylenol p.r.n., Ultram 50 mg every 6 hours p.r.n., Zoloft 150 mg daily. LABORATORY DATA: Blood sugar this morning 155. IMPRESSION AND PLAN: Recurrent fall with laceration of the forehead, sleep apnea syndrome, noncompliant with CPAP and BiPAP, hypertension, hypothyroid, bradycardia. Pulmonary point of view, doing okay. Continue therapy. Continue bronchodilator, pain management. Continue Procardia. Thank you and we will follow with you. Homer Sawant MD
[2018-03-31] MEDS: Pantoprazole 40 mg EC Tab PO SCH (05:41)
[2018-03-31] MEDS: Levothyroxine 88 MCG TAB PO SCH (05:42)
[2018-03-31] MEDS: Insulin Lispro 1 UNITS/0.01 ML SC SCH (07:40)
[2018-03-31 08:03] LABS: HEMOGLOBIN 11.1 g/dL (12.0-16.0); MEAN CORPUSCULAR HEMOGLOBIN 28.8 pg (25.0-35.0); MEAN PLATELET VOLUME 9.8 fl (7.0-11.0); RBC 3.86 10^6/uL (3.5-6.1); RED CELL DISTRIBUTION WIDTH 13.1 % (11.5-14.5); WHITE BLOOD COUNT 5.5 10^3/ul (4.5-11.0)
[2018-03-31 08:21] LABS: BLOOD UREA NITROGEN 31 mg/dL (7-21); CALCIUM 8.7 mg/dL (8.4-10.5); GFR NON-AFRICAN AMERICAN > 60
--- NOTE | 2018-03-31 08:55 | PN ---
DATE: 03/30/2018 SUBJECTIVE: Patient is a 72-year-old female. Patient was seen and examined on the bedside on 03/30/2018, looking comfortable. Complaining about back pain. Headache is better. No nausea, vomiting, or diarrhea. No hematuria or hematochezia. No fever. No chills. PHYSICAL EXAMINATION: VITAL SIGNS: Temperature 98.8, pulse 51, blood pressure , respiratory rate 18. HEENT: Head: Normocephalic, atraumatic. Eyes: PERRLA. Extraocular muscles intact. Conjunctivae clear. Nose patent. Mucous membrane moist. NECK: Supple. No carotid bruit. No JVD or thyromegaly. CHEST: Bilaterally symmetrical. HEART: S1 and S2 positive. LUNGS: Clear to auscultation. ABDOMEN: Soft. Bowel sounds present. No organomegaly. EXTREMITIES: No edema. No cyanosis. NEUROLOGIC: Patient is awake and alert. Moving all 4 extremities. No focal deficit. MEDICATIONS: Carafate, DuoNeb, Ecotrin, insulin, Januvia, Lidoderm, Lipitor, oxycodone, Plavix, Procardia, Singulair, Synthroid, Tylenol, Tramadol, Zoloft. LABORATORY DATA: White blood cells 5.5, hemoglobin 12.4, hematocrit 38, platelets 207, glucose 155. 120. ASSESSMENT AND PLAN: Ms. is a 72-year-old lady with anemia; history of stroke; ataxia; history of multiple falls; laceration on the forehead; sleep apnea syndrome; noncompliant with CPAP and BiPAP; hypertension; hypothyroidism; bradycardia. Fall precautions. History of chronic obstructive pulmonary disease; history of head injury, stable. Repeat labs. We will follow up. Michelle Aviles MD
[2018-03-31] MEDS ORDERED: Lidocaine 5% Patch TD SCH (10:00)
[2018-03-31] MEDS: Home Med 1 UNIT PO SCH (10:29)
[2018-03-31] MEDS: NIFEdipine 30 mg ER Tab PO SCH (10:42)
[2018-03-31 10:44] VITALS: BP 113/62
== END 2018-03-31 12:44 | disposition home health service (06) | DRG 946 ==
LOC: TRCU 16:39
PROVIDERS: ADMIT Internal Medicine; ATTEND Internal Medicine
PROC: F07Z9FZ Gait Training/Functional Ambulation Treatment using Assistive, Adaptive, Supportive or Protective Equipment (ICD-10-PCS; principal; 2018-03-24)
PROC: F07L6YZ Therapeutic Exercise Treatment of Musculoskeletal System - Lower Back / Lower Extremity using Other Equipment (ICD-10-PCS; 2018-03-24)
PROC: F07Z5ZZ Bed Mobility Treatment (ICD-10-PCS; 2018-03-24)
PROC: F07Z8FZ Transfer Training Treatment using Assistive, Adaptive, Supportive or Protective Equipment (ICD-10-PCS; 2018-03-24)
PROC: F08Z0FZ Bathing/Showering Techniques Treatment using Assistive, Adaptive, Supportive or Protective Equipment (ICD-10-PCS; 2018-03-24)
PROC: F08Z1FZ Dressing Techniques Treatment using Assistive, Adaptive, Supportive or Protective Equipment (ICD-10-PCS; 2018-03-24)
PROC: F08Z2ZZ Grooming/Personal Hygiene Treatment (ICD-10-PCS; 2018-03-24)
DX: S01.81XD Laceration without foreign body of other part of head, subsequent encounter (principal); S00.03XD Contusion of scalp, subsequent encounter; E11.42 Type 2 diabetes mellitus with diabetic polyneuropathy; E11.65 Type 2 diabetes mellitus with hyperglycemia; J44.9 Chronic obstructive pulmonary disease, unspecified; G47.30 Sleep apnea, unspecified; I10 Essential (primary) hypertension; E03.9 Hypothyroidism, unspecified; D64.9 Anemia, unspecified; E83.41 Hypermagnesemia; E78.5 Hyperlipidemia, unspecified; E87.5 Hyperkalemia; R29.6 Repeated falls; W01.0XXD Fall on same level from slipping, tripping and stumbling without subsequent striking against object, subsequent encounter; Z79.82 Long term (current) use of aspirin; Z79.4 Long term (current) use of insulin; Z79.02 Long term (current) use of antithrombotics/antiplatelets; Z91.19 Patient's noncompliance with other medical treatment and regimen; Z86.73 Personal history of transient ischemic attack (TIA), and cerebral infarction without residual deficits

== ENCOUNTER 2018-05-26 09:17 | Inpatient (IN) | payer MEDICARE, MEDICAID ==
[2018-05-26 09:25] VITALS: BMI 25.4
[2018-05-26] MEDS ORDERED: Morphine 2 mg/ml ISec IVP STA ×2 (10:07→13:56)
[2018-05-26 10:34] LABS: BASO # 0.02 K/mm3 (0.0-2.0); BASO % 0.3 % (0.0-3.0); EOS # 0.1 (0.0-0.7); GRAN # 5.82 (1.4-6.5); GRAN % 73.3 % (50.0-68.0); HEMOGLOBIN 11.3 g/dL (12.0-16.0); LYMPH # 1.5 (1.2-3.4); LYMPH % 19.1 % (22.0-35.0); MEAN CORPUSCULAR HEMOGLOBIN 28.8 pg (25.0-35.0); MEAN CORPUSCULAR HGB CONC 32.7 g/dl (31.0-37.0); MEAN PLATELET VOLUME 10.6 fl (7.0-11.0); MONO # 0.5 (0.1-0.6); MONO % 6.3 % (1.0-6.0); RBC 3.93 10^6/uL (3.5-6.1); RED CELL DISTRIBUTION WIDTH 13.1 % (11.5-14.5); WHITE BLOOD COUNT 7.9 10^3/uL (4.5-11.0)
[2018-05-26 10:39] LABS: PARTIAL THROMBOPLASTIN TIME 29.3 Seconds (25.1-36.5); PROTHROMBIN TIME 11.5 SECONDS (9.4-12.5)
[2018-05-26 10:41] LABS: ALB/GLOB RATIO 1.1 (1.1-1.8); ALBUMIN 4.1 g/dL (3.0-4.8); ALT/SGPT 57 U/L (7-56); AST/SGOT 59 U/L (14-36); BLOOD UREA NITROGEN 32 mg/dL (7-21); CALCIUM 9.1 mg/dL (8.4-10.5); GFR NON-AFRICAN AMERICAN 55
--- NOTE | 2018-05-26 12:14 | RAD ---
PROCEDURE: Right Hip and pelvis radiographs. HISTORY: right hip pain COMPARISON: None. FINDINGS: BONES: Normal. No fracture. JOINTS: Normal. SOFT TISSUES: Normal. OTHER FINDINGS: None. IMPRESSION: Negative study
[2018-05-26 12:16] LABS: URINE APPEARANCE CLEAR (CLEAR); URINE BILIRUBIN NEGATIVE (NEGATIVE); URINE BLOOD SMALL (NEGATIVE); URINE COLOR YELLOW (YELLOW); URINE GLUCOSE (UA) NEGATIVE (NEGATIVE); URINE LEUKOCYTE ESTERASE SMALL Leu/uL (NEGATIVE); URINE PROTEIN 100 mg/dL (<30 mg/dL); URINE UROBILINOGEN 0.2 E.U./dL (<1 E.U./dL)
[2018-05-26 12:27] LABS: URINE BACTERIA FEW (NEG); URINE EPITHELIAL CELLS 0 - 2 /hpf (0-5); URINE RBC 0 - 2 /hpf (0-2)
--- NOTE | 2018-05-26 12:43 | CT ---
Date of service: 05/26/2018 PROCEDURE: CT Lumbar Spine without contrast HISTORY: back pain/ right hip pain COMPARISON: None available. TECHNIQUE: Axial computed tomography images were obtained of the lumbar spine without the use of intravenous contrast. Coronal and sagittal reformatted images were created and reviewed. Radiation dose: Total exam DLP = 791.51 mGy-cm. This CT exam was performed using one or more of the following dose reduction techniques: Automated exposure control, adjustment of the mA and/or kV according to patient size, and/or use of iterative reconstruction technique. FINDINGS: VERTEBRAE: Severe compression fracture of the T12 to body status post cementing. DISCS/SPINAL CANAL/NEURAL FORAMINA: Multilevel severe degenerative changes with disc ridge complex at L4-5 and slight grade 1 anterolisthesis. Multilevel facet arthropathy. PARASPINAL SOFT TISSUES: Unremarkable. OTHER FINDINGS: None. IMPRESSION: No acute fracture. Multilevel severe degenerative disc disease, status post chronic fracture of the T12 vertebral body status post cementing.
--- NOTE | 2018-05-26 14:02 | ED PDOC ---
Arrival/HPI - General Chief Complaint: Lower Extremity Problem/Injury Time Seen by Provider: 05/26/18 09:37 Historian: Patient, Family - History of Present Illness Narrative History of Present Illness (Text): 05/26/18 14:02 72-year-old female with a history of CVA presents today with severe right sided leg pain. Patient denies any trauma or injury. Patient states the pain has been progressively worsening over the past 3 days to the point where she is unable to ambulate. She denies abdominal pain. No nausea or vomiting. Denies fevers or chills. Denies chest pain or shortness of breath. Patient states she's been taking tramadol for pain without improvement. Per family since the patient had a stroke she has been incontinent of urine. Patient denies numbness weakness or tingling in the lower extremities. No other complaints Past Medical History - Provider Review Nursing Documentation Reviewed: Yes - Travel History Have you recently traveled outside [place] w/in the past 3 mons?: No - Infectious Disease Hx of Infectious Diseases: None - Tetanus Immunization Tetanus Immunization: Unknown - Cardiac Hx Cardiac Disorders: Yes (mi,cad) - Pulmonary Hx Chronic Obstructive Pulmonary Disease (COPD): Yes - Neurological HX Cerebrovascular Accident: Yes - HEENT Hx HEENT Disorder: Yes Hx Cataracts: Yes (b/l sx) - Renal Hx Renal Failure: Yes - Endocrine/Metabolic Hx Diabetes Mellitus Type 2: Yes Hx Hypothyroidism: Yes - Hematological/Oncological Hx Blood Disorders: Yes (vitamin d deficiency,proteinuria) - Integumentary Hx Dermatological Disorder: Yes Other/Comment: multiple bruises in various stages of healing to ble and b/l arms, laceration covered with steri strips r forehead, lump top of head right sidefrom fall today, lle small healing scab 0.5cm round, 2 small round brown scars from kyphoplasty to mid back - Musculoskeletal/Rheumatological Hx Falls: Yes (recent frequent) - Gastrointestinal Hx Gastrointestinal Disorders: Yes - Genitourinary/Gynecological Hx Genitourinary Disorders: Yes - Psychiatric Hx Psychophysiologic Disorder: Yes Hx Anxiety: Yes Hx Depression: Yes Hx Substance Use: No - Surgical History Hx Hysterectomy: Yes Hx Joint Replacement: Yes (right knee replacement) Hx Musculoskeletal Surgery: Yes Hx Orthopedic Surgery: Yes (bilateral knee replacement) Other/Comment: cataract surgery both eyes, left ft sx, r knee and shoulder scoped, lumbar epidural steroid injection, nerve block - Anesthesia Hx Anesthesia: Yes Hx Anesthesia Reactions: No Hx Malignant Hyperthermia: No - Suicidal Assessment Feels Threatened In Home Enviroment: No Family/Social History - Physician Review Nursing Documentation Reviewed: Yes Family/Social History: Unknown Family HX Smoking Status: Never Smoked Hx Alcohol Use: No Hx Substance Use: No Hx Substance Use Treatment: No Allergies/Home Meds Allergies/Adverse Reactions: Allergies iodine Allergy (Verified 03/22/18 19:28) ANAPHYLAXIS Home Medications: Home Meds Medication Instructions Recorded Confirmed Pantoprazole [Protonix EC Tab] 40 mg PO DAILY 11/16/14 03/22/18 Montelukast [Singulair] 10 mg PO DAILY 12/04/14 03/22/18 Clopidogrel [Plavix] 75 mg PO DAILY 09/03/15 03/22/18 Aspirin [Ecotrin] 81 mg PO DAILY 04/12/16 03/22/18 Amiodarone Hydrochloride 200 mg PO DAILY 11/30/16 03/22/18 [Cordarone] SITagliptin [Januvia] 100 mg PO DAILY 08/27/17 03/22/18 amLODIPine [Norvasc] 10 mg PO DAILY 08/27/17 03/22/18 Furosemide [Lasix] 40 mg PO DAILY 03/19/18 03/22/18 Insulin Aspart, Recombinant 10 unit SC [facility] 03/19/18 03/22/18 [Novolog] Levocetirizine Dihydrochloride 5 mg PO DAILY 03/19/18 03/22/18 [Xyzal] Sertraline [Zoloft] 150 mg PO ACD 03/19/18 03/22/18 hydrALAZINE [Apresoline] 50 mg PO BID 03/19/18 03/22/18 Calcium Carbonate [Calcium] 600 mg PO DAILY 03/22/18 03/22/18 Potassium Chloride [Klor-Con 10] 10 meq PO DAILY 03/22/18 03/22/18 Review of Systems - Review of Systems Constitutional: absent: Fatigue, Fevers Respiratory: absent: SOB, Cough Cardiovascular: absent: Chest Pain, Palpitations Gastrointestinal: absent: Abdominal Pain, Nausea, Vomiting Genitourinary Female: absent: Dysuria, Frequency Musculoskeletal: Arthralgias (right hip pain), Back Pain. absent: Neck Pain Skin: absent: Rash, Pruritis Neurological: absent: Headache, Dizziness Psychiatric: absent: Anxiety, Depression Physical Exam Vital Signs Reviewed: Yes Vital Signs Temp Pulse Resp BP Pulse Ox 05/26/18 12:27 79 18 135/69 97 05/26/18 11:03 84 137/72 05/26/18 11:02 78 18 137/73 96 05/26/18 09:17 98.1 F 85 18 158/122 H 96 Temperature: Afebrile Blood Pressure: Hypertensive Pulse: Regular Respiratory Rate: Normal Appearance: Positive for: Well-Appearing, Non-Toxic, Uncomfortable Pain Distress: Severe Mental Status: Positive for: Alert and Oriented X 3 - Systems Exam Head: Present: Atraumatic Mouth: Present: Moist Mucous Membranes Neck: Present: Normal Range of Motion Respiratory/Chest: Present: Clear to Auscultation Cardiovascular: Present: Regular Rate and Rhythm Abdomen: No: Tenderness, Distention, Rebound, Guarding Back: Present: Normal Inspection. No: CVA Tenderness, Midline Tenderness, Paraspinal Tenderness Lower Extremity: Present: NORMAL PULSES, Normal ROM, Neurovascularly Intact. No: CALF TENDERNESS, Tenderness, Swelling, Erythema, Deformity, Capillary Refill < 2 s Neurological: Present: GCS=15 Skin: Present: Warm, Dry, Normal Color. No: Rashes Psychiatric: Present: Alert, Oriented x 3 Medical Decision Making ED Course and Treatment: 05/26/18 14:07 72-year-old female with severe right sided hip pain with inability to ambulate. For symptoms worsening over the past 3 days X-ray of the right hip: No fracture CAT scan of the lumbar spine: FINDINGS: VERTEBRAE: Severe compression fracture of the T12 to body status post cementing. DISCS/SPINAL CANAL/NEURAL FORAMINA: Multilevel severe degenerative changes with disc ridge complex at L4-5 and slight grade 1 anterolisthesis. Multilevel facet arthropathy. PARASPINAL SOFT TISSUES: Unremarkable. OTHER FINDINGS: None. IMPRESSION: No acute fracture. Multilevel severe degenerative disc disease, status post chronic fracture of the T12 vertebral body status post cementing. Patient was given morphine for pain with minimal improvement. pt reassessment; still unable to ambulate due to severe pain. morphine 2nd dose added. case discussed with dr. abdalla in depth; will admit observational status with dr. temple consult. impression; hip pain, back pain, inability to ambulate admit observational status med/surg - Lab Interpretations Lab Results: 05/26/18 10:20 05/26/18 10:20 Lab Results 05/26/18 12:00: Urine Color Yellow, Urine Appearance Clear, Urine pH 6.0, Ur Specific [place] 1.025, Urine Protein 100 H, Urine Glucose (UA) Negative, Urine Ketones Negative, Urine Blood Small H, Urine Nitrate Negative, Urine Bilirubin Negative, Urine Urobilinogen 0.2, Ur Leukocyte Esterase Small H, Urine RBC 0 - 2, Urine WBC 1 - 3, Ur Epithelial Cells 0 - 2, Urine Bacteria Few 05/26/18 10:20: WBC 7.9, RBC 3.93, Hgb 11.3 L, Hct 34.6 L, MCV 88.0, MCH 28.8, MCHC 32.7, RDW 13.1, Plt Count 206, MPV 10.6, Gran % 73.3 H, Lymph % (Auto) 19.1 L, [place] % (Auto) 6.3 H, Eos % (Auto) 1.0 L, Baso % (Auto) 0.3, Gran # 5.82, Lymph # (Auto) 1.5, [place] # (Auto) 0.5, Eos # (Auto) 0.1, Baso # (Auto) 0.02 05/26/18 10:20: Sodium 140, Potassium 5.0, Chloride 105, Carbon Dioxide 30, Anion Gap 11, BUN 32 H, Creatinine 1.0, Est GFR ( Amer) > 60, Est GFR (Non-Af Amer) 55, Random Glucose 204 H, Calcium 9.1, Total Bilirubin 0.6, AST 59 H D, ALT 57 H, Alkaline Phosphatase 131 H D, Total Protein 7.7, Albumin 4.1, G lobulin 3.6, Albumin/Globulin Ratio 1.1 05/26/18 10:20: PT 11.5, INR 1.00, APTT 29.3 - RAD Interpretation Radiology Orders: 05/26/18 10:03 HIP MIN 2V W/ PELVIS RT [RAD] Stat 05/26/18 10:06 LUMBAR SPINE W/O CONTRAST [CT] Stat - Medication Orders Current Medication Orders: Morphine Sulfate (Morphine) 2 mg IVP STAT STA Stop: 05/26/18 13:54 Discontinued Medications Morphine Sulfate (Morphine) 2 mg IVP STAT STA Stop: 05/26/18 10:08 Last Admin: 05/26/18 10:29 Dose: 2 mg MAR Pain Assessment Document 05/26/18 10:29 (Rec: 05/26/18 10:[id number]) Pain Reassessment Is this a pain reassessment? No Pain Scale Used Protocol: PSCALES Pain Scale Used Numeric Location Left, Right or Bilateral Right Pain Location Body Site Leg Description Description Constant Intensity of Pain at present 10 IVP Administration Document 05/26/18 10:29 (Rec: 05/26/18 10:[id number]) Charges for Administration # of IVP Administrations 1 Ondansetron HCl (Zofran Inj) 4 mg IVP STAT STA Stop: 05/26/18 10:08 Last Admin: 05/26/18 10:29 Dose: 4 mg IVP Administration Document 05/26/18 10:29 (Rec: 05/26/18 10:[id number]) Charges for Administration # of IVP Administrations 1 Disposition/Present on Arrival - Present on Arrival Any Indicators Present on Arrival: No History of DVT/PE: No History of Uncontrolled Diabetes: No Urinary Catheter: No History of Decub. Ulcer: No History Surgical Site Infection Following: None - Disposition Have Diagnosis and Disposition been Completed?: Yes Diagnosis: Back pain, Hip pain Disposition: HOSPITALIZED Disposition Time: 12:00 Patient Plan: Observation Condition: FAIR
[2018-05-26] MEDS: HYDROmorphone 0.5 mg/0.5 ml ISec IVP PRN (20:59)
[2018-05-26] MEDS: Insulin Reg-LOW-Coverage SC SCH (22:52)
[2018-05-26] MEDS ORDERED: Pneumococcal 23-Valent Vaccine IM ONE (23:09)
[2018-05-26] MEDS ORDERED: Influenza Vaccine 60 mcg/0.5 mL SYR (4YR UP) IM ONE (23:09)
[2018-05-27] MEDS: HYDROmorphone 0.5 mg/0.5 ml ISec IVP PRN ×5 (00:59→22:21)
--- NOTE | 2018-05-27 01:49 | HP ---
DATE OF EXAM: 05/26/2018 The patient is a 72-year-old female. The patient was seen and examined at the bedside on 05/26/2018. CHIEF COMPLAINT: Back pain and lower extremity pain. HISTORY OF PRESENT ILLNESS: Ms. Isaías Sen is a 72-year-old female with history of multiple medical problems, has CVA, severe right-sided leg pain, diabetes mellitus, hypertension, hypercholesterolemia, noncompliant, came with severe right-sided pain. Denies any trauma or injury. The patient states that the pain has been progressively worsening over the past 3 days to the point where she is unable to ambulate. She denies abdominal pain. No nausea, vomiting or diarrhea. No hematuria or hematochezia. No swelling of the legs. No chest pain. No palpitations. No headaches. No dizziness. The patient denies numbness, weakness or tingling sensation in the lower extremities. No other complaints. PAST MEDICAL HISTORY: As above. Coronary artery disease, COPD, cerebrovascular accident, cataract, renal failure, diabetes mellitus type 2, hypothyroidism, vitamin D deficiency, proteinuria, anxiety, depression, history of hysterectomy, right joint and knee replacement and bilateral knee replacements. FAMILY HISTORY: Father and mother noncontributory. HABITS: No smoking. No drugs. No ethanol. ALLERGIES: THE PATIENT IS ALLERGIC WITH IODINE SUBSTANCES. HOME MEDICATIONS: Reviewed by me. Protonix, Singulair, Plavix, Ecotrin, Januvia, Norvasc, Lasix and Zoloft. REVIEW OF SYSTEMS: The patient was seen and examined at the bedside. Looking comfortable. No nausea, vomiting or diarrhea. No hematuria or hematochezia. No swelling of the legs. No chest pain. No palpitation. No headache. No dizziness. No fever. No chills. PHYSICAL EXAMINATION VITAL SIGNS: Temperature 98.1, pulse 85, respiratory rate 18, blood pressure 115/80 and pulse oximetry 99. HEENT: Head; normocephalic, atraumatic. Eyes; PERRLA. Extraocular muscles intact. Conjunctivae clear. Nose patent. Mucous membrane moist. NECK: Supple. No carotid bruit. No JVD or thyromegaly. CHEST: Bilaterally symmetrical. HEART: S1, S2 positive. LUNGS: Clear to auscultation. ABDOMEN: Soft. Bowel sounds positive. No organomegaly. EXTREMITIES: No edema. No cyanosis. NEUROLOGIC: The patient is awake and alert. Moving all four extremities. No focal deficits. LABORATORY DATA: White blood cells 7.9, hemoglobin 11.3, hematocrit 34.3, platelets 206. Sodium 140, potassium 5, BUN 32, creatinine 1 and glucose 204. ASSESSMENT AND PLAN: Ms. Isaías Sen is a 72-year-old female with anemia, renal insufficiency, hyperglycemia, came with back pain, hip pain, has history of cerebrovascular accident with right-sided weakness, history of insulin-dependent diabetes mellitus, coronary artery disease, history of myocardial infarction, chronic obstructive pulmonary disease, cataract surgery, renal failure, vitamin D deficiency, history of fall. Gastrointestinal and deep venous thrombosis prophylaxis given. History of depression. We admitted the patient. Consult held with Mastsimba[facility]aco, started pain medication. Lumbar spine CT and hip and pelvis x-rays done. According to CT, no acute fractures, multilevel severe degenerative disk disease, suspect post chronic fracture of T12 vertebral body, X-ray of the hip and pelvis reviewed by me. We admitted the patient. consult with Mastsim[place]aco. Getting pain medication. Add home medications. Repeat labs. We will follow up. Michelle Aviles MD MTDD
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
--- NOTE | 2018-05-27 04:31 | CP.PCM.PN ---
Subjective - Date & Time of Evaluation Date of Evaluation: 05/27/18 Time of Evaluation: 04:30 - Subjective Subjective: # 22 angiocath was inserted in right proximal forearm. Objective - Vital Signs/Intake and Output Vital Signs (last 24 hours): Temp Pulse Resp BP Pulse Ox 97 F L 78 18 140/80 95 05/26/18 23:04 05/26/18 23:04 05/26/18 23:04 05/26/18 23:04 05/26/18 23:04 Intake and Output: 05/26/18 05/27/18 18:59 06:59 Intake Total 360 Balance 360 - Medications Medications: Current Medications Amlodipine Besylate (Norvasc) 10 mg PO DAILY [facility] Aspirin (Ecotrin) 81 mg PO DAILY [facility] Calcium Carbonate (Caltrate) 600 mg PO DAILY [facility] Clopidogrel Bisulfate (Plavix) 75 mg PO DAILY [facility] Hydralazine HCl (Apresoline) 50 mg PO BID [facility] Hydromorphone HCl (Dilaudid) 0.5 mg IVP Q4H PRN PRN Reason: Pain, Mild (1-3) Last Admin: 05/26/18 20:59 Dose: 0.5 mg Insulin Human Regular (Humulin R Low) 0 units SC ACHS [facility]; Protocol Last Admin: 05/26/18 22:52 Dose: Not Given Levothyroxine Sodium (Synthroid) 88 mcg PO ACB [facility] Montelukast Sodium (Singulair) 10 mg PO DAILY [facility] Pantoprazole Sodium (Protonix Ec Tab) 40 mg PO DAILY [facility] Potassium Chloride (Klor-Con 10) 10 meq PO Q72 [facility] Sertraline HCl (Zoloft) 150 mg PO ACD [facility] Last Admin: 05/26/18 20:09 Dose: 150 mg Sitagliptin Phosphate (Januvia) 100 mg PO DAILY [facility] Tramadol HCl (Ultram) 50 mg PO Q6H PRN PRN Reason: Pain, moderate (4-7) Last Admin: 05/27/18 01:06 Dose: 50 mg - Labs Labs: 05/26/18 10:20 05/26/18 10:20 PT 11.5 SECONDS (9.4-12.5) 05/26/18 10:20 INR 1.00 05/26/18 10:20 APTT 29.3 Seconds (25.1-36.5) 05/26/18 10:20
[2018-05-27] MEDS: Levothyroxine 88 MCG TAB PO SCH (08:08)
[2018-05-27] MEDS: Insulin Reg-LOW-Coverage SC SCH ×3 (08:13→19:47)
[2018-05-27] MEDS: Pantoprazole 40 mg EC Tab PO SCH (10:39)
[2018-05-27] MEDS ORDERED: Lidocaine 5% Patch TD SCH (12:00)
--- NOTE | 2018-05-27 13:48 | CP.PCM.PN ---
Subjective - Date & Time of Evaluation Date of Evaluation: 05/27/18 Time of Evaluation: 13:47 - Subjective Subjective: will evaluate patient after MRI is completed Objective - Vital Signs/Intake and Output Vital Signs (last 24 hours): Temp Pulse Resp BP Pulse Ox 98.1 F 67 20 125/47 L 94 L 05/27/18 06:00 05/27/18 10:39 05/27/18 06:00 05/27/18 10:39 05/27/18 06:00 Intake and Output: 05/27/18 05/27/18 06:59 18:59 Intake Total 360 Balance 360 - Medications Medications: Current Medications Amlodipine Besylate (Norvasc) 10 mg PO DAILY [facility] Last Admin: 05/27/18 10:39 Dose: 10 mg Aspirin (Ecotrin) 81 mg PO DAILY [facility] Last Admin: 05/27/18 10:39 Dose: 81 mg Calcium Carbonate (Caltrate) 600 mg PO DAILY [facility] Last Admin: 05/27/18 10:39 Dose: 600 mg Clopidogrel Bisulfate (Plavix) 75 mg PO DAILY [facility] Last Admin: 05/27/18 10:39 Dose: 75 mg Hydralazine HCl (Apresoline) 50 mg PO BID [facility] Last Admin: 05/27/18 10:39 Dose: 50 mg Hydromorphone HCl (Dilaudid) 0.5 mg IVP Q4H PRN PRN Reason: Pain, Mild (1-3) Last Admin: 05/27/18 10:50 Dose: 0.5 mg Insulin Human Regular (Humulin R Low) 0 units SC ACHS [facility]; Protocol Last Admin: 05/27/18 08:13 Dose: Not Given Levothyroxine Sodium (Synthroid) 88 mcg PO ACB [facility] Last Admin: 05/27/18 08:08 Dose: 88 mcg Lidocaine (Lidoderm) 1 ea TD DAILY [facility] Last Admin: 05/27/18 13:12 Dose: 1 ea Montelukast Sodium (Singulair) 10 mg PO DAILY [facility] Last Admin: 05/27/18 10:39 Dose: 10 mg Pantoprazole Sodium (Protonix Ec Tab) 40 mg PO DAILY [facility] Last Admin: 05/27/18 10:39 Dose: 40 mg Potassium Chloride (Klor-Con 10) 10 meq PO Q72 [facility] Sertraline HCl (Zoloft) 150 mg PO ACD [facility] Last Admin: 05/26/18 20:09 Dose: 150 mg Sitagliptin Phosphate (Januvia) 100 mg PO DAILY [facility] Last Admin: 05/27/18 10:39 Dose: 100 mg Tramadol HCl (Ultram) 50 mg PO Q6H PRN PRN Reason: Pain, moderate (4-7) Last Admin: 05/27/18 01:06 Dose: 50 mg - Labs Labs: 05/26/18 10:20 05/26/18 10:20 PT 11.5 SECONDS (9.4-12.5) 05/26/18 10:20 INR 1.00 05/26/18 10:20 APTT 29.3 Seconds (25.1-36.5) 05/26/18 10:20
--- NOTE | 2018-05-27 19:12 | CON ---
DATE: 05/27/2018 NEUROLOGY CONSULTATION CHIEF COMPLAINT: Low back pain. HISTORY OF PRESENT ILLNESS: This is a 72-year-old woman with history of multiple medical problems, history of CVA, history of chronic low back pain, diabetes, hypertension, hypercholesterolemia, noncompliant, who presents with low back pain radiating down to the right buttocks down the right leg with paresthesias aggravated for the long positions, and the pain has been progressively worsening over the past 2 days to a point where she is unable to ambulate; therefore, she was called to evaluate. She had a CAT scan of the lumbosacral spine, which showed multilevel severe disk degenerative disease associated at the L4-L5 level and after bath she has severe chronic compression at T12 body, status post kyphoplasty. Neurosurgery is on board, awaiting the MRI of the lumbosacral spine. I have placed her on Lidoderm patch, and she is on tramadol for acute pain and will require physical therapy and has a subacute rehab. PAST MEDICAL HISTORY: As above. SOCIAL HISTORY: No illicit drug use, smoking, or EtOH abuse. REVIEW OF SYSTEMS: A 14-point review of systems is negative except as per the HPI. FAMILY HISTORY: Noncontributory. MEDICATIONS: Reviewed by nurses' reconciliation sheet. FAMILY HISTORY: Noncontributory. LABORATORY DATA: Today's blood sugar is 144. PHYSICAL EXAMINATION: VITAL SIGNS: Temperature 98.9, pulse rate of 65, blood pressure 131/82, respiratory rate of 18, and oxygen saturation 92% on room air. GENERAL: The patient is sitting up in bed, in no acute distress. HEENT: Atraumatic and normocephalic. PERRLA. Extraocular muscles intact. NECK: Supple. No JVD. No adenopathy noted. LUNGS: Clear to auscultation. No adventitious sounds. HEART: S1, S2. Normal rate and rhythm. No murmurs, rubs, or gallops. ABDOMEN: Soft, nontender, and nondistended. Bowel sounds are present. EXTREMITIES: No clubbing. No cyanosis. Peripheral pulses 2+ bilaterally. NEUROLOGIC: The patient is alert and oriented to person, place, month, and year. Speech is fluent without errors. Cranial nerves II through are XII intact. Motor Exam: Moves all extremities equally, except for difficulty with right leg due to pain. Sensory Exam: Decreased light touch, pinprick up to the calves bilaterally. Decreased vibration of the toes. DTRs are 2+ throughout and 1 at both knees and ankles. Coordination: [id number]-ia-[id number] intact. Gait is deferred for now. IMPRESSION: Low back pain is likely secondary to chronic lumbosacral neuritis superimposed underlying peripheral neuropathy. RECOMMENDATIONS: I this time, we will recommend; 1. MRI of the lumbosacral spine to assess for worsening disk disease and spinal stenosis. 2. Neurosurgery evaluation in regard to severe lumbosacral pain. 3. Lidoderm patch and continue with tramadol for acute onset of pain. 4. Subacute rehab for physical and occupational therapy for low back pain and continue with current present medical management. Adolfo Milton MD
--- NOTE | 2018-05-27 21:07 | CP.PCM.CON ---
History of Present Illness - History of Present Illness History of Present Illness: SPINE Chart reviewed. Spoke earlier with Nicanor Panchal NP. Will see pt after MRI done, but suggested Cardiology, et al., should be contacted to see if pt a possible surgical candidate, given extensive medical issues, or if further t esting needs to be done. Pt on Plavix so anything would need to be deferred for 5 days once off med. Past Patient History - Infectious Disease Hx of Infectious Diseases: None - Tetanus Immunizations Tetanus Immunization: Unknown - Past Medical History & Family History Past Medical History?: Yes - Past Social History Smoking Status: Never Smoked - CARDIAC Hx Cardiac Disorders: Yes (mi,cad,cp) Hx Congestive Heart Failure: Yes Hx Hypercholesterolemia: Yes Hx Hypertension: Yes - PULMONARY Hx Chronic Obstructive Pulmonary Disease (COPD): Yes - NEUROLOGICAL HX Cerebrovascular Accident: Yes (r side weakness) - HEENT Hx HEENT Problems: Yes (eyeglasses, [place]) Hx Cataracts: Yes (b/l sx) Other/Comment: 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 - RENAL Hx Renal Failure: Yes - ENDOCRINE/METABOLIC Hx Diabetes Mellitus Type 2: Yes Hx Hypothyroidism: Yes - HEMATOLOGICAL/ONCOLOGICAL Hx Blood Disorders: Yes (vitamin d deficiency,proteinuria) - INTEGUMENTARY Hx Dermatological Problems: Yes Other/Comment: multiple bruises in various stages of healing to ble and b/l arms, , 2 small round brown scars from kyphoplasty to mid back, bruise left flank - MUSCULOSKELETAL/RHEUMATOLOGICAL Hx Falls: Yes (recent frequent) - GASTROINTESTINAL Hx Gastrointestinal Disorders: Yes Hx Gastroesophageal Reflux: Yes - GENITOURINARY/GYNECOLOGICAL Hx Genitourinary Disorders: Yes (polyuria/urgency) Hx Incontinence: Yes (since cva) - PSYCHIATRIC Hx Substance Use: No - SURGICAL HISTORY Hx Surgeries: Yes Hx Cardiac Catheterization: Yes (10/2012) Hx Hysterectomy: Yes Hx Joint Replacement: Yes (right knee replacement) Hx Musculoskeletal Surgery: Yes Hx Orthopedic Surgery: Yes (bilateral knee replacement) Other/Comment: cataract surgery both eyes, left ft sx, r knee and shoulder scoped, lumbar epidural steroid injection, nerve block, - ANESTHESIA Hx Anesthesia: Yes Hx Anesthesia Reactions: No Hx Malignant Hyperthermia: No Meds Allergies/Adverse Reactions: Allergies Allergy/AdvReac Type Severity Reaction Status Date / Time iodine Allergy ANAPHYLAXIS Verified 03/22/18 19:28 - Medications Medications: Current Medications Amlodipine Besylate (Norvasc) 10 mg PO DAILY [facility] Last Admin: 05/27/18 10:39 Dose: 10 mg Aspirin (Ecotrin) 81 mg PO DAILY [facility] Last Admin: 05/27/18 10:39 Dose: 81 mg Calcium Carbonate (Caltrate) 600 mg PO DAILY [facility] Last Admin: 05/27/18 10:39 Dose: 600 mg Clopidogrel Bisulfate (Plavix) 75 mg PO DAILY [facility] Last Admin: 05/27/18 10:39 Dose: 75 mg Hydralazine HCl (Apresoline) 50 mg PO BID [facility] Last Admin: 05/27/18 18:09 Dose: 50 mg Hydromorphone HCl (Dilaudid) 0.5 mg IVP Q4H PRN PRN Reason: Pain, Mild (1-3) Last Admin: 05/27/18 14:56 Dose: 0.5 mg Insulin Human Regular (Humulin R Low) 0 units SC ACHS [facility]; Protocol Last Admin: 05/27/18 19:47 Dose: Not Given Levothyroxine Sodium (Synthroid) 88 mcg PO ACB [facility] Last Admin: 05/27/18 08:08 Dose: 88 mcg Lidocaine (Lidoderm) 1 ea TD DAILY [facility] Last Admin: 05/27/18 13:12 Dose: 1 ea Montelukast Sodium (Singulair) 10 mg PO DAILY [facility] Last Admin: 05/27/18 10:39 Dose: 10 mg Pantoprazole Sodium (Protonix Ec Tab) 40 mg PO DAILY [facility] Last Admin: 05/27/18 10:39 Dose: 40 mg Potassium Chloride (Klor-Con 10) 10 meq PO Q72 [facility] Sertraline HCl (Zoloft) 150 mg PO ACD [facility] Last Admin: 05/27/18 18:06 Dose: 150 mg Sitagliptin Phosphate (Januvia) 100 mg PO DAILY [facility] Last Admin: 05/27/18 10:39 Dose: 100 mg Tramadol HCl (Ultram) 50 mg PO Q6H PRN PRN Reason: Pain, moderate (4-7) Last Admin: 05/27/18 01:06 Dose: 50 mg Results - Vital Signs Recent Vital Signs: Last Vital Signs Temp 98.9 F 05/27/18 14:00 Pulse 70 05/27/18 18:09 Resp 18 05/27/18 14:00 BP 142/48 L 05/27/18 18:09 Pulse Ox 93 L 05/27/18 14:00 - Labs Result Diagrams: 05/26/18 10:20 05/26/18 10:20 Labs: Laboratory Results - last 24 hr 05/26/18 05/27/18 05/27/18 21:36 06:32 11:02 POC Glucose (mg/dL) 121 H 132 H 135 H 05/27/18 16:23 POC Glucose (mg/dL) 144 H
--- NOTE | 2018-05-28 02:04 | CON ---
DATE: 05/27/2018 TYPE OF DICTATION: Consults with Cardiology. REASON FOR CONSULTATION: Preoperative evaluation and risk stratification for possible neurosurgical intervention for back pain. BRIEF CLINICAL HISTORY: This is a 72-year-old female with past medical history significant for CVA, severe right-sided leg pain, compression fracture, history of diabetes, hypertension, hyperlipidemia, nonobstructive coronary artery disease status post cardiac catheterization 04/16/2016, admitted with back pain. Denies any chest pain or shortness of breath. Cardiac consult is called for cardiac evaluation and risk stratification before neurosurgical intervention for compression fracture at the body of the T12 and severe degenerative joint disease at L4-L5. PAST MEDICAL HISTORY: Significant for nonobstructive coronary artery disease, COPD, cerebrovascular accident, cataract, diabetes mellitus, hypothyroidism, depression, and anxiety. PAST SURGICAL HISTORY: Significant for hysterectomy, right total knee replacement as well as bilateral knee replacement, and history of cardiac catheterization dated 04/16/2016. SOCIAL HISTORY: Denies smoking. Denies any history of alcohol abuse. ALLERGIES: ALLERGIC TO IODINE-CONTAINED SUBSTANCES. CURRENT MEDICATIONS: The patient is taking Protonix, Singulair, Plavix, aspirin, Januvia, Norvasc, Lasix, and Zoloft. RECENT CARDIAC WORKUP FOLLOWS: The patient had a cardiac catheterization dated 04/16/2016 that showed nonobstructive coronary artery disease limited to D1 50-60% stenosis. Majority of cardiac coronaries are okay. Preserved LV function ejection 55-60%. EDP with a range of 15-16. Date of the cardiac catheterization is 04/16/2016. The patient had last echocardiography on 03/19/2016 where ejection fraction 55-60%, diastolic dysfunction, mild mitral regurgitation, trace tricuspid regurgitation, RV systolic pressure of 21. The patient had a stress test 03/28/2016 that showed the ischemia that prompted the cardiac catheterization that revealed nonobstructive coronary artery disease. The patient had a repeat echocardiography 12/01/2016, read by Dr. Maharaj that shows normal LV size and normal LV function, trace tricuspid regurgitation, calcification of the mitral valve noted but no significant mitral regurgitation, RV systolic pressure 42. Calculated ejection fraction reported 64% dated 12/01/2016. The patient has a history of kyphoplasty of T12 dated 09/02/2017. There is no evidence of chest pain. PHYSICAL EXAMINATION: GENERAL: Height of the patient 5 feet, weight of the patient 130 pounds, body mass index 25.4 kg/m2. VITAL SIGNS: Temperature afebrile, heart rate 70, blood pressure 142/ . HEENT: PERRLA. Extraocular muscles intact. NECK: Supple. No carotid bruit or thyromegaly. CHEST: Clear to auscultation. HEART: S1 and S2 regular. ABDOMEN: Soft. EXTREMITIES: Clubbing and cyanosis negative. LABORATORY DATA: Blood workup: WBC is 7.9, hemoglobin 11.3, hematocrit 34.6, platelet count 206. Chemistry shows sodium 140, potassium 5, chloride 105, carbon dioxide 30, anion gap of 11, BUN 32, creatinine 1.0. IMPRESSION AND PLAN: A 72-year-old female with past medical history significant for diabetes, hypertension, hyperlipidemia, history of nonobstructive coronary artery disease status post cardiac catheterization 04/16/2016, admitted with severe back pain. History of kyphoplasty may require a new surgical intervention. Preoperative evaluation and risk stratification for neurosurgery required. The patient had no definite history of ischemia, no evidence of arrhythmia. We will clear the patient's high risk procedure with underlying comorbidity. We will get echo to assess LV function. We will get lipid profile, TSH, and hemoglobin A1c. Further recommendations to be made after the workup. We will follow with you. Thank you Dr. Aviles for providing us the opportunity in taking care of patient, Isaías Sen. Homer Clinton MD
[2018-05-28] MEDS: HYDROmorphone 0.5 mg/0.5 ml ISec IVP PRN (02:28)
--- NOTE | 2018-05-28 05:05 | PN ---
DATE: 05/27/2018 SUBJECTIVE: The patient is a 72-year-old female. The patient was seen and examined at the bedside on 05/27/2018. The patient was sitting on the bedside. Also looking comfortable. Still complaining about intractable back pain. Seen by the orthopedic Dr. Zhao, neurosurgeon and the neurologist. No fever. No chills. No hematuria or hematochezia. No swelling of the legs. No headache or dizziness. PHYSICAL EXAMINATION: VITAL SIGNS: Temperature 98.8, pulse 56, blood pressure 130/56, respiratory rate 20. HEENT: Head: Normocephalic and atraumatic. Eyes: PERRLA. Extraocular muscles are intact. Conjunctivae clear. Nose patent. Mucous membranes moist. NECK: Supple. No carotid bruits, JVD or thyromegaly. CHEST: Bilaterally symmetrical. HEART: S1 and S2 positive. LUNGS: Clear to auscultation. ABDOMEN: Soft. Bowel sounds present. No organomegaly. EXTREMITIES: No edema. No cyanosis. NEUROLOGIC: The patient is awake and alert. Follows simple command. MEDICATIONS: Hydralazine, calcium, Dilaudid, Ecotrin, insulin, Januvia, vitamin D, Lidoderm patch, Norvasc, Plavix, Protonix, Singulair, Synthroid, tramadol, and Zoloft. LABORATORY DATA: We do not have recent labs today. ASSESSMENT AND PLAN: Ms. Isaías Sen is a 72-year-old lady with anemia, abnormal liver function tests, hyperglycemia, proteinuria, hematuria, urinary tract infection. Came with intractable back pain, going to the right leg. Seen by Dr. Randall Aleman and Dr. Bernard Kraft. Waiting for MRI result of her back. Seen by Dr. Adolfo Milton and Dr. Zhao. CAT scan of lumbar region done. The patient has degenerative disease in the right and the left. The patient has a history of insulin-dependent diabetes mellitus. We will do MRA of the lumbosacral region to assess the disk disease. The patient does utilize Lidoderm patch, need subacute rehabilitation. The patient has a history of chronic obstructive pulmonary disease, history of cerebrovascular accident, hypertension, hypercholesterolemia, noncompliant, history of multiple falls. Discussion done with the . Need good physical therapy. Gastrointestinal and deep venous thrombosis prophylaxis. Repeat labs. We will follow up. Michelle Aviles MD MTDD
[2018-05-28 07:26] LABS: BASO # 0.01 K/mm3 (0.0-2.0); BASO % 0.1 % (0.0-3.0); EOS # 0.1 (0.0-0.7); EOS % 1.2 % (1.5-5.0); LYMPH # 2.6 (1.2-3.4); LYMPH % 29.9 % (22.0-35.0); MEAN CELL VOLUME 87.9 fl (80.0-105.0); MEAN CORPUSCULAR HEMOGLOBIN 28.2 pg (25.0-35.0); MEAN CORPUSCULAR HGB CONC 32.1 g/dl (31.0-37.0); MEAN PLATELET VOLUME 10.4 fl (7.0-11.0); MONO # 0.9 (0.1-0.6); MONO % 10.8 % (1.0-6.0); RBC 3.9 10^6/uL (3.5-6.1); RED CELL DISTRIBUTION WIDTH 13.1 % (11.5-14.5); WHITE BLOOD COUNT 8.6 10^3/uL (4.5-11.0)
[2018-05-28 07:40] LABS: ALBUMIN 3.5 g/dL (3.0-4.8); CALCIUM 8.9 mg/dL (8.4-10.5)
[2018-05-28] MEDS: Levothyroxine 88 MCG TAB PO SCH (08:19)
[2018-05-28] MEDS: Insulin Reg-LOW-Coverage SC SCH ×3 (08:20→17:32)
[2018-05-28] MEDS: HYDROmorphone 1 mg/ml ISec IVP PRN ×4 (08:45→21:24)
[2018-05-28] MEDS: Pantoprazole 40 mg EC Tab PO SCH (10:17)
--- NOTE | 2018-05-28 11:04 | PN ---
DATE: 05/28/2018 REASON FOR CONSULTATION: Preoperative evaluation and risk stratification for possible neurosurgical intervention for back pain. SUBJECTIVE: The patient denies any chest pain, shortness of breath, or any palpitation. OBJECTIVE: GENERAL: Not in apparent distress, lying flat in the bed. VITAL SIGNS: Temperature afebrile, heart rate 60, and blood pressure 132/56. HEENT: PERRLA. Extraocular muscles intact. NECK: Supple. No carotid bruit or thyromegaly. CHEST: Clear to auscultation. HEART: S1, S2 regular. ABDOMEN: Soft. EXTREMITIES: Clubbing and cyanosis negative. LABORATORY DATA: Blood workup as follows; WBC is 8.6, hemoglobin 11, hematocrit 34.3, and platelet count 199. Chemistry shows sodium 138, potassium 4.7, chloride 102, carbon dioxide 30, anion gap of 9, BUN 39, and creatinine 1.3. Today, INR is 2.46, total cholesterol 229, and LDL 135. Hemoglobin A1c pending. IMPRESSION: A 72-year-old female with a pat medical history significant for cerebrovascular accident with residual weakness, history of severe back pain, hypertension, hyperlipidemia, coronary artery disease status post cardiac catheterization on 04/16/2014, nonobstructive coronary artery disease, history of severe degenerative joint disease L4-L5, and compression fracture at T12. Needs new surgical intervention, preoperative evaluation and risk stratification. consult was called. The patient denies any chest pain, shortness of breath, or any palpitation. History of diabetes, hyperthyroidism, depression, and anxiety disorder. Last echo on 12/01/2016, ejection fraction of 64% and last catheterization on 04/16/2018, nonobstructive coronary artery disease. This patient has history of kyphoplasty in the recent past. RECOMMENDATION: We will get echo to assess LV function, follow up the lipid profile, TSH, hemoglobin A1c. The patient looks like little bit prerenal azotemic and fluid, but restart gentle hydration. Continue diabetes medication, continue hold aspirin 4-5 days before surgical intervention as well as the Plavix, hold 5 days before surgery. The patient is cleared to go for surgery, is at moderate risk of underlying condition. We will get echo. We will give 50 mL an hour for 1 liter of fluid and repeat the lab in the morning and put physician nurse communication to hold. Hold aspirin and Plavix 5 days before neurosurgical intervention. We will start low dose of atorvastatin 40 mg daily. We will follow with you. Continue normal saline 50 mL for next 24 hours for prerenal azotemia, repeat blood work in the morning. Thank you Dr. Aviles for providing us the opportunity in taking care of patient, Isaías Sen. Homer Clinton MD cc: MD Michelle Pimentel MD
--- NOTE | 2018-05-28 12:27 | MRI ---
Date of service: 05/28/2018 PROCEDURE: MR LUMBAR SPINE WITHOUT CONTRAST HISTORY: lumbosacral pain COMPARISON: 08/28/2017 TECHNIQUE: Sagittal T2 and fat-suppressed T2 imaging was performed. The patient could not tolerate any further scanning. There are no axial images obtained. FINDINGS: There is a severe compression fracture of T12 which has progressed since the previous exam. There is marrow edema in the L1 vertebral body with mild compression of the superior endplate. There is a large disc bulge at T12-L1 with spinal stenosis. Evaluation is limited without axial imaging. IMPRESSION: Limited study. Acute compression fracture of L1. Chronic severe compression fracture of T12. Large disc bulge at T12-L1 producing spinal stenosis
[2018-05-28] MEDS: Sodium Chloride 0.9% 1,000 ML IV SCH (13:10)
--- NOTE | 2018-05-28 15:35 | CON ---
DATE OF CONSULTATION: 05/28/2018 PULMONARY CONSULTATION NOTE REFERRING PHYSICIAN: Dr. Aviles. REASON FOR CONSULTATION: COPD, suspected sleep apnea syndrome, back pain, hip pain. HISTORY OF PRESENT ILLNESS: This is a 72-year-old female with history of CVA, severe right-sided leg pain, diabetes mellitus, hypertension, hypercholesterolemia, history of noncompliance. The patient came to the hospital complaining of severe right-sided back pain. Daughter present at bedside, denies any fall, stated that the patient tripped and stumbled about a week or so ago. No headache, rhinitis, cough, shortness of breath, chest pain, abdominal pain, nausea, vomiting, diarrhea, or leg swelling reported. The patient does report lower back pain and leg pain. PAST MEDICAL HISTORY: Coronary artery disease; COPD; cerebrovascular accident; cataracts; renal failure; diabetes mellitus, type 2; hypothyroidism; vitamin D deficiency; proteinuria; anxiety; depression; history of hysterectomy; right joint and knee replacement; bilateral knee replacements. ALLERGIES: ALLERGIC TO IODINE SUBSTANCE. SOCIAL HISTORY: No smoking. No alcohol abuse. No drug use. FAMILY HISTORY: No reported cardiopulmonary disease. MEDICATIONS: Reviewed. Norvasc 10 mg daily, aspirin 81 mg daily, Lipitor 40 mg daily, calcium carbonate 600 mg daily, Plavix 75 mg daily, hydralazine 50 mg twice a day, Dilaudid 0.5 mg IV push every 4 hours as needed for mild pain, Humulin R sliding scale, Synthroid 88 mcg daily, Lidoderm patch to the affected area daily, Singulair 10 mg daily, Protonix 40 mg daily, potassium chloride 10 mEq every 72 hours, Zoloft 150 mg daily, Januvia 100 mg daily, sodium chloride 0.9% 1000 mL at 50 mL/h, tramadol 50 mg every 6 hours p.r.n. for moderate pain. PHYSICAL EXAMINATION: VITAL SIGNS: Blood pressure 111/44, pulse 69, temp 98.8, oxygen saturation 95%. GENERAL: No acute distress. HEENT: Moist mucous membranes. Mallampati score is 3. NECK: Supple. No JVD. CHEST: Clear bilaterally. HEART: S1, S2 audible. ABDOMEN: Soft, nontender. No distension. No organomegaly. EXTREMITIES: No bilateral edema. MUSCULOSKELETAL: pain illicted on palpation of lumbar area NEUROLOGIC: Awake, alert, verbal. Follows simple commands. LABORATORY DATA: Reviewed. WBC 8.6, RBC 3.9, hemoglobin 11, hematocrit 34.3, platelets 199. PT 11.5, INR 1, and PTT 29.3. Sodium 137, potassium 4.7, chloride 102, carbon dioxide 30, anion gap 9, BUN 39, creatinine 1.3, GFR 40, random glucose 177. Hemoglobin A1c is 7.5. Calcium 8.9, phosphorus 4.3, magnesium 2.1, total bilirubin 0.6, AST 68, ALT 55, alkaline phosphatase 108. Total protein 6.9, albumin 3.5, globulin 3.4, albumin and globulin ratio 1.0. Triglycerides 141, cholesterol 229, LDL cholesterol direct 135, HDL cholesterol 60. TSH 2.47. Urinalysis showed urine protein 100, urine blood small, urine leukocyte esterase small. MRI of lumbar spine showed limited study, acute compression fracture of L1, chronic severe compression fracture of T12, large disk bulge at T12 to L1 producing spinal stenosis. IMPRESSION AND PLAN: Anemia, renal insufficiency, hyperglycemia, history of cerebrovascular accident, diabetes mellitus, coronary artery disease, history of myocardial infarct, chronic obstructive pulmonary disease, cataract surgery, renal failure, vitamin D deficiency, history of falls, presently with acute compression fracture of L1, chronic severe compression fracture of T12, spinal stenosis. The patient has mild sleep apnea and is presently refusing to use CPAP machine. We will add inhaled bronchodilator, gastric prophylaxis, deep venous thrombosis prophylaxis. Sleep apnea precaution, head of bed elevated to 45 degrees, pain management, avoid nocturnal sedation, fall precaution. This patient was seen and examined with Dr. Sawant, discussed the assessment and plan as described above. Thank you for this consult, and we will follow with you. Dmitriy Casas APN Homer Sawant MD KAILA
--- NOTE | 2018-05-28 18:09 | CARD ---
APPROVED REPORT Date of service: 05/28/2018 EXAM: Two-dimensional and M-mode echocardiogram with Doppler and color Doppler. INDICATION Pre-Op 2D DIMENSIONS Left Atrium (2D)3.7 (1.6-4.0cm)IVSd1.0 (0.7-1.1cm) LVDd4.6 (3.9-5.9cm)PWd1.0 (0.7-1.1cm) LVDs3.1 (2.5-4.0cm)FS (%) 32.7 % LVEF (%)61.3 (>50%) M-Mode DIMENSIONS Aortic Root2.10 (2.2-3.7cm)Aortic Cusp Exc.1.00 (1.5-2.0cm) Aortic Valve AoV Peak Ehqqeviw051.0cm/[place] Peak GR.21mmHg Mitral Valve E/A ratio0.0 TDI E/Lateral E'0.0E/Medial E'0.0 Tricuspid Valve TR Peak [id number] [id number] Peak Gr.25mmHg [id number] LEFT VENTRICLE The left ventricle is normal size. There is normal left ventricular wall thickness. The left ventricular function is normal.EF-60-65% There is normal LV segmental wall motion. Transmitral Doppler flow pattern is Grade III-reversible restrictive diastolic dysfunction. No left ventricle thrombus noted on this study. There is no ventricular septal defect visualized. There is no left ventricular aneurysm. There is no mass noted in the left ventricle. RIGHT VENTRICLE The right ventricle is normal size. There is normal right ventricular wall thickness. The right ventricular systolic function is normal. ATRIA The left atrium size is normal. The right atrium size is normal. The interatrial septum is intact with no evidence for an atrial septal defect. AORTIC VALVE The aortic valve is calcified and displays decreased opening. The aortic valve is moderately sclerotic. No aortic regurgitation is present. There is mild valvular aortic stenosis VS aortic sclerosis. There is no aortic valvular vegetation. MITRAL VALVE The mitral valve is thickened but opens well. Mitral regurgitation is trace. There is no mitral valve stenosis. There is no evidence of mitral valve prolapse. TRICUSPID VALVE The tricuspid valve leaflets are thickened , but open well. There is mild tricuspid regurgitation.RVSP-35 mmof Hg. There is no tricuspid valve stenosis. There is no tricuspid valve prolapse or vegetation. PULMONIC VALVE The pulmonary valve is normal in structure. There is trace pulmonic valvular regurgitation. There is no pulmonic valvular stenosis. GREAT VESSELS The aortic root is normal in size. The ascending aorta is normal in size. The pulmonary artery is normal. The IVC is normal in size and collapses >50% with inspiration. PERICARDIAL EFFUSION There is no pleural effusion. There is no pericardial effusion. <Conclusion> Normal chamber size. EF-60-65% There is mild valvular aortic stenosis VS aortic sclerosis. Mitral regurgitation is trace. There is mild tricuspid regurgitation.RVSP-35 mmof Hg. There is trace pulmonic valvular regurgitation. The IVC is normal in size and collapses >50% with inspiration. There is no pericardial effusion.
[2018-05-29] MEDS: HYDROmorphone 1 mg/ml ISec IVP PRN ×2 (01:04→04:56)
--- NOTE | 2018-05-29 01:12 | CON ---
DATE: 05/28/2018 REASON FOR CONSULTATION: Back and leg pain. HISTORY OF PRESENT ILLNESS: Ms. Sen is a 72-year-old woman with history of multiple medical issues including having had a CVA in the past along with diabetes, hypertension, hypercholesterolemia. Evidently, she is complaining of progressively worsening pain in her back radiating down her right leg. She seems to point to the outside of the right leg that bothers her. She states that it goes into her foot. She normally ambulates with a walker, but the pain had gotten so bad she was unable to ambulate. She states it is not that much better since the time she has been in the hospital. It is a little difficult communicating with her following her stroke, but evidently she did not complain of any trauma leading to this, nor did she have any issues with incontinence. PAST MEDICAL HISTORY: Significant as mentioned above along with coronary artery disease, COPD, renal failure, cataracts. MEDICATIONS: They are listed on the chart. They do include Ecotrin and Plavix. ALLERGIES: SHE IS ALLERGIC TO IODINE SUBSTANCES. PAST SURGICAL HISTORY: Significant to a hysterectomy and bilateral knee replacements. PHYSICAL EXAMINATION: MUSCULOSKELETAL: On examination, she complains of pain with palpation of lumbosacral region. She holds her right leg flexed and is very resistant to any attempts to try and extend the leg because she states that it really aggravates the pain. She can extend her left leg fully and denies any pain in that leg. No straight-leg raising complaints noted lifting the left leg, but again, I cannot straighten out the right leg at all. She appears to have good strength distally in the right foot in terms of anterior tib and the EHL grossly. CAT scan shows an old fracture at T12 with kyphoplasty in the past. It shows what appears to be a grade 1 spondylolisthesis at L4 and L5 with resultant stenosis in that area. She had an MRI done this morning, but unfortunately was only able to tolerate sagittal cuts, and they were unable to do any axial images. This shows some edema in the L1 vertebral body and the radiologist felt this is indicative of a new fracture there with some mild compression of the superior endplate of L1. However, no comment was made on anything distal to that, as there were no axial images to give more of a three-dimensional picture. Certainly, her complaints in terms of rubbing the outside of her legs, which seemed to go along with L5 irritation and that would be the most likely nerve to be irritated given her stenosis and spondylolisthesis at L4-5. She has a little bit of lateral listhesis there with a left lumbar scoliosis. I think given all of her issues, I would consider doing simply a decompressive laminectomy be certainly the right L5 root, in particular decompressed. I would not opt for any more in the way of fusion procedures, as she looks as though she has some compression osteophytes present from the lateral listhesis at 4-5 that I think is probably to some degree stabilized in that level. Obviously, she would need Cardiology and Pulmonary clearances and would have to be off Plavix for 5 days. She also needs to get the axial views done at some point in the next day or two, so that we can fully evaluate this, but for now, after speaking with her and offering her an option of an epidural injection as well, she wishes to proceed with the surgery as it should be a more predictable and long-lasting results. Therefore, we have tentatively arranged to have this done, scheduled this for Saturday pending her clearances and getting the axial images before then and presuming they corroborate with the sagittal images that have been obtained thus far. Thank you for allowing me to participate in the care of your patient. Randall Aleman MD
[2018-05-29] MEDS: Sodium Chloride 0.9% 1,000 ML IV SCH (04:59)
--- NOTE | 2018-05-29 08:03 | PN ---
DATE: 05/28/2018 SUBJECTIVE: The patient was seen and examined at the bedside on 05/28/2018, having intractable pain, cannot lie down comfortably. I increased her Dilaudid from 0.5 to 1 mg, seen by back surgeon. Discussion done with the . No fever. No chills. No hematuria. No hematochezia. No headache. No dizziness. PHYSICAL EXAMINATION: VITAL SIGNS: Blood pressure 111/40, pulse 70, respiratory rate 18, temperature 98.8. HEENT: Head normocephalic and atraumatic. Eyes PERRLA. Extraocular muscles are intact. Conjunctivae clear. Nose patent. NECK: Supple. No carotid bruits. No JVD or thyromegaly. CHEST: Bilaterally symmetrical. HEART: S1 and S2 positive. LUNGS: Clear to auscultation. ABDOMEN: Soft. Bowel sounds present. No organomegaly. EXTREMITIES: No edema. No cyanosis. NEUROLOGIC: The patient is awake and alert, moving all 4 extremities. No focal deficits. LABORATORY DATA: White blood cell is 8.6, hemoglobin 11, hematocrit 34.3, platelets 199. Sodium 137, potassium 4.7, BUN 39, creatinine 1.3, glucose 177, triglycerides 141, cholesterol 229, TSH 2.47. ASSESSMENT AND PLAN: The patient with history of old cerebrovascular accident, renal insufficiency, hyperglycemia, history of cerebrovascular accident, diabetes mellitus, anemia of chronic disease, coronary artery disease, history of chronic obstructive pulmonary disease, vitamin D deficiency, history of multiple falls with acute compression fracture of L1, chronic severe compression fracture of T12, spinal stenosis, history of kyphoplasty. The patient has mild sleep apnea syndrome, refusing CPAP inhaled bronchodilators, gastric and deep venous thrombosis prophylaxis. We will continue Norvasc, aspirin, Lipitor, calcium, Plavix, hydralazine, Dilaudid, insulin. Reviewed Dr. Randall Aleman's notes, waiting for clearance from Cardiology and Pulmonary. Meanwhile continue pain management, physical therapy, gastrointestinal and deep venous thrombosis prophylaxis. Repeat labs. We will follow up. Michelle Aviles MD MTDJovanny
[2018-05-29] MEDS: Levothyroxine 88 MCG TAB PO SCH (08:43)
[2018-05-29] MEDS: Arformoterol 15 mcg/2 ml Inh Sol IH SCH ×2 (08:43→20:22)
[2018-05-29] MEDS: Lidocaine 5% Patch TD SCH (09:37)
[2018-05-29] MEDS: Pantoprazole 40 mg EC Tab PO SCH (09:39)
[2018-05-29] MEDS: Potassium Chloride 10 mEq ER Tab PO SCH (09:39)
[2018-05-29] MEDS: Enoxaparin 40 mg Syringe SC SCH (09:40)
[2018-05-29] MEDS: HYDROmorphone 0.5 mg/0.5 ml ISec IVP PRN ×2 (09:57→14:36)
--- NOTE | 2018-05-29 10:16 | CP.PCM.PN ---
Subjective - Date & Time of Evaluation Date of Evaluation: 05/29/18 Time of Evaluation: 07:00 - Subjective Subjective: Awake, no distress Reason for consultation and follow up:Cardiac evaluation and risk stratification for possible neurosurgical intervention for back pain Seen and examined by me and Dr. Clinton Objective - Vital Signs/Intake and Output Vital Signs (last 24 hours): Temp Pulse Resp BP Pulse Ox 98.8 F 80 20 124/80 95 05/29/18 07:00 05/29/18 09:38 05/29/18 07:00 05/29/18 09:39 05/29/18 07:00 Intake and Output: 05/29/18 05/29/18 06:59 18:59 Intake Total 360 Balance 360 - Medications Medications: Current Medications Amlodipine Besylate (Norvasc) 10 mg PO DAILY [facility] Last Admin: 05/29/18 09:39 Dose: 10 mg Arformoterol Tartrate (Brovana) 15 mcg IH [id number] [facility] Last Admin: 05/29/18 08:43 Dose: 15 mcg Aspirin (Ecotrin) 81 mg PO DAILY [facility] Last Admin: 05/29/18 09:41 Dose: Not Given Atorvastatin Calcium (Lipitor) 40 mg PO DIN [facility] Last Admin: 05/28/18 17:33 Dose: 40 mg Calcium Carbonate (Caltrate) 600 mg PO DAILY [facility] Last Admin: 05/29/18 09:40 Dose: 600 mg Clopidogrel Bisulfate (Plavix) 75 mg PO DAILY [facility] Last Admin: 05/29/18 09:41 Dose: Not Given Enoxaparin Sodium (Lovenox) 40 mg SC DAILY [facility]; Protocol Last Admin: 05/29/18 09:40 Dose: 40 mg Famotidine (Pepcid) 20 mg PO 2200 [facility] Last Admin: 05/28/18 21:25 Dose: 20 mg Gabapentin (Neurontin) 300 mg PO TID [facility]; Protocol Last Admin: 05/29/18 09:39 Dose: 300 mg Hydralazine HCl (Apresoline) 50 mg PO BID [facility] Last Admin: 05/29/18 09:38 Dose: 50 mg Hydromorphone HCl (Dilaudid) 1 mg IVP Q4H PRN PRN Reason: Pain, severe (8-10) Last Admin: 05/29/18 09:57 Dose: 1 mg Insulin Human Regular (Humulin R Low) 0 units SC ACHS [facility]; Protocol Last Admin: 05/28/18 17:32 Dose: 1 u Levothyroxine Sodium (Synthroid) 88 mcg PO ACB [facility] Last Admin: 05/29/18 08:43 Dose: 88 mcg Lidocaine (Lidoderm) 1 ea TD DAILY [facility] Last Admin: 05/29/18 09:37 Dose: 1 ea Montelukast Sodium (Singulair) 10 mg PO DAILY [facility] Last Admin: 05/29/18 09:39 Dose: 10 mg Pantoprazole Sodium (Protonix Ec Tab) 40 mg PO DAILY [facility] Last Admin: 05/29/18 09:39 Dose: 40 mg Potassium Chloride (Klor-Con 10) 10 meq PO Q72 [facility] Last Admin: 05/29/18 09:39 Dose: 10 meq Sertraline HCl (Zoloft) 150 mg PO 1800 [facility] Last Admin: 05/28/18 17:33 Dose: 150 mg Sitagliptin Phosphate (Januvia) 25 mg PO DAILY [facility] Last Admin: 05/29/18 09:38 Dose: 25 mg Tramadol HCl (Ultram) 50 mg PO Q6H PRN PRN Reason: Pain, moderate (4-7) Last Admin: 05/29/18 06:17 Dose: 50 mg - Labs Labs: 05/28/18 07:00 05/28/18 07:00 PT 11.5 SECONDS (9.4-12.5) 05/26/18 10:20 INR 1.00 05/26/18 10:20 APTT 29.3 Seconds (25.1-36.5) 05/26/18 10:20 - Constitutional Appears: Non-toxic, No Acute Distress - Head Exam Head Exam: NORMAL INSPECTION, NORMOCEPHALIC - Eye Exam Eye Exam: Normal appearance Pupil Exam: NORMAL ACCOMODATION - ENT Exam ENT Exam: Mucous Membranes Moist, Normal Exam - Respiratory Exam Respiratory Exam: Clear to Ausculation Bilateral, NORMAL BREATHING PATTERN - Cardiovascular Exam Cardiovascular Exam: +S1, +S2 - GI/Abdominal Exam GI & Abdominal Exam: Soft, Normal Bowel Sounds - Extremities Exam Additional comments: back pain - Neurological Exam Neurological Exam: Alert, Awake, Oriented x3 - Psychiatric Exam Psychiatric exam: Normal Affect, Normal Mood - Skin Skin Exam: Dry, Normal Color, Warm Assessment and Plan - Assessment and Plan (Free Text) Assessment: A 72 year old female who came in to the ER due to severe right sided back pain. History of fall about a week ago. History of coronary artery disease,post cardiac cath 03/2014- non obstructive CAD, hypertension,renal failure, hypothyroidism,Vitamin D deficiency,anxiety,depression, diabetes, CVA, hypercholesterolemia, severe degenerative joint disease L4-L5, and compression fracture T12, bilateral knee replacement. Consult was called for cardiac clearance. Echo done.Normal chambers, LVEF 60- 65%,trace MR, mild TR RVSP 35 mmHg,trace pulmonic valvular regurgitation,no pericardial effusion. Denies chest pain or shortness of breath. No evidence of ischemia or heart failure. Patient cleared for surgery with moderate risk. Hold Aspirin and plavix 5 days prior to surgery. Gentle hydration. Plan: Denies chest pain Heart rate and blood pressure stable As per Neurosurgery, tentative date of procedure will be on Saturday Will Hold Aspirin and Plavix Cleared from cardiac standpoint for surgery with moderate risk On ASA 81 mg daily,Lipitor 40 mg daily,Plavix 75 mg daily, Lovenox 40 mg daily, Hydralazine 50 mg BID, Synthroid 88 mcg daily. Continue current treatment Continue current medications Will follow up Chart reviewed Plan and treatment discussed with Dr. Clinton
--- NOTE | 2018-05-29 12:58 | PN ---
DATE: 05/29/2018 PULMONARY PROGRESS NOTE REFERRING PHYSICIAN: Michelle Aviles MD SUBJECTIVE: The patient is sitting up at bedside, reports pain to lumbar area. No headache, rhinitis, cough, shortness of breath, chest pain, abdominal pain, nausea, vomiting, diarrhea, or leg swelling reported. OBJECTIVE: VITAL SIGNS: Blood pressure 124/80, pulse 80, temperature 98.8, respirations 20, oxygen saturation 95% on room air. GENERAL: No acute distress. HEENT: Moist mucous membrane. Mallampati score 3. NECK: Supple. No JVD. CHEST: Clear bilaterally. CARDIOVASCULAR: S1 and S2 audible. ABDOMEN: Soft, nontender. No distention. No organomegaly. EXTREMITIES: No bilateral edema. MUSCULOSKELETAL: Pain elicited on palpation of lumbar area. NEUROLOGIC: Awake, alert, verbal, being responsive. Follows simple commands. LABORATORY DATA: Reviewed. POC glucose 131. MEDICATIONS: Reviewed. Norvasc 10 mg daily, Brovana 15 mcg inhalation every 12 hours, aspirin 81 mg daily, Lipitor 40 mg at dinner, calcium carbonate 600 mg daily, Plavix 75 mg daily, Lovenox 40 mg subcu daily, Pepcid 20 mg at bedtime, Neurontin 300 mg three times a day, hydralazine 50 mg twice a day, Dilaudid 1 mg IV push every 4 hours as needed for severe pain, Humulin R sliding scale, Synthroid 88 mcg p.o. in the morning, Lidoderm patch topically to affected areas, Singulair 10 mg p.o. daily, Protonix 40 mg p.o. daily, potassium chloride 10 mEq every 72 hours, Zoloft 150 mg daily, Januvia 25 mg daily, Tramadol 50 mg every 6 hours as needed for moderate pain. IMPRESSION AND PLAN: Anemia, renal insufficiency, hyperglycemia, history of cerebrovascular accident, diabetes mellitus, coronary artery disease, history of myocardial infraction, chronic obstructive pulmonary disease, cataract surgery, renal failure, vitamin D deficiency, history of falls, presently with acute compression fracture of L1, chronic severe compression fracture of T12, spinal stenosis. Dr. Aleman's note appreciated. The patient may be having decompressive laminectomy pending pulmonary clearance. The patient does have mild sleep apnea syndrome. Presently refusing to use continuous positive airway pressure machine. Pulmonary status is currently optimized. We recommend close cardiopulmonary monitoring during and after surgery, sleep apnea precaution, elevate head of bed 45 degrees, pain management, avoid nocturnal sedation, fall precaution. Will order chest x-ray and EKG for surgical clearance This patient was seen and examined with Dr. Sawant. Discussed assessment and plan as described above. Thank you for this consult and we will follow with you. Dmitriy Casas APN Homer Sawant MD [facility]
[2018-05-29] MEDS: Insulin Reg-LOW-Coverage SC SCH ×2 (13:01→18:22)
--- NOTE | 2018-05-30 01:55 | PN ---
DATE: 05/29/2018 REFERRING PHYSICIAN: . REASON FOR CONSULTATION: Followup, cardiac evaluation, risk stratification, possible neurosurgical intervention for back pain. This note is in addition to dictated by nurse practitioner, Ana Lugo. The patient has a previous cardiac workup and echo done , trace MR, trace TR, diastolic pressure 73, trace pulmonary insufficiency, no pericardial effusion. The patient had cardiac catheterization in 2013, nonobstructive coronary artery disease, history of seizure, the patient is on aspirin and Plavix. I have suggested to hold aspirin and Plavix 5 days before the surgery. It was heard that possibly the patient is going to need surgical intervention for neurosurgical next week, so we will discontinue aspirin and Plavix, anticipating the patient is having surgery next week. Also, orders were placed in the physician nurse communication to hold aspirin, Plavix 5 days before surgery. Thank you, Dr. Aviles, for providing us the opportunity in taking care of the patient, Isaías Sen. This note is in addition to dictated by nurse practitioner, Ana Lugo. Homer Clinton MD
--- NOTE | 2018-05-30 03:48 | PN ---
DATE: 05/29/2018 SUBJECTIVE: The patient is a 72-year-old female. The patient was seen and examined at the bedside on 05/29/2018. Looking comfortable. Just got the dose of . As per the patient's nursing staff, the patient is in too much pain. No fever. No chills. No nausea, vomiting, or diarrhea. No hematemesis. No swelling of the legs. No chest pain or palpitations. No headaches or dizziness. PHYSICAL EXAMINATION: VITAL SIGNS: Blood pressure 124/80, pulse 83, temperature 98.8, respiratory rate 20, oxygen saturation 95% on room air. HEENT: Head is normocephalic and atraumatic. Eyes PERRLA. Extraocular muscles intact. Conjunctivae clear. Nose patent. NECK: Supple. No carotid bruits. No JVD or thyromegaly. CHEST: Bilaterally symmetrical. HEART: S1 and S2 positive. LUNGS: Clear to auscultation. ABDOMEN: Soft. Bowel sounds present. No organomegaly. EXTREMITIES: No edema. No cyanosis. NEUROLOGIC: The patient is awake, alert. Moving all four extremities. No focal deficit. LABORATORY DATA: We do not have recent labs today, but I reviewed old labs. Glucose is 131. MEDICATIONS: Norvasc, Brovana, Lipitor, , Plavix, Lovenox, Pepcid, Neurontin, hydralazine, Dilaudid, Lidoderm, Singulair, Protonix. ASSESSMENT AND PLAN: Ms. Isaías Sen is a 72-year-old lady with history of multiple medical problems, insulin-dependent diabetes mellitus, not very well controlled, cerebrovascular accident, coronary artery disease, status post cardiac stenting, history of myocardial infarction, anemia, renal insufficiency, chronic obstructive pulmonary disease, cataract surgery, vitamin D deficiency, history of multiple falls. Came with intractable back pain. Has fracture of L1, chronic severe compression fracture of T12, spinal stenosis, history of kyphoplasty. According to Dr. Aleman, the patient should go for decompressive laminectomy. She was waiting for clearance from Pulmonary and Cardiology. Pulmonary already gave the clearance. Getting pain medication. She is supposed to go to second time MRI because the first MRI was not very clear. Neurosurgery is planning with the family about surgery. Gastrointestinal and deep venous thrombosis prophylaxis. Repeat labs. We will follow up. Michelle Aviles MD
[2018-05-30] MEDS: HYDROmorphone 0.5 mg/0.5 ml ISec IVP PRN ×3 (07:12→21:21)
[2018-05-30] MEDS: Arformoterol 15 mcg/2 ml Inh Sol IH SCH ×2 (07:37→19:49)
--- NOTE | 2018-05-30 07:59 | CP.PCM.PN ---
Subjective - Date & Time of Evaluation Date of Evaluation: 05/30/18 Time of Evaluation: 06:50 - Subjective Subjective: Awake, no distress, denies chest pain or shortness of breath Reason for consultation and follow up:Cardiac evaluation and risk strati fication for possible neurosurgical intervention for back pain Seen and examined by me and Dr. Clinton Objective - Vital Signs/Intake and Output Vital Signs (last 24 hours): Temp Pulse Resp BP Pulse Ox 97.8 F 78 20 142/90 96 05/30/18 06:00 05/30/18 06:00 05/30/18 06:00 05/30/18 06:00 05/30/18 06:00 - Medications Medications: Current Medications Amlodipine Besylate (Norvasc) 10 mg PO DAILY [facility] Last Admin: 05/29/18 09:39 Dose: 10 mg Arformoterol Tartrate (Brovana) 15 mcg IH [id number] [facility] Last Admin: 05/30/18 07:37 Dose: 15 mcg Aspirin (Ecotrin) 81 mg PO DAILY [facility] Last Admin: 05/29/18 09:41 Dose: Not Given Atorvastatin Calcium (Lipitor) 40 mg PO DIN [facility] Last Admin: 05/28/18 17:33 Dose: 40 mg Calcium Carbonate (Caltrate) 600 mg PO DAILY [facility] Last Admin: 05/29/18 09:40 Dose: 600 mg Clopidogrel Bisulfate (Plavix) 75 mg PO DAILY [facility] Last Admin: 05/29/18 09:41 Dose: Not Given Enoxaparin Sodium (Lovenox) 40 mg SC DAILY [facility]; Protocol Last Admin: 05/29/18 09:40 Dose: 40 mg Famotidine (Pepcid) 20 mg PO 2200 [facility] Last Admin: 05/29/18 21:49 Dose: 20 mg Gabapentin (Neurontin) 300 mg PO TID [facility]; Protocol Last Admin: 05/29/18 18:19 Dose: 300 mg Hydralazine HCl (Apresoline) 50 mg PO BID [facility] Last Admin: 05/29/18 18:20 Dose: 50 mg Hydromorphone HCl (Dilaudid) 1 mg IVP Q4H PRN PRN Reason: Pain, severe (8-10) Last Admin: 05/30/18 07:12 Dose: 1 mg Insulin Human Regular (Humulin R Low) 0 units SC ACHS [facility]; Protocol Last Admin: 05/29/18 18:22 Dose: Not Given Levothyroxine Sodium (Synthroid) 88 mcg PO ACB [facility] Last Admin: 05/29/18 08:43 Dose: 88 mcg Lidocaine (Lidoderm) 1 ea TD DAILY [facility] Last Admin: 05/29/18 09:37 Dose: 1 ea Montelukast Sodium (Singulair) 10 mg PO DAILY [facility] Last Admin: 05/29/18 09:39 Dose: 10 mg Pantoprazole Sodium (Protonix Ec Tab) 40 mg PO DAILY [facility] Last Admin: 05/29/18 09:39 Dose: 40 mg Potassium Chloride (Klor-Con 10) 10 meq PO Q72 [facility] Last Admin: 05/29/18 09:39 Dose: 10 meq Sertraline HCl (Zoloft) 150 mg PO 1800 [facility] Last Admin: 05/29/18 18:19 Dose: 150 mg Sitagliptin Phosphate (Januvia) 25 mg PO DAILY [facility] Last Admin: 05/29/18 09:38 Dose: 25 mg Tramadol HCl (Ultram) 50 mg PO Q6H PRN PRN Reason: Pain, moderate (4-7) Last Admin: 05/29/18 06:17 Dose: 50 mg - Labs Labs: 05/28/18 07:00 05/28/18 07:00 PT 11.5 SECONDS (9.4-12.5) 05/26/18 10:20 INR 1.00 05/26/18 10:20 APTT 29.3 Seconds (25.1-36.5) 05/26/18 10:20 - Constitutional Appears: Non-toxic, No Acute Distress - Head Exam Head Exam: NORMAL INSPECTION, NORMOCEPHALIC - Eye Exam Eye Exam: Normal appearance Pupil Exam: NORMAL ACCOMODATION - ENT Exam ENT Exam: Mucous Membranes Moist - Respiratory Exam Respiratory Exam: Clear to Ausculation Bilateral, NORMAL BREATHING PATTERN - Cardiovascular Exam Cardiovascular Exam: +S1, +S2 - GI/Abdominal Exam GI & Abdominal Exam: Soft, Normal Bowel Sounds - Neurological Exam Neurological Exam: Alert, Awake - Psychiatric Exam Psychiatric exam: Normal Affect, Normal Mood - Skin Skin Exam: Dry, Normal Color, Warm Assessment and Plan - Assessment and Plan (Free Text) Assessment: A 72 year old female who came in to the ER due to severe right sided back pain. History of fall about a week ago. History of coronary artery disease,post cardiac cath 03/2014- non obstructive CAD, hypertension,renal failure, hypothyroidism,Vitamin D deficiency,anxiety,depression, diabetes, CVA, hypercholesterolemia, severe degenerative joint disease L4-L5, and compression fracture T12, bilateral knee replacement. Consult was called for cardiac clearance. Echo done.Normal chambers, LVEF 60- 65%,trace MR, mild TR RVSP 35 mmHg,trace pulmonic valvular regurgitation,no p ericardial effusion. Denies chest pain or shortness of breath. No evidence of ischemia or heart failure. Patient cleared for surgery with moderate risk. Held Aspirin and Plavix for possible neuro surgery on Saturday Plan: No distress,Denies chest pain Held Aspirin and Plavix for possible neuro surgery on Saturday Heart rate and blood pressure stable Cleared from cardiac standpoint for surgery with moderate risk On ASA 81 mg daily,Lipitor 40 mg daily,Plavix 75 mg daily, Lovenox 40 mg daily, Hydralazine 50 mg BID, Synthroid 88 mcg daily. Possible repeat of MRI of today (initial not clear) Continue current treatment Continue current medications Will follow up Chart reviewed Plan and treatment discussed with Dr. Clinton
[2018-05-30] MEDS: Levothyroxine 88 MCG TAB PO SCH (10:10)
[2018-05-30] MEDS: Pantoprazole 40 mg EC Tab PO SCH (10:10)
[2018-05-30] MEDS: Lidocaine 5% Patch TD SCH (10:12)
[2018-05-30] MEDS: Enoxaparin 40 mg Syringe SC SCH (10:12)
[2018-05-30] MEDS: Insulin Reg-LOW-Coverage SC SCH ×4 (10:15→22:03)
--- NOTE | 2018-05-30 11:24 | PN ---
DATE: 05/30/2018 REFERRING PHYSICIAN: Michelle Aviles MD SUBJECTIVE: The patient is sitting up in a chair at bedside. Reports pain to right leg and lumbar area. No headache, rhinitis, cough, shortness of breath, chest pain, abdominal pain, nausea, vomiting, diarrhea, leg swelling reported. OBJECTIVE VITAL SIGNS: Blood pressure 142/90, pulse 70, temperature 97.8, oxygen saturation 96% on room air. GENERAL: No acute distress. HEENT: Moist mucous membranes. Mallampati score of 3. NECK: Supple. No JVD. CHEST: Clear bilaterally. CARDIOVASCULAR: S1, S2 audible. ABDOMEN: Soft, nontender, no distention, no organomegaly. EXTREMITIES: No bilateral edema. MUSCULOSKELETAL: Pain elicited on palpation of lumbar area. NEUROLOGIC: Awake, alert, verbally responsive. Follows simple commands. LABORATORY DATA: Reviewed. POC glucose 117. MEDICATIONS: Reviewed. Norvasc 10 mg by mouth daily, Brovana 15 mcg inhalation every 12 hours, aspirin 81 mg by mouth daily, Lipitor 40 mg at bedtime, calcium carbonate 600 mg daily, Plavix 75 mg daily, Lovenox 40 mg subcutaneously daily, Pepcid 20 mg at bedtime, Neurontin 300 mg by mouth three times a day, hydralazine 50 mg twice a day, Dilaudid 1 mg IV push every four hours as needed for severe pain, Humulin R sliding scale, Synthroid 88 mcg by mouth in the morning, Lidoderm patch topically to the affected area, Singulair 10 mg by mouth daily, Protonix 40 mg by mouth daily, potassium chloride 10 mEq every 72 hours, Zoloft 150 mg by mouth daily, Januvia 25 mg by mouth daily, tramadol 50 mg every six hours as needed for moderate pain. IMPRESSION AND PLAN: Anemia, renal insufficiency, hyperglycemia, history of cerebrovascular accident, diabetes mellitus, coronary artery disease, history of myocardial infarction, chronic obstructive pulmonary disease, cataract surgery, renal failure, vitamin D deficiency, history of falls, presently with acute compression fracture of L1, chronic severe compression fracture of T12, spinal stenosis. Pending repeat MRI to be done today. Pending chest x-ray to be done today. The patient does have mild sleep apnea syndrome, presently refusing to use continuous positive airway pressure machine. Pulmonary status, currently optimized. Sleep apnea precaution. Elevate head of bed to 45 degrees. Pain management, avoid nocturnal sedation. Fall precaution. Gastric prophylaxis, deep venous thrombosis prophylaxis. This patient was seen and examined with Dr. Sawant. Discussed assessment and plan as described above. Thank you for this consult and we will follow with you. Dmitriy Casas APN Homer Sawant MD
[2018-05-30] MEDS ORDERED: HYDROmorphone 0.5 mg/0.5 ml ISec IVP STA (14:14)
--- NOTE | 2018-05-30 16:28 | MRI ---
Date of service: 05/30/2018 PROCEDURE: MR LUMBAR SPINE WITHOUT CONTRAST HISTORY: low back/leg pain COMPARISON: MRI 05/28/2018 TECHNIQUE: Multiecho multiplanar sequences were performed through the lumbar spine without the use of intravenous contrast. The study was degraded by motion artifact. Several sequences were were repeated. However the images are suboptimal. FINDINGS: Normal lumbar lordosis. Vertebral body heights are preserved. Marrow signal unremarkable. Conus medullaris unremarkable at the level of Paraspinal soft tissues are unremarkable. As noted on the previous study there is a severe compression fracture of T12. There is marrow edema at L1. There is severe spinal stenosis at T12-L1. OTHER FINDINGS: None. IMPRESSION: As noted on the previous study there is a severe compression fracture of T12. There is marrow edema at L1. There is severe spinal stenosis at T12-L1. The study is degraded by motion artifact
--- NOTE | 2018-05-30 21:32 | PN ---
DATE: 05/30/2018 SEX OF THE PATIENT: Female. AGE OF THE PATIENT: 72. TYPE OF DICTATION: Progress note. REFERRING PHYSICIAN: Michelle Aviles MD REASON FOR CONSULTATION: Followup, cardiac evaluation, and risk stratification for possible neurosurgical intervention for back pain. This note is addition to dictated by nurse practitioner, Ana Lugo. The patient currently is stable. Heart rate and blood pressure are stable. No new complaint of chest pain, shortness of breath, or any palpitation. The patient had a cardiac catheterization in 2013 for coronary artery disease. History of CVA. The patient is on aspirin and Plavix. Discontinued Plavix now. The patient had a repeat echo done on 05/28/2018 that showed ejection fraction 75%, trace mitral regurgitation, mild tricuspid regurgitation, trace pulmonary insufficiency. The patient is cleared from cardiology point of view with moderate risk secondary to underlying comorbidity, but no absolute contraindication since Plavix is on hold. Thank you Dr. Aviles for providing us the opportunity in taking care of the patient, Isaías Sen. This note is addition to dictated by nurse practitioner, and again the patient is cleared with moderate risk secondary to underlying comorbidity but no absolute contraindication. We will follow with you. Continue interim Synthroid, hydralazine, DVT prophylaxis. Homer Clinton MD
--- NOTE | 2018-05-31 05:03 | PN ---
DATE: 05/30/2018 SUBJECTIVE: The patient is a 72-year-old female. The patient was seen and examined at the bedside on 05/30/2018. Looking comfortable. No nausea, vomiting, or diarrhea. No hematuria or hematochezia. No swelling of the legs. No chest pain or palpitation. No headache or dizziness. Still having back pain. PHYSICAL EXAMINATION: VITAL SIGNS: Blood pressure 140/90, pulse 70, respiratory rate 18, and temperature 97.8. HEENT: Head, normocephalic and atraumatic. Eyes, PERRLA. Extraocular muscles intact. Conjunctivae clear. Nose patent. Mucous membrane moist. NECK: Supple. No carotid bruit, JVD, or thyromegaly. CHEST: Bilaterally symmetrical. HEART: S1 and S2 positive. LUNGS: Clear to auscultation. ABDOMEN: Soft. Bowel sounds present. No organomegaly. EXTREMITIES: No edema. No cyanosis. NEUROLOGIC: The patient is awake, alert, and follows simple commands. MEDICATIONS: Norvasc, Brovana, aspirin, Lipitor, carbonate, Plavix, Lovenox, Pepcid, Neurontin, hydralazine, Dilaudid, insulin, Lidoderm, Singulair, clonidine, Zoloft, and Tramadol. LABORATORY DATA: We do not have recent labs today, but I reviewed old labs. Glucose is 117. ASSESSMENT AND PLAN: Ms. Isaías Sen is a 72-year-old lady with multiple medical problems, has renal insufficiency, insulin-dependent diabetes mellitus, history of cerebrovascular accident, anemia, coronary artery disease, history of myocardial infarction, chronic obstructive pulmonary disease, renal failure, vitamin D deficiency, has acute compression fractures L1, chronic severe compression fractures T12, spinal stenosis. Repeat MRI done and reviewed by me. Discussion with the patient's daughter, Robert and the patient's , Mr. Sen. All questions answered. Getting pain medicine. Appreciated Dr. Aleman's input and appreciated Dr. Aleman's discussion with the family. Continue monitoring. Repeat laboratories. We will follow up. Michelle Aviles MD
--- NOTE | 2018-05-31 08:19 | RAD ---
Date of service: 05/30/2018 HISTORY: surgical clearance COMPARISON: No prior. TECHNIQUE: Chest PA and lateral FINDINGS: LUNGS: No active pulmonary disease. PLEURA: No significant pleural effusion identified. No pneumothorax apparent. CARDIOVASCULAR: No aortic atherosclerotic calcification present. Mild cardiomegaly no pulmonary vascular congestion. OSSEOUS STRUCTURES: No significant abnormalities. VISUALIZED UPPER ABDOMEN: Normal. OTHER FINDINGS: None. IMPRESSION: No active disease.
[2018-05-31] MEDS: Levothyroxine 88 MCG TAB PO SCH (09:08)
--- NOTE | 2018-05-31 09:08 | CP.PCM.PN ---
Subjective - Date & Time of Evaluation Date of Evaluation: 05/31/18 Time of Evaluation: 07:45 - Subjective Subjective: Awake, no distress, lying on left side, mild back pain Reason for consultation and follow up:Cardiac evaluation and risk stratificati on for possible neurosurgical intervention for back pain Seen and examined by me and Dr. Castle Objective - Vital Signs/Intake and Output Vital Signs (last 24 hours): Temp Pulse Resp BP Pulse Ox 99.0 F 79 20 142/55 L 95 05/31/18 06:00 05/31/18 06:00 05/31/18 06:00 05/31/18 06:00 05/31/18 06:00 - Medications Medications: Current Medications Amlodipine Besylate (Norvasc) 10 mg PO DAILY [facility] Last Admin: 05/30/18 10:11 Dose: 10 mg Arformoterol Tartrate (Brovana) 15 mcg IH [id number] [facility] Last Admin: 05/30/18 19:49 Dose: 15 mcg Aspirin (Ecotrin) 81 mg PO DAILY [facility] Last Admin: 05/29/18 09:41 Dose: Not Given Atorvastatin Calcium (Lipitor) 40 mg PO DIN [facility] Last Admin: 05/28/18 17:33 Dose: 40 mg Calcium Carbonate (Caltrate) 600 mg PO DAILY [facility] Last Admin: 05/30/18 10:10 Dose: 600 mg Clopidogrel Bisulfate (Plavix) 75 mg PO DAILY [facility] [place] Last Admin: 05/29/18 09:41 Dose: Not Given Enoxaparin Sodium (Lovenox) 40 mg SC DAILY [facility]; Protocol Last Admin: 05/30/18 10:12 Dose: 40 mg Famotidine (Pepcid) 20 mg PO 2200 [facility] Last Admin: 05/30/18 23:57 Dose: 20 mg Gabapentin (Neurontin) 300 mg PO TID [facility]; Protocol Last Admin: 05/30/18 18:30 Dose: 300 mg Hydralazine HCl (Apresoline) 50 mg PO BID [facility] Last Admin: 05/30/18 18:30 Dose: 50 mg Hydromorphone HCl (Dilaudid) 1 mg IVP Q4H PRN PRN Reason: Pain, severe (8-10) Last Admin: 05/30/18 21:21 Dose: 1 mg Insulin Human Regular (Humulin R Low) 0 units SC [facility]; Protocol Last Admin: 05/30/18 22:03 Dose: Not Given Levothyroxine Sodium (Synthroid) 88 mcg PO ACB [facility] Last Admin: 05/30/18 10:10 Dose: 88 mcg Lidocaine (Lidoderm) 1 ea TD DAILY [facility] Last Admin: 05/30/18 10:12 Dose: 1 ea Montelukast Sodium (Singulair) 10 mg PO DAILY [facility] Last Admin: 05/30/18 10:11 Dose: 10 mg Pantoprazole Sodium (Protonix Ec Tab) 40 mg PO DAILY [facility] Last Admin: 05/30/18 10:10 Dose: 40 mg Potassium Chloride (Klor-Con 10) 10 meq PO Q72 [facility] [place] Last Admin: 05/29/18 09:39 Dose: 10 meq Sertraline HCl (Zoloft) 150 mg PO 1800 [facility] Last Admin: 05/30/18 18:30 Dose: 150 mg Sitagliptin Phosphate (Januvia) 25 mg PO DAILY [facility] Last Admin: 05/30/18 10:10 Dose: 25 mg Tramadol HCl (Ultram) 50 mg PO Q6H PRN PRN Reason: Pain, moderate (4-7) Last Admin: 05/31/18 00:44 Dose: 50 mg - Labs Labs: 05/28/18 07:00 05/28/18 07:00 PT 11.5 SECONDS (9.4-12.5) 05/26/18 10:20 INR 1.00 05/26/18 10:20 APTT 29.3 Seconds (25.1-36.5) 05/26/18 10:20 - Constitutional Appears: Non-toxic, No Acute Distress - Head Exam Head Exam: NORMAL INSPECTION, NORMOCEPHALIC - Eye Exam Eye Exam: Normal appearance Pupil Exam: NORMAL ACCOMODATION - ENT Exam ENT Exam: Mucous Membranes Moist, Normal Exam - Respiratory Exam Respiratory Exam: Decreased Breath Sounds, NORMAL BREATHING PATTERN - Cardiovascular Exam Cardiovascular Exam: +S1, +S2 - GI/Abdominal Exam GI & Abdominal Exam: Soft, Normal Bowel Sounds - Neurological Exam Neurological Exam: Alert, Awake - Psychiatric Exam Psychiatric exam: Normal Affect, Normal Mood - Skin Skin Exam: Dry, Normal Color, Warm Assessment and Plan - Assessment and Plan (Free Text) Assessment: A 72 year old female who came in to the ER due to severe right sided back pain. History of fall about a week ago. History of coronary artery disease,post cardiac cath 03/2014- non obstructive CAD, hypertension,renal failure, hypothyroidism,Vitamin D deficiency,anxiety,depression, diabetes, CVA, hypercholesterolemia, severe degenerative joint disease L4-L5, and compression fracture T12, bilateral knee replacement. Consult was called for cardiac clearance. Echo done.Normal chambers, LVEF 60- 65%,trace MR, mild TR RVSP 35 mmHg,trace pulmonic valvular regurgitation,no pericardial effusion. Denies chest pain or shortness of breath. No evidence of ischemia or heart failure. Patient cleared for surgery with moderate risk. Held Aspirin and Plavix for possible neuro surgery on Saturday. Repeat Lumbar spine MRI yesterday.stable. Plan: Mild back pain, lying on left side No distress,Denies chest pain For possible Neuro surgery on Saturday Held Aspirin and Plavix in prep for surgery Heart rate and blood pressure stable Cleared from cardiac standpoint for surgery with moderate risk On ASA 81 mg daily,Lipitor 40 mg daily,Plavix 75 mg daily, Lovenox 40 mg daily, Hydralazine 50 mg BID, Synthroid 88 mcg daily. Continue current treatment Continue current medications Will follow up Chart reviewed Plan and treatment discussed with Dr. Clinton
[2018-05-31] MEDS: Pantoprazole 40 mg EC Tab PO SCH (09:09)
[2018-05-31] MEDS: Lidocaine 5% Patch TD SCH (09:10)
[2018-05-31] MEDS: Enoxaparin 40 mg Syringe SC SCH (09:12)
--- NOTE | 2018-05-31 09:18 | CP.PCM.PN ---
Subjective - Date & Time of Evaluation Date of Evaluation: 05/31/18 Time of Evaluation: 09:14 - Subjective Subjective: SPINE Spoke to pt's family yesterday. They agree to proposed surgery. Pt has been cleared by Pulm/Card. Will hold Lovenox after this morning's dose.Explained possible risks/benefits of operation, including but not limited to failure to relieve pain, need for further surgery, damage to nerve(s) and or spinal sack, which could be temp or permanent, partial or complete. Objective - Vital Signs/Intake and Output Vital Signs (last 24 hours): Temp Pulse Resp BP Pulse Ox 99.0 F 79 20 142/55 L 95 05/31/18 06:00 05/31/18 06:00 05/31/18 06:00 05/31/18 06:00 05/31/18 06:00 - Medications Medications: Current Medications Amlodipine Besylate (Norvasc) 10 mg PO DAILY [facility] Last Admin: 05/30/18 10:11 Dose: 10 mg Arformoterol Tartrate (Brovana) 15 mcg IH [id number] [facility] Last Admin: 05/30/18 19:49 Dose: 15 mcg Aspirin (Ecotrin) 81 mg PO DAILY [facility] Last Admin: 05/29/18 09:41 Dose: Not Given Atorvastatin Calcium (Lipitor) 40 mg PO DIN [facility] Last Admin: 05/28/18 17:33 Dose: 40 mg Calcium Carbonate (Caltrate) 600 mg PO DAILY [facility] Last Admin: 05/30/18 10:10 Dose: 600 mg Clopidogrel Bisulfate (Plavix) 75 mg PO DAILY [facility] Last Admin: 05/29/18 09:41 Dose: Not Given Enoxaparin Sodium (Lovenox) 40 mg SC DAILY [facility]; Protocol Last Admin: 05/30/18 10:12 Dose: 40 mg Famotidine (Pepcid) 20 mg PO 2200 [facility] Last Admin: 05/30/18 23:57 Dose: 20 mg Gabapentin (Neurontin) 300 mg PO TID [facility]; Protocol Last Admin: 05/30/18 18:30 Dose: 300 mg Hydralazine HCl (Apresoline) 50 mg PO BID [facility] Last Admin: 05/30/18 18:30 Dose: 50 mg Hydromorphone HCl (Dilaudid) 1 mg IVP Q4H PRN PRN Reason: Pain, severe (8-10) Last Admin: 05/30/18 21:21 Dose: 1 mg Insulin Human Regular (Humulin R Low) 0 units SC ACHS [facility]; Protocol Last Admin: 05/30/18 22:03 Dose: Not Given Levothyroxine Sodium (Synthroid) 88 mcg PO ACB [facility] Last Admin: 05/30/18 10:10 Dose: 88 mcg Lidocaine (Lidoderm) 1 ea TD DAILY [facility] Last Admin: 05/30/18 10:12 Dose: 1 ea Montelukast Sodium (Singulair) 10 mg PO DAILY [facility] Last Admin: 05/30/18 10:11 Dose: 10 mg Pantoprazole Sodium (Protonix Ec Tab) 40 mg PO DAILY [facility] Last Admin: 05/30/18 10:10 Dose: 40 mg Potassium Chloride (Klor-Con 10) 10 meq PO Q72 [facility] Last Admin: 05/29/18 09:39 Dose: 10 meq Sertraline HCl (Zoloft) 150 mg PO 1800 [facility] Last Admin: 05/30/18 18:30 Dose: 150 mg Sitagliptin Phosphate (Januvia) 25 mg PO DAILY [facility] Last Admin: 05/30/18 10:10 Dose: 25 mg Tramadol HCl (Ultram) 50 mg PO Q6H PRN PRN Reason: Pain, moderate (4-7) Last Admin: 05/31/18 00:44 Dose: 50 mg - Labs Labs: 05/28/18 07:00 05/28/18 07:00 PT 11.5 SECONDS (9.4-12.5) 05/26/18 10:20 INR 1.00 05/26/18 10:20 APTT 29.3 Seconds (25.1-36.5) 05/26/18 10:20
[2018-05-31] MEDS: Arformoterol 15 mcg/2 ml Inh Sol IH SCH ×2 (09:46→20:50)
--- NOTE | 2018-05-31 10:53 | PN ---
PULMONARY PROGRESS NOTE DATE: 05/31/2018 REFERRING PHYSICIAN: Dr. Aviles. SUBJECTIVE: The patient is sitting up at bedside. No acute distress. Reports continued pain to lower back. No headache, rhinitis, cough, shortness of breath, chest pain, abdominal pain, nausea, vomiting, diarrhea, leg swelling reported. The patient does report right leg pain. OBJECTIVE: VITAL SIGNS: Blood pressure 142/55, pulse 79, temperature 99 and oxygen saturation 95% on room air. GENERAL: No acute distress. HEENT: Moist mucous membrane. Mallampati score 3. NECK: Supple. No JVD. CHEST: Clear bilaterally. CARDIOVASCULAR: S1 and S2, audible. ABDOMEN: Soft and nontender. No distention. No organomegaly. EXTREMITIES: No bilateral edema. MUSCULOSKELETAL: Pain elicited on palpation of lumbar area. NEUROLOGIC: Awake, alert and verbally responsive. Follow simple commands. LABORATORY DATA: Reviewed. POC glucose 129. MEDICATION: Reviewed. Norvasc 10 mg daily, Brovana 15 mcg inhalation every 12 hours, aspirin 81 mg daily, Lipitor 40 mg at dinner, calcium carbonate 600 mg daily, Plavix 75 mg daily, Lovenox 40 mg subcutaneous daily, Pepcid 20 mg at bedtime, Neurontin 300 mg three times daily, hydralazine 15 mg twice a day, Dilaudid 1 mg IV push every 4 hours p.r.n. for severe pain, Humulin R sliding scale, Synthroid 88 mcg, lidocaine patch daily to affected area, Singulair 10 mg p.o. daily, Protonix 40 mg p.o. daily, potassium chloride 10 mEq every 72 hours, Zoloft 150 mg daily, Januvia 25 mg daily and Tramadol 50 mg every 6 hours p.r.n. for moderate pain. IMPRESSION AND PLAN: Anemia, renal insufficiency, hyperglycemia, history of cerebrovascular accident, diabetes mellitus, coronary artery disease, history of myocardial infarction, chronic obstructive pulmonary disease, cataract surgery, renal failure, vitamin D deficiency and history of falls. The patient currently has acute compression fractures at L1, chronic severe compression fractures of T12, spinal stenosis. The patient is pending laminectomy surgery. Pulmonary status currently optimized. Sleep apnea precaution, presently refusing to use continuous positive airway pressure machine. Elevate head of bed to 45 degrees. Pain management, avoid nocturnal sedation. Fall precaution. Gastric prophylaxis, deep venous thrombosis prophylaxis. Close cardiopulmonary monitoring is recommended during and after surgery. Case discussed with Dr. Aviles. This patient was seen and examined with Dr. Sawant. Discussed assessment and plan as described above. Thank you for this consult and we will follow with you. Dmitriy Casas APN Homer Sawant MD [id number]
[2018-05-31] MEDS: HYDROmorphone 0.5 mg/0.5 ml ISec IVP PRN ×3 (11:01→21:16)
[2018-05-31] MEDS: Insulin Reg-LOW-Coverage SC SCH ×3 (13:25→16:49)
[2018-06-01] MEDS: HYDROmorphone 0.5 mg/0.5 ml ISec IVP PRN ×3 (01:03→13:03)
[2018-06-01] MEDS: Insulin Reg-LOW-Coverage SC SCH ×4 (05:14→16:15)
--- NOTE | 2018-06-01 07:16 | PN ---
DATE: 05/31/2018 SUBJECTIVE: The patient was seen and examined at bedside on 05/31/2018. Looking comfortable. No fever. No chills. No hematuria or hematochezia. No headache or dizziness. Denies chest pain or palpitation. Still having back pain. PHYSICAL EXAMINATION: VITAL SIGNS: Blood pressure 140/55, pulse 79, temperature 99, oxygenation/saturation 95% on room air. HEENT: Head, normocephalic and atraumatic. Eyes: PERRLA. Extraocular movements are intact. Conjunctivae clear. Nose patent. NECK: Supple. No carotid bruit. No thyromegaly. CHEST: Bilaterally symmetrical. HEART: S1 and S2 positive. LUNGS: Clear to auscultation. Bilateral crackles. ABDOMEN: Soft. Positive organomegaly. EXTREMITIES: No edema. No cyanosis. NEUROLOGIC: The patient is awake, alert. Moving all four extremities. No focal deficits. MEDICATIONS: Norvasc, Brovana, aspirin, Lipitor, calcium carbonate, Plavix, Lovenox, Pepcid, Neurontin, Humulin R insulin, Synthroid, lidocaine, Singulair, and Protonix. LABORATORY DATA: We do not have recent lab today, but I reviewed old labs. ASSESSMENT AND PLAN: Ms. Isaías Sen is a 72-year-old lady with multiple medical problems, had anemia, acute on chronic renal insufficiency, hyperglycemia, history of cerebrovascular accident, diabetes mellitus, coronary artery disease, history of myocardial infarction, chronic obstructive lung disease, cataract surgery, renal failure, vitamin D deficiency and has history of falls, compression fracture of T12 and spinal stenosis. The patient is planning laminectomy surgery tomorrow. Will have gastrointestinal and deep venous thrombosis prophylaxis. Saturday, the patient is deemed for surgery. Neurosurgery is on the case. Discussion done with the patient's daughter, , and family. We will follow. Michelle Aviles MD
[2018-06-01] MEDS: Arformoterol 15 mcg/2 ml Inh Sol IH SCH ×2 (07:38→21:01)
[2018-06-01] MEDS: Levothyroxine 88 MCG TAB PO SCH (08:24)
[2018-06-01] MEDS: Potassium Chloride 10 mEq ER Tab PO SCH (09:45)
[2018-06-01] MEDS: Pantoprazole 40 mg EC Tab PO SCH (09:49)
[2018-06-01] MEDS: Lidocaine 5% Patch TD SCH (09:49)
--- NOTE | 2018-06-01 10:23 | CP.PCM.PN ---
Subjective - Date & Time of Evaluation Date of Evaluation: 06/01/18 Time of Evaluation: 07:25 - Subjective Subjective: Awake, no distress, lying on her back, denies pain Reason for consultation and follow up:Cardiac evaluation and risk stratification for possible neurosurgical intervention for back pain Seen and examined by me and Dr. Castle Objective - Vital Signs/Intake and Output Vital Signs (last 24 hours): Temp Pulse Resp BP Pulse Ox 98.2 F 77 20 121/60 96 06/01/18 06:00 06/01/18 09:45 06/01/18 06:00 06/01/18 09:49 06/01/18 06:00 Intake and Output: 06/01/18 06/01/18 06:59 18:59 Intake Total 360 Balance 360 - Medications Medications: Current Medications Amlodipine Besylate (Norvasc) 10 mg PO DAILY [facility] Last Admin: 06/01/18 09:49 Dose: 10 mg Arformoterol Tartrate (Brovana) 15 mcg IH [id number] [facility] Last Admin: 06/01/18 07:38 Dose: 15 mcg Aspirin (Ecotrin) 81 mg PO DAILY [facility] Last Admin: 05/29/18 09:41 Dose: Not Given Atorvastatin Calcium (Lipitor) 40 mg PO DIN [facility] Last Admin: 05/28/18 17:33 Dose: 40 mg Calcium Carbonate (Caltrate) 600 mg PO DAILY [facility] Last Admin: 06/01/18 09:47 Dose: 600 mg Clopidogrel Bisulfate (Plavix) 75 mg PO DAILY [facility] Last Admin: 05/29/18 09:41 Dose: Not Given Enoxaparin Sodium (Lovenox) 40 mg SC DAILY [facility]; Protocol Last Admin: 05/31/18 09:12 Dose: 40 mg Famotidine (Pepcid) 20 mg PO 2200 [facility] Last Admin: 05/31/18 21:15 Dose: 20 mg Gabapentin (Neurontin) 300 mg PO TID [facility]; Protocol Last Admin: 06/01/18 09:47 Dose: 300 mg Hydralazine HCl (Apresoline) 50 mg PO BID [facility] Last Admin: 06/01/18 09:45 Dose: 50 mg Hydromorphone HCl (Dilaudid) 1 mg IVP Q4H PRN PRN Reason: Pain, severe (8-10) Last Admin: 06/01/18 05:21 Dose: 1 mg Insulin Human Regular (Humulin R Low) 0 units SC ACHS [facility]; Protocol Last Admin: 06/01/18 08:05 Dose: Not Given Levothyroxine Sodium (Synthroid) 88 mcg PO ACB [facility] Last Admin: 06/01/18 08:24 Dose: 88 mcg Lidocaine (Lidoderm) 1 ea TD DAILY [facility] Last Admin: 06/01/18 09:49 Dose: 1 ea Montelukast Sodium (Singulair) 10 mg PO DAILY [facility] Last Admin: 06/01/18 09:49 Dose: 10 mg Pantoprazole Sodium (Protonix Ec Tab) 40 mg PO DAILY [facility] Last Admin: 06/01/18 09:49 Dose: 40 mg Potassium Chloride (Klor-Con 10) 10 meq PO Q72 [facility] Last Admin: 06/01/18 09:45 Dose: 10 meq Sertraline HCl (Zoloft) 150 mg PO 1800 [facility] Last Admin: 05/31/18 16:59 Dose: 150 mg Sitagliptin Phosphate (Januvia) 25 mg PO DAILY [facility] Last Admin: 06/01/18 09:49 Dose: 25 mg Tramadol HCl (Ultram) 50 mg PO Q6H PRN PRN Reason: Pain, moderate (4-7) Last Admin: 06/01/18 09:46 Dose: 50 mg - Labs Labs: 05/28/18 07:00 05/28/18 07:00 PT 11.5 SECONDS (9.4-12.5) 05/26/18 10:20 INR 1.00 05/26/18 10:20 APTT 29.3 Seconds (25.1-36.5) 05/26/18 10:20 - Constitutional Appears: Non-toxic, No Acute Distress - Head Exam Head Exam: NORMAL INSPECTION, NORMOCEPHALIC - Eye Exam Eye Exam: Normal appearance Pupil Exam: NORMAL ACCOMODATION - ENT Exam ENT Exam: Mucous Membranes Moist - Respiratory Exam Respiratory Exam: Decreased Breath Sounds, Clear to Ausculation Bilateral, NORMAL BREATHING PATTERN - Cardiovascular Exam Cardiovascular Exam: +S1, +S2 - GI/Abdominal Exam GI & Abdominal Exam: Soft, Normal Bowel Sounds - Neurological Exam Neurological Exam: Alert, Awake - Psychiatric Exam Psychiatric exam: Normal Affect, Normal Mood - Skin Skin Exam: Dry, Normal Color, Warm Assessment and Plan - Assessment and Plan (Free Text) Assessment: A 72 year old female who came in to the ER due to severe right sided back pain. History of fall about a week ago. History of coronary artery disease,post cardiac cath 03/2014- non obstructive CAD, hypertension,renal failure, hypothyroidism,Vitamin D deficiency,anxiety,depression, diabetes, CVA, hypercholesterolemia, severe degenerative joint disease L4-L5, and compression fracture T12, bilateral knee replacement. Consult was called for cardiac clearance. Echo done.Normal chambers, LVEF 60- 65%,trace MR, mild TR RVSP 35 mmHg,trace pulmonic valvular regurgitation,no pericardial effusion. Denies chest pain or shortness of breath. No evidence of ischemia or heart failure. Patient cleared for surgery with moderate risk. Held Aspirin and Plavix for possible neuro surgery on Saturday. Repeat Lumbar spine MRI done. Stable. Plan: For possible Neuro surgery on Saturday Denies pain, lying on back No distress,Denies chest pain Aspirin and Plavix held Heart rate and blood pressure stable Cleared from cardiac standpoint for surgery with moderate risk On ASA 81 mg daily,Lipitor 40 mg daily,Plavix 75 mg daily, Lovenox 40 mg daily, Hydralazine 50 mg BID, Synthroid 88 mcg daily. Continue current treatment Continue current medications Will follow up Chart reviewed Plan and treatment discussed with Dr. Castle
--- NOTE | 2018-06-02 00:07 | PN ---
DATE: 06/01/2018 SUBJECTIVE: The patient is a 72-year-old female. The patient was seen and examined at the bedside on 06/01/2018. Looking comfortable. Pain is still there, but getting pain medication around the clock. No headache. No dizziness. No chest pain or palpitation. No fever. No chills. Going for surgery tomorrow. PHYSICAL EXAMINATION VITAL SIGNS: Temperature 98.2, pulse 77, respiratory rate 20 and blood pressure 120/60 and pulse oximetry 96. HEENT: Head; normocephalic and atraumatic. Eyes; PERRLA. Extraocular muscles are intact. Conjunctivae clear. Nose patent. Mucous membranes moist. NECK: Supple. No carotid bruits. No JVD or thyromegaly. CHEST: Bilaterally symmetrical. HEART: S1 and S2 positive. LUNGS: Clear to auscultation. ABDOMEN: Soft. Bowel sounds present. No organomegaly. EXTREMITIES: No edema. No cyanosis. NEUROLOGIC: The patient is awake and alert. Moving all four extremities. MEDICATIONS: Amlodipine, Brovana, aspirin, Lipitor, , Plavix, Lovenox, Pepcid, Neurontin, hydralazine, hydromorphone, potassium, and Zoloft. LABORATORY DATA: White blood cell is 8.6, hemoglobin 11, hematocrit 34.3, platelets 199. Sodium 137, potassium 4.7, BUN 39, creatinine 1.3. Glucose 177. ASSESSMENT AND PLAN: Ms. Isaías Sen is a 72-year-old female with anemia, hyperglycemia, history of cerebrovascular accident, diabetes mellitus, coronary artery disease, history of myocardial infarction, chronic obstructive pulmonary disease, cataract surgery,renal failure, vitamin D deficiency, history of multiple time falls, has acute compression fracture, and laminectomy. Pulmonary status currently optimized. Pain management, avoid nocturnal sedation. Need close cardiopulmonary monitoring. Going for surgery tomorrow. Discussion done with the patient. Gastrointestinal and deep venous thrombosis prophylaxis. Repeat labs. We will follow up. Michelle Aviles MD
[2018-06-02] MEDS: HYDROmorphone 0.5 mg/0.5 ml ISec IVP PRN ×4 (00:48→11:22)
--- NOTE | 2018-06-02 02:08 | PN ---
DATE: 06/01/2018 REFERRING PHYSICIAN: Dr. Aviles. SUBJECTIVE: Sitting up in a chair. Family, son, and grand kids are at bedside, still have low back pain. No headache, no rhinitis. No nausea, no dysuria. No leg pain or leg swelling. OBJECTIVE: GENERAL: In no acute distress. VITAL SIGNS: Temperature is 99.7, heart rate 75, respiratory rate is 20, blood pressure 125/93, pulse ox 94% on room air. HEENT: Moist mucous membrane. Crowded airway. Mallampati score is 4. NECK: Supple. No JVD. LUNGS: Have fair airflow with rhonchi. HEART: S1, S2. ABDOMEN: Soft and nontender. EXTREMITIES: There is no edema. NEUROLOGIC: Awake and alert. Follows simple command. MEDICATIONS: She is on hydralazine 50 mg twice a day, Brovana inhaled twice a day, calcium carbonate 600 mg daily, Dilaudid 1 mg every 4 hours p.r.n., Ecotrin 81 mg daily, Januvia 25 mg daily, potassium 10 mEq every 72 hours, lidocaine patch daily, Lipitor 40 mg daily, Lovenox 40 mg subcu daily, gabapentin 300 mg three times a day, Norvasc 10 mg daily, Pepcid 20 mg daily, Plavix 75 mg daily, Protonix 40 mg daily, Singulair 10 mg daily, Synthroid 88 mcg a.c.b., Ultram 50 mg every 6 hours, Zoloft 150 mg daily. LABORATORY DATA: Showed blood sugar this morning 112. Microbiology, urine culture is unremarkable. IMPRESSION AND PLAN: Anemia, renal insufficiency, hyperglycemia, history of cerebrovascular accident, diabetes, coronary artery disease, history of myocardial infarction, chronic obstructive lung disease, renal failure, vitamin D deficiency, has a lumbar compression fracture, spinal stenosis. Spoke to family at bedside. All the questions answered. Pulmonary point of view, continue bronchodilator. Keep head at 45 degrees. CPAP while sleeping. Pulmonary status optimized for possible surgery scheduled for laminectomy. Continue gastric and deep venous thrombosis prophylaxis. Case discussed with family. All the questions answered. High risk for recurrent falls. Thank you, and we will follow with you. Homer Sawant MD
[2018-06-02] MEDS: Insulin Reg-LOW-Coverage SC SCH ×4 (02:19→16:48)
[2018-06-02] MEDS ORDERED: Bacitracin Ointment 30 GM TUBE ONE (07:30)
[2018-06-02] MEDS ORDERED: Absorbable Gelatin Sponge Size 100 ONE (07:30)
[2018-06-02] MEDS ORDERED: Lidocaine 1% w Epi 1:100,000 Inj ONE (07:31)
[2018-06-02] MEDS ORDERED: Thrombin Topical 20,000 Intl Units Spray Kit TOP ONE (07:31)
--- NOTE | 2018-06-02 07:37 | CP.PCM.PN ---
Subjective - Date & Time of Evaluation Date of Evaluation: 06/02/18 Time of Evaluation: 06:30 - Subjective Subjective: Denies pain, comfortable, awake, no distress, lying on her back, Reason for consultation and follow up:Cardiac evaluation and risk st ratification for possible neurosurgical intervention for back pain Seen and examined by me and Dr. Clinton Objective - Vital Signs/Intake and Output Vital Signs (last 24 hours): Temp Pulse Resp BP Pulse Ox 99.3 F 74 18 110/81 94 L 06/02/18 06:50 06/02/18 06:50 06/02/18 06:50 06/02/18 06:50 06/02/18 06:50 - Medications Medications: Current Medications Amlodipine Besylate (Norvasc) 10 mg PO DAILY [facility] Last Admin: 06/01/18 09:49 Dose: 10 mg Arformoterol Tartrate (Brovana) 15 mcg IH [id number] [facility] Last Admin: 06/01/18 21:01 Dose: 15 mcg Aspirin (Ecotrin) 81 mg PO DAILY [facility] Last Admin: 05/29/18 09:41 Dose: Not Given Atorvastatin Calcium (Lipitor) 40 mg PO DIN [facility] Last Admin: 05/28/18 17:33 Dose: 40 mg Calcium Carbonate (Caltrate) 600 mg PO DAILY [facility] Last Admin: 06/01/18 09:47 Dose: 600 mg Clopidogrel Bisulfate (Plavix) 75 mg PO DAILY [facility] Last Admin: 05/29/18 09:41 Dose: Not Given Enoxaparin Sodium (Lovenox) 40 mg SC DAILY [facility]; Protocol Last Admin: 05/31/18 09:12 Dose: 40 mg Famotidine (Pepcid) 20 mg PO 2200 [facility] Last Admin: 06/01/18 22:19 Dose: 20 mg Gabapentin (Neurontin) 300 mg PO TID [facility]; Protocol Last Admin: 06/01/18 17:09 Dose: 300 mg Hydralazine HCl (Apresoline) 50 mg PO BID [facility] Last Admin: 06/01/18 17:09 Dose: 50 mg Hydromorphone HCl (Dilaudid) 1 mg IVP Q4H PRN PRN Reason: Pain, severe (8-10) Last Admin: 06/02/18 04:27 Dose: 1 mg Insulin Human Regular (Humulin R Low) 0 units SC ACHS [facility]; Protocol Last Admin: 06/02/18 02:19 Dose: Not Given Levothyroxine Sodium (Synthroid) 88 mcg PO ACB [facility] Last Admin: 06/01/18 08:24 Dose: 88 mcg Lidocaine (Lidoderm) 1 ea TD DAILY [facility] Last Admin: 06/01/18 09:49 Dose: 1 ea Montelukast Sodium (Singulair) 10 mg PO DAILY [facility] Last Admin: 06/01/18 09:49 Dose: 10 mg Pantoprazole Sodium (Protonix Ec Tab) 40 mg PO DAILY [facility] Last Admin: 06/01/18 09:49 Dose: 40 mg Potassium Chloride (Klor-Con 10) 10 meq PO Q72 [facility] Last Admin: 06/01/18 09:45 Dose: 10 meq Sertraline HCl (Zoloft) 150 mg PO 1800 [facility] Last Admin: 06/01/18 17:10 Dose: 150 mg Sitagliptin Phosphate (Januvia) 25 mg PO DAILY [facility] Last Admin: 06/01/18 09:49 Dose: 25 mg Tramadol HCl (Ultram) 50 mg PO Q6H PRN PRN Reason: Pain, moderate (4-7) Last Admin: 06/01/18 22:19 Dose: 50 mg - Labs Labs: 05/28/18 07:00 05/28/18 07:00 PT 11.5 SECONDS (9.4-12.5) 05/26/18 10:20 INR 1.00 05/26/18 10:20 APTT 29.3 Seconds (25.1-36.5) 05/26/18 10:20 - Constitutional Appears: Non-toxic, No Acute Distress - Head Exam Head Exam: NORMAL INSPECTION, NORMOCEPHALIC - Eye Exam Eye Exam: Normal appearance Pupil Exam: NORMAL ACCOMODATION - ENT Exam ENT Exam: Mucous Membranes Moist, Normal Exam - Respiratory Exam Respiratory Exam: Clear to Ausculation Bilateral, NORMAL BREATHING PATTERN - Cardiovascular Exam Cardiovascular Exam: +S1, +S2 - GI/Abdominal Exam GI & Abdominal Exam: Soft, Normal Bowel Sounds - Neurological Exam Neurological Exam: Alert, Awake, Oriented x3 - Psychiatric Exam Psychiatric exam: Normal Affect, Normal Mood - Skin Skin Exam: Dry, Normal Color, Warm Assessment and Plan - Assessment and Plan (Free Text) Assessment: A 72 year old female who came in to the ER due to severe right sided back pain. History of fall about a week ago. History of coronary artery disease,post cardiac cath 03/2014- non obstructive CAD, hypertension,renal failure, hypothyroidism,Vitamin D deficiency,anxiety,depression, diabetes, CVA, hypercholesterolemia, severe degenerative joint disease L4-L5, and compression fracture T12, bilateral knee replacement. Consult was called for cardiac clearance. Echo done.Normal chambers, LVEF 60- 65%,trace MR, mild TR RVSP 35 mmHg,trace pulmonic valvular regurgitation,no pericardial effusion. Denies chest pain or shortness of breath. No evidence of ischemia or heart failure. Patient cleared for surgery with moderate risk. Held Aspirin and Plavix .For neuro surgery today. stable. Plan: Denies pain, lying on back No distress,Denies chest pain For Neurosurgery/back surgery today Aspirin and Plavix held Heart rate and blood pressure stable Cleared from cardiac standpoint for surgery with moderate risk On ASA 81 mg daily,Lipitor 40 mg daily,Plavix 75 mg daily, Lovenox 40 mg daily, Hydralazine 50 mg BID, Synthroid 88 mcg daily. Continue current treatment Continue current medications Will follow up postoperatively Chart reviewed Plan and treatment discussed with Dr. Clinton
[2018-06-02] MEDS ORDERED: Propofol 10 mg/ml Inj (20 ML) ONE ×2 (07:42→07:45)
[2018-06-02] MEDS ORDERED: Phenylephrine 10 mg/ml Inj ONE (07:42)
[2018-06-02] MEDS ORDERED: ePHEDrine 50 mg/ml Inj ONE (07:42)
[2018-06-02] MEDS ORDERED: Succinylcholine 200 mg/10 ml Inj IV ONE (07:43)
[2018-06-02] MEDS: Levothyroxine 88 MCG TAB PO SCH (07:44)
[2018-06-02] MEDS: Arformoterol 15 mcg/2 ml Inh Sol IH SCH ×2 (07:49→21:30)
[2018-06-02] MEDS ORDERED: Heparin 10,000 Units/ml ONE (08:32)
--- NOTE | 2018-06-02 08:55 | PN ---
DATE: 06/01/2018 LOCATION: The patient in [facility], bed 1. Detailed note has been already dictated by Ana Lugo, and this is an addendum. The patient denies any chest pain, shortness of breath, or palpitation. The patient is lying comfortably in bed without any respiratory distress. The patient's echo had shown normal LV ejection of 60% to 65%, trace MR, mild TR, RVSP 35 mmHg, trace pulmonary regurgitation. The patient's aspirin and Plavix had been on hold for possible neurosurgery on Saturday, so clinically cardiac status is stable from cardiac point of view. The patient can go for spinal surgery at moderate risk. Rest of the medication therapy has been already continued, and detailed note has been written by Ana Lugo. Homer Castle MD
[2018-06-02] MEDS: Lidocaine 5% Patch TD SCH (09:18)
[2018-06-02] MEDS ORDERED: Vancomycin 1 g Inj ONE (09:18)
[2018-06-02] MEDS: Pantoprazole 40 mg EC Tab PO SCH (09:19)
--- NOTE | 2018-06-02 10:10 | PCM.OP ---
Operative Report - Operative Report Date of Surgery/Procedure: 06/02/18 Time of Surgery/Procedure: 08:40 Surgeon: Ash Landscape Painter: Swapnil Anesthesia/Sedation: Gen w ET Pre-Operative Diagnosis: Spinal stenosis, Spondylolisthesis Post-Operative Diagnosis: Same Indication for Surgery: Pain Operative Findings: Severe stenosis L4-5; Moderate stenosis L3-4, L5-S1 Procedure/Operation Description: Decompressive laminectomy L3-S1 Estimated Blood Loss: 100cc Complications: None Discharge & Condition: Stable
[2018-06-02] MEDS ORDERED: Lactated Ringer's 1,000 ML IV SCH (10:15)
[2018-06-02] MEDS ORDERED: HYDROmorphone 0.5 mg/0.5 ml ISec ONE ×3 (10:53→11:26)
[2018-06-02] MEDS ORDERED: HYDROmorphone 0.5 mg/0.5 ml ISec IVP ONE (11:05)
[2018-06-02] MEDS: HYDROmorphone 1 mg/ml ISec IVP PRN (13:24)
[2018-06-02 14:04] LABS: HEMOGLOBIN 9.3 g/dL (12.0-16.0); MEAN CELL VOLUME 89.6 fl (80.0-105.0); MEAN CORPUSCULAR HEMOGLOBIN 28.5 pg (25.0-35.0); MEAN CORPUSCULAR HGB CONC 31.8 g/dl (31.0-37.0); MEAN PLATELET VOLUME 9.3 fl (7.0-11.0); RBC 3.26 10^6/uL (3.5-6.1); RED CELL DISTRIBUTION WIDTH 13.8 % (11.5-14.5); WHITE BLOOD COUNT 11.3 10^3/uL (4.5-11.0)
[2018-06-02 14:16] LABS: CALCIUM 8.5 mg/dL (8.4-10.5)
--- NOTE | 2018-06-02 14:43 | PN ---
DATE: 06/02/2018 PULMONARY PROGRESS NOTE REFERRING PHYSICIAN: Dr. Aviles. SUBJECTIVE: The patient seen in PACU, sleepy but arousable. The patient had decompressive laminectomy, L3-S1 done. No acute distress noted at this time. OBJECTIVE: GENERAL: No acute distress. VITAL SIGNS: Blood pressure 120/49, pulse 75, temperature 98 and oxygen saturation 95 percent on nasal cannula. HEENT: Moist mucous membranes. Mallampati score of 4. Crowded airway. NECK: Supple. No JVD. LUNGS: Fair airflow bilaterally. CARDIOVASCULAR: S1 and S2 audible. ABDOMEN: Soft and nontender. No distention. No organomegaly. EXTREMITIES: No bilateral lower extremity edema. The patient able to move lower extremity. NEUROLOGIC: Sleepy but arousable. Follows simple commands. MEDICATIONS: Reviewed. Tylenol 650 mg every 6 hours as needed fever greater than 100.4, Norvasc 10 mg orally daily, Brovana 15 mcg inhalation every 12 hours, aspirin 81 mg orally daily, Lipitor 40 mg orally at dinner, calcium carbonate 600 mg orally daily, Plavix 75 mg orally daily, Lovenox 40 mg subcutaneous daily, Pepcid 20 mg orally daily, Neurontin 300 mg orally three times a day, hydralazine 15 mg orally twice a day, Dilaudid 1 mg IV push every 4 hours as needed severe pain, Dilaudid 0.5 mg IV push as needed, Humulin R sliding scale, Toradol 15 mg IV push every 6 hours, lactated Ringer's 100 mL per hour, Synthroid 88 mcg daily, Lidoderm patch topically daily, Singulair 10 mg orally daily, Protonix 40 mg orally daily, potassium chloride 10 mEq orally every 72 hours, Zoloft 150 mg daily, Januvia 25 mg daily, Ultram 50 mg every 6 hours as needed for mild pain. LABORATORY DATA: Reviewed. POC glucose 105. IMPRESSION AND PLAN: Anemia, renal insufficiency, hyperglycemia, history of cerebrovascular accident, diabetes, coronary artery disease, history of myocardial infarction, chronic obstructive lung disease, renal failure, vitamin D deficiency, lumbar compression fracture, spinal stenosis. The patient is status post decompressive laminectomy. Pulmonary point of view, continue bronchodilators, keep head of bed elevated at 45 degrees. The patient refusing CPAP machine, sleep apnea precaution. The patient appears hemodynamically stable post laminectomy. Continue gastric prophylaxis, high risk for falls, sleep apnea precaution. This patient was seen and examined with Dr. Sawant. Discussed assessment and plan as described above. Thank you for this consult and we will follow with you. Dmitriy Casas APN Homer Sawant MD
--- NOTE | 2018-06-02 15:19 | PN ---
DATE: 06/02/2018 NEUROLOGY FOLLOWUP CHIEF COMPLAINT: Low back pain. SUBJECTIVE: The patient is currently status post decompressive laminectomy, L3 to L5 for severe stenosis of L4-L5 and mild stenosis at L3-L4 by Neurosurgery, postoperative day #1, pretty much fairly able move her legs without any difficulty. The patient is having less pain. She is on gabapentin for neuropathic relief as well as Toradol and Lidoderm patches for pain control as well as tramadol. Case is discussed with the daughter at bedside. PAST MEDICAL HISTORY: History of CVA, recurrent low back pain, diabetes, hypertension, hypercholesterolemia. . FAMILY HISTORY: Noncontributory. MEDICATIONS: Reviewed by nurse's reconciliation sheet. REVIEW OF SYSTEMS: A 14-point review of systems is negative except as per HPI. LABORATORY DATA: Today's blood sugar is 105. PHYSICAL EXAMINATION: VITAL SIGNS: Temperature 98.5, pulse rate 70, blood pressure 136/60, respiratory rate 18, oxygen saturation 95% on room air. GENERAL: The patient is sitting up in bed, , in no acute distress. HEENT: Atraumatic, normocephalic. PERRLA. Extraocular muscles intact. NECK: Supple. No JVD, no adenopathy noted. LUNGS: Clear to auscultation. No adventitious sounds. HEART: S1, S2. Normal rate and rhythm. No murmurs, rubs, or gallops. ABDOMEN: Soft, nontender, nondistended. Bowel sounds are present. EXTREMITIES: No clubbing. No cyanosis. Peripheral pulses 2+ felt bilaterally. NEUROLOGIC: The patient is alert, oriented to person and place, month and year. Cranial nerves II through XII intact. Motor exam: She moves all extremities equally. Sensory Exam: Decreased light touch and pinprick up to the calves bilaterally. Decreased vibration of the toes. DTRs are 1+ in both knees and ankles. Coordination: [id number] is intact. No dysmetria noted. IMPRESSION: Low back pain, likely secondary to chronic lumbosacral neuritis, superimposed underlying diabetic peripheral neuropathy secondary to also underlying severe stenosis of L4-L5 and mild stenosis at L3-L4 and now L5-S1, status post decompressive laminectomy by Neurosurgery today of L2-L4. The patient has tolerated the surgery well. PLAN: We recommend continue with underlying gabapentin for neuropathic relief in addition to subacute rehab for physical and occupational therapy. Lidoderm patch and tramadol for acute onset of pain. Continue with current present medical management. Adolfo Milton MD
--- NOTE | 2018-06-02 17:14 | RAD ---
Date of service: 06/02/2018 PROCEDURE: Fluoroscopy up to 1 hr. HISTORY: LAMINECTOMY COMPARISON: None TECHNIQUE: Standard protocol for this study/examination. FINDINGS: Total fluoroscopic time (continuous mode) utilized during the procedure 7.4 seconds. Total exam DLP: 4.37 (mGy). IMPRESSION: Less than 1 hr fluoroscopic assistance provided during performance of the procedure.
--- NOTE | 2018-06-02 20:31 | PN ---
DATE: 06/02/2018 REASON FOR CONSULTATION: Followup, cardiac evaluation, and risk stratification for possible neurosurgical intervention for back pain. SUBJECTIVE: The patient denies any chest pain or shortness of breath. So far, the patient's status is stable for possible OR today. The patient feels stable this morning. The patient is stable from Cardiology point of view with moderate risk secondary to underlying comorbidity. Plavix and aspirin is on hold for 5 days. Further recommendations per hospital course. We will follow with you. Continue perioperative beta-margaret. Continue hydralazine. Continue atorvastatin. Continue amlodipine. We will follow with you. Thank you Dr. Aviles for providing us the opportunity in taking care of the patient, Isaías Sen. Further recommendations after the surgery. We will follow with you. The patient has spinal stenosis, lumbar radiculopathy, for possible decompression laminectomy. We will follow with you. Homer Clinton MD
[2018-06-03] MEDS: Insulin Reg-LOW-Coverage SC SCH ×5 (01:08→22:19)
[2018-06-03] MEDS: HYDROmorphone 1 mg/ml ISec IVP PRN (04:56)
[2018-06-03] MEDS: Lactated Ringer's 1,000 ML IV SCH (06:24)
--- NOTE | 2018-06-03 07:05 | CP.PCM.PN ---
Subjective - Date & Time of Evaluation Date of Evaluation: 06/03/18 Time of Evaluation: 06:20 - Subjective Subjective: Comfortable, awake, no distress, lying on her back,just medicated for pain Reason for consultation and follow up:Cardiac evaluation and risk stratification for neurosurgical intervention for back pain. post op follow up post decompressive laminectomy L3-S1 Seen and examined by me and Dr. Clinton Objective - Vital Signs/Intake and Output Vital Signs (last 24 hours): Temp Pulse Resp BP Pulse Ox 98.2 F 81 18 148/54 L 95 06/02/18 22:00 06/02/18 22:00 06/02/18 22:00 06/02/18 22:00 06/02/18 22:00 Intake and Output: 06/03/18 06/03/18 06:59 18:59 Intake Total 300 Output Total 1000 Balance -700 - Medications Medications: Current Medications Acetaminophen (Tylenol 325mg Tab) 650 mg PO Q6 PRN PRN Reason: Fever >100.4 F Amlodipine Besylate (Norvasc) 10 mg PO DAILY [facility] Last Admin: 06/02/18 09:19 Dose: Not Given Arformoterol Tartrate (Brovana) 15 mcg IH [id number] [facility] Last Admin: 06/02/18 21:30 Dose: 15 mcg Aspirin (Ecotrin) 81 mg PO DAILY [facility] Last Admin: 05/29/18 09:41 Dose: Not Given Atorvastatin Calcium (Lipitor) 40 mg PO DIN [facility] Last Admin: 06/02/18 17:41 Dose: 40 mg Calcium Carbonate (Caltrate) 600 mg PO DAILY [facility] Last Admin: 06/02/18 09:18 Dose: Not Given Clopidogrel Bisulfate (Plavix) 75 mg PO DAILY [facility] Last Admin: 05/29/18 09:41 Dose: Not Given Enoxaparin Sodium (Lovenox) 40 mg SC DAILY [facility]; Protocol Last Admin: 05/31/18 09:12 Dose: 40 mg Famotidine (Pepcid) 20 mg PO 2200 [facility] Last Admin: 06/03/18 01:32 Dose: 20 mg Gabapentin (Neurontin) 300 mg PO TID [facility]; Protocol Last Admin: 06/02/18 17:41 Dose: 300 mg Hydralazine HCl (Apresoline) 50 mg PO BID [facility] Last Admin: 06/02/18 17:45 Dose: 50 mg Hydromorphone HCl (Dilaudid) 1 mg IVP Q4H PRN PRN Reason: Pain, severe (8-10) Last Admin: 06/02/18 04:27 Dose: 1 mg Hydromorphone HCl (Dilaudid) 0.5 mg IVP Q15M PRN PRN Reason: Other Last Admin: 06/02/18 11:22 Dose: 0.5 mg Hydromorphone HCl (Dilaudid) 1 mg IVP Q4H PRN PRN Reason: Pain, severe (8-10) Last Admin: 06/03/18 04:56 Dose: 1 mg Lactated Ringer's (Lactated Ringer's) 1,000 mls @ 100 mls/hr IV .Q10H [facility] Last Admin: 06/03/18 06:24 Dose: 100 mls/hr Insulin Human Regular (Humulin R Low) 0 units SC ACHS [facility]; Protocol Last Admin: 06/03/18 01:08 Dose: Not Given Ketorolac Tromethamine (Toradol) 15 mg IVP Q6 [facility] Stop: 06/07/18 12:01 Last Admin: 06/03/18 05:19 Dose: Not Given Levothyroxine Sodium (Synthroid) 88 mcg PO ACB [facility] Last Admin: 06/02/18 07:44 Dose: Not Given Lidocaine (Lidoderm) 1 ea TD DAILY [facility] Last Admin: 06/02/18 09:18 Dose: Not Given Montelukast Sodium (Singulair) 10 mg PO DAILY [facility] Last Admin: 06/02/18 09:19 Dose: Not Given Pantoprazole Sodium (Protonix Ec Tab) 40 mg PO DAILY [facility] Last Admin: 06/02/18 09:19 Dose: Not Given Potassium Chloride (Klor-Con 10) 10 meq PO Q72 [facility] Last Admin: 06/01/18 09:45 Dose: 10 meq Sertraline HCl (Zoloft) 150 mg PO 1800 [facility] Last Admin: 06/02/18 17:40 Dose: 150 mg Sitagliptin Phosphate (Januvia) 25 mg PO DAILY [facility] Last Admin: 06/02/18 09:18 Dose: Not Given Tramadol HCl (Ultram) 50 mg PO Q6H PRN PRN Reason: Pain, Mild (1-3) - Labs Labs: 06/02/18 13:55 06/02/18 13:55 PT 11.5 SECONDS (9.4-12.5) 05/26/18 10:20 INR 1.00 05/26/18 10:20 APTT 29.3 Seconds (25.1-36.5) 05/26/18 10:20 - Constitutional Appears: Non-toxic, No Acute Distress - Head Exam Head Exam: NORMAL INSPECTION, NORMOCEPHALIC - Eye Exam Eye Exam: Normal appearance Pupil Exam: NORMAL ACCOMODATION - ENT Exam ENT Exam: Mucous Membranes Moist, Normal Exam - Respiratory Exam Respiratory Exam: Decreased Breath Sounds, NORMAL BREATHING PATTERN - Cardiovascular Exam Cardiovascular Exam: +S1, +S2 - GI/Abdominal Exam GI & Abdominal Exam: Soft, Normal Bowel Sounds - Extremities Exam Extremities Exam: Full ROM, Normal Capillary Refill - Back Exam Additional comments: back pain - Neurological Exam Neurological Exam: Alert, Awake, Oriented x3 - Psychiatric Exam Psychiatric exam: Normal Affect, Normal Mood - Skin Skin Exam: Dry, Normal Color, Warm Assessment and Plan - Assessment and Plan (Free Text) Assessment: A 72 year old female who came in to the ER due to severe right sided back pain. History of fall about a week ago. History of coronary artery disease,post cardiac cath 03/2014- non obstructive CAD, hypertension,renal failure, hypothyroidism,Vitamin D deficiency,anxiety,depression, diabetes, CVA, hypercholesterolemia, severe degenerative joint disease L4-L5, and compression fracture T12, bilateral knee replacement. Consult was called for cardiac clearance. Echo done.Normal chambers, LVEF 60- 65%,trace MR, mild TR RVSP 35 mmHg,trace pulmonic valvular regurgitation,no pericardial effusion. Denies chest pain or shortness of breath. No evidence of ischemia or heart failure. Status post decompressive laminectomy L3-S1 yesterday. Stable. Plan: Status post decompressive laminectomy L3-S1 POD#1 Complaints of back pain, PRN pain medication given by RN Stable postoperatively No distress,Denies chest pain Resume Aspirin and Plavix as soon as okay with Neurosurgery Heart rate and blood pressure stable On ASA 81 mg daily,Lipitor 40 mg daily,Plavix 75 mg daily, Lovenox 40 mg daily, Hydralazine 50 mg BID, Synthroid 88 mcg daily. Continue current treatment Continue current medications Physical therapy Will follow up p Chart reviewed Plan and treatment discussed with Dr. Clinton
[2018-06-03 07:36] LABS: HEMOGLOBIN 8.9 g/dL (12.0-16.0); MEAN CELL VOLUME 89.8 fl (80.0-105.0); MEAN CORPUSCULAR HEMOGLOBIN 28.3 pg (25.0-35.0); MEAN CORPUSCULAR HGB CONC 31.6 g/dl (31.0-37.0); MEAN PLATELET VOLUME 9.7 fl (7.0-11.0); RBC 3.14 10^6/uL (3.5-6.1)
[2018-06-03 07:46] LABS: BLOOD UREA NITROGEN 25 mg/dL (7-21); CALCIUM 8.3 mg/dL (8.4-10.5); GFR NON-AFRICAN AMERICAN > 60
--- NOTE | 2018-06-03 08:03 | OP ---
PROCEDURE DATE: 06/02/2018 PREOPERATIVE DIAGNOSES: 1. Spondylolisthesis L4-5. 2. Spinal stenosis at L3-4 through L5-S1. POSTOPERATIVE DIAGNOSES: 1. Spondylolisthesis L4-5. 2. Spinal stenosis at L3-4 through L5-S1. OPERATION: Decompressive laminectomy L3-S1. SURGEON: Randall Aleman MD. INSURANCE SALESMAN: Bernard Kraft MD ANESTHESIA: General endotracheal tube intubation. DESCRIPTION OF PROCEDURE: The patient is brought to the operating room, general anesthesia was achieved. Intravenous antibiotics were administered and the spinal cord monitor leads were placed throughout the patient's body. Real time monitor was done by lift team technician in the room. Remote monitoring done by physician as well. Sequential compression boots were placed on each of the patient's legs. After antibiotics administered, a Rubi catheter was inserted. The patient was then gently transferred on to the operating table, placed prone on a [place] frame keeping her abdomen and breasts free from pressure anteriorly. Care was taken to protect the elbows and knees from pressure points. A Steri-Drape was used to seal off the patient's perineal region from the operative field and her back was sterilely prepped and draped. A 1% lidocaine with epinephrine was used to infiltrate the site for the incision as located under fluoroscopy and incision was then made sharply. This was taken down to the subcutaneous tissue using sharp and blunt dissection. Hemostasis achieved using electrocautery. The fascia was divided and stripped laterally of the spinous processes and lamina out to the level of the facet joints. Soft tissue attachments are cleared so that we can identify the pars at each level on each side. Fluoroscopic views were taken to confirm we are at the appropriate levels and this was verified. Leksell rongeur was used to remove the spinous processes and thin down the lamina and the laminectomy then carried out in a caudal cephalad fashion. This was done the midline at first and then out laterally on each side. The patient had some bony stenosis but majority of it was due to significantly thickened ligamentum and soft tissue causing a great deal of pressure, especially more on the right side which was a more symptomatic side. Once everything was decompressed, foraminotomies were carried out to easy passes with some tool to the L3, 4, 5, S1 neuro foramen on each side. The wound was copiously irrigated with antibiotic solution. Hemostasis achieved with thrombinated Gelfoam powder. Final fluoroscopic views taken with some tools going at the level to L5-S1 disk as well as above the 3-4 disk to document the levels decompressed. A thrombinated Gelfoam powder again used for hemostasis along with some liquid thrombin and a large piece of solid Gelfoam placed over the exposed neural elements. The wound was closed in layers of interrupted sutures 0 Vicryl for the muscle and the fascia. The tissues were copiously irrigated with antibiotic solution and vancomycin powder placed in the wound to help as a prophylaxis for a postoperative infection, especially given her diabetes. The subcutaneous tissue was closed in layers with interrupted sutures of 2-0 Vicryl and more vancomycin powder was placed prior to closure of skin which was done with maria elena. Bacitracin ointment, sterile dressing were applied. The patient was gently transferred back onto a bed in the supine position. She was awakened and extubated. She was taken to the recovery room in stable condition having tolerated the procedure well. No permanent electrophysiologic abnormalities were noted at the completion of the case. Estimated blood loss was 100 mL. Randall Aleman MD
--- NOTE | 2018-06-03 08:14 | PN ---
DATE: 06/02/2018 SUBJECTIVE: The patient was seen and examined at the bedside on 06/02/2018, seen in PACU, sleepy, arousable. The patient went for surgery. No fever. No chills. No nausea, vomiting, or diarrhea. No hematuria or hematochezia. No swelling of the legs. The patient is not able to give me too much review of systems. PHYSICAL EXAMINATION: VITAL SIGNS: Blood pressure 120/40, pulse 75, temperature 98, oxygen saturation 95% on nasal cannula. HEENT: Head is normocephalic and atraumatic. Eyes PERRLA. Extraocular muscles are intact. Conjunctivae clear. Nose patent. Mucous membranes moist. NECK: Supple. No carotid bruits, no JVD, no thyromegaly. CHEST: Bilaterally symmetrical. HEART: S1 and S2 positive. LUNGS: Clear to auscultation. ABDOMEN: Soft. Bowel sounds present. No organomegaly. EXTREMITIES: No edema, no cyanosis. NEUROLOGIC: The patient is sleepy and arousable. Follows simple commands. MEDICATIONS: Tylenol, Norvasc, Brovana, aspirin, Lipitor, calcium, Plavix, Lovenox, Pepcid, Neurontin, Dilaudid, insulin, tramadol, Ringer's lactate, Synthroid, Lidoderm patch, Protonix, Zoloft, and Januvia. LABORATORY DATA: White blood cells 11.3, hemoglobin 9.2, hematocrit 29.2, platelets 240. Sodium 140, potassium 5.1, BUN 29, creatinine 1.2, and glucose 86. ASSESSMENT AND PLAN: The patient is a 72-year-old lady with leukocytosis, anemia, hyperkalemia, increased BUN, proteinuria, hematuria, urinary tract infection, has multiple medical problems, low back pain, likely secondary to chronic lumbosacral neuritis, superimposed diabetic peripheral neuropathy, and underlying stenosis L4-L5 and mild stenosis L3-L4, and now L5-S1, status post decompressive laminectomy by neurosurgery today of L2-L4. The patient tolerated the procedure very well. Continue gabapentin for neuropathic pain, Aleve, Lidoderm patch, tramadol. The patient has a history of insulin dependent diabetes mellitus, cerebrovascular accident, coronary artery disease, myocardial infarction, chronic obstructive pulmonary disease, renal failure, vitamin D deficiency, lumbar compression fracture, spinal stenosis. The patient looks like hemodynamically stable after laminectomy. Continue present treatment. Repeat labs. We will follow up. Michelle Aviles MD
[2018-06-03] MEDS: Levothyroxine 88 MCG TAB PO SCH (08:39)
[2018-06-03] MEDS: Pantoprazole 40 mg EC Tab PO SCH (09:48)
[2018-06-03] MEDS: Lidocaine 5% Patch TD SCH (09:48)
--- NOTE | 2018-06-03 11:04 | CP.PCM.APN ---
Subjective - Date & Time of Evaluation Date of Evaluation: 05/31/18 Time of Evaluation: 20:00 - Subjective Subjective: Pt seen and examined at bedside. Pt still c/o back/R leg pain. Denies numbness or tingling sensation. Review of Systems - Cardiovascular Cardiovascular: absent: As Per HPI, Acrocyanosis, Chest Pain, Chest Pain at Rest, Chest Pain with Activity, Claudication, Diaphoresis, Dyspnea, Dyspnea on Exertion, Edema, Irregular Heart Rhythm, Pain Radiating to Arm/Neck/Jaw, Leg E antolin, Leg Ulcers, Lightheadedness, Orthopnea, Palpitations, Paroxysmal Nocturnal Dyspnea, Pedal Edema, Radiating Pain, Rapid Heart Rate, Slow Heart Rate, Syncope, Other - Respiratory Respiratory: absent: As Per HPI, Cough, Dyspnea, Hemoptysis, Dyspnea on Exerti on, Wheezing, Snoring, Stridor, Pain on Inspiration, Chest Congestion, Excessive Mucous Production, Change in Mucous Color, Pain with Coughing, Other - Musculoskeletal Musculoskeletal: Back Pain Additional comments: R leg pain Objective - Vital Signs/Intake and Output Vital Signs (last 24 hours): Temp Pulse Resp BP Pulse Ox 98.3 F 88 20 167/87 H 97 06/03/18 06:00 06/03/18 06:00 06/03/18 06:00 06/03/18 09:49 06/03/18 06:00 Intake and Output: 06/03/18 06/03/18 06:59 18:59 Intake Total 1500 Output Total 1000 Balance 500 - Medications Medications: Current Medications Acetaminophen (Tylenol 325mg Tab) 650 mg PO Q6 PRN PRN Reason: Fever >100.4 F Amlodipine Besylate (Norvasc) 10 mg PO DAILY [facility] Last Admin: 06/03/18 09:49 Dose: 10 mg Arformoterol Tartrate (Brovana) 15 mcg IH [id number] [facility] Last Admin: 06/02/18 21:30 Dose: 15 mcg Aspirin (Ecotrin) 81 mg PO DAILY [facility] Last Admin: 05/29/18 09:41 Dose: Not Given Atorvastatin Calcium (Lipitor) 40 mg PO DIN [facility] Last Admin: 06/02/18 17:41 Dose: 40 mg Calcium Carbonate (Caltrate) 600 mg PO DAILY [facility] Last Admin: 06/03/18 09:48 Dose: 600 mg Clopidogrel Bisulfate (Plavix) 75 mg PO DAILY [facility] Last Admin: 05/29/18 09:41 Dose: Not Given Enoxaparin Sodium (Lovenox) 40 mg SC DAILY [facility]; Protocol Last Admin: 05/31/18 09:12 Dose: 40 mg Famotidine (Pepcid) 20 mg PO 2200 [facility] Last Admin: 06/03/18 01:32 Dose: 20 mg Gabapentin (Neurontin) 300 mg PO TID [facility]; Protocol Last Admin: 06/03/18 09:48 Dose: 300 mg Hydralazine HCl (Apresoline) 50 mg PO BID [facility] Last Admin: 06/03/18 09:48 Dose: 50 mg Hydromorphone HCl (Dilaudid) 1 mg IVP Q4H PRN PRN Reason: Pain, severe (8-10) Last Admin: 06/02/18 04:27 Dose: 1 mg Hydromorphone HCl (Dilaudid) 0.5 mg IVP Q15M PRN PRN Reason: Other Last Admin: 06/02/18 11:22 Dose: 0.5 mg Hydromorphone HCl (Dilaudid) 1 mg IVP Q4H PRN PRN Reason: Pain, severe (8-10) Last Admin: 06/03/18 04:56 Dose: 1 mg Lactated Ringer's (Lactated Ringer's) 1,000 mls @ 100 mls/hr IV .Q10H [facility] Last Admin: 06/03/18 06:24 Dose: 100 mls/hr Insulin Human Regular (Humulin R Low) 0 units SC ACHS [facility]; Protocol Last Admin: 06/03/18 07:47 Dose: Not Given Ketorolac Tromethamine (Toradol) 15 mg IVP Q6 [facility] Stop: 06/07/18 12:01 Last Admin: 06/03/18 05:19 Dose: Not Given Levothyroxine Sodium (Synthroid) 88 mcg PO ACB [facility] Last Admin: 06/03/18 08:39 Dose: 88 mcg Lidocaine (Lidoderm) 1 ea TD DAILY [facility] Last Admin: 06/03/18 09:48 Dose: 1 ea Montelukast Sodium (Singulair) 10 mg PO DAILY [facility] Last Admin: 06/03/18 09:48 Dose: 10 mg Pantoprazole Sodium (Protonix Ec Tab) 40 mg PO DAILY [facility] Last Admin: 06/03/18 09:48 Dose: 40 mg Potassium Chloride (Klor-Con 10) 10 meq PO Q72 [facility] Last Admin: 06/01/18 09:45 Dose: 10 meq Sertraline HCl (Zoloft) 150 mg PO 1800 [facility] Last Admin: 06/02/18 17:40 Dose: 150 mg Sitagliptin Phosphate (Januvia) 25 mg PO DAILY [facility] Last Admin: 06/03/18 09:47 Dose: 25 mg Tramadol HCl (Ultram) 50 mg PO Q6H PRN PRN Reason: Pain, Mild (1-3) - Labs Labs: 06/03/18 07:10 06/03/18 07:10 PT 11.5 SECONDS (9.4-12.5) 05/26/18 10:20 INR 1.00 05/26/18 10:20 APTT 29.3 Seconds (25.1-36.5) 05/26/18 10:20 - Constitutional Appears: Well, No Acute Distress - Head Exam Head Exam: ATRAUMATIC - Eye Exam Eye Exam: Normal appearance - ENT Exam ENT Exam: Mucous Membranes Moist - Neck Exam Neck Exam: Full ROM - Respiratory Exam Respiratory Exam: Clear to Ausculation Bilateral - Cardiovascular Exam Cardiovascular Exam: +S1, +S2 - Rectal Exam Rectal Exam: Deferred Assessment and Plan - Assessment and Plan (Free Text) Assessment: Pt is a 72 y.o. female with pmhx of CVA, renal failure, LA, CAD, COPD, DM and hypothyroid who presented in ED with severe R side leg pain. She is S/P decompressive laminectomy of L3-S1 pod#1. Plan: Pain management Physical therapy Per Dr. Clinton, will possibly start Plavix in AM Meds per MAR Neurosx, Neuro, Ortho, Pulm and Cardio on consult Will continue to follow
--- NOTE | 2018-06-03 13:32 | PN ---
PULMONARY PROGRESS NOTE DATE: 06/03/2018 REFERRING PHYSICIAN: Michelle Aviles MD SUBJECTIVE: The patient sitting up at bedside. No acute distress. The patient does report mild back pain. No headache, rhinitis, cough, shortness of breath, chest pain, abdominal pain, nausea, vomiting, diarrhea, dysuria, leg pain or leg swelling reported. PHYSICAL EXAMINATION VITAL SIGNS: Blood pressure 127/83, pulse 88, temperature 98.3, and oxygen saturation 97%. GENERAL: No acute distress. HEENT: Moist mucous membranes. Mallampati score of 4. Crowded airway. NECK: Supple. No JVD. LUNGS: Fair airflow bilaterally. CARDIOVASCULAR: S1 and S2 audible. ABDOMEN: Soft and nontender. No distention or organomegaly. EXTREMITIES: No bilateral lower extremity edema. The patient is able to move all extremities. Dressing noted to lumbar area. NEUROLOGICAL: Awake, alert, verbal, and follow simple commands. LABORATORY DATA: Reviewed. WBC 11, RBC 3.14, hemoglobin 8.9, hematocrit 28.2 and platelets 281. Sodium 139, potassium 4.7, chloride 107, carbon dioxide 27, anion gap 11, BUN 25, creatinine 0.9, GFR greater than 60, random glucose 129 and calcium 8.3. MEDICATIONS: Reviewed. Tylenol 650 mg every 6 hours p.r.n. for fever greater than 100.4, Norvasc 10 mg daily, Brovana 15 mcg inhalation every 12 hours, aspirin 81 mg p.o. daily, Lipitor 40 mg at dinner, calcium carbonate 600 mg p.o. daily, Plavix 75 mg daily, Lovenox 40 mg subcutaneous daily, Pepcid 20 mg daily, Neurontin 300 mg three times a day, hydralazine 15 mg orally twice a day, Dilaudid 1 mg every 4 hours p.r.n. for severe pain, Humulin R sliding scale, Toradol 15 mg every 6 hours, Lactated Ringer's at 100 mL per hour, Synthroid 88 mcg daily, Lidoderm patch topically daily affected area, Singulair 10 mg p.o. daily, Protonix 40 mg daily, potassium chloride 10 mEq every 72 hours, Zoloft 150 mg daily, Januvia 25 mg daily and Ultram 50 mg every 6 hours p.r.n. for mild pain. IMPRESSION AND PLAN: Anemia, renal insufficiency, hyperglycemia, history of cerebrovascular accident, diabetes, coronary artery disease, history of myocardial infarction, chronic obstructive lung disease, renal failure, vitamin D deficiency, lumbar compression fracture, spinal stenosis, status post decompressive laminectomy. Pulmonary point of view, continue inhaled bronchodilators and keep head of bed elevated at 45 degrees. The patient continue to refuse continuous positive airway pressure. Sleep apnea precaution, continue gastric prophylaxis and deep venous thrombosis prophylaxis. The patient is at high risk for fall. The patient will benefit from TRCU evaluation. This patient was seen and examined with Dr. Sawant. Discussed assessment and plan as described above. Thank you for this consult and we will follow with you. Dmitriy Casas APN Homer Sawant MD
[2018-06-03] MEDS: Arformoterol 15 mcg/2 ml Inh Sol IH SCH ×2 (13:50→19:54)
--- NOTE | 2018-06-03 13:57 | CP.PCM.PN ---
Subjective - Date & Time of Evaluation Date of Evaluation: 06/03/18 Time of Evaluation: 13:53 - Subjective Subjective: SPINE - POD #1 Pt resting in bed. Feels leg pain "about the same" although she does straighten her leg out from time to time which she wasn't doing pre-op. VSS. Afebrile. Hgb decreased a little, but only lost 100cc during operation so probably dilutional. Neuro grossly intact. Plan: Continue to mobilize as tolerated. TOM upon discharge. Nerves very compressed so may take time to quiet down. Also she's been holding her R leg in flexed position for awhile so may need to slowly work on stretching hamstring/nerves. Objective - Vital Signs/Intake and Output Vital Signs (last 24 hours): Temp Pulse Resp BP Pulse Ox 98.3 F 88 20 167/87 H 97 06/03/18 06:00 06/03/18 06:00 06/03/18 06:00 06/03/18 09:49 06/03/18 06:00 Intake and Output: 06/03/18 06/03/18 06:59 18:59 Intake Total 1500 Output Total 1000 Balance 500 - Medications Medications: Current Medications Acetaminophen (Tylenol 325mg Tab) 650 mg PO Q6 PRN PRN Reason: Fever >100.4 F Amlodipine Besylate (Norvasc) 10 mg PO DAILY [facility] Last Admin: 06/03/18 09:49 Dose: 10 mg Arformoterol Tartrate (Brovana) 15 mcg IH [id number] [facility] Last Admin: 06/03/18 13:50 Dose: 15 mcg Aspirin (Ecotrin) 81 mg PO DAILY [facility] Last Admin: 05/29/18 09:41 Dose: Not Given Atorvastatin Calcium (Lipitor) 40 mg PO DIN [facility] Last Admin: 06/02/18 17:41 Dose: 40 mg Calcium Carbonate (Caltrate) 600 mg PO DAILY [facility] Last Admin: 06/03/18 09:48 Dose: 600 mg Clopidogrel Bisulfate (Plavix) 75 mg PO DAILY [facility] Last Admin: 05/29/18 09:41 Dose: Not Given Enoxaparin Sodium (Lovenox) 40 mg SC DAILY [facility]; Protocol Last Admin: 05/31/18 09:12 Dose: 40 mg Famotidine (Pepcid) 20 mg PO 2200 [facility] Last Admin: 06/03/18 01:32 Dose: 20 mg Gabapentin (Neurontin) 300 mg PO TID [facility]; Protocol Last Admin: 06/03/18 09:48 Dose: 300 mg Hydralazine HCl (Apresoline) 50 mg PO BID [facility] Last Admin: 06/03/18 09:48 Dose: 50 mg Hydralazine HCl (Apresoline) 10 mg PO QID PRN PRN Reason: for sbp>160 Hydromorphone HCl (Dilaudid) 1 mg IVP Q4H PRN PRN Reason: Pain, severe (8-10) Last Admin: 06/02/18 04:27 Dose: 1 mg Hydromorphone HCl (Dilaudid) 0.5 mg IVP Q15M PRN PRN Reason: Other Last Admin: 06/02/18 11:22 Dose: 0.5 mg Hydromorphone HCl (Dilaudid) 1 mg IVP Q4H PRN PRN Reason: Pain, severe (8-10) Last Admin: 06/03/18 04:56 Dose: 1 mg Lactated Ringer's (Lactated Ringer's) 1,000 mls @ 100 mls/hr IV .Q10H [facility] Last Admin: 06/03/18 06:24 Dose: 100 mls/hr Insulin Human Regular (Humulin R Low) 0 units SC ACHS [facility]; Protocol Last Admin: 06/03/18 11:46 Dose: 1 u Ketorolac Tromethamine (Toradol) 15 mg IVP Q6 [facility] Stop: 06/07/18 12:01 Last Admin: 06/03/18 11:47 Dose: 15 mg Levothyroxine Sodium (Synthroid) 88 mcg PO ACB [facility] Last Admin: 06/03/18 08:39 Dose: 88 mcg Lidocaine (Lidoderm) 1 ea TD DAILY [facility] Last Admin: 06/03/18 09:48 Dose: 1 ea Montelukast Sodium (Singulair) 10 mg PO DAILY [facility] Last Admin: 06/03/18 09:48 Dose: 10 mg Pantoprazole Sodium (Protonix Ec Tab) 40 mg PO DAILY [facility] Last Admin: 06/03/18 09:48 Dose: 40 mg Potassium Chloride (Klor-Con 10) 10 meq PO Q72 [facility] Last Admin: 06/01/18 09:45 Dose: 10 meq Sertraline HCl (Zoloft) 150 mg PO 1800 [facility] Last Admin: 06/02/18 17:40 Dose: 150 mg Sitagliptin Phosphate (Januvia) 25 mg PO DAILY [facility] Last Admin: 06/03/18 09:47 Dose: 25 mg Tramadol HCl (Ultram) 50 mg PO Q6H PRN PRN Reason: Pain, Mild (1-3) - Labs Labs: 06/03/18 07:10 06/03/18 07:10 PT 11.5 SECONDS (9.4-12.5) 05/26/18 10:20 INR 1.00 05/26/18 10:20 APTT 29.3 Seconds (25.1-36.5) 05/26/18 10:20
--- NOTE | 2018-06-03 17:00 | PN ---
DATE: 06/03/2018 REASON FOR CONSULTATION: Followup, cardiac evaluation and risk stratification for neurosurgical intervention status post postop laminectomy L3 and S1. The patient denies any chest pain, shortness of breath, or any palpitation. This note is an addition to dictated by nurse practitioner, Ana Lugo. OBJECTIVE: VITAL SIGNS: Stable, heart rate 80, and blood pressure 127/83. LABORATORY DATA: Blood workup: Hemoglobin 8.9, hematocrit 28.2. Sodium 130, potassium 4.7. IMPRESSION AND PLAN: A 72-year-old female with a past medical history of nonobstructive coronary artery disease, severe cervical radiculopathy, status post laminectomy, degenerative joint disease, compression fracture at T12, bilateral knee replacement in the past, history of cardiac catheter on 04/06/2018, nonobstructive coronary artery disease, status post decompression laminectomy, and postoperative course. The patient is stable. Aspirin and Plavix on hold. Continue hydralazine by mouth twice daily, continue amlodipine. We will restart aspirin and Plavix in 24 to 48 hours after the intervention to avoid any bleeding into the spinal canal. Once the patient appears adequate, we will discontinue also Ringer's lactate to prevent any fluid overload or going into congestive heart failure. We will give 10 mg of hydralazine by mouth in addition to standing order for high blood pressure. Thank you Dr. Aviles for providing us the opportunity in taking care of patient, Francy Metz. Homer Clinton MD
--- NOTE | 2018-06-04 01:31 | PN ---
DATE: 06/03/2018 SUBJECTIVE: The patient is a 72-year-old female. The patient was seen and examined at the bedside on 06/03/2018. Still having pain. No fever. No chills. No hematuria or hematochezia. No headache or dizziness. No chest pain or palpitation. PHYSICAL EXAMINATION: VITAL SIGNS: Temperature 98.2, pulse 81, respiratory rate 18, blood pressure 148/54, and pulse oximetry 95. HEENT: Head is normocephalic and atraumatic. Eyes PERRLA. Extraocular muscles are intact. Conjunctivae clear. Nose patent. Mucous membranes moist. NECK: Supple. No carotid bruits, JVD, or thyromegaly. CHEST: Bilaterally symmetrical. HEART: S1 and S2 positive. LUNGS: Clear to auscultation. ABDOMEN: Soft. Bowel sounds present. No organomegaly. EXTREMITIES: No edema, no cyanosis. NEUROLOGIC: The patient is awake and alert. Moving all four extremities. No focal deficits. MEDICATIONS: Tylenol, Norvasc, Brovana, aspirin, Lipitor, calcium, Caltrate, Plavix, Lovenox, Pepcid, gabapentin, hydralazine, hydromorphone, Ringer's lactate, insulin, and levothyroxine. LABORATORY DATA: White blood cells 11.3, hemoglobin 9.3, hematocrit 29.2, and platelets 240. Sodium 140, potassium 5.1, BUN 29, creatinine 1.2, and glucose 100. ASSESSMENT AND PLAN: Ms. Isaías Sen is a 80-year-old lady with leukocytosis, anemia, hyperkalemia, has severe right-sided back pain, history of fall, coronary artery disease, cardiac catheterization, nonobstructive coronary artery disease, hypertension, renal failure, hypothyroidism, vitamin D deficiency, anxiety, depression, diabetes mellitus, cerebrovascular accident, hypercholesterolemia, degenerative joint disease, compression fracture of the vertebrae, knee replacement. The patient went for surgery with Dr. Randall Aleman. Continue mobilizing as tolerated as they are upon discharge. According to Neurology, nerves are compressed, so it may take time to quiet down. The patient is holding her right leg in a flexed position for a while, so may need to slowly work on stretching, hamstring and nerves. We will call Physical Therapy. Repeat labs. We will follow up. Michelle Aviles MD [facility] # [id number]
[2018-06-04] MEDS: Insulin Reg-LOW-Coverage SC SCH ×3 (02:47→12:32)
[2018-06-04] MEDS: Arformoterol 15 mcg/2 ml Inh Sol IH SCH ×2 (02:47→07:40)
[2018-06-04] MEDS: Lactated Ringer's 1,000 ML IV SCH (02:49)
--- NOTE | 2018-06-04 07:02 | CP.PCM.PN ---
Subjective - Date & Time of Evaluation Date of Evaluation: 06/04/18 Time of Evaluation: 06:40 - Subjective Subjective: Sleeping but easily awaken, no distress, lying on her back, comfortable Reason for consultation and follow up:Cardiac evaluation and risk stratification for neurosurgical intervention for back pain. post op follow up post decompressive laminectomy L3-S1 Seen and examined by me and Dr. Clinton Objective - Vital Signs/Intake and Output Vital Signs (last 24 hours): Temp Pulse Resp BP Pulse Ox 98.8 F 86 18 131/65 96 06/03/18 21:52 06/03/18 21:52 06/03/18 21:52 06/03/18 21:52 06/03/18 21:52 Intake and Output: 06/04/18 06/04/18 06:59 18:59 Intake Total 240 Balance 240 - Medications Medications: Current Medications Acetaminophen (Tylenol 325mg Tab) 650 mg PO Q6 PRN PRN Reason: Fever >100.4 F Amlodipine Besylate (Norvasc) 10 mg PO DAILY [facility] Last Admin: 06/03/18 09:49 Dose: 10 mg Arformoterol Tartrate (Brovana) 15 mcg IH [id number] [facility] Last Admin: 06/04/18 02:47 Dose: Not Given Aspirin (Ecotrin) 81 mg PO DAILY [facility] Last Admin: 05/29/18 09:41 Dose: Not Given Atorvastatin Calcium (Lipitor) 40 mg PO DIN [facility] Last Admin: 06/04/18 02:48 Dose: Not Given Calcium Carbonate (Caltrate) 600 mg PO DAILY [facility] Last Admin: 06/03/18 09:48 Dose: 600 mg Clopidogrel Bisulfate (Plavix) 75 mg PO DAILY [facility] Last Admin: 05/29/18 09:41 Dose: Not Given Enoxaparin Sodium (Lovenox) 40 mg SC DAILY [facility]; Protocol Last Admin: 05/31/18 09:12 Dose: 40 mg Famotidine (Pepcid) 20 mg PO 2200 [facility] Last Admin: 06/03/18 22:13 Dose: 20 mg Gabapentin (Neurontin) 300 mg PO TID [facility]; Protocol Last Admin: 06/03/18 17:58 Dose: 300 mg Hydralazine HCl (Apresoline) 50 mg PO BID [facility] Last Admin: 06/03/18 17:59 Dose: 50 mg Hydralazine HCl (Apresoline) 10 mg PO QID PRN PRN Reason: for sbp>160 Hydromorphone HCl (Dilaudid) 1 mg IVP Q4H PRN PRN Reason: Pain, severe (8-10) Last Admin: 06/02/18 04:27 Dose: 1 mg Hydromorphone HCl (Dilaudid) 0.5 mg IVP Q15M PRN PRN Reason: Other Last Admin: 06/02/18 11:22 Dose: 0.5 mg Hydromorphone HCl (Dilaudid) 1 mg IVP Q4H PRN PRN Reason: Pain, severe (8-10) Last Admin: 06/03/18 04:56 Dose: 1 mg Lactated Ringer's (Lactated Ringer's) 1,000 mls @ 100 mls/hr IV .Q10H [facility] Last Admin: 06/04/18 02:49 Dose: Not Given Insulin Human Regular (Humulin R Low) 0 units SC ACHS [facility]; Protocol Last Admin: 06/04/18 02:47 Dose: Not Given Ketorolac Tromethamine (Toradol) 15 mg IVP Q6 [facility] Stop: 06/07/18 12:01 Last Admin: 06/04/18 06:01 Dose: 15 mg Levothyroxine Sodium (Synthroid) 88 mcg PO ACB [facility] Last Admin: 06/03/18 08:39 Dose: 88 mcg Lidocaine (Lidoderm) 1 ea TD DAILY [facility] Last Admin: 06/03/18 09:48 Dose: 1 ea Montelukast Sodium (Singulair) 10 mg PO DAILY [facility] Last Admin: 06/03/18 09:48 Dose: 10 mg Pantoprazole Sodium (Protonix Ec Tab) 40 mg PO DAILY [facility] Last Admin: 06/03/18 09:48 Dose: 40 mg Potassium Chloride (Klor-Con 10) 10 meq PO Q72 [facility] Last Admin: 06/01/18 09:45 Dose: 10 meq Sertraline HCl (Zoloft) 150 mg PO 1800 [facility] Last Admin: 06/03/18 17:59 Dose: 150 mg Sitagliptin Phosphate (Januvia) 25 mg PO DAILY [facility] Last Admin: 06/03/18 09:47 Dose: 25 mg Tramadol HCl (Ultram) 50 mg PO Q6H PRN PRN Reason: Pain, Mild (1-3) - Labs Labs: 06/03/18 07:10 06/03/18 07:10 PT 11.5 SECONDS (9.4-12.5) 05/26/18 10:20 INR 1.00 05/26/18 10:20 APTT 29.3 Seconds (25.1-36.5) 05/26/18 10:20 - Constitutional Appears: Non-toxic, No Acute Distress - Head Exam Head Exam: NORMAL INSPECTION, NORMOCEPHALIC - Eye Exam Eye Exam: Normal appearance Pupil Exam: NORMAL ACCOMODATION - ENT Exam ENT Exam: Mucous Membranes Moist, Normal Exam - Respiratory Exam Respiratory Exam: Decreased Breath Sounds, NORMAL BREATHING PATTERN - Cardiovascular Exam Cardiovascular Exam: +S1, +S2 Additional comments: No JVD - GI/Abdominal Exam GI & Abdominal Exam: Soft, Normal Bowel Sounds - Extremities Exam Extremities Exam: Full ROM, Normal Capillary Refill - Neurological Exam Neurological Exam: Alert, Awake, Oriented x3 - Psychiatric Exam Psychiatric exam: Normal Affect, Normal Mood - Skin Skin Exam: Dry, Normal Color, Warm Assessment and Plan - Assessment and Plan (Free Text) Assessment: A 72 year old female who came in to the ER due to severe right sided back pain. History of fall about a week ago. History of coronary artery disease,post cardiac cath 03/2014- non obstructive CAD, hypertension,renal failure, hypothyroidism,Vitamin D deficiency,anxiety,depression, diabetes, CVA, hypercholesterolemia, severe degenerative joint disease L4-L5, and compression fracture T12, bilateral knee replacement. Consult was called for cardiac clearance. Echo done.Normal chambers, LVEF 60- 65%,trace MR, mild TR RVSP 35 mmHg,trace pulmonic valvular regurgitation,no pericardial effusion. Denies chest pain or shortness of breath. No evidence of ischemia or heart failure. Status post decompressive laminectomy L3-S1 yesterda y. Cardiac status stable. Plan: Status post decompressive laminectomy L3-S1 POD#2 No distress,Denies chest pain Resume Aspirin and Plavix tomorrow if okay with Neurosurgery Heart rate and blood pressure stable On ASA 81 mg daily,Lipitor 40 mg daily,Plavix 75 mg daily, Lovenox 40 mg daily, Hydralazine 50 mg BID, Synthroid 88 mcg daily. Continue current treatment Continue current medications Physical therapy Will follow up p Chart reviewed Plan and treatment discussed with Dr. Clinton
[2018-06-04 07:55] VITALS: RESP 20
[2018-06-04] MEDS: Levothyroxine 88 MCG TAB PO SCH (08:26)
[2018-06-04] MEDS: Pantoprazole 40 mg EC Tab PO SCH (10:34)
[2018-06-04] MEDS: Lidocaine 5% Patch TD SCH (10:34)
--- NOTE | 2018-06-04 13:54 | PN ---
DATE: 06/04/2018 PULMONARY PROGRESS NOTE REFERRING PHYSICIAN: Michelle Aviles MD SUBJECTIVE: The patient is lying in bed. No acute distress. No overnight events reported. No rhinitis, cough, shortness of breath, chest pain, abdominal pain, nausea, vomiting, diarrhea, dysuria, leg pain or leg swelling reported. Nursing staff does report that the patient voided post Rubi removal. OBJECTIVE: VITAL SIGNS: Blood pressure 150/60, pulse 79, temp 98.8, and oxygen saturation 96% on room air. GENERAL: No acute distress. HEENT: Moist mucous membranes. Mallampati score of 4. Crowded airway. NECK: Supple. No JVD. LUNGS: Fair airflow bilaterally. CARDIOVASCULAR: S1 and S2 audible. ABDOMEN: Soft and nontender. No distention. No organomegaly. EXTREMITIES: No bilateral lower extremity edema. NEUROLOGIC: Awake, alert, verbal, and follows simple commands. LABORATORY DATA: Reviewed. POC glucose 271. MEDICATIONS: Reviewed. Tylenol 650 mg every 6 hours p.r.n. for fever greater than 100.4, Norvasc 10 mg p.o. daily, Brovana 15 mcg every 12 hours inhalation, aspirin 81 mg p.o. daily, Lipitor 40 mg at dinner, calcium carbonate 600 mg p.o. daily, Plavix 75 mg p.o. daily, Lovenox 40 mg subcu daily, Pepcid 20 mg daily, Neurontin 300 mg three times a day, hydralazine 10 mg four times a day p.r.n. for systolic BP greater than 160, Dilaudid 1 mg IV push every 4 hours p.r.n., Humulin R sliding scale, Toradol 15 mg IV push every 6 hours, Lactated Ringer's 100 mL per hour, Synthroid 88 mcg daily, Lidoderm patch topically daily affected areas, Singulair 10 mg p.o. daily, Protonix 40 mg p.o. daily, potassium chloride 10 mEq every 72 hours, Zoloft 150 mg p.o. daily, Januvia 25 mg p.o. daily and Tramadol 50 mg every 6 hours p.r.n. mild pain. IMPRESSION AND PLAN: Anemia, renal insufficiency, hyperglycemia, history of cerebrovascular accident, diabetes, coronary artery disease, history of myocardial infarction, chronic obstructive lung disease, renal failure, vitamin D deficiency, lumbar compression fracture, spinal stenosis, status post decompressive laminectomy. Pulmonary point of view, continue inhaled bronchodilators and keep head of bed elevated at 45 degrees. The patient does continue to refuse continuous positive airway pressure machine. Sleep apnea precaution, gastric prophylaxis and deep venous thrombosis prophylaxis. The patient is at high risk for fall. Fall precautions. Spoke to in-house nurse practitioner. The patient to be discharged to subacute rehab. This patient was seen and examined with Dr. Sawant. Discussed assessment and plan as described above. Thank you for this consult and we will follow with you. Dmitriy Casas APN Homer Sawant MD [id number]
[2018-06-04 15:46] VITALS: BP 147/60; PULSE 77; TEMP 98.9; O2SAT 100
--- NOTE | 2018-06-05 08:21 | PN ---
DATE: 06/04/2018 LOCATION: The patient is in room 572, bed 1. The patient was admitted due to severe back pain and weakness in the leg. The patient is status post decompressive laminectomy of L3 to S1, and we were asked to evaluate her cardiac status. The patient did well post procedure. She denies any chest pain, shortness of breath or palpitation. She is lying flat in bed. We will continue present therapy. Clinically, cardiac status is stable at present. We will follow with you. Homer Castle MD
== END 2018-06-04 16:00 | DRG 516 ==
LOC: ED 09:17 → ERH 13:53 → 5RSO 16:47 → OBSVTOIN 05-27 16:58
PROVIDERS: ADMIT Internal Medicine; ATTEND Internal Medicine
PROC: 01NB0ZZ Release Lumbar Nerve, Open Approach (ICD-10-PCS; principal; 2018-06-02 07:30)
DX: M48.07 Spinal stenosis, lumbosacral region (principal); I69.351 Hemiplegia and hemiparesis following cerebral infarction affecting right dominant side; N39.0 Urinary tract infection, site not specified; M48.54XA Collapsed vertebra, not elsewhere classified, thoracic region, initial encounter for fracture; M43.16 Spondylolisthesis, lumbar region; M54.17 Radiculopathy, lumbosacral region; E11.65 Type 2 diabetes mellitus with hyperglycemia; I12.9 Hypertensive chronic kidney disease with stage 1 through stage 4 chronic kidney disease, or unspecified chronic kidney disease; N18.9 Chronic kidney disease, unspecified; E11.22 Type 2 diabetes mellitus with diabetic chronic kidney disease; I25.10 Atherosclerotic heart disease of native coronary artery without angina pectoris; R32 Unspecified urinary incontinence; E11.42 Type 2 diabetes mellitus with diabetic polyneuropathy; D63.8 Anemia in other chronic diseases classified elsewhere; E03.9 Hypothyroidism, unspecified; E55.9 Vitamin D deficiency, unspecified; E78.00 Pure hypercholesterolemia, unspecified; M47.896 Other spondylosis, lumbar region; E87.5 Hyperkalemia; G47.30 Sleep apnea, unspecified; R31.9 Hematuria, unspecified; J44.9 Chronic obstructive pulmonary disease, unspecified; I25.2 Old myocardial infarction; Z79.82 Long term (current) use of aspirin; Z79.02 Long term (current) use of antithrombotics/antiplatelets; Z79.4 Long term (current) use of insulin

== ENCOUNTER 2018-10-09 10:03 | Outpatient (CLI) | payer MEDICARE, MEDICAID | END 2018-10-09 10:04 | disposition home or self-care (01) | LOC: RAD 10:03 ==

== ENCOUNTER 2018-11-05 04:45 | Emergency (ER) | payer MEDICARE, MEDICAID ==
[2018-11-05 04:53] VITALS: BMI 25.6
[2018-11-05 04:55] VITALS: TEMP 97.9; O2SAT 98
[2018-11-05] MEDS ORDERED: Silver Nitrate Topical - Stick TOP ONE (05:08)
--- NOTE | 2018-11-05 05:14 | ED PDOC ---
Arrival/HPI - General Chief Complaint: ENT Problem Time Seen by Provider: 11/05/18 04:58 Historian: Patient - History of Present Illness Narrative History of Present Illness (Text): 11/05/18 05:08 Isaías Sen is a 73 year old female, whose past medical history includes CVA, diabetes, hypertension, hyperlipidemia, CAD, COPD, and depression, who presents to the ED accompanied by relative complaining of epistaxis this morning. Patient states she sneezed earlier this morning and began bleeding from the right nostril for approximately 2 hours before it stopped. Patient reports she regularly takes Aspirin and Plavix. Patient denies any fever, chills, chest pain, shortness of breath, nausea, vomiting, headache, dizziness, or any other complaints. Symptom Onset: Gradual Symptom Course: Unchanged Activities at Onset: Light Context: Home Past Medical History - Provider Review Nursing Documentation Reviewed: Yes - Infectious Disease Hx of Infectious Diseases: None - Tetanus Immunization Tetanus Immunization: Unknown - Cardiac Hx Cardiac Disorders: Yes (mi,cad,cp) Hx Congestive Heart Failure: Yes Hx Hypertension: Yes - Pulmonary Hx Chronic Obstructive Pulmonary Disease (COPD): Yes - Neurological HX Cerebrovascular Accident: Yes (r side weakness) - HEENT Hx HEENT Disorder: Yes (eyeglasses, [place]) Hx Cataracts: Yes (b/l sx) Other/Comment: 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 - Renal Hx Renal Failure: Yes - Endocrine/Metabolic Hx Diabetes Mellitus Type 2: Yes Hx Hypothyroidism: Yes - Hematological/Oncological Hx Blood Transfusions: No Hx Blood Transfusion Reaction: No - Integumentary Hx Dermatological Disorder: Yes Other/Comment: multiple bruises in various stages of healing to ble and b/l arms , , 2 small round brown scars from kyphoplasty to mid back, bruise left flank - Musculoskeletal/Rheumatological Hx Falls: Yes (recent frequent) - Gastrointestinal Hx Gastrointestinal Disorders: Yes Hx Gastroesophageal Reflux: Yes - Genitourinary/Gynecological Hx Genitourinary Disorders: Yes (polyuria/urgency) Hx Incontinence: Yes (since cva) - Psychiatric Hx Psychophysiologic Disorder: Yes Hx Anxiety: Yes Hx Depression: Yes Hx Substance Use: No - Surgical History Hx Cardiac Catheterization: Yes (10/2012) Hx Hysterectomy: Yes Hx Joint Replacement: Yes (right knee replacement) Hx Musculoskeletal Surgery: Yes Hx Orthopedic Surgery: Yes (bilateral knee replacement) Other/Comment: cataract surgery both eyes, left ft sx, r knee and shoulder scoped, lumbar epidural steroid injection, nerve block, - Anesthesia Hx Anesthesia Reactions: No Hx Malignant Hyperthermia: No - Suicidal Assessment Feels Threatened In Home Enviroment: No Family/Social History - Physician Review Nursing Documentation Reviewed: Yes Family/Social History: Unknown Family HX Smoking Status: Never Smoked Hx Alcohol Use: No Hx Substance Use: No Hx Substance Use Treatment: No Allergies/Home Meds Allergies/Adverse Reactions: Allergies iodine Allergy (Verified 11/05/18 04:50) ANAPHYLAXIS Home Medications: Home Meds Medication Instructions Recorded Confirmed Pantoprazole [Protonix EC Tab] 40 mg PO DAILY 11/16/14 11/05/18 Montelukast [Singulair] 10 mg PO DAILY 12/04/14 11/05/18 Clopidogrel [Plavix] 75 mg PO DAILY 09/03/15 11/05/18 Aspirin [Ecotrin] 81 mg PO DAILY 04/12/16 11/05/18 SITagliptin [Januvia] 100 mg PO DAILY 08/27/17 11/05/18 amLODIPine [Norvasc] 10 mg PO DAILY 08/27/17 11/05/18 Insulin Aspart, Recombinant 10 unit SC ACBD 03/19/18 11/05/18 [Novolog] Sertraline [Zoloft] 150 mg PO ACD 03/19/18 11/05/18 hydrALAZINE [Apresoline] 50 mg PO BID 03/19/18 11/05/18 Calcium Carbonate [Calcium] 600 mg PO DAILY 03/22/18 11/05/18 Potassium Chloride [Klor-Con 10] 10 meq PO Q72 03/22/18 11/05/18 Montelukast [Singulair] 10 mg PO DAILY 11/05/18 11/05/18 Review of Systems - Physician Review All systems were reviewed & negative as marked: Yes - Review of Systems Constitutional: Normal. absent: Fevers Eyes: Normal ENT: Epistaxis Respiratory: Normal. absent: SOB, Cough Cardiovascular: Normal. absent: Chest Pain Gastrointestinal: Normal. absent: Abdominal Pain, Diarrhea, Nausea, Vomiting Genitourinary Female: Normal. absent: Dysuria, Frequency, Hematuria, Urine Output Changes Musculoskeletal: Normal. absent: Back Pain, Neck Pain Skin: Normal. absent: Rash Neurological: Normal. absent: Headache, Dizziness Endocrine: Normal Hemo/Lymphatic: Normal Psychiatric: Normal Physical Exam Vital Signs Reviewed: Yes Vital Signs Temp Pulse Resp BP Pulse Ox 11/05/18 04:53 97.9 F 64 16 159/78 H 98 Temperature: Afebrile Blood Pressure: Hypertensive Pulse: Regular Respiratory Rate: Normal Appearance: Positive for: Well-Appearing, Non-Toxic, Comfortable Pain Distress: None Mental Status: Positive for: Alert and Oriented X 3 - Systems Exam Head: Present: Atraumatic, Normocephalic Pupils: Present: PERRL Extroacular Muscles: Present: EOMI Conjunctiva: Present: Normal Ears: Present: Normal, NORMAL TM, Normal Canal. No: Erythema, TM Bulging, Fluid, TM Perf Mouth: Present: Moist Mucous Membranes Pharnyx: Present: Normal. No: ERYTHEMA, EXUDATE, TONSILS ENLARGED, Peritonsilar Swelling, Uvular Deviation, Muffled/Hoarse Voice, Strider, Soft Palate/Uvular Edema Nose (External): Present: Atraumatic Nose (Internal): No: No Active Bleeding (Dried blood in right nares) Neck: Present: Normal Range of Motion. No: Meningeal Signs, MIDLINE TENDERNESS, Paraspinal Tenderness Respiratory/Chest: Present: Clear to Auscultation, Good Air Exchange. No: Respiratory Distress, Accessory Muscle Use Cardiovascular: Present: Regular Rate and Rhythm, Normal S1, S2. No: Murmurs Abdomen: No: Tenderness, Distention, Peritoneal Signs Neurological: Present: GCS=15, CN II-XII Intact, Speech Normal Skin: Present: Warm, Dry, Normal Color. No: Rashes Psychiatric: Present: Alert, Oriented x 3, Normal Insight, Normal Concentration Medical Decision Making ED Course and Treatment: 11/05/18 05:08 Impression: 73 year old female complaining of right-sided nose bleed. Plan: -- Silver Nitrate Cautery -- Reassess and disposition Prior Visits: Notes and results from previous visits were reviewed. Progress Notes: PROCEDURE: EPISTAXIS MANAGEMENT Performed by the emergency provider Consent: Informed consent was obtained after discussion of the risks, benefits, and alternatives to the procedure. Timeout: A timeout to verify the correct patient, procedure, and site was performed immediately prior to the procedure. Indication: Nasal bleeding control Location: right naris Bleeding Source: ANTERIOR Cautery: Silver Nitrate Cautery Post-procedure: Good hemostasis. The patient was observed following procedure and no repeat episode of bleeding was noted. Patient tolerated the procedure well with no immediate complications. - Scribe Statement The provider has reviewed the documentation as recorded by the Jacey Meyer Provider Scribe Attestation: All medical record entries made by the Scribe were at my direction and personally dictated by me. I have reviewed the chart and agree that the record accurately reflects my personal performance of the history, physical exam, medical decision making, and the department course for this patient. I have also personally directed, reviewed, and agree with the discharge instructions and disposition. Disposition/Present on Arrival - Present on Arrival Any Indicators Present on Arrival: No History of DVT/PE: No History of Uncontrolled Diabetes: No Urinary Catheter: No History of Decub. Ulcer: No History Surgical Site Infection Following: None - Disposition Have Diagnosis and Disposition been Completed?: Yes Diagnosis: Left-sided nosebleed Disposition: HOME/ ROUTINE Disposition Time: 07:00 Condition: GOOD Discharge Instructions (ExitCare): Nosebleeds Referrals: Michelle Aviles MD [Primary Care Provider] - Follow up with primary Erich Garcia DO [Staff Provider] - Follow up with primary Forms: [employer] (Cook Islander)
[2018-11-05 07:16] VITALS: BP 147/61; PULSE 70; RESP 19
== END 2018-11-05 07:16 | disposition home or self-care (01) ==
LOC: ED 04:45
DX: R04.0 Epistaxis (principal)

== ENCOUNTER 2018-11-06 13:40 | Observation (INO) | payer MEDICARE, MEDICAID ==
[2018-11-06 14:01] VITALS: BMI 26.6
--- NOTE | 2018-11-06 14:23 | RAD ---
Date of service: 11/06/2018 HISTORY: epistaxis COMPARISON: 05/30/2018 TECHNIQUE: 1 view obtained. FINDINGS: LUNGS: No active pulmonary disease. PLEURA: No significant pleural effusion identified, no pneumothorax apparent. CARDIOVASCULAR: Aortic calcification Normal cardiac size. No pulmonary vascular congestion. OSSEOUS STRUCTURES: No significant abnormalities. VISUALIZED UPPER ABDOMEN: Normal. OTHER FINDINGS: None. IMPRESSION: No active disease.
--- NOTE | 2018-11-06 14:41 | ED PDOC ---
Arrival/HPI - General Chief Complaint: ENT Problem Time Seen by Provider: 11/06/18 13:44 Historian: Patient, Family - History of Present Illness Narrative History of Present Illness (Text): 11/06/18 14:39 73 year old F with pmh of CVA, diabetes, hypertension, hyperlipidemia, CAD, COPD, and depression, presents accompanied by relative complaining of epistaxis since yesterday. Patient presented yesterday for the same complaint but epistaxis resolved while in the ER and was cauterized. Patient denies any SOB, LOC, chest pain, palpations, dizziness, abdominal pain, back pain, vomiting, nausea, neck pain, urinary changes, or any other complains. Bleeding more severe today, also coming from mouth. Time/Duration: 24 hours Symptom Onset: Sudden Symptom Course: Unchanged Activities at Onset: Light Context: Home Past Medical History - Provider Review Nursing Documentation Reviewed: Yes - Infectious Disease Hx of Infectious Diseases: None - Tetanus Immunization Tetanus Immunization: Unknown - Cardiac Hx Cardiac Disorders: Yes (mi,cad,cp) Hx Congestive Heart Failure: Yes Hx Hypertension: Yes - Pulmonary Hx Respiratory Disorders: Yes Hx Chronic Obstructive Pulmonary Disease (COPD): Yes - Neurological Hx Neurological Disorder: Yes HX Cerebrovascular Accident: Yes (r side weakness) - HEENT Hx HEENT Disorder: Yes (eyeglasses, [place]) Hx Cataracts: Yes (b/l sx) Other/Comment: 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 - Renal Hx Renal Disorder: Yes Hx Renal Failure: Yes - Endocrine/Metabolic Hx Endocrine Disorders: Yes Hx Diabetes Mellitus Type 2: Yes Hx Hypothyroidism: Yes - Hematological/Oncological Hx Blood Disorders: No - Integumentary Hx Dermatological Disorder: Yes Other/Comment: multiple bruises in various stages of healing to ble and b/l arms, , 2 small round brown scars from kyphoplasty to mid back, bruise left flank - Musculoskeletal/Rheumatological Hx Musculoskeletal Disorders: Yes Hx Falls: Yes (recent frequent) - Gastrointestinal Hx Gastrointestinal Disorders: Yes Hx Gastroesophageal Reflux: Yes - Genitourinary/Gynecological Hx Genitourinary Disorders: Yes (polyuria/urgency) Hx Incontinence: Yes (since cva) - Psychiatric Hx Psychophysiologic Disorder: Yes Hx Anxiety: Yes Hx Depression: Yes Hx Substance Use: No - Surgical History Hx Cardiac Catheterization: Yes (10/2012) Hx Hysterectomy: Yes Hx Joint Replacement: Yes (right knee replacement) Hx Musculoskeletal Surgery: Yes Hx Orthopedic Surgery: Yes (bilateral knee replacement) Other/Comment: cataract surgery both eyes, left ft sx, r knee and shoulder sco ped, lumbar epidural steroid injection, nerve block, - Anesthesia Hx Anesthesia Reactions: No Hx Malignant Hyperthermia: No - Suicidal Assessment Feels Threatened In Home Enviroment: No Family/Social History - Physician Review Nursing Documentation Reviewed: Yes Family/Social History: Unknown Family HX Smoking Status: Never Smoked Hx Alcohol Use: No Hx Substance Use: No Hx Substance Use Treatment: No Allergies/Home Meds Allergies/Adverse Reactions: Allergies iodine Allergy (Verified 11/05/18 04:50) ANAPHYLAXIS Home Medications: Home Meds Medication Instructions Recorded Confirmed Pantoprazole [Protonix EC Tab] 40 mg PO DAILY 11/16/14 11/05/18 Montelukast [Singulair] 10 mg PO DAILY 12/04/14 11/05/18 Clopidogrel [Plavix] 75 mg PO DAILY 09/03/15 11/05/18 Aspirin [Ecotrin] 81 mg PO DAILY 04/12/16 11/05/18 SITagliptin [Januvia] 100 mg PO DAILY 08/27/17 11/05/18 amLODIPine [Norvasc] 10 mg PO DAILY 08/27/17 11/05/18 Insulin Aspart, Recombinant 10 unit SC ACBD 03/19/18 11/05/18 [Novolog] Sertraline [Zoloft] 150 mg PO ACD 03/19/18 11/05/18 hydrALAZINE [Apresoline] 50 mg PO BID 03/19/18 11/05/18 Calcium Carbonate [Calcium] 600 mg PO DAILY 03/22/18 11/05/18 Potassium Chloride [Klor-Con 10] 10 meq PO Q72 03/22/18 11/05/18 Montelukast [Singulair] 10 mg PO DAILY 11/05/18 11/05/18 Review of Systems - Physician Review All systems were reviewed & negative as marked: Yes - Review of Systems Constitutional: absent: Fevers ENT: Epistaxis. absent: Sore Throat Respiratory: absent: SOB, Cough, Wheezing Gastrointestinal: absent: Abdominal Pain, Diarrhea, Nausea, Hematochezia, Hematemesis Genitourinary Female: absent: Dysuria Musculoskeletal: absent: Arthralgias, Back Pain, Neck Pain Skin: absent: Rash, Laceration Neurological: absent: Headache, Dizziness Physical Exam Vital Signs Reviewed: Yes Vital Signs Temp Pulse Resp BP Pulse Ox 11/06/18 13:46 98.9 F 81 18 144/51 L 97 Temperature: Afebrile Blood Pressure: Normal Pulse: Regular Respiratory Rate: Normal Appearance: Positive for: Well-Appearing, Non-Toxic, Comfortable Pain Distress: Mild Mental Status: Positive for: Alert and Oriented X 3 - Systems Exam Head: Present: Atraumatic, Normocephalic Pupils: Present: PERRL Extroacular Muscles: Present: EOMI Conjunctiva: Present: Normal Mouth: Present: Moist Mucous Membranes Nose (Internal): Present: Epistaxis Neck: Present: Normal Range of Motion Respiratory/Chest: Present: Clear to Auscultation, Good Air Exchange. No: Respiratory Distress, Accessory Muscle Use Cardiovascular: Present: Regular Rate and Rhythm, Normal S1, S2. No: Murmurs Abdomen: No: Tenderness, Distention, Peritoneal Signs Back: Present: Normal Inspection Upper Extremity: Present: Normal Inspection. No: Cyanosis, Edema Lower Extremity: Present: Normal Inspection. No: Edema Neurological: Present: GCS=15, CN II-XII Intact, Speech Normal Skin: Present: Warm, Dry, Normal Color. No: Rashes Psychiatric: Present: Alert, Oriented x 3, Normal Insight, Normal Concentration Medical Decision Making ED Course and Treatment: 11/06/18 14:37 Impression: 73 year old F presents accompanied by relative complaining of epistaxis since yesterday Plan: -- Labs -- EKG -- Reassess and disposition Progress Notes: Discussed case with Dr. Aviles who recommends patient admitted and put under her service as she has already undergone appropriate outpatient therapy without resolution. Chest X Ray -- No active disease EKG shows NSR at [address] elevations, No T wave inversions Dr. Garcia paged for ENT consult. In meantime, L nare rhinorocket 7.5 cm placed. - RAD Interpretation Radiology Orders: 11/06/18 14:03 CHEST PORTABLE [RAD] Stat - Scribe Statement The provider has reviewed the documentation as recorded by the Scribelida Reynoso All medical record entries made by the Scribe were at my direction and personally dictated by me. I have reviewed the chart and agree that the record accurately reflects my personal performance of the history, physical exam, medical decision making, and the department course for this patient. I have also personally directed, reviewed, and agree with the discharge instructions and disposition. Disposition/Present on Arrival - Present on Arrival Any Indicators Present on Arrival: No History of DVT/PE: No History of Uncontrolled Diabetes: No Urinary Catheter: No History of Decub. Ulcer: No History Surgical Site Infection Following: None - Disposition Have Diagnosis and Disposition been Completed?: Yes Diagnosis: Epistaxis, Failure of outpatient treatment Disposition: HOSPITALIZED Disposition Time: 16:25 Patient Plan: Observation Condition: FAIR Referrals: Michelle Aviles MD [Primary Care Provider] - Follow up with primary Forms: [employer] ([place]ian)
[2018-11-06 15:07] LABS: BASO # 0.02 K/mm3 (0.0-2.0); BASO % 0.2 % (0.0-3.0); EOS # 0.2 (0.0-0.7); EOS % 1.7 % (1.5-5.0); HEMOGLOBIN 9.6 g/dL (12.0-16.0); LYMPH # 3.3 (1.2-3.4); LYMPH % 36.8 % (22.0-35.0); MEAN CELL VOLUME 86.4 fl (80.0-105.0); MEAN CORPUSCULAR HEMOGLOBIN 27.8 pg (25.0-35.0); MEAN CORPUSCULAR HGB CONC 32.2 g/dl (31.0-37.0); MEAN PLATELET VOLUME 10.2 fl (7.0-11.0); MONO # 0.7 (0.1-0.6); MONO % 8.2 % (1.0-6.0); RBC 3.45 10^6/uL (3.5-6.1); RED CELL DISTRIBUTION WIDTH 13.7 % (11.5-14.5); WHITE BLOOD COUNT 9.1 10^3/uL (4.5-11.0)
[2018-11-06 15:08] LABS: ALB/GLOB RATIO 1.3 (1.1-1.8); ALBUMIN 3.7 g/dL (3.0-4.8); ALT/SGPT 44 U/L (7-56); AST/SGOT 39 U/L (14-36); BLOOD UREA NITROGEN 34 mg/dL (7-21); CALCIUM 8.8 mg/dL (8.4-10.5); GFR NON-AFRICAN AMERICAN > 60
[2018-11-06 15:14] LABS: INR 1.04; PARTIAL THROMBOPLASTIN TIME 30.5 Seconds (26.9-38.3); PROTHROMBIN TIME 11.5 SECONDS (9.4-12.5)
[2018-11-06 15:18] LABS: TROPONIN I < 0.01 ng/mL
[2018-11-06] MEDS: Levothyroxine 88 MCG TAB PO SCH (20:05)
[2018-11-06] MEDS: Arformoterol 15 mcg/2 ml Inh Sol IH SCH (20:16)
[2018-11-06 21:31] VITALS: TEMP 98.2
[2018-11-06 22:52] VITALS: RESP 18
[2018-11-06] MEDS ORDERED: Pneumococcal 23-Valent Vaccine IM ONE (22:52)
[2018-11-07] MEDS: Arformoterol 15 mcg/2 ml Inh Sol IH SCH (07:38)
[2018-11-07] MEDS: Levothyroxine 88 MCG TAB PO SCH (08:20)
[2018-11-07] MEDS ORDERED: Pantoprazole 40 mg EC Tab PO SCH (10:00)
--- NOTE | 2018-11-07 11:53 | CARD ---
APPROVED REPORT Date of service: 11/06/2018 EKG Measurement Heart [id number] <Conclusion> Normal sinus rhythm with sinus arrhythmia Anteroseptal infarct, age undetermined Abnormal ECG
--- NOTE | 2018-11-07 13:06 | CP.PCM.CON ---
History of Present Illness - History of Present Illness History of Present Illness: 73 yo female with PmHx significant for CVA, diabetes, Htn, HLD, CAD, COPD and depression had acute onset bleeding left nares on Saturday. Pt went to ED for continued bleeding and rapid rhino placed in the left nares. Pt takes ASA and plavix daily. Has had some bleeding in the past Review of Systems - Constitutional Constitutional: As Per HPI - EENT Eyes: As Per HPI Ears: As Per HPI Nose/Mouth/Throat: As Per HPI - Breasts Breasts: As Per HPI - Cardiovascular Cardiovascular: As Per HPI - Respiratory Respiratory: As Per HPI - Gastrointestinal Gastrointestinal: As Per HPI - Genitourinary Genitourinary: As Per HPI - Reproductive: Female Reproductive:Female: As Per HPI - Menstruation Menstruation: As Per HPI - Musculoskeletal Musculoskeletal: As Per HPI - Integumentary Integumentary: As Per HPI - Neurological Neurological: As Per HPI - Psychiatric Psychiatric: As Per HPI - Endocrine Endocrine: As Per HPI - Hematologic/Lymphatic Hematologic: As Per HPI Past Patient History - Infectious Disease Hx of Infectious Diseases: None - Tetanus Immunizations Tetanus Immunization: Unknown - Past Medical History & Family History Past Medical History?: Yes - Past Social History Smoking Status: Never Smoked - CARDIAC Hx Cardiac Disorders: Yes (mi,cad,cp) Hx Congestive Heart Failure: Yes Hx Hypertension: Yes - PULMONARY Hx Respiratory Disorders: Yes Hx Chronic Obstructive Pulmonary Disease (COPD): Yes - NEUROLOGICAL Hx Neurological Disorder: Yes HX Cerebrovascular Accident: Yes (r side weakness) - HEENT Hx HEENT Problems: Yes (eyeglasses, [place]) Hx Cataracts: Yes (b/l sx) Other/Comment: 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 - RENAL Hx Chronic Kidney Disease: Yes Hx Renal Failure: Yes - ENDOCRINE/METABOLIC Hx Endocrine Disorders: Yes Hx Diabetes Mellitus Type 2: Yes Hx Hypothyroidism: Yes - HEMATOLOGICAL/ONCOLOGICAL Hx Blood Disorders: No - INTEGUMENTARY Hx Dermatological Problems: Yes Other/Comment: multiple bruises in various stages of healing to ble and b/l arms, , 2 small round brown scars from kyphoplasty to mid back, bruise left flank - MUSCULOSKELETAL/RHEUMATOLOGICAL Hx Musculoskeletal Disorders: Yes Hx Falls: Yes (recent frequent) - GASTROINTESTINAL Hx Gastrointestinal Disorders: Yes Hx Gastroesophageal Reflux: Yes - GENITOURINARY/GYNECOLOGICAL Hx Genitourinary Disorders: Yes (polyuria/urgency) Hx Incontinence: Yes (since cva) - PSYCHIATRIC Hx Psychophysiologic Disorder: Yes Hx Anxiety: Yes Hx Depression: Yes Hx Substance Use: No - SURGICAL HISTORY Hx Cardiac Catheterization: Yes (10/2012) Hx Hysterectomy: Yes Hx Joint Replacement: Yes (right knee replacement) Hx Musculoskeletal Surgery: Yes Hx Orthopedic Surgery: Yes (bilateral knee replacement) Other/Comment: cataract surgery both eyes, left ft sx, r knee and shoulder sc oped, lumbar epidural steroid injection, nerve block, - ANESTHESIA Hx Anesthesia Reactions: No Hx Malignant Hyperthermia: No Meds Allergies/Adverse Reactions: Allergies Allergy/AdvReac Type Severity Reaction Status Date / Time iodine Allergy ANAPHYLAXIS Verified 11/06/18 19:18 - Medications Medications: Current Medications Acetaminophen (Tylenol 325mg Tab) 650 mg PO Q6 PRN PRN Reason: Fever >100.4 F Last Admin: 11/06/18 20:06 Dose: 650 mg Amlodipine Besylate (Norvasc) 10 mg PO DAILY [facility] Last Admin: 11/07/18 09:40 Dose: 10 mg Arformoterol Tartrate (Brovana) 15 mcg IH [id number] [facility] Last Admin: 11/07/18 07:38 Dose: 15 mcg Aspirin (Ecotrin) 81 mg PO DAILY [facility] Last Admin: 11/07/18 09:40 Dose: 81 mg Atorvastatin Calcium (Lipitor) 40 mg PO DIN [facility] Calcium Carbonate (Caltrate) 600 mg PO DAILY [facility] Last Admin: 11/07/18 09:40 Dose: 600 mg Gabapentin (Neurontin) 300 mg PO TID [facility]; Protocol Last Admin: 11/07/18 09:39 Dose: 300 mg Hydralazine HCl (Apresoline) 50 mg PO BID [facility] Last Admin: 11/07/18 09:40 Dose: 50 mg Levothyroxine Sodium (Synthroid) 88 mcg PO ACB [facility] Last Admin: 11/07/18 08:20 Dose: 88 mcg Montelukast Sodium (Singulair) 10 mg PO DAILY [facility] Last Admin: 11/07/18 09:40 Dose: 10 mg Pantoprazole Sodium (Protonix Ec Tab) 40 mg PO DAILY [facility] Last Admin: 11/07/18 09:40 Dose: 40 mg Potassium Chloride (Klor-Con 10) 10 meq PO SuTh [facility] Sertraline HCl (Zoloft) 150 mg PO ACD [facility] Sitagliptin Phosphate (Januvia) 100 mg PO DAILY [facility] Last Admin: 11/07/18 09:40 Dose: 100 mg Tramadol HCl (Ultram) 50 mg PO Q6H PRN PRN Reason: Pain, moderate (4-7) Last Admin: 11/07/18 09:47 Dose: 50 mg Physical Exam - Head Exam Head Exam: ATRAUMATIC - Eye Exam Eye Exam: Conjunctival injection, EOMI, Normal appearance Pupil Exam: NORMAL ACCOMODATION - ENT Exam ENT Exam: Mucous Membranes Moist Additional comments: Ears: canals patent bilaterally Nose: packing left side non active bleeding Throat: wnl no bleeding neck supple no adenopathy - Neck Exam Neck exam: Positive for: Normal Inspection. Negative for: Lymphadenopathy - Respiratory Exam Respiratory Exam: NORMAL BREATHING PATTERN Results - Vital Signs Recent Vital Signs: Last Vital Signs Temp 98.2 F 11/06/18 21:30 Pulse 84 11/06/18 22:39 Resp 18 11/06/18 22:39 BP 155/66 H 11/07/18 09:40 Pulse Ox 100 11/06/18 21:30 - Labs Result Diagrams: 11/06/18 14:42 11/06/18 14:42 Labs: Laboratory Results - last 24 hr 11/06/18 11/06/18 11/06/18 14:42 14:42 14:42 WBC 9.1 RBC 3.45 L Hgb 9.6 L Hct 29.8 L MCV 86.4 D MCH 27.8 MCHC 32.2 RDW 13.7 Plt Count 215 MPV 10.2 Neut % (Auto) 53.1 Lymph % (Auto) 36.8 H [place] % (Auto) 8.2 H Eos % (Auto) 1.7 Baso % (Auto) 0.2 Lymph # (Auto) 3.3 [place] # (Auto) 0.7 H Eos # (Auto) 0.2 Baso # (Auto) 0.02 Absolute Neuts (auto) 4.81 PT 11.5 INR 1.04 APTT 30.5 Sodium 139 Potassium 4.7 Chloride 105 Carbon Dioxide 28 Anion Gap 11 BUN 34 H Creatinine 0.9 Est GFR ( Amer) > 60 Est GFR (Non-Af Amer) > 60 Random Glucose 111 H Calcium 8.8 Total Bilirubin 0.3 AST 39 H D ALT 44 Alkaline Phosphatase 96 Total Creatine Kinase 34 L Troponin I < 0.01 Total Protein 6.5 Albumin 3.7 Globulin 2.8 Albumin/Globulin Ratio 1.3 Assessment & Plan (1) Epistaxis Status: Acute (2) CHF (congestive heart failure) Status: Acute (3) Cellulitis of both lower extremities Status: Acute (4) Monoclonal gammopathy Status: Acute (5) Non compliance with medical treatment Status: Acute (6) Uncontrolled diabetes mellitus Status: Acute (7) Weakness Status: Acute (8) HTN (hypertension) Status: Chronic (9) Nose septum deviation Status: Acute - Assessment and Plan (Free Text) Plan: maintain packing 3-5 day period and remove in office Saturday. - Date & Time Date: 11/07/18 Time: 13:06
--- NOTE | 2018-11-07 13:58 | CP.PCM.PCO ---
Physician Communication Note - Physician Communication Note Physician Communication Note: Pt.seen with rhinorocket in place to left nostril,c/o headache,head ct pend Additional Comments - Additional Comments Additional Comments: repeat cbc pending, cleared for DC home if normal ct , and hgb stable.
[2018-11-07 14:12] LABS: HEMOGLOBIN 9.3 g/dL (12.0-16.0); MEAN CELL VOLUME 85.9 fl (80.0-105.0); MEAN CORPUSCULAR HEMOGLOBIN 27.9 pg (25.0-35.0); MEAN CORPUSCULAR HGB CONC 32.5 g/dl (31.0-37.0); MEAN PLATELET VOLUME 9.8 fl (7.0-11.0); RBC 3.33 10^6/uL (3.5-6.1); RED CELL DISTRIBUTION WIDTH 13.7 % (11.5-14.5); WHITE BLOOD COUNT 8.8 10^3/uL (4.5-11.0)
--- NOTE | 2018-11-07 14:31 | CT ---
Date of service: 11/07/2018 PROCEDURE: CT HEAD WITHOUT CONTRAST. HISTORY: headache COMPARISON: 03/19/2018 TECHNIQUE: Axial computed tomography images were obtained through the head/brain without intravenous contrast. Radiation dose: Total exam DLP = 862.85 mGy-cm. This CT exam was performed using one or more of the following dose reduction techniques: Automated exposure control, adjustment of the mA and/or kV according to patient size, and/or use of iterative reconstruction technique. FINDINGS: HEMORRHAGE: No intracranial hemorrhage. BRAIN: No mass effect or edema. Chronic microvascular changes are seen in the periventricular white matter. VENTRICLES: Unremarkable. No hydrocephalus. CALVARIUM: Unremarkable. PARANASAL SINUSES: Unremarkable as visualized. No significant inflammatory changes. MASTOID AIR CELLS: Unremarkable as visualized. No inflammatory changes. OTHER FINDINGS: None. IMPRESSION: No acute intracranial findings
[2018-11-07 15:55] VITALS: BP 153/66; PULSE 75; O2SAT 95
[2018-11-07] MEDS ORDERED: Arformoterol 15 mcg/2 ml Inh Sol IH SCH (20:00)
[2018-11-07] MEDS ORDERED: Budesonide 0.5 mg/2 ml Inhal Susp UD IH SCH (20:00)
[2018-11-07] MEDS ORDERED: Amoxicillin-Clav 875-125 mg Tab PO SCH (22:00)
--- NOTE | 2018-11-08 00:22 | HP ---
DATE OF EXAM: 11/07/2018 The patient was seen and examined at the bedside on 11/07/2018. CHIEF COMPLAINT: Heavy nose bleeding. HISTORY OF PRESENT ILLNESS: Ms. Isaías Sen is a 73-year-old female with past medical history of CVA, diabetes mellitus, hypertension, hypercholesterolemia, coronary artery disease, COPD, and depression, came actually in emergency room two days ago for nose bleeding and bleeding stopped and she was discharged, now she came in my office on 11/06/2018, still having nose bleeding, I transferred the patient to [facility] where they did the packing with a Rhino Rocket. Today, the patient is stable. No headache or dizziness. No chest pain. No palpitation. The patient was seen by ENT and they advised to see the patient as outpatient on Saturday and they cleared the patient for discharge. I did review the CAT scan of the head, it is no change in the status from the previous one. PAST MEDICAL HISTORY: OR, coronary artery disease, chest pain, COPD, eye glasses, renal disorder, diabetes mellitus type 2, hypothyroidism, sensory complaints suspicious of tingling to bilateral arms, history of falls, gastroesophageal reflux disease, urinary incontinence, anxiety, depression, history of cardiac catheterization with test screen, joint replacement musculoskeletal, bilateral knee replacement. FAMILY HISTORY: Father and mother noncontributory. HABITS: No smoking. No drugs. No ethanol. ALLERGIES: THE PATIENT IS NOT ALLERGIC WITH IODINE. HOME MEDICATIONS: Protonix, Singulair, Plavix, Ecotrin, Januvia, Norvasc, Zoloft, adenosine, and hydralazine. REVIEW OF SYSTEMS: The patient was seen and examined at the bedside, looking comfortable, has nasal packing with Rhino Rocket. No fever. No chills. No nose bleeding. The headache and dizziness is better. PHYSICAL EXAMINATION: VITAL SIGNS: Temperature 98.2, pulse 75, blood pressure 153/62, and respiratory rate 18. HEENT: Head; normocephalic and atraumatic. Eyes; PERRLA. Extraocular muscles intact. Conjunctivae clear. Nose patent. Mucous membranes moist. NECK: Supple. No carotid bruits, JVD or thyromegaly. CHEST: Bilaterally symmetrical. HEART: S1 and S2 positive. LUNGS: Clear to auscultation. ABDOMEN: Soft. Bowel sounds present. No organomegaly. EXTREMITIES: No edema. No cyanosis. NEUROLOGIC: The patient is awake and alert. Follows simple commands. MEDICATIONS: Hydralazine, Brovana, Ecotrin, and Januvia. LABORATORY DATA: White blood cells 10.7, hemoglobin 4.7. BUN is 30, chloride 6.9, glucose 111, creatinine is 1.2. ASSESSMENT AND PLAN: Ms. Isaías Sen is a 73-year-old female with anemia, increased BUN, increased hyperglycemia, and abnormal liver function test. CAT scan of the head done, reviewed by me. Seen by Dr. Mj Veliz. History of diabetes mellitus, hypertension, hypercholesterolemia, coronary artery disease. Family was at the bedside. Now, the patient is cleared by the [facility] after seeing. They want to remove that tube as outpatient. Repeat labs. The patient has all medications at home. Outpatient evaluation. We will follow up. Michelle Aviles MD MTDD
--- NOTE | 2018-11-08 03:49 | CON ---
DATE: 11/07/2018 PULMONARY CONSULTATION REFERRING PHYSICIAN: Dr. Aviles. REASON FOR CONSULTATION: Chronic lung disease, sleep apnea syndrome, history of stroke. HISTORY OF PRESENT ILLNESS: This is a 73-year-old female, well-known to me from previous admission, seen with her , who asked to see the patient, has a history of stroke, diabetes, hypertension, hyperlipidemia, coronary artery disease, chronic lung disease, depression, obstructive sleep apnea syndrome. Apparently, comes in to the ER with epistaxis; apparently when seen in the ER, her epistaxis bleeding blood vessel was cauterized, but then the bleeding started again and she started having some shortness of breath and cough. She was kept in the hospital. Presently, she has a Rhino Rocket in the left nostril and feels okay. Mild cough. No nausea, no vomiting, no diarrhea, no leg pain or leg swelling. PAST MEDICAL HISTORY: As per the history of present illness. Also, has a severe degenerative joint disease with multiple fractures in the past, diabetes, hypothyroidism, limited with ambulation, history of multiple falls with a kyphoplasty in the past, history of gastroesophageal reflux disease, depression, anxiety. FAMILY HISTORY: No significant cardiopulmonary disease reported. SOCIAL HISTORY: Positive history of secondhand smoke, no active smoking. ALLERGIES: IODINE. MEDICATIONS: She is on hydralazine 50 mg twice a day, Brovana inhaled twice a day, calcium carbonate 600 mg daily, mg daily, Januvia 100 mg daily, potassium 10 mEq daily, Lipitor 40 mg daily, gabapentin 300 mg three times a day, Norvasc 10 mg daily, Protonix 40 mg daily, Singulair 10 mg daily, Synthroid 80 mcg daily, Tylenol p.r.n., Ultram 50 mg every 6 hours, Zoloft 150 mg. REVIEW OF SYSTEMS: No headache, had some rhinitis. Has a left nostril Rhino Rocket, mild cough and shortness of breath. No chest pain. No nausea, vomiting, diarrhea, leg pain or leg swelling, has hip and knee pain. PHYSICAL EXAMINATION: GENERAL: No acute distress. VITAL SIGNS: Temperature is 98, heart rate 75, respiratory rate is 18, blood pressure 153/66, pulse oximetry 95% on room air. HEENT: Moist mucous membranes. Crowded airway. Left nostril has a Rhino Rocket. LUNGS: Have fair airflow with rhonchi. HEART: Normal S1, S2. ABDOMEN: Soft, nontender, no organomegaly. EXTREMITIES: No edema. NEUROLOGIC: Awake, alert, follows simple commands. LABORATORY DATA: Shows hemoglobin 9.3, hematocrit 28.6, WBC 8.8, platelets are 189, INR 1.04, PTT 31. Sodium 139, potassium 4.7, chloride 105, bicarbonate 28, BUN 34, creatinine 0.9, glucose 111, calcium 8.8, total bili 0.3, AST is 39, ALT 44, alk phos is 96, troponin less than 0.01. Albumin is 3.7. CAT scan of the head done which shows no acute intracranial findings, had a chest x-ray done in the ER, which shows no infiltrate or effusion. EKG shows a normal sinus rhythm with sinus arrhythmia, anteroseptal infarct, age undetermined. IMPRESSION AND PLAN: Epistaxis, failed cauterization, ended up with Rhino Rocket, history of chronic lung disease, coronary artery disease, hypertension, diabetes, stroke, multiple falls with fractures, requiring kyphoplasty, severe degenerative joint disease, has had sleep apnea syndrome, noncompliant with the CPAP. The case is discussed. The patient's is at bedside. All the questions answered. I agree with the present treatment, will suggest adding Augmentin 875 twice a day while the patient has Rhino Rocket, inhaled bronchodilator. We will place her CPAP 5 cm while sleeping with humidification, nasal saline two sprays in the right nostril every six hours, sequential compression device to the lower extremity, gastric prophylaxis, fall precaution. Thank you and we will follow with you. Homer Sawant MD
[2018-11-09] MEDS ORDERED: Potassium Chloride 10 mEq ER Tab PO SCH (10:00)
--- NOTE | 2018-11-10 07:18 | DS ---
HOSPITAL COURSE: The patient was seen only one time by me on 11/07/2018. The patient came with heavy epistaxis, it came x2 actually in the emergency room and we admitted the patient, and seen by ENT. Bilateral nose was packed and Rhino Rocket was placed. The patient's pain got better. CAT scan of the head. Now, the patient will follow up with ENT as outpatient. For more detail, see my H and P dictated on 11/07/2018. Michelle Aviles MD MTDD
== END 2018-11-07 16:30 | disposition home health service (06) ==
LOC: ED 13:40 → ERH 16:36 → 5RNO 18:36
PROVIDERS: ADMIT Internal Medicine; ATTEND Internal Medicine
DX: R04.0 Epistaxis (principal); I11.0 Hypertensive heart disease with heart failure; I50.9 Heart failure, unspecified; Z79.82 Long term (current) use of aspirin; Z79.4 Long term (current) use of insulin; G47.33 Obstructive sleep apnea (adult) (pediatric); J44.9 Chronic obstructive pulmonary disease, unspecified; I25.10 Atherosclerotic heart disease of native coronary artery without angina pectoris; E78.00 Pure hypercholesterolemia, unspecified; Z79.02 Long term (current) use of antithrombotics/antiplatelets; Z86.73 Personal history of transient ischemic attack (TIA), and cerebral infarction without residual deficits; D64.9 Anemia, unspecified; E03.9 Hypothyroidism, unspecified; E11.65 Type 2 diabetes mellitus with hyperglycemia; E78.5 Hyperlipidemia, unspecified; K21.9 Gastro-esophageal reflux disease without esophagitis; Z91.19 Patient's noncompliance with other medical treatment and regimen; Z96.653 Presence of artificial knee joint, bilateral; F32.9 Major depressive disorder, single episode, unspecified; F41.9 Anxiety disorder, unspecified; R53.1 Weakness; L03.116 Cellulitis of left lower limb; L03.115 Cellulitis of right lower limb; D47.2 Monoclonal gammopathy; J34.2 Deviated nasal septum; Z91.81 History of falling; R29.6 Repeated falls; M19.90 Unspecified osteoarthritis, unspecified site
CPT/HCPCS: 30901; 36415; 70450; 71045; 80053; 82550; 84484; 85025; 85027; 85610; 85730; 93005; 94640; 99284; G0378